=== PATIENT | male | born 1935 | race Caucasian/White ===

== ENCOUNTER 2017-04-03 20:30 | Inpatient (IN) | payer MEDICARE, OTHER ==
[~2017-04-03] VITALS: Ht 182.9 cm; Wt 64.6 kg
--- NOTE | 2017-04-03 20:40 | ERA ---
ER Documentation Chief Complaint Date/Time DATE: 04/03/17 TIME: 20:40 Chief Complaint Fever HPI The patient is a 81-year-old male, presenting to the ER because of fever, low O2 saturation, tachycardia from the [facility]. He is unable to provide any history, the history is obtained from talkback host and assisted facility record. Past medical history: GERD, tremor, chronic kidney disease, hypertension, diabetes mellitus, dementia, anxiety, insomnia ROS All systems reviewed and are negative except as per history of present illness. Allergies Allergies: Coded Allergies: atenolol (Verified Allergy, Unknown, 04/03/17) ciprofloxacin (Verified Allergy, Unknown, 04/03/17) morphine (Verified Allergy, Unknown, 04/03/17) oxazepam (Verified Allergy, Unknown, 04/03/17) valdecoxib (Verified Allergy, Unknown, 04/03/17) verapamil (Verified Allergy, Unknown, 04/03/17) Physical Exam Vitals Vital Signs Date Time Temp Pulse Resp B/P Pulse Ox O2 Delivery O2 Flow Rate FiO2 04/03/17 23:16 104 23 136/60 100 Nasal Cannula 3.0 04/03/17 22:12 90 25 163/120 98 Nasal Cannula 3.0 04/03/17 21:30 2.0 04/03/17 20:58 104.0 112 28 143/89 97 04/03/17 20:58 Nasal Cannula 3 Physical Exam Const: No acute distress. Head: Atraumatic. Eyes: Normal Conjunctiva. ENT: Normal External Ears, Nose and Mouth. Neck: Full range of motion. No meningismus. Resp: Clear to auscultation anteriorly and laterally, tachypnea Cardio: Regular but tachycardic Abd: Soft, non distended, normal bowel sounds, non tender. Skin: No petechiae or rashes. Back: No midline or flank tenderness. Ext: No cyanosis, or edema. Neur: Unable to perform due to his condition Psych: Unable to perform due to his condition Result Diagram: 04/03/17211404/03/172114 Results 24 hrs Laboratory Tests Test 04/03/17 20:43 04/03/17 21:05 04/03/17 21:15 04/03/17 22:27 Blood Gas Specimen Source Blood arterial Arterial Blood Date Drawn 04/03/2017 9:20:21 PM Arterial Blood pH (Temp corrected) 7.490 Arterial Blood pCO2 (Temp correct) 28.6mmhg Arterial Blood pO2 (Temp corrected) 88.3mmHG Arterial Blood HCO3 21.3mmol/L Arterial Blood Base Excess -0.7mmol/L Arterial Blood Oxygen Saturation 97.0mmHG Osvaldo Test ACCEPTAB Arterial Blood Gas Puncture Site Right Radial Arterial Blood Carboxyhemoglobin 0.8% Arterial Blood Methemoglobin 0.5% Blood Gas A-a O2 Differential 70.4mmHg Oxyhemoglobin Percent 95.7% Total Hemoglobin 14.9g/dl Blood Gas Temperature 37.0C Blood Gas Modality NASAL CANNULA FiO2 27.0% Blood Gas Notified Whom MG Blood Gas Notified Time 04/03/2017 9:25:44 PM Urine Color RED Urine Clarity OTHER Urine pH 6.0 Urine Specific [place] 1.020 Urine Ketones 15 Urine Nitrite NEGATIVE Urine Bilirubin NEGATIVE Urine Urobilinogen 1.0 E.U./dL Urine Leukocyte Esterase NEGATIVE Urine Microscopic RBC >200/HPF Urine Microscopic WBC 0-2/HPF Urine Squamous Epithelial Cells OCCASIONAL Urine Bacteria FEW Urine Hemoglobin 3+ Urine Glucose NEGATIVE% Urine Total Protein 2+ Lactic Acid Level 1.5mmol/L 1.1mmol/L White Blood Count 8.010^3/ul Red Blood Count 4.3310^6/ul Hemoglobin 14.5g/dl Hematocrit 43.4% Mean Corpuscular Volume 100.2fl Mean Corpuscular Hemoglobin 33.5pg Mean Corpuscular Hemoglobin Concent 33.4g/dl Red Cell Distribution Width 11.0% Platelet Count 44180^3/UL Mean Platelet Volume 11.0fl Neutrophils % 89.0% Lymphocytes % 8.0% Monocytes % 3.0% Neutrophils # 7.110^3/ul Lymphocytes # 0.610^3/ul Monocytes # 0.210^3/ul Large Platelets FEW Prothrombin Time 17.8Sec Prothrombin Time Ratio 1.4 INR International Normalized Ratio 1.46 Activated Partial Thromboplast Time 33.2Sec Sodium Level 137mmol/L Potassium Level 4.9mmol/L Chloride Level 102mmol/L Carbon Dioxide Level 28mmol/L Anion Gap 12 Blood Urea Nitrogen 31mg/dl Creatinine 1.37mg/dl Glucose Level 183mg/dl Calcium Level 9.1mg/dl Total Bilirubin 1.5mg/dl Direct Bilirubin 0.00mg/dl Indirect Bilirubin 1.5mg/dl Aspartate Amino Transf (AST/SGOT) 22IU/L Alanine Aminotransferase (ALT/SGPT) 30IU/L Alkaline Phosphatase 55IU/L Troponin I 0.236ng/ml Total Protein 7.9g/dl Albumin 4.3g/dl Globulin 3.60g/dl Albumin/Globulin Ratio 1.19 Valproic Acid (Depakene) Level 21ug/ml Current Medications Medications (Trade) Dose Ordered Sig/Jovany Route PRN Reason Start Time Stop Time Status Last Admin Dose Admin Acetaminophen 650 mg 650 mg ONCE STAT MS 04/03/17 20:43 04/03/17 20:46 DC 04/03/17 21:27 Sodium Chloride 1,000 ml @ 1,000 mls/hr Q1H ONCE IV 04/03/17 23:00 04/03/17 23:59 DC 04/03/17 22:45 Cefepime HCl 50 ml @ 100 mls/hr ONCE ONCE IVPB 04/03/17 23:30 04/03/17 23:59 DC 04/03/17 23:34 Vancomycin HCl (Vancocin) 250 ml @ 125 mls/hr ONCE IVPB 04/03/17 23:30 04/04/17 01:29 04/04/17 00:13 Aspirin (Aspirin) 300 mg ONCE ONCE MS 04/03/17 23:30 04/03/17 23:50 DC 04/03/17 23:57 Procedures/[place] [id number] Radiology Main Line: [phone] DIAGNOSTIC IMAGING REPORT Patient: OSKAR OCHOA : 1935 Age: 81 Sex: M MR #: [id number] DOS: 04/03/172042 Ordering MD: JASON MONTENEGRO MD Location: E/R Room/Bed: PROCEDURE: Portable chest x-ray. CLINICAL INDICATION: Sepsis. TECHNIQUE: Portable AP view of the chest. COMPARISON: None. FINDINGS: There are airspace opacities in the left lower lung. The cardiac silhouette is magnified. There are aortic calcifications. No pleural effusion is seen. There is no pneumothorax. IMPRESSION: 1. Airspace opacities in the left lower lung, consistent with pneumonia. 2. Aortic atherosclerosis. RPTAT: HTAR .Miguel A Nixon MD, MD Date Time Electronically viewed and signed by .Miguel A Nixon MD, MD on 04/03/2017 23:54 .R/ CC: JASON MONTENEGRO MD EKG: Read by emergency physician Rate/Rhythm: Normal Sinus Rhythm 96 beats/min QRS, ST, T-waves: No ST elevation, no T inversion, LAD, prolonged QT Impression: Abnormal EKG MEDICAL MAKING DECISION: The patient is a 81-year-old male, presenting with acute pneumonia, acute non-STEMI. He was treated with Tylenol suppository for fever, straight cath was down to obtain a urine specimen, cefepime IV, vancomycin IV for acute healthcare acquired pneumonia, aspirin 300 mg suppository for acute non-STEMI. The differential diagnoses for acute elevated troponin considered include but are not limited to acute coronary syndrome, acute myocardial infarction, pericarditis, pulmonary embolism, aortic dissection, pneumonia, pleural effusion , pneumothorax, GERD, chest wall pain. The differential diagnoses for acute pneumonia considered include but are not limited to asthma, COPD, pneumonia, pulmonary embolus, pleural effusion, congestive heart failure. Departure Diagnosis: Primary Impression: Acute non-ST segment elevation myocardial infarction (STEMI) following previous myocardial infarction Additional Impressions: Pneumonia Thrombocytopenia Condition: Stable Comments Critical Care: Time: 35 minutes excluding all billable procedures. Treatments/Evaluations: Close monitoring and treatment of unstable vital signs, cardiorespiratory, and neurologic status, while maintaining tight balance of fluid, respiratory, and cardiac interventions. I discussed the findings with the patient. I discussed the patient with the on- call hospitalist Dr. Sandoval at 11:35 PM who was made aware of the lab, the treatment, the patient condition. The patient is admitted to telemetry JASON MONTENEGRO MD April 03, 2017 20:40
[2017-04-03] MEDS ORDERED: ACETAMINOPHEN 650 MG SUPP PR STA (20:43)
[2017-04-03 21:25] LABS: AADO2 Arterial 70.4 mmHg (7.0-24.0); Allen Test ACCEPTAB; Arterial Base Excess -0.7 mmol/L (-3.0-3); Arterial COHb 0.8 % (0.0-3.0); Arterial Fraction of Oxyhgb 95.7 % (93.0-99.0); Arterial HCO3 21.3 mmol/L (22.0-26.0); Arterial MetHb 0.5 % (0.0-1.5); Arterial Total Hemglobin 14.9 g/dl (12.0-18.0); MODE NASAL CANNULA
[2017-04-03 21:27] LABS: ADD UMIC YES; URINE BILIRUBIN (Dip) NEGATIVE (NEGATIVE); URINE BLOOD (Dip) 3+ (NEGATIVE); URINE COLOR RED (YELLOW); URINE GLUCOSE (Dip) NEGATIVE (NEGATIVE); URINE KETONES (Dip) 15 (NEGATIVE); URINE LEUKOCYTE ESTERASE (Dip) NEGATIVE (NEGATIVE); URINE NITRITE (Dip) NEGATIVE (NEGATIVE); URINE TOTAL PROTEIN (Dip) 2+ (NEGATIVE); URINE UROBILINOGEN (Dip) 1.0 E.U./dL (0.1-1.0)
[2017-04-03 21:43] LABS: ADD SCAN DIFF NO
[2017-04-03 21:46] LABS: ABNORMAL IP MESSAGE 1; HEMATOCRIT 43.4 % (42.0-52.0); HEMOGLOBIN 14.5 g/dl (14.0-18.0); MEAN CORPUSCULAR HEMOGLOBIN 33.5 pg (29.0-33.0); MEAN CORPUSCULAR HGB CONC 33.4 g/dl (32.0-37.0); MEAN CORPUSCULAR VOLUME 100.2 fl (82.0-101.0); PLATELET COUNT 128 10^3/UL (140-415); RED BLOOD COUNT 4.33 10^6/ul (4.70-6.10)
[2017-04-03 22:01] LABS: INR 1.46; PROTIME 17.8 Sec (12.2-14.2); PT RATIO 1.4
[2017-04-03 22:02] LABS: PARTIAL THROMBOPLASTIN TIME 33.2 Sec (25.0-35.0)
[2017-04-03 22:04] LABS: ALBUMIN 4.3 g/dl (3.3-4.9); POTASSIUM 4.9 mmol/L (3.5-5.1)
[2017-04-03 22:04] LABS: URINE RBCS >200 /HPF (0)
[2017-04-03 22:05] LABS: BACTERIA,URINE FEW; SQUAMOUS EPITHELIAL CELL,UR OCCASIONAL
[2017-04-03 22:06] LABS: ALBUMIN/GLOBULIN RATIO 1.19; BILIRUBIN,INDIRECT 1.5 mg/dl (0-1.1); BILIRUBIN,TOTAL 1.5 mg/dl (0.2-1.3); CREATININE 1.37 mg/dl (0.61-1.24); TOTAL PROTEIN 7.9 g/dl (6.1-8.1)
[2017-04-03 22:07] LABS: CALCIUM 9.1 mg/dl (8.4-10.2)
[2017-04-03 22:32] LABS: TROPONIN-I 0.236 ng/ml (0.00-0.12)
[2017-04-03] MEDS ORDERED: SOD CHLORIDE 0.9% 1,000 ML IV ONE (23:00)
[2017-04-03 23:14] LABS: LYMPHOCYTES # 0.6 10^3/ul (0.8-2.9); MONOCYTE # 0.2 10^3/ul (0.3-0.9); NEUTROPHIL # 7.1 10^3/ul (1.6-7.5)
[2017-04-03] MEDS ORDERED: ASPIRIN 300 MG SUPP PR ONE (23:30)
[2017-04-03] MEDS ORDERED: VANCOMYCIN 1 GM (PMX) 250 ML IVPB SCH (23:30)
[2017-04-03] MEDS ORDERED: CEFEPIME 1GM/50 ML (PMX) 50 ML IVPB ONE (23:30)
--- NOTE | 2017-04-03 23:54 | RADRPT ---
PROCEDURE: Portable chest x-ray. CLINICAL INDICATION: Sepsis. TECHNIQUE: Portable AP view of the chest. COMPARISON: None. FINDINGS: There are airspace opacities in the left lower lung. The cardiac silhouette is magnified. There are aortic calcifications. No pleural effusion is seen. There is no pneumothorax. IMPRESSION: 1. Airspace opacities in the left lower lung, consistent with pneumonia. 2. Aortic atherosclerosis. RPTAT: HTAR .Miguel A Nixon MD, Date Time Electronically viewed and signed by .Miguel A Nixon MD, on 04/03/2017 23:54 .R/
[2017-04-04] VITALS (14 sets, daily range): BP systolic 129–151; BP diastolic 45–66; PULSE 40–96; RESP 16–20; TEMP 101.6; Ht 182.9 cm; Wt 64.6 kg
[2017-04-04] MEDS ORDERED: hydrALAzine 20 MG INJ IV PRN (01:30)
[2017-04-04] MEDS ORDERED: GLUCOSE GEL 15 GRAM TUBE PO PRN ×2 (02:00)
[2017-04-04] MEDS ORDERED: GLUCOSE GEL 15 GRAM TUBE BUCCAL PRN (02:00)
[2017-04-04] MEDS ORDERED: GLUCAGON 1 MG INJ IM PRN (02:00)
[2017-04-04] MEDS ORDERED: ACETAMINOPHEN 500 MG TAB PO PRN (02:00)
[2017-04-04] MEDS ORDERED: DEXTROSE 50% 50 ML SYRINGE IV PRN ×2 (02:00)
[2017-04-04] MEDS ORDERED: BISACODYL 10 MG SUPP PR PRN (02:00)
[2017-04-04] MEDS ORDERED: MAGNESIUM HYDROXIDE 30ML CUP PO PRN (02:00)
[2017-04-04] MEDS ORDERED: MAGN400O4 PO (02:17)
[2017-04-04] MEDS ORDERED: MULT-761 PO (02:17)
[2017-04-04] MEDS ORDERED: MEMA10TA16 PO (02:17)
[2017-04-04] MEDS ORDERED: CHOL100062 PO (02:17)
[2017-04-04] MEDS ORDERED: RISP0.5T3 PO (02:17)
[2017-04-04] MEDS ORDERED: LISI20TA11 PO (02:17)
[2017-04-04] MEDS ORDERED: BISA-57 PO (02:17)
[2017-04-04] MEDS ORDERED: ACET500C5 PO ×2 (02:17)
[2017-04-04] MEDS ORDERED: FAMO20TA18 PO (02:18)
[2017-04-04] MEDS ORDERED: AMLO5TAB4 PO (02:26)
[2017-04-04] MEDS ORDERED: DIVA250T60 PO (02:26)
[2017-04-04] MEDS: DEXTROSE 5%-0.45% NACL 1,000 ML IV SCH ×2 (02:27→17:04)
[2017-04-04 02:36] LABS: CK-MB 2.12 ng/ml (0.0-2.4); TROPONIN-I 0.521 ng/ml (0.00-0.12)
[2017-04-04] MEDS ORDERED: VANCOMYCIN IV PER PHARMACY XX SCH (04:30)
--- NOTE | 2017-04-04 05:07 | HP ---
DATE OF ADMISSION: 04/03/2017 CHIEF COMPLAINT: Fever, cough, and worsening mentation. HISTORY OF PRESENT ILLNESS: The patient is an 81-year-old male with a history of hypertension, diab etes, severe dementia, CKD, anxiety, depression, and psychosis who was sent from [facility] with the above stated chief complaint. The patient is currently nonverbal, and as such, inf ormation is gathered from chart review and from the ER physician. Per EMS notes, the patient is nor neo alert and oriented x1, but he became unresponsive about 30 minutes prior to their arrival. He was tachycardic, hypoxic, and had a temperature of 104. When the patient arrived to the ER, he was responsive only to painful stimuli, and he had rigid/spastic bilateral upper extremities. He was t achypneic and was frequently coughing up thick mucoid expectorate. His blood pressure was 143/89, h eart rate 112, respiratory rate 28, temperature 104, oxygen saturation 97% on 3 liters oxygen. Ches t x-ray shows airspace opacities in the left lower lung consistent with pneumonia. Laboratory value s show WBC of 8, hemoglobin 14.5, platelet count 128. Sodium 137, potassium 4.9, chloride 102, bica rbonate 28, BUN 31, creatinine 1.37, glucose 183. His initial lactic acid 1.5, second one 1.1, and third one was 1. His initial troponin was 0.236. The patient was started on cefepime and vancomycin and was given aspirin per rectum, 1 liter of norm al saline, and Tylenol. REVIEW OF SYSTEMS: Unable to assess because of the patient's condition. PAST MEDICAL HISTORY: As per HPI. PAST SURGICAL HISTORY: Unknown. SOCIAL HISTORY: Reportedly, the patient is a nonsmoker. Otherwise, social history is unknown excep t that he currently resides at a retirement. ALLERGIES: 1. ATENOLOL. 2. CIPROFLOXACIN. 3. MORPHINE. 4. OXAZEPAM. 5. VALDECOXIB. 6. VERAPAMIL. HOME MEDICATIONS: 1. Norvasc. 2. Lisinopril. 3. Tylenol. 4. Depakote. 5. Namenda. 6. Risperidone. 7. Dulcolax. 8. Famotidine. 9. Milk of magnesia. 10. Vitamin D3. 11. Multivitamin. PHYSICAL EXAMINATION: VITAL SIGNS: Blood pressure 136/60, heart rate 104, respiratory rate 23, temperature 101.6, oxygen saturation 100% on 3 liters. GENERAL: The patient lying in bed. He is nonverbal, unresponsive to verbal stimuli but responds to noxious stimuli. The upper extremities are somehow rigid. HEENT: No obvious head deformity. His pupils are reactive to light. No scleral icterus. CARDIOVASCULAR: Tachycardic with regular rhythm. LUNGS: Decreased breath sounds at the bases, more left than the right, and he has scattered crackle s. ABDOMEN: Soft, nondistended. Positive bowel sounds. EXTREMITIES: No edema. LABORATORY DATA: Pertinent positives as mentioned in HPI. IMAGING: Chest x-ray shows airspace opacity in the left lower lung consistent with pneumonia. The cardiac silhouette is magnified. No pleural effusion, and no pneumothorax. IMPRESSION: 1. Sepsis as evidenced by fever and tachycardia, secondary to pneumonia. 2. Healthcare-associated pneumonia. 3. Positive troponin. 4. Severe dementia. 5. History of psychosis/anxiety/depression 6. Chronic kidney disease. 7. History of diabetes. PLAN: Continue telemetry monitoring. He will be placed on broad spectrum antibiotic. We will foll ow up on culture results. We will attempt to send sputum for Gram stain and culture if possible. H is positive troponin is likely a result of demand ischemia from sepsis. We will trend his troponin. EKG without ST-T abnormalities. The patient will need a formal swallow evaluation, and as such, w e will place him on aspirin per rectum daily. The rest of his medication will be given if he passed swallow evaluation. Otherwise, will put in an NG tube and will give medication through that. We w ill check A1c, fasting lipids, and TSH in the morning. We will place a cardiology consult. We will also obtain a 2-D echo. We will also place an ID consult. Further workup and management will be per clinical course. Dictated By: GOSIA ELIZONDO/AROLDO Conf#: [id number] DID#: [id number]
[2017-04-04 06:47] LABS: ADD SCAN DIFF NO
[2017-04-04 06:53] LABS: ABNORMAL IP MESSAGE 1; BASOPHILS % 0.2 % (0.0-2.0); HEMATOCRIT 36.9 % (42.0-52.0); HEMOGLOBIN 12.1 g/dl (14.0-18.0); LYMPHOCYTES # 0.7 10^3/ul (0.8-2.9); LYMPHOCYTES % 11.5 % (15.0-51.0); MEAN CORPUSCULAR HEMOGLOBIN 33.1 pg (29.0-33.0); MEAN CORPUSCULAR HGB CONC 32.8 g/dl (32.0-37.0); MEAN CORPUSCULAR VOLUME 100.8 fl (82.0-101.0); MEAN PLATELET VOLUME 11.1 fl (7.4-10.4); MONOCYTE # 0.3 10^3/ul (0.3-0.9); MONOCYTES % 5.6 % (0.0-11.0); NEUTROPHILS % 82.2 % (39.0-77.0); PLATELET COUNT 99 10^3/UL (140-415); RED BLOOD COUNT 3.66 10^6/ul (4.70-6.10); RED CELL DISTRIBUTION WIDTH 11.4 % (11.5-14.5); WHITE BLOOD COUNT 6.1 10^3/ul (4.8-10.8)
[2017-04-04 07:26] LABS: ALBUMIN 3.4 g/dl (3.3-4.9); ALBUMIN/GLOBULIN RATIO 1.03; BILIRUBIN,INDIRECT 1.5 mg/dl (0-1.1); BILIRUBIN,TOTAL 1.5 mg/dl (0.2-1.3); CALCIUM 8.4 mg/dl (8.4-10.2); CHOL/HDL RATIO 3.2 RATIO; CREATININE 1.23 mg/dl (0.61-1.24); POTASSIUM 4.4 mmol/L (3.5-5.1); TOTAL PROTEIN 6.7 g/dl (6.1-8.1)
[2017-04-04 07:47] LABS: THYROID STIMULATING HORMONE 1.22 MIU/L (0.465-4.680)
[2017-04-04] MEDS: LISINOPRIL 20 MG TAB PO SCH (08:04)
[2017-04-04] MEDS: RISPERIDONE 0.25 MG TAB PO SCH (08:04)
[2017-04-04] MEDS: VALPROIC ACID 250 MG CAP PO SCH (08:04)
[2017-04-04] MEDS: ASPIRIN 300 MG SUPP PR SCH (08:05)
[2017-04-04] MEDS: INSULIN GLARGINE [LANtus] 3 ML PEN SC SCH (08:18)
[2017-04-04] MEDS: INSULIN ASPART [NOVOLOG] 3 ML PEN SC SCH ×4 (08:18→20:41)
[2017-04-04] MEDS: AMLODIPINE 5 MG TAB PO SCH (09:00)
[2017-04-04] MEDS ORDERED: ASPIRIN 300 MG SUPP PR SCH (09:00)
[2017-04-04] MEDS: CEFEPIME 1GM/50 ML (PMX) 50 ML IVPB SCH ×2 (09:00→20:44)
[2017-04-04] MEDS: LEVETIRACETAM 500 MG (PMX) 100 ML IVPB SCH ×2 (09:01→20:33)
[2017-04-04] MEDS: FAMOTIDINE 20 MG INJ IV SCH (09:01)
[2017-04-04 09:07] LABS: PLATELET ESTIMATE PLT APPEAR DECREASED
[2017-04-04] MEDS: HEPARIN 5,000 UNIT/0.5 ML VIAL SC SCH ×2 (09:29→20:48)
[2017-04-04 10:11] LABS: CK-MB 2.97 ng/ml (0.0-2.4)
[2017-04-04 10:13] LABS: TROPONIN-I 1.35 ng/ml (0.00-0.12)
--- NOTE | 2017-04-04 12:31 | RADRPT ---
Echocardiogram Report Patient Name: OSKAR OCHOA Gender: Male Date: 1935 Study Date: 04-Apr-2017 Boring Machine Set Up Operator: Rodolfo [facility] Location: 509 Ref. Physician: GOSIA ARMSTRONG Quality: Technically Difficult Study Procedures: Transthoracic echocardiogram with complete 2D, M-Mode, and doppler examination. Indications: NSTEMI. 2D/M Mode Doppler Measurement Value Normal Ranges Measurement Value Normal Ranges LVIDd 2D 4.5 3.5 - 5.6 cm INDU Vmax 0.4 cm2 LVIDs 2D 3.1 2.1 - 4.1 cm INDU VTI 0.4 cm2 LVPWd 2D 1.2 0.6 - 1.1 cm AV Mean Malik 3.3 m/sec IVSd 2D 1.2 0.6 - 1.1 cm AV Mean PG 51.2 mmHg AoR Diam 2D 2.7 2.0 - 3.7 cm AV Peak Malik 4.6 m/sec EDV 2D 92.3 cm3 AV Peak PG 84.5 mmHg ESV 2D 30.1 cm3 AV VTI 113.1 cm LA Dimen 2D 3.4 2.3 - 4.0 cm LVOT Mean Malik 0.5 m/sec LVOT Diam 1.8 cm LVOT Mean PG 1.2 mmHg LVOT Peak Malik 0.8 m/sec LVOT Peak PG 2.7 mmHg LVOT VTI 16.6 cm MV E Peak Malik 1.3 m/sec MV A Peak Malik 0.7 m/sec MV E/A 1.9 MV Decel Time 191 msec MV Decel Worth 7 MV E/A 1.9 TR Peak Malik 2.8 m/sec TR Peak PG 30.7 mmHg RVSP 39.0 mmHg Findings Left Ventricle: Normal left ventricular systolic function. Normal left ventricular cavity size. Mild concentric left ventricular hypertrophy. Ejection fraction is visually estimated at 50 %. Right Ventricle: Normal right ventricular size. Normal right ventricular systolic function. Left Atrium: The left atrium is normal in size. Right Atrium: The right atrium is normal in size. Mitral Valve: Mitral valve leaflets appear mildly thickened. Mild mitral annular calcification. Mild to moderate mitral valve regurgitation. Aortic Valve: Severe aortic stenosis. Aortic valve Max velocity 4.60 m/sec. Max PG 84.50 mmHg. Mean PG 51.20 mmHg. Aortic valve area 0.40 cm2. Aortic cusps appear severely calcified. Mild to moderate aortic valve regurgitation. Tricuspid Valve: Tricuspid valve not well visualized. Estimated peak PA systolic pressure 39 mmHg. There is mild tricuspid regurgitation. Pulmonic Valve: Pulmonic valve not well visualized. There is trace pulmonic regurgitation. Pericardium: Normal pericardium with no significant pericardial effusion. Aorta: Normal aortic root. IVC: Dilated IVC with respiratory collapse consistent with elevated right atrial pressure. Conclusions 1.Normal left ventricular systolic function. Normal left ventricular cavity size. Mild concentric left ventricular hypertrophy. Ejection fraction is visually estimated at 50 %. 2.Mitral valve leaflets appear mildly thickened. Mild mitral annular calcification. Mild to moderate mitral valve regurgitation. 3.Severe aortic stenosis. Aortic valve Max velocity 4.60 m/sec. Max PG 84.50 mmHg. Mean PG 51.20 mmHg. Aortic valve area 0.40 cm2. Aortic cusps appear severely calcified. Mild to moderate aortic valve regurgitation. 4.Tricuspid valve not well visualized. Estimated peak PA systolic pressure 39 mmHg. There is mild tricuspid regurgitation. 5.Dilated IVC with respiratory collapse consistent with elevated right atrial pressure. Electronically Signed By: Paresh Mary 04-Apr-2017 12:30:19 -0700 Patient Name: OSKAR OCHOA Study Date: 04-Apr-2017 [id number]
--- NOTE | 2017-04-04 13:59 | CONS ---
DATE OF ADMISSION: 04/03/2017 DATE OF CONSULTATION: 04/04/2017 TYPE OF CONSULTATION: Cardiology. REFERRING PHYSICIAN: Dr. Singh REASON FOR CONSULTATION: Abnormal troponin. CHIEF COMPLAINT: Altered level of consciousness, fever, cough. HISTORY OF PRESENT ILLNESS: Thank you for this referral. The patient is an extremely poor historian . The history obtained from discussion with the staff and physicians and review of the chart. This is an 81-year-old gentleman with history of diabetes, severe dementia, anxiety who was [facility] the [facility] because of complaints. The patient apparently has had fever, cough and has become more confused. He had a fever of 104. Troponin has been elevated for which I was kindly asked to review. It is very difficult to get any reliable history from the patient. There does not appear t o be any significant left-sided chest pain or pressure at this time. Does complain of leg pain when asked though. PAST MEDICAL HISTORY: The best I could obtain, history of dementia, hypertension, diabetes, depress ion, anxiety, chronic kidney disease. Per echo today also apparently has severe aortic stenosis as well. SOCIAL HISTORY: The patient is a nonsmoker. Lives in a [facility]dc. ALLERGIES: Reported to be: 1. ATENOLOL. 2. CIPRO. 3. MORPHINE. 4. CEFEPIME. 5. VERAPAMIL. Detail is unclear. MEDICATIONS: At home include: 1. Norvasc. 2. Lisinopril. 3. Depakote. 4. Namenda. 5. Risperdal. 6. Milk of magnesia. REVIEW OF SYSTEMS: Unable to obtain except for above-mentioned. FAMILY HISTORY: Unable to obtain. PHYSICAL EXAMINATION: VITAL SIGNS: Temperature 97.7, heart rate of 83, blood pressure 129/60, respiratory rate 18. HEENT: Normocephalic, atraumatic. No acute distress. Thin gentleman. Pupils are equal. CARDIOVASCULAR: Regular rate and rhythm, systolic ejection murmur radiating to carotids, grade III to IV/. PULMONARY: With no wheezes heard. GASTROINTESTINAL: Soft, nontender. EXTREMITIES: No significant lower extremity edema. NEUROLOGIC: Awake, alerted. Oriented to person only. PSYCHIATRIC: Appeared to be calm now. LABORATORY: Showed WBC of 6.1, hemoglobin 12.1, platelets of 99. Sodium 139, potassium 4.4, BUN of 30, creatinine 1.23, glucose of 160. Troponin of 0.5 and 1.3. Cholesterol 170, LDL 71, HDL 34. E KG with normal sinus rhythm. Nonspecific ST abnormalities. Echocardiogram was personally reviewed, showed preserved systolic function, overall ejection fraction estimated about 50%. There is a sonja rely calcified aortic valve with a mean gradient of 51. Peak gradient of 84 noted. Consistent with severe aortic stenosis. ASSESSMENT AND PLAN: 1. Qql-CI-ppceasdpn myocardial infarction. 2. Severe aortic stenosis. 3. Pneumonia. 4. Severe dementia. 5. Hypertension. 6. Chronic kidney disease. RECOMMENDATIONS: The patient has been appropriately placed on aspirin. We will continue with aspir in. Currently unable to take p.o. medication. ____ recommendations. We will continue conservative therapy given his severe dementia. Will continue to monitor along with you. Dictated By: ALVINA GARCIA MD AV/AROLDO Conf#: [id number] DID#: [id number] CC: BERENICE SINGH MD;*EndCC*
[2017-04-04] MEDS: VANCOMYCIN 1.25 GM in SOD CHLORIDE 0.9% 250 ML IVPB SCH (22:15)
[2017-04-05] VITALS (14 sets, daily range): BP systolic 114–131; BP diastolic 49–61; PULSE 61–150; RESP 16–20
[2017-04-05] MEDS ORDERED: VANCOMYCIN 750 MG in SOD CHLORIDE 0.9% 150 ML IVPB SCH (00:30)
[2017-04-05] MEDS: ACCU-CHEK XX SCH (01:50)
[2017-04-05] MEDS: DEXTROSE 5%-0.45% NACL 1,000 ML IV SCH ×2 (04:10→11:52)
[2017-04-05 06:51] LABS: ADD SCAN DIFF NO
[2017-04-05 06:58] LABS: BASOPHILS % 0.2 % (0.0-2.0); HEMATOCRIT 39.2 % (42.0-52.0); HEMOGLOBIN 12.9 g/dl (14.0-18.0); LYMPHOCYTES # 0.8 10^3/ul (0.8-2.9); MEAN CORPUSCULAR HEMOGLOBIN 33.6 pg (29.0-33.0); MEAN CORPUSCULAR HGB CONC 32.9 g/dl (32.0-37.0); MEAN CORPUSCULAR VOLUME 102.1 fl (82.0-101.0); MEAN PLATELET VOLUME 11.1 fl (7.4-10.4); MONOCYTE # 0.5 10^3/ul (0.3-0.9); MONOCYTES % 8.1 % (0.0-11.0); NEUTROPHIL # 4.7 10^3/ul (1.6-7.5); NEUTROPHILS % 78.5 % (39.0-77.0); PLATELET COUNT 114 10^3/UL (140-415); RED BLOOD COUNT 3.84 10^6/ul (4.70-6.10); RED CELL DISTRIBUTION WIDTH 11.1 % (11.5-14.5)
[2017-04-05 07:11] LABS: ALBUMIN 3.7 g/dl (3.3-4.9)
[2017-04-05 07:12] LABS: POTASSIUM 5.1 mmol/L (3.5-5.1)
[2017-04-05 07:13] LABS: PHOSPHORUS 2.9 mg/dl (2.5-4.9)
[2017-04-05 07:14] LABS: BILIRUBIN,INDIRECT 0.8 mg/dl (0-1.1); BILIRUBIN,TOTAL 0.8 mg/dl (0.2-1.3); CREATININE 1.28 mg/dl (0.61-1.24); TOTAL PROTEIN 7.4 g/dl (6.1-8.1)
[2017-04-05 07:15] LABS: CALCIUM 8.8 mg/dl (8.4-10.2)
--- NOTE | 2017-04-05 07:29 | PN ---
DATE: 04/04/2017 TIME OF EVALUATION: 1700. SUBJECTIVE DATA: The patient remains sinus bradycardic. Status post evaluation by Cardiology. OBJECTIVE DATA: VITAL SIGNS: Temperature 98.2, pulse is 79, respiratory rate 18, blood pressure 130/45, oxygen saturation 98% on room air. GENERAL: This is an elderly male patient lying in bed in no apparent distress. HEENT: Head normocephalic and atraumatic. Eyes: Anicteric sclerae. Conjunctivae clear. ENT: Nasal septum is midline. Oral mucosa is dry. NECK: Supple. No JVD noticed. RESPIRATORY: Bilaterally clear to auscultation. No adventitious breath sounds heard. No use of accessory muscles of respiration. CARDIAC: Regular rate and rhythm with a grade III/ systolic ejection murmur. ABDOMEN: Soft, nontender and nondistended. Bowel sounds positive in all 4 quadrants. GENITOURINARY: Deferred. EXTREMITIES: No cyanosis, no clubbing, no edema. Peripheral pulses are palpable. NEUROLOGIC: The patient is awake and alert. OrientedX1. LABORATORY AND DIAGNOSTIC DATA: WBC 6.1, hemoglobin 12.1, hematocrit 36.9, platelet count 99. Sodium 139, potassium 4.4, chloride 103, carbon dioxide 25, anion gap 15, BUN 30, creatinine 1.23, glucose 150, calcium 8.4. ASSESSMENT AND PLAN: 1. Usr-FU-qwvlskyds myocardial infarction. Status post evaluation by Cardiology. Continue the patient on aspirin. 2. Essential hypertension. Continue antihypertensives. 3. Healthcare-associated pneumonia. Continue antibiotics. No evidence of any septic shock. 4. Sepsis secondary to underlying pneumonia. No evidence of septic shock. Continue antibiotics. 5. Type 2 diabetes mellitus. Continue sliding scale insulin. Obtain a hemoglobin A1c. 6. Dementia. Continue frequent reorientation. Continue close monitoring. 7. Thrombocytopenia. Monitor platelet count closely. Monitor for bleeding. 8. Hematuria. Monitor. Most probably secondary to underlying trauma from Marsh catheter insertion. 9. Severe aortic stenosis. Will monitor. 10. Fluids, electrolytes and nutrition. Pureed diet. 11. Deep venous thrombosis prophylaxis. Subcutaneous heparin. 12. Gastrointestinal prophylaxis with histamine 2 receptor blockers. PLAN: 1. Continue telemetry monitoring. 2. Continue Cardiology recommendations. The case was discussed with Dr. Cabezas. WHITNEY CABEZAS MD, AM/AROLDO Conf#: [id number] DID#: [id number] MTDD
[2017-04-05] MEDS: INSULIN ASPART [NOVOLOG] 3 ML PEN SC SCH ×4 (07:55→21:48)
[2017-04-05] MEDS: INSULIN GLARGINE [LANtus] 3 ML PEN SC SCH (08:00)
[2017-04-05 08:35] LABS: CK-MB 2.65 ng/ml (0.0-2.4); TROPONIN-I 0.364 ng/ml (0.00-0.12)
[2017-04-05] MEDS: ASPIRIN 300 MG SUPP PR SCH ×2 (09:00→11:10)
[2017-04-05] MEDS: HEPARIN 5,000 UNIT/0.5 ML VIAL SC SCH ×2 (09:00→21:48)
[2017-04-05] MEDS: FAMOTIDINE 20 MG INJ IV SCH (09:06)
[2017-04-05] MEDS: VALPROIC ACID 250 MG CAP PO SCH (09:06)
[2017-04-05] MEDS: LEVETIRACETAM 500 MG (PMX) 100 ML IVPB SCH ×2 (09:06→21:36)
[2017-04-05] MEDS: RISPERIDONE 0.25 MG TAB PO SCH (09:07)
[2017-04-05] MEDS: AMLODIPINE 5 MG TAB PO SCH (09:18)
[2017-04-05] MEDS: LISINOPRIL 20 MG TAB PO SCH (09:18)
[2017-04-05] MEDS: CEFEPIME 1GM/50 ML (PMX) 50 ML IVPB SCH ×2 (09:20→21:43)
--- NOTE | 2017-04-05 14:31 | PN ---
Date/Time of Note Date/Time of Note DATE: 04/05/17 TIME: 14:22 Assessment/Plan VTE Prophylaxis VTE Prophylaxis Intervention: heparin Lines/Catheters IV [facility]ter Type (from [facility]): Peripheral IV Urinary Cath still in place: Yes Reason Cath still needed: urinary retention Assessment/Plan Chief Complaint/Hosp Course ASSESSMENT AND PLAN: 1. Hwm-TE-psyiouhtj myocardial infarction. Cardiology has been consulted. Continue the patient on aspirin. Continue medical management, no indication for left heart catheterization as per operations consultant 2. Essential hypertension. Continue antihypertensives. 3. Healthcare-associated pneumonia. Cefepime 4. Dementia. Continue frequent reorientation. Continue close monitoring. 5. Type 2 diabetes mellitus. Continue sliding scale insulin and Lantus 6. Hematuria. Monitor. Most probably secondary to underlying trauma from Marsh catheter insertion. Urology has been consulted 7. Thrombocytopenia. Monitor platelet count closely. Monitor for bleeding. 8. Severe aortic stenosis. Will monitor. Continue medical management 9. Altered mental status. Likely secondary to pneumonia and dementia Continue IV antibiotics, PT OT eval and treat Deep venous thrombosis prophylaxis. Subcutaneous heparin. Gastrointestinal prophylaxis with paolo. PLAN: 1. Continue telemetry monitoring. 2. Continue Cardiology recommendations. Problems: Subjective 24 Hr Interval Summary Free Text/Dictation Patient continues to be altered Not able to follow simple commands Denies of any discomfort Exam/Review of Systems Vital Signs Vitals Vital Signs Date Time Temp Pulse Resp B/P Pulse Ox O2 Delivery O2 Flow Rate FiO2 04/05/17 12:15 74 04/05/17 11:32 98.7 18 120/49 95 04/05/17 07:21 Nasal Cannula 1.0 Intake and Output 04/04/17 04/04/17 04/05/17 15:00 23:00 07:00 Intake Total 150 ml 470 ml 1100 ml Output Total 300 ml 250 ml Balance 150 ml 170 ml 850 ml Exam General: The patient is lying the bed comfortably, Not in acute distress. HEENT: Atraumatic, normocephalic. The pupils are equal and round . Neck: Supple Chest: Normal expansion of the thorax during inspiration Lungs: Clear to auscultation bilaterally Heart: Normal S1-S2, Regular rhythm and rate. Abdomen: Soft , nontender, nondistended , bowel sounds are present. Extremities: Multiple bruising bilateral upper and lower extremity, no edema no cyanosis Neurologic:, patient is awake, not oriented Results Result Diagram: 04/05/17 0620 04/05/17 0620 Results 24 hrs Laboratory Tests Test 04/04/17 17:09 04/04/17 20:40 04/05/17 06:20 04/05/17 11:55 Bedside Glucose 115 147 277 H White Blood Count 6.0 Red Blood Count 3.84 L Hemoglobin 12.9 L Hematocrit 39.2 L Mean Corpuscular Volume 102.1 H Mean Corpuscular Hemoglobin 33.6 H Mean Corpuscular Hemoglobin Concent 32.9 Red Cell Distribution Width 11.1 L Platelet Count 114 L Mean Platelet Volume 11.1 H Neutrophils % 78.5 H Lymphocytes % 13.0 L Monocytes % 8.1 Eosinophils % 0.0 Basophils % 0.2 Nucleated Red Blood Cells % 0.0 Neutrophils # 4.7 Lymphocytes # 0.8 Monocytes # 0.5 Eosinophils # 0.0 Basophils # 0.0 Nucleated Red Blood Cells # 0.0 Sodium Level 143 Potassium Level 5.1 Chloride Level 112 H Carbon Dioxide Level 26 Anion Gap 10 # Blood Urea Nitrogen 33 H Creatinine 1.28 H Glucose Level 190 Hemoglobin A1c 5.4 Calcium Level 8.8 Phosphorus Level 2.9 Magnesium Level 2.0 Total Bilirubin 0.8 Direct Bilirubin 0.00 Indirect Bilirubin 0.8 Aspartate Amino Transf (AST/SGOT) 26 Alanine Aminotransferase (ALT/SGPT) 28 Alkaline Phosphatase 49 Creatine Kinase 77 Creatine Kinase Index 3.4 Creatinine Kinase MB (Mass) 2.65 H Troponin I 0.364 *H Total Protein 7.4 Albumin 3.7 Globulin 3.70 H Albumin/Globulin Ratio 1.00 Medications Medications Current Medications Dextrose/Sodium Chloride 1,000 ml @ 75 mls/hr [id number] IV Last administered on 04/05/17 11:52; Admin Dose 75 MLS/HR; Start 04/04/17 at 01:30 Levetiracetam (Keppra 500 Mg/ 100ml (Pmx)) 100 ml @ 400 mls/hr Q12 IVPB Last administered on 04/05/17 09:06; Admin Dose 400 MLS/HR; Start 04/04/17 at 09:00 Diagnostic Test (Pha) (Accu-Chek) 1 ea 02 XX ; Start 04/05/17 at 02:00 Insulin Glargine (Lantus) 10 unit DAILY@08 SC Last administered on 04/04/17 08 :18; Admin Dose 10 UNIT; Start 04/04/17 at 08:00 Hydralazine HCl (Apresoline) 10 mg Q4H PRN IV ELEVATED BLOOD PRESSURE; Start at 01:30 Miscellaneous Information 1 ea NOTE XX ; Start 04/04/17 at 02:00 Glucose (Glutose) 15 gm Q15M PRN PO DECREASED GLUCOSE; Start 04/04/17 at 02:00 Glucose (Glutose) 22.5 gm Q15M PRN PO DECREASED GLUCOSE; Start 04/04/17 at 02: 00 Dextrose (D50w Syringe) 25 ml Q15M PRN IV DECREASED GLUCOSE; Start 04/04/17 at 02:00 Dextrose (D50w Syringe) 50 ml Q15M PRN IV DECREASED GLUCOSE; Start 04/04/17 at 02:00 Glucagon (Glucagen) 1 mg Q15M PRN IM DECREASED GLUCOSE; Start 04/04/17 at 02:00 Glucose (Glutose) 15 gm Q15M PRN BUCCAL DECREASED GLUCOSE; Start 04/04/17 at 02 :00 Aspirin (Aspirin) 300 mg DAILY PA Last administered on 04/05/17 11:10; Admin Dose 300 MG; Start 04/04/17 at 09:00 Risperidone (Risperdal) 0.5 mg DAILY PO Last administered on 04/05/17 09:07; Admin Dose 0.5 MG; Start 04/04/17 at 09:00 Acetaminophen (Tylenol Tab) 500 mg Q6H PRN PO PAIN AND OR ELEVATED TEMP; Start 04/04/17 at 02:00 Bisacodyl (Dulcolax Supp) 10 mg Q48H PRN PA CONSTIPATION; Start 04/04/17 at 02: 00 Magnesium Hydroxide (Milk Of Mag) 30 ml DAILY PRN PO CONSTIPATION; Start at 02:00 Lisinopril (Zestril) 20 mg DAILY PO Last administered on 04/05/17 09:18; Admin Dose 20 MG; Start 04/04/17 at 09:00 Memantine (Namenda) 10 mg DAILY PO ; Start 04/04/17 at 09:00; Status UNV Famotidine (Pepcid Iv) 20 mg DAILY IV Last administered on 04/05/17 09:06; Admin Dose 20 MG; Start 04/04/17 at 09:00 Amlodipine Besylate (Norvasc) 5 mg DAILY PO Last administered on 04/05/17 09: 18; Admin Dose 5 MG; Start 04/04/17 at 09:00 Valproic Acid (Depakene) 250 mg DAILY PO Last administered on 04/05/17 09:06; Admin Dose 250 MG; Start 04/04/17 at 09:00 Heparin Sodium (Porcine) 5000 unit 5,000 unit BID SC Last administered on 20:48; Admin Dose 5,000 UNIT; Start 04/04/17 at 09:00 Cefepime HCl 50 ml @ 100 mls/hr Q12 IVPB Last administered on 04/05/17 09:20 ; Admin Dose 100 MLS/HR; Start 04/04/17 at 09:00 Vancomycin HCl/ Sodium Chloride (Vancocin/NS) 250 ml @ 83.333 mls/ hr Q24H IVPB Last administered on 04/04/17 22:15; Admin Dose 83.333 MLS/HR; Start at 23:00 MÓNICA CONTRERAS MD April 05, 2017 14:31
[2017-04-05 16:38] LABS: ADD UMIC YES; URINE BLOOD (Dip) 3+ (NEGATIVE); URINE COLOR DK. RED (YELLOW); URINE KETONES (Dip) TRACE (NEGATIVE); URINE LEUKOCYTE ESTERASE (Dip) NEGATIVE (NEGATIVE); URINE NITRITE (Dip) POSITIVE (NEGATIVE); URINE TOTAL PROTEIN (Dip) 2+ (NEGATIVE); URINE UROBILINOGEN (Dip) 1.0 E.U./dL (0.1-1.0)
--- NOTE | 2017-04-05 17:26 | PN ---
DATE: 04/05/2017 CARDIOLOGY FOLLOWUP SUBJECTIVE: Discussed with the staff and with Dr. Contreras. The patient remains in sinus rhythm; however, multiple episodes of SVT and tachycardia. Apparently, there have been issues with the Fole y catheter, this has been removed. There also has been hematuria. No chest pain or pressure at thi s point. MEDICATIONS: Reviewed as per medication reconciliation, which was personally reviewed. PHYSICAL EXAMINATION: VITAL SIGNS: Temperature 97.8, heart rate of 86, blood pressure 114/58, respiratory rate of 18, sat urating 99%. HEENT: Normocephalic, atraumatic. Thin gentleman in no acute distress. Eyes: Pupils are equal. CARDIOVASCULAR: Regular rate and rhythm, systolic murmur. PULMONARY: With no wheezes or rhonchi. GASTROINTESTINAL: Soft, nontender. EXTREMITIES: No significant edema. NEUROLOGIC: Awake, alert and oriented to person only. PSYCHIATRIC: Appeared to be calm now. GENITOURINARY: Status post Marsh, with condom catheter in place now. LABORATORY DATA: WBC of 6.0, hemoglobin 12.9, platelets of 114. Sodium 143, potassium 5.1, BUN of 33, creatinine 1.28, glucose 190. Hemoglobin A1c of 5.4. CK is 77. Most recent troponin was 0 3. ASSESSMENT AND PLAN: 1. Abnormal troponin consistent with non-ST elevation myocardial infarction. 2. Aortic stenosis appears to be severe. 3. Pneumonia. 4. Severe dementia. 5. Hematuria, possibly trauma. 6. Hypertension. 7. Renal insufficiency, currently stable. RECOMMENDATIONS: The patient is currently chest pain free. Also has severe aortic stenosis. At th is point, given his severe dementia and absence of any cardiac symptoms, we will continue to monitor and treat him medically. Aspirin will be continued. I will replace his amlodipine with carvedilol as well. Dictated By: ALVINA GARCIA MD AV/NTS Conf#: [id number] DID#: [id number] CC: MÓNICA CONTRERAS MD;*EndCC*
[2017-04-05 17:28] LABS: URINE BILIRUBIN (Dip) NEGATIVE (NEGATIVE)
[2017-04-05 17:29] LABS: BACTERIA,URINE MODERATE; SQUAMOUS EPITHELIAL CELL,UR RARE; URINE RBCS >200 /HPF (0)
--- NOTE | 2017-04-05 21:07 | CONS ---
DATE OF ADMISSION: 04/03/2017 DATE OF CONSULTATION: 04/05/2017 REQUESTING PHYSICIAN: Dr. Sandoval Dear Dr. Sandoval: Thank you for asking me to see this patient in urological consultation. HISTORY OF PRESENT ILLNESS: This is an 81-year-old male who was admitted to the hospital because of fever, cough and worsening mentation, was found to have pneumonia in the left lower lung, and he ashton d a Marsh catheter, and the urine was noted to be bloody. Therefore, a urological consultation was requested. I came in and saw the patient around noontime, and apparently the catheter that he had d id not look that it is all the way inside the bladder. I tried to irrigate it, and the irrigation g oes in but it does not come out. Therefore I did remove it, and we put a condom catheter on him. I came back this evening and tried first to insert a 16-Swazi coude catheter, and that would not go in. I tried a 14-Swazi, same problem. Following that, I passed a spiral tip filiform all the way into the bladder and then dilated the urethra from #8-Swazi to #18-Swazi, then I inserted a 16-Angel nvh coude catheter without a problem. I irrigated it, and it does irrigate well. The urine was sti ll somehow blood tinged, but it looks like it's old blood. The patient himself is not capable of giving any history. I reviewed his medical record, and appare ntly he does also have a history of hypertension, diabetes and severe dementia. Also he does have c hronic kidney disease, anxiety, depression and psychosis. He usually lives in [facility]. REVIEW OF SYSTEMS: Unable to obtain except what is mentioned above. SOCIAL HISTORY: The patient presently does not smoke or drink. ALLERGIES: HE HAS MULTIPLE ALLERGIES THAT INCLUDE: 1. ATENOLOL. 2. CIPRO. 3. MORPHINE. 4. OXAZEPAM. 5. VALDECOXIB. 6. VERAPAMIL. HOME MEDICATIONS: Included: 1. Norvasc. 2. Lisinopril. 3. Tylenol. 4. Depakote. 5. Namenda. 6. Risperidone. 7. Dulcolax. 8. Famotidine. 9. Milk of magnesia. 10. Vitamin D3. 11. Multivitamin. I asked the patient whether he has any children, he said no, and whether he is , and he said no either. PHYSICAL EXAMINATION: GENERAL: An elderly male. He weighs 64.6 kg. He is 72 inches tall. VITAL SIGNS: His temperature is 97.8, respirations 18, the pulse is 86 and the blood pressure 114/5 8. ABDOMEN: Soft. There is no abdominal mass palpable. EXTERNAL GENITALIA: He does have hypospadias. The testes are normal. RECTAL: He would not allow me to do a rectal examination. EXTREMITIES: No edema. LABORATORY DATA: His CBC shows a white count of 6.0, hemoglobin 12.9, hematocrit 39.2. BUN is 33, creatinine 1.28, sodium 143, potassium 5.1, chloride 112, CO2 26. The PT 17.8, INR 1.46. The urina lysis on admission showed more than 200 RBCs, positive for nitrite, 3+ occult blood and moderate alia unt of bacteria. A urine culture that was done 2 days ago showed no growth after 48 hours. 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 RECOMMENDATION: At the present, I did go ahead and remove the old Marsh catheter that he had, and I did urethral dilatation with filiforms and followers up to #18-Swazi, then inserted a 16-Swazi co ude catheter and connected it to a drainage bag. I will order urine culture again, urine cytology a nd also will do a PSA just to make sure there is no problem with prostate cancer, and we shall order a renal ultrasound to make sure that there is no renal mass that may be having bleeding. Once he i s stable, one could always consider doing a CT scan if there is any concern about his bladder and pr ostate. Dictated By: JOHN BLAKE/AROLDO Conf#: [id number] DID#: [id number]
[2017-04-05] MEDS: MUPIROCIN 2% 22 GM OINT TOP SCH (21:33)
[2017-04-05] MEDS: VANCOMYCIN 1.25 GM in SOD CHLORIDE 0.9% 250 ML IVPB SCH (23:31)
[2017-04-05] MEDS: SOD CHLORIDE 0.9% 1,000 ML IV SCH (23:33)
[2017-04-06] VITALS (10 sets, daily range): BP systolic 101–114; BP diastolic 46–61; PULSE 65–82; RESP 15–19
[2017-04-06] MEDS: ACCU-CHEK XX SCH (01:24)
[2017-04-06 07:31] LABS: ADD SCAN DIFF NO
[2017-04-06 07:43] LABS: BASOPHILS % 0.2 % (0.0-2.0); HEMATOCRIT 32.8 % (42.0-52.0); HEMOGLOBIN 11.1 g/dl (14.0-18.0); LYMPHOCYTES # 1.2 10^3/ul (0.8-2.9); LYMPHOCYTES % 18.2 % (15.0-51.0); MEAN CORPUSCULAR HEMOGLOBIN 33.2 pg (29.0-33.0); MEAN CORPUSCULAR HGB CONC 33.8 g/dl (32.0-37.0); MEAN CORPUSCULAR VOLUME 98.2 fl (82.0-101.0); MEAN PLATELET VOLUME 11.4 fl (7.4-10.4); MONOCYTE # 0.6 10^3/ul (0.3-0.9); MONOCYTES % 9.9 % (0.0-11.0); NEUTROPHIL # 4.6 10^3/ul (1.6-7.5); NEUTROPHILS % 71.4 % (39.0-77.0); PLATELET COUNT 117 10^3/UL (140-415); RED BLOOD COUNT 3.34 10^6/ul (4.70-6.10); RED CELL DISTRIBUTION WIDTH 11.2 % (11.5-14.5); WHITE BLOOD COUNT 6.4 10^3/ul (4.8-10.8)
[2017-04-06 07:53] LABS: POTASSIUM 4.3 mmol/L (3.5-5.1)
[2017-04-06 07:56] LABS: CREATININE 0.99 mg/dl (0.61-1.24)
[2017-04-06 07:57] LABS: CALCIUM 8.2 mg/dl (8.4-10.2)
[2017-04-06] MEDS ORDERED: INSULIN GLARGINE [LANtus] 3 ML PEN SC SCH (08:00)
[2017-04-06] MEDS: VALPROIC ACID 250 MG CAP PO SCH (08:35)
[2017-04-06] MEDS: MEMANTINE 10 MG TAB PO SCH ×2 (08:35→09:09)
[2017-04-06] MEDS: RISPERIDONE 0.25 MG TAB PO SCH (08:36)
[2017-04-06] MEDS: AMLODIPINE 5 MG TAB PO SCH (08:37)
[2017-04-06] MEDS: LISINOPRIL 20 MG TAB PO SCH (08:38)
[2017-04-06] MEDS: LEVETIRACETAM 500 MG (PMX) 100 ML IVPB SCH (08:38)
[2017-04-06] MEDS: FAMOTIDINE 20 MG INJ IV SCH (08:38)
[2017-04-06] MEDS: CEFEPIME 1GM/50 ML (PMX) 50 ML IVPB SCH (08:38)
[2017-04-06] MEDS: MUPIROCIN 2% 22 GM OINT TOP SCH (08:57)
[2017-04-06] MEDS ORDERED: LISINOPRIL 5 MG TAB PO SCH (09:00)
[2017-04-06] MEDS: INSULIN ASPART [NOVOLOG] 3 ML PEN SC SCH ×2 (09:05→12:52)
[2017-04-06] MEDS: ASPIRIN 300 MG SUPP PR SCH (09:40)
[2017-04-06] MEDS: HEPARIN 5,000 UNIT/0.5 ML VIAL SC SCH (09:55)
--- NOTE | 2017-04-06 10:32 | PN ---
DATE: 04/06/2017 CARDIOLOGY FOLLOWUP SUBJECTIVE: Discussed with the staff. Rhythm strip was reviewed. The patient remains in sinus rhy thm. No reported chest pain or pressure, no palpitations. No more hematuria. MEDICATIONS: Reviewed. PHYSICAL EXAMINATION: VITAL SIGNS: Temperature 98.7, heart rate of 67, blood pressure 101/46, respiration rate of 18, sat urating 95%. HEENT: Normocephalic, atraumatic. No acute distress. Pupils are equal. CARDIOVASCULAR: Regular rate and rhythm. PULMONARY: With no wheezes anteriorly. GASTROINTESTINAL: Soft, nontender. EXTREMITIES: No edema. NEUROLOGIC: Awake, alert, oriented to person. PSYCHIATRIC: Appears to be calm. LABORATORY: Sodium 138, potassium 4.3, BUN of 27, creatinine 0.99, glucose 180, WBC of 6.4, hemoglo bin 11.1, platelets of 117. ASSESSMENT AND PLAN: 1. Ids-UI-zbwzsnwxi myocardial infarction. 2. Aortic stenosis, severe. 3. Pneumonia. 4. Dementia. 5. Status post hematuria, possibly trauma related, currently improved. 6. Hypertension. 7. Renal insufficiency appears to be stabilizing now. RECOMMENDATIONS: We will continue with conservative therapy. Antibiotic as per internal medicine. I will lower dose of LEN inhibitor to avoid hypotension, especially given her aortic stenosis. Con servative medical therapy will be continued given his severe dementia and lack of cardiac angina. Dictated By: ALVINA GARCIA MD AV/AROLDO Conf#: [id number] DID#: [id number] CC: MÓNICA CONTRERAS MD;*EndCC*
--- NOTE | 2017-04-06 11:20 | PN ---
DATE: 04/06/2017 SUBJECTIVE: Gross hematuria. The patient did have a Marsh catheter in his urethra yesterday and it did not appear to be in good position, so I had to remove it and insert a new one after doing a ure thral dilatation. The patient himself is confused and is not able to give any accurate symptoms and complaints. OBJECTIVE: VITAL SIGNS: Temperature today is 98.7, the blood pressure 101/46, pulse is 67, respiration 18. ABDOMEN: Soft. The Marsh catheter now is draining clear urine and the urine is clear in the tubing , but if one looks in the bag, it looks a little darker, but the main thing is the color of the urin e in the tubing itself. LABORATORY DATA: The CBC shows a white count of 6.4, hemoglobin 11.1, hematocrit 32.8. BUN is 27, creatinine 0.99, sodium 138, potassium 4.3, chloride 111, CO2 28. Urine cultures so far no growth i n 24 hours. IMPRESSION: Gross hematuria, most likely traumatic; however, one has to rule out other possibilitie s, such as bladder tumor. Therefore, I went ahead and I did order urine cytology for him x3. One w as supposed to be sent today, another one tomorrow, and another one the day after. I ordered a kamila l ultrasound and it appears that was canceled. The patient refused and was combative; therefore did not allow the oxygen therapy technician to do the ultrasound. IMPRESSION: Gross hematuria, most likely traumatic. The urine has since cleared and is not perfectl y yet, but it will clear as time goes by. PLAN: To continue present treatment. Dictated By: JOHN BLAKE/AROLDO Conf#: [id number] DID#: [id number]
[2017-04-06] MEDS: SOD CHLORIDE 0.9% 1,000 ML IV SCH (12:38)
--- NOTE | 2017-04-06 13:29 | PDOCDIS ---
Discharge Instructions CONDITION Patient Condition: Good HOME CARE INSTRUCTIONS: Special Diet: pureed ACTIVITY: Activity Restrictions: Special Program FOLLOW UP/APPOINTMENTS Appointments To be evaluated by the PCP at [facility] MÓNICA CONTRERAS MD April 06, 2017 13:29
[2017-04-06] MEDS ORDERED: LANT3I SC (13:33)
[2017-04-06] MEDS ORDERED: MUPI22OI2 TOP (13:33)
[2017-04-06] MEDS ORDERED: TYL500 PO (13:33)
[2017-04-06] MEDS ORDERED: VALP250C PO (13:33)
[2017-04-06] MEDS ORDERED: LISI-313 PO (13:33)
[2017-04-06] MEDS ORDERED: CEFT1PIG2 IVPB (13:33)
--- NOTE | 2017-04-06 14:55 | DS ---
DATE OF ADMISSION: 04/03/2017 DATE OF DISCHARGE: 04/06/2017 CONSULTANTS: 1. Dr. Paresh Mary 2. Dr. Zeke Rayo PROCEDURES: A 2-D echocardiogram on 04/04/2017 showed normal left ventricle systolic function, norm al left ventricle cavity size, mild concentric left ventricular hypertrophy, ejection fraction 50%. Mitral valve leaflet appeared mildly thickened, mild mitral annular calcification, severe aortic st enosis, mild to moderate aortic regurg, dilated IVC with respiratory collapse consistent with elevat ed right atrial pressure. DISCHARGE DIAGNOSES: 1. Non-ST elevation myocardial infarction. Cardiology has been consulted. The patient has been co ntinued on aspirin. Continue medical management. No indication for left heart catheterization as p er cardiology. 2. Severe aortic stenosis, stable. Continue aspirin. 3. Essential hypertension, well controlled on medical management. 4. Pneumonia, status post cefepime and vancomycin. The patient will be discharged on Rocephin. 5. Dementia. Continue Namenda. 6. Diabetes mellitus type 2. Continue Lantus insulin sliding scale. 7. Hematuria, likely secondary to underlying trauma from Marsh. Urology was consulted. No further procedure indicated. 8. Thrombocytopenia, stable. 9. Altered mental status, likely secondary to pneumonia, dementia, improving. LABORATORY DATA: Sodium 138, potassium 4.3, chloride 111, bicarbonate 28, BUN 27, creatinine 0.99, glucose 180, calcium 8.2. Triglyceride 48, total cholesterol 117, LDL 71, HDL 36. TSH 1.22. WBC 6 .4, hemoglobin 11.1, hematocrit 32.8, platelets 117. PHYSICAL EXAMINATION: VITAL SIGNS: Temperature 97.5, pulse 73, respiration rate 19, blood pressure 142/46, oxygen saturat ion 95% in room air. MEDICATIONS: 1. Tylenol. 2. Norvasc 5 mg. 3. Aspirin 162 mg. 4. Dulcolax suppository. 5. Lantus 14 units. 6. Lisinopril 5 mg. 7. Namenda 10 mg. 8. Bactroban nasal. 9. Risperdal 0.5 mg. 10. Normal saline 0.9%. 11. Valproic acid. 12. Keppra 500 mg 13. Rocephin 1 gram IV q. 24 hours x7 days. ALLERGIES: 1. OXAZEPAM. 2. MORPHINE. 3. ETHANOL. 4. CIPRO. 5. VERAPAMIL. 6. VALDECOXIB. HOSPITAL COURSE: This is an 81-year-old gentleman with past medical history of hypertension, diabet es mellitus, severe dementia, chronic kidney disease, anxiety, depression, psychosis, and aortic travis ve stenosis who was sent from [facility] secondary to having fever, cough, worsening mentation. The patient, upon arrival to the ER, was nonverbal. The patient was oriented x1 status post arriving to the emergency room after 30 minutes. He was found to be tachycardic and hypoxic w ith temperature of 104, blood pressure 143/89, heart rate 112, respirations 28, temperature 104. He was treated with cefepime and vancomycin. His chest x-ray showed opacity in the left lung consiste nt with pneumonia. His initial troponin was 0.236. Cardiology was consulted. After placement of F oley, he was found to have hematuria. Urology was consulted. After his evaluation, it was believed that the patient's hematuria is likely secondary to trauma from the Marsh. His hematuria resolved spontaneously without any irrigation. The patient's troponins continued to increase to 1.350 and th en decreased to 0.52. His lipid panel has been within normal limits. His blood glucose was found t o be elevated. He was placed insulin sliding scale with Lantus. He has been able to tolerate puree d diet without any difficulty. This morning, the patient is more awake and alert, able to follow si mple commands. At this time, the patient is medically stable to be discharged to [facility] with continuation of his medication. His LEN inhibitor has been decreased secondary to aorti c stenosis. Considering medical therapy, we will continue, given his dementia, like cardiac angina. CONDITION AT TIME OF DISCHARGE: Stable. Dictated By: MÓNICA MORILLO/AROLDO Conf#: [id number] DID#: [id number]
[2017-04-07] MEDS ORDERED: INSULIN GLARGINE [LANtus] 3 ML PEN SC SCH (08:00)
[2017-04-07] MEDS ORDERED: FAMOTIDINE 20 MG TAB PO SCH (09:00)
== END 2017-04-06 19:00 | DRG 871 ==
LOC: E/R 20:30 → TEL 23:35
PROVIDERS: ADMIT Internal Medicine; ATTEND Internal Medicine
PROC: 0T7D7ZZ Dilation of Urethra, Via Natural or Artificial Opening (ICD-10-PCS; principal; 2017-04-05)
DX: A41.9 Sepsis, unspecified organism (principal); J18.9 Pneumonia, unspecified organism; I21.4 Non-ST elevation (NSTEMI) myocardial infarction; E11.22 Type 2 diabetes mellitus with diabetic chronic kidney disease; D69.6 Thrombocytopenia, unspecified; F03.90 Unspecified dementia, unspecified severity, without behavioral disturbance, psychotic disturbance, mood disturbance, and anxiety; I35.0 Nonrheumatic aortic (valve) stenosis; R31.9 Hematuria, unspecified; R65.20 Severe sepsis without septic shock; N18.9 Chronic kidney disease, unspecified; N35.9 Urethral stricture, unspecified; N32.0 Bladder-neck obstruction
CPT/HCPCS: 36415; 36600; 71010; 80048; 80053; 80061; 80164; 81001; 82550; 82553; 82803; 82962; 83036; 83605; 83735; 84100; 84443; 84484; 85025; 85610; 85730; 87040; 87081; 87086; 88104; 92610; 93005; 93306; 96374; 96376; J0692; J1644; J1815; J1953; J3370; J7030; J7042; J7050

== ENCOUNTER 2018-05-11 19:35 | Inpatient (IN) | END 2018-05-17 14:12 | DRG 871 ==

== ENCOUNTER 2018-07-06 13:19 | Inpatient (IN) | END 2018-07-31 18:42 | DRG 4 ==

== ENCOUNTER 2018-09-22 15:30 | Inpatient (IN) | END 2018-09-26 20:13 | DRG 682 ==

== ENCOUNTER 2018-11-07 14:17 | Inpatient (IN) | payer MEDICARE, OTHER ==
[~2018-11-07] VITALS: Ht 175.3 cm; Wt 82.2 kg
[~2018-11-07 14:17] MED LIST: ACET-2047 PO; CARB1TAB2 GTB; DOXY100C GTB; ERGO2000 GTB; FAMO20TA18 GTB; FURO20TA3 GTB; HEPA100D39 SUBCUTANE; HYDR-3670 GTB; HYDR2TAB36 GTB; LANT3I SC; LEVE-5 GTB; LINA5TAB GTB; LORA0.5T GTB; MEMA10TA GTB; METO25TA4 PO; NITR0.4T32 SL; NOVO3I SC; VLP250480 GTB
--- NOTE | 2018-11-07 14:32 | ERD ---
ER Documentation Chief Complaint Chief Complaint HPI 83-year-old man brought in by EMS from half-way for increased BUN level, deh ydration, and kidney problems. Patient has had similar episodes in the past. He has had no fevers, no vomiting or diarrhea. Patient is nonverbal and I am able to provide his own HPI I supplemented the history by reviewing past medical records, half-way records, speaking to EMS, and nursing staff ROS All systems reviewed and are negative except as per history of present illness. Medications Home Meds Reported Medications Cranberry Extract (Cranberry) 425 Mg Capsule, 425 MG GTB DAILY, CAP 11/07/18 Zinc Sulfate* (Zinc Sulfate*) 220 Mg Cap, 220 MG GTB DAILY, CAP 11/07/18 Valproic Acid* (Valproic Acid* Liq) 250 Mg/5 Ml Syrup, 125 MG GTB QID, ML 11/07/18 Ascorbic Acid* (Vitamin C*) 500 Mg Capsule.sa, 500 MG GTB BID, CAP 11/07/18 Cran/Vitc/Mannose/Inulin/Brom (Uti-Stat Liquid) 3,875 Mg/30 Ml Liquid, 3875 MG GTB DAILY 11/07/18 Acetaminophen* (Acetaminophen*) 650 Mg Tablet, 650 MG GTB TRACH TUBE CHANGE PRN for PAIN AND OR ELEVATED TEMP, #30 TAB GIVE 30 MIN PRIOR 11/07/18 Acetaminophen* (Acetaminophen*) 650 Mg Tablet, 650 MG GTB Q4 PRN for MILD PAIN LEVEL 1-3, #30 TAB AND TEMP OVER 101F 11/07/18 Acetaminophen* (Acetaminophen*) 500 MG Extra Strength Tablet, 1000 MG GTB Q4 PRN for MODERATE PAIN LEVEL 4-6, TAB 11/07/18 Multivit &Minerals/Ferrous Fum (MULTIVITAMIN LIQUID) 9 Mg/15 Ml Liquid, 3 MG GTB DAILY 11/07/18 Magnesium Hydroxide* (Milk Of Magnesia*) 400 Mg/5 Ml Oral.susp, 30 ML GTB DAILY PRN for CONSTIPATION, ML 11/07/18 Memantine* (Namenda*) 10 Mg Tablet, 10 MG GTB DAILY, #30 TAB 11/07/18 Carbidopa/Levodopa (Sinemet 25-100 mg Tablet) 1 Each Tablet, 1 EACH GTB TID, TAB 11/07/18 Linagliptin (TRADJENTA) 5 Mg Tablet, 5 MG GTB DAILY, TAB 11/07/18 Metoprolol Tartrate* (Lopressor*) 25 Mg Tab, 25 MG GTB BID, #60 TAB HOLD FOR SBP BELOW 105 OR HR BELOW 60 11/07/18 Metolazone* (Metolazone*) 2.5 Mg Tablet, 2.5 MG GTB DAILY, TAB 11/07/18 Insulin Glargine* (Lantus*) 100 Unit/Ml Soln, 22 UNIT SC QHS, #1 VIAL 11/07/18 Levetiracetam* (Keppra* (Ped)) 100 Mg/Ml Liq, 500 MG GTB BID for 30 Days, BOTTLE 11/07/18 Hydralazine Hcl* (Hydralazine Hcl*) 10 Mg Tablet, 20 MG GTB Q6 PRN for ELEVATED BLOOD PRESSURE, #120 TAB SBP above 160 11/07/18 Heparin Sodium,Porcine/Pf (HEPARIN SOD 5,000 UNIT/ 0.5 ML) 5,000 Unit/0.5 Ml Vial, 5000 UNIT IJ BID, VIAL 11/07/18 Glucagon,Human Recombinant (Glucagon Emergency Kit) 1 Mg Kit, 1 MG IJ prn PRN for DECREASED GLUCOSE, KIT 11/07/18 Na Phos,M-B/Na Phos,Di-Ba (ENEMA [id number]) 133 Ml Enema, 133 ML RC prn PRN for CONSTIPATION, ENEMA 11/07/18 Famotidine* (Famotidine*) 20 Mg Tablet, 20 MG GTB DAILY, #30 TAB 11/07/18 Bisacodyl (Dulcolax) 10 Mg Supp.rect, 10 MG RC prn PRN for CONSTIPATION, SUPP.RECT 11/07/18 Docusate Sodium* (Colace*) 100 Mg Capsule, 100 MG GTB DAILY, #30 CAP 11/07/18 Chlorhexidine Gluconate (Peridex) 473 Ml Mouthwash, 15 ML MM Q12, BOTTLE 11/07/18 Lorazepam* (Lorazepam*) 0.5 Mg Tablet, 0.5 MG GTB Q6 PRN for ANXIETY, TAB 11/07/18 Albuterol Sulfate* (Albuterol Sulfate* Neb) 0.083%-3 Ml Neb, 2.5 MG NEB Q6 PRN for WHEEZING AND SOB, #30 VIAL 11/07/18 Albuterol Sulfate* (Albuterol Sulfate* Neb) 0.083%-3 Ml Neb, 2.5 MG NEB Q3H PRN for WHEEZING AND SOB, #30 VIAL 11/07/18 Discontinued Reported Medications Insulin Glargine* (Lantus*) 100 Unit/Ml Soln, 12 UNIT SC DAILY, #1 VIAL 09/22/18 Insulin Aspart* (Novolog Insulin Pen*) 100 Unit/Ml Soln, 0-12 SC .SLIDING SCALE AC, EA 09/22/18 Lorazepam* (Lorazepam*) 0.5 Mg Tablet, 0.5 MG GTB Q6 PRN for ANXIETY, TAB 09/22/18 Nitroglycerin* (Nitroglycerin* SL) 0.4 Mg Tab.subl, 0.4 MG SL Q5MIN PRN for TORI ST PAIN, BOTTLE 09/22/18 Metoprolol Tartrate* (Lopressor*) 25 Mg Tablet, 25 MG PO BID, #60 TAB 09/22/18 Memantine* (Namenda*) 10 Mg Tablet, 10 MG GTB DAILY, #30 TAB 09/22/18 Linagliptin (TRADJENTA) 5 Mg Tablet, 5 MG GTB DAILY, TAB 09/22/18 Hydromorphone Hcl* (Dilaudid*) 2 Mg Tablet, 0.5 MG GTB Q4 PRN for SEVERE PAIN LEVEL 7-10, TAB 09/22/18 Hydralazine Hcl* (Hydralazine Hcl*) 10 Mg Tablet, 20 MG GTB Q6 PRN for ELEVATED BLOOD PRESSURE, #90 TAB 09/22/18 Heparin Sodium,Porcine/Pf (Heparin 1,000 Unit/10 (100/ml)) 1,000 Unit/10 Ml Syringe, 5000 UNIT SUBCUTANE Q12 09/22/18 Furosemide* (Furosemide*) 20 Mg Tablet, 20 MG GTB DAILY, #60 TAB 09/22/18 Doxycycline* (Vibramycin*) 100 Mg Capsule, 100 MG GTB BID for 6 Days, EA 09/22/18 Carbidopa/Levodopa (Sinemet 25-100 mg Tablet) 1 Each Tablet, 1 EACH GTB TID, TAB 07/06/18 Acetaminophen* (Acetaminophen*) 650 Mg Tablet, 650 MG PO Q6H PRN for MILD PAIN LEVEL 1-3, #30 TAB AND FEVER OVER>100 DEGREES 05/11/18 Valproic Acid* (Valproic Acid* Liq) 250 Mg/5 Ml Syrup, 125 MG GTB QAM, ML 05/11/18 Ergocalciferol (Vitamin D2) (VITAMIN D2) 2,000 Unit Tablet, 2000 UNIT GTB DAILY, TAB 05/11/18 Levetiracetam* (Keppra*) 500 Mg Tablet, 500 MG GTB BID, TAB 05/11/18 Famotidine* (Famotidine*) 20 Mg Tablet, 20 MG GTB AC BREAKFAST, #30 TAB 05/11/18 Allergies Allergies: Coded Allergies: atenolol (Verified Allergy, Unknown, 11/07/18) ciprofloxacin (Verified Allergy, Unknown, 11/07/18) morphine (Verified Allergy, Unknown, 11/07/18) oxazepam (Verified Allergy, Unknown, 11/07/18) valdecoxib (Verified Allergy, Unknown, 11/07/18) verapamil (Verified Allergy, Unknown, 11/07/18) PMhx/Soc Ventilator dependent respiratory failure, history of dysphasia, chronic encephalopathy, Parkinson's dementia, diabetes mellitus, stage IV chronic kidney disease, aortic stenosis, depression, anemia, paroxysmal atrial fibrillation, seizure disorder, hypertension, systolic and diastolic heart failure Hx Respiratory Disorders: Yes Hx Cardiac Disorders: Yes Hx Psychiatric Problems: Yes Hx Miscellaneous Medical Probl: Yes (AORTIC STENOSIS) FmHx Family History: No diabetes Physical Exam Vitals Vital Signs Date Temp Pulse Resp B/P (MAP) Pulse Ox O2 O2 Flow FiO2 Time Delivery Rate 11/07/18 74 16 100 30 16:54 11/07/18 98.0 88 20 107/67 99 Mechanical 15:58 (80) Ventilator 11/07/18 87 16 100 30 14:35 11/07/18 97.9 88 14 110/58 100 14:34 (75) Physical Exam GENERAL: Well-developed, cachectic, chronically debilitated appearing man, afebrile, appears dehydrated HEENT: Dry mucous membranes, eyes closed, no cervical spine deformity, tracheostomy tube in place NEURO: Responsive to painful stimuli, eyes closed, pupils constricted and minimally reactive, nonverbal CARDIAC: Regular rate and rhythm, no murmurs rubs or gallops LUNGS: Clear bilaterally no wheezing crackles or stridor ABDOMEN: Soft nontender, no guarding, no rigidity, no rebound, no psoas sign no obturator sign. SKIN: Warm and dry to touch, superficial skin ecchymosis EXTREMITIES: No clubbing or cyanosis, 2+ pitting edema in the upper and lower extremities bilaterally, calves symmetrical PSYCH: Unable to assess Result Diagram: 11/07/18 1452 11/07/18 1452 Results 24 hrs Laboratory Tests Test 11/07/18 14:52 11/07/18 15:30 White Blood Count 7.4 10^3/ul Red Blood Count 3.11 10^6/ul Hemoglobin 9.5 g/dl Hematocrit 32.2 % Mean Corpuscular Volume 103.5 fl Mean Corpuscular Hemoglobin 30.5 pg Mean Corpuscular Hemoglobin Concent 29.5 g/dl Red Cell Distribution Width 18.4 % Platelet Count 145 10^3/UL Mean Platelet Volume 11.4 fl Immature Granulocytes % 0.500 % Neutrophils % 78.2 % Lymphocytes % 7.8 % Monocytes % 13.5 % Eosinophils % 0.0 % Basophils % 0.0 % Nucleated Red Blood Cells % 0.3 /100WBC Immature Granulocytes # 0.040 10^3/ul Neutrophils # 5.8 10^3/ul Lymphocytes # 0.6 10^3/ul Monocytes # 1.0 10^3/ul Eosinophils # 0.0 10^3/ul Basophils # 0.0 10^3/ul Nucleated Red Blood Cells # 0.0 10^3/ul Sodium Level 136 mmol/L Potassium Level 4.0 mmol/L Chloride Level 92 mmol/L Carbon Dioxide Level 32 mmol/L Anion Gap 12 Blood Urea Nitrogen 157 mg/dl Creatinine 1.49 mg/dl Est Glomerular Filtrat Rate mL/min mL/min Glucose Level 314 mg/dl Calcium Level 8.3 mg/dl Total Bilirubin 0.2 mg/dl Direct Bilirubin 0.00 mg/dl Indirect Bilirubin 0.2 mg/dl Aspartate Amino Transf (AST/SGOT) 75 IU/L Alanine Aminotransferase (ALT/SGPT) 104 IU/L Alkaline Phosphatase 197 IU/L Troponin I 0.089 ng/ml Total Protein 8.1 g/dl Albumin 2.9 g/dl Globulin 5.20 g/dl Albumin/Globulin Ratio 0.55 Lipase 284 U/L Urine Color SOFYA Urine Clarity TURBID Urine pH 9.0 Urine Specific [place] 1.016 Urine Ketones NEGATIVE mg/dL Urine Nitrite NEGATIVE mg/dL Urine Bilirubin NEGATIVE mg/dL Urine Urobilinogen 1+ mg/dL Urine Leukocyte Esterase 3+ Hermelindo/ul Urine Microscopic RBC 6 /HPF Urine Microscopic WBC 28 /HPF Urine Uric Acid Crystals MANY /HPF Urine Bacteria FEW /HPF Urine Mucus FEW /HPF Urine Hemoglobin NEGATIVE mg/dL Urine Glucose NEGATIVE mg/dL Urine Total Protein 2+ mg/dl Current Medications Medications Dose Sig/Jovany Start Time Status Last (Trade) Ordered Route PRN Stop Time Admin Dose Reason Admin Sodium 1,000 ml @ Q1H STAT 11/07/18 DC 11/07/18 Chloride 1,000 mls/hr IV 14:57 11/07/18 15:09 15:56 Lactated 1,000 ml @ Q1H STAT 11/07/18 DC 11/07/18 Ringer's 1,000 mls/hr IV 14:57 11/07/18 15:09 15:56 Cefepime HCl 50 ml @ ONCE ONCE 11/07/18 DC 11/07/18 100 mls/hr IVPB 16:30 11/07/18 16:33 16:59 1,000 mg Q4 PRN PO 11/07/18 UNV Acetaminophen MODERATE PAIN 16:30 (Tylenol LEVEL 4-6 Tab) 650 mg Q4 PRN 11/07/18 UNV Acetaminophen GTB MILD 16:30 (Tylenol PAIN LEVEL Tab) 1-3 Albuterol 2.5 mg Q6 PRN 11/07/18 UNV (Proventil NEB WHEEZING 16:30 0.083% (Neb)) AND SOB Ascorbic 500 mg BID GTB 11/07/18 UNV Acid 21:00 (Vitamin C) Bisacodyl 10 mg PRN PRN 11/07/18 UNV (Dulcolax FL 16:30 Supp) CONSTIPATION 1 tab TID GTB 11/07/18 UNV Carbidopa/Lev 21:00 odopa (Sinemet (25/ 100)) 15 ml Q12 MM 11/07/18 UNV Chlorhexidine 21:00 Gluconate (Peridex) Docusate 100 mg DAILY PO 11/08/18 UNV Sodium 09:00 (Colace) Famotidine 20 mg DAILY GTB 11/08/18 UNV (Pepcid) 09:00 Heparin 5,000 unit BID SC 11/07/18 UNV Sodium 21:00 (Porcine) (Heparin (5000 Units/0.5 ml)) Hydralazine 20 mg Q6 PRN 11/07/18 UNV HCl GTB ELEVATED 16:30 (Apresoline) BLOOD PRESSURE Insulin 22 units QHS SC 11/07/18 UNV Glargine 21:00 (Lantus) 500 mg BID GTB 11/07/18 UNV Levetiracetam 21:00 (Keppra Liq (Ped)) Linagliptin 5 mg DAILY GTB 11/08/18 UNV (Tradjenta) 09:00 Memantine 10 mg DAILY GTB 11/08/18 UNV (Namenda) 09:00 Metoprolol 25 mg BID GTB 11/07/18 UNV Tartrate 21:00 (Lopressor) Sodium 133 ml PRN PRN 11/07/18 Biphosphate/ FL 16:30 Sodium CONSTIPATION Phosphate (Fleet Enema) Valproate 125 mg QID GTB 11/07/18 UNV Sodium 17:00 (Depakene Liquid Cup) Zinc 220 mg DAILY GTB 11/08/18 Sulfate 09:00 (Zinc Sulfate) Diagnostic 1 ea AC MEALS AND 11/07/18 Test (Pha) BEDTIME XX 17:30 (Accu-Chek) Discontinue ONCE ONCE 11/07/18 DC Miscellaneous current oral XX 16:30 11/07/18 sulfonylur... 16:45 Information (* Miscellaneous Pharmacy Order) Diagnostic 1 ea 02 XX 11/08/18 Test (Pha) 02:00 (Accu-Chek) ONCE ONCE 11/07/18 DC Miscellaneous HYPOGLYCEMIA XX 16:30 11/07/18 PROTOCOL 16:45 Information w... (* Miscellaneous Pharmacy Order) Insulin NOVOLOG WITH MEALS 11/07/18 UNV Aspart *MILD* BEDTIME SC 18:00 (Novolog ALGORITHM Insulin Pen) Sodium 1,000 ml @ Q20H IV 11/07/18 DC Chloride 50 mls/hr 16:30 11/07/18 17:06 Cefepime HCl 50 ml @ DAILY ONCE 11/08/18 UNV 100 mls/hr IVPB 09:00 11/08/18 09:29 Furosemide 40 mg ONCE ONCE 11/07/18 (Lasix) IV 17:30 11/07/18 17:31 Metolazone 5 mg ONCE ONCE 11/07/18 UNV (Zaroxolyn) PO 17:30 11/07/18 17:31 3 mg DAILY GTB 11/08/18 UNV Miscellaneous 09:00 Information Procedures/MDM IV line was established patient was placed on acid crane operator rhythm strip revealed a sinus rhythm at about 80 bpm with upright P and T waves. Patient was afebrile EKG performed, read by me revealed a normal sinus rhythm at 88 bpm, normal axis, narrow QRS complex, no concerning ST elevations or depressions noted 1 view chest x-ray performed, read by me reveals cardiomegaly and bilateral pulmonary vascular congestion, no acute infiltrates, no pneumothorax. Patient has x-ray findings of decompensated heart failure with pulmonary edema although he also has dehydration and elevated BUN so I treated him here with 2 L of IV crystalloid solution. Urinalysis was positive for infection I treated him here with cefepime 1 g IV x1. CBC reveals mild anemia, electrolytes reveal uremia and kidney disease with a BUN/creatinine of 157/1.5, liver function tests reveal mild transaminitis, troponin is negative. Critical Care: Time: 41 minutes, this was time separate from other billable procedures. Treatments/Evaluations: Close monitoring and treatment of unstable vital signs, cardiorespiratory, and neurologic status, while maintaining tight balance of fluid, respiratory, and cardiac interventions. Patient will be admitted to telemetry setting for continued medical management, hydration, and cardiology and nephrology consultations Departure Diagnosis: Primary Impression: Uremia Additional Impressions: Dehydration Acute kidney injury Acute CHF Heart failure type: systolic Qualified Codes: I50.21 - Acute systolic (c ongestive) heart failure Acute UTI Condition: Serious DEQUAN CATALAN MD Nov 07, 2018 14:32
[2018-11-07 14:34] VITALS: Ht 175.3 cm; Wt 82.2 kg
[2018-11-07] MEDS ORDERED: ALBU2.5V3 NEB ×2 (14:54)
[2018-11-07] MEDS ORDERED: SOD CHLORIDE 0.9% 1,000 ML IV STA (14:57)
[2018-11-07] MEDS ORDERED: LACTATED RINGER'S 1,000 ML IV STA (14:57)
[2018-11-07] MEDS ORDERED: LORA0.5T GTB (14:57)
[2018-11-07] MEDS ORDERED: CHLO473M4 MM (14:58)
[2018-11-07] MEDS ORDERED: DOCU-144 GTB (14:59)
[2018-11-07] MEDS ORDERED: BISA10SU55 RC (15:02)
[2018-11-07] MEDS ORDERED: FAMO20TA18 GTB (15:03)
[2018-11-07] MEDS ORDERED: NA P133E10 RC (15:04)
[2018-11-07] MEDS ORDERED: GLUC1KIT IJ (15:05)
[2018-11-07] MEDS ORDERED: HEPA500021 IJ (15:06)
[2018-11-07] MEDS ORDERED: KEP100S GTB (15:09)
[2018-11-07] MEDS ORDERED: HYDR-3670 GTB (15:09)
[2018-11-07] MEDS ORDERED: LANT3I SC (15:09)
[2018-11-07] MEDS ORDERED: METO2.5T GTB (15:10)
[2018-11-07] MEDS ORDERED: METO-448 GTB (15:12)
[2018-11-07] MEDS ORDERED: LINA5TAB GTB (15:12)
[2018-11-07] MEDS ORDERED: CARB1TAB2 GTB (15:13)
[2018-11-07] MEDS ORDERED: MEMA10TA GTB (15:14)
[2018-11-07] MEDS ORDERED: MAGN400O19 GTB (15:18)
[2018-11-07] MEDS ORDERED: MULT9LIQ4 GTB (15:19)
[2018-11-07] MEDS ORDERED: ACET-141 GTB (15:22)
[2018-11-07] MEDS ORDERED: ACET-2047 GTB ×2 (15:22→15:50)
[2018-11-07] MEDS ORDERED: CRAN3875 GTB (15:50)
[2018-11-07] MEDS ORDERED: ASCO500C7 GTB (15:51)
[2018-11-07] MEDS ORDERED: ZINC220C5 GTB (15:52)
[2018-11-07] MEDS ORDERED: VLP250480 GTB (15:52)
[2018-11-07] MEDS ORDERED: CRAN425C6 GTB (15:55)
[2018-11-07] MEDS ORDERED: CEFEPIME 1GM/50 ML (PMX) 50 ML IVPB ONE (16:30)
[2018-11-07] MEDS ORDERED: ACETAMINOPHEN 325 MG TAB GTB PRN (16:30)
[2018-11-07] MEDS ORDERED: SOD CHLORIDE 0.9% 1,000 ML IV SCH (16:30)
[2018-11-07] MEDS ORDERED: NA PHOSPHATE/BIPHOS 133 ML ENEMA PR PRN (16:30)
[2018-11-07] MEDS ORDERED: ALBUTEROL 0.083% (NEB) 2.5 MG/3 ML AMP NEB PRN (16:30)
[2018-11-07] MEDS ORDERED: BISACODYL 10 MG SUPP PR PRN (16:30)
[2018-11-07] MEDS ORDERED: ACETAMINOPHEN 500 MG TAB PO PRN (16:30)
[2018-11-07] MEDS ORDERED: FUROSEMIDE 40 MG INJ IV ONE (17:30)
[2018-11-07] MEDS: ACCU-CHEK XX SCH ×2 (17:30→23:20)
[2018-11-07 18:44] VITALS: PULSE 85
[2018-11-07] MEDS ORDERED: GLUCAGON 1 MG INJ IM PRN (19:00)
[2018-11-07] MEDS ORDERED: DEXTROSE 50% 50 ML SYRINGE IV PRN (19:00)
[2018-11-07] MEDS ORDERED: METOLAZONE 5 MG TAB PO ONE (19:00)
[2018-11-07] MEDS ORDERED: GLUCOSE GEL 15 GRAM TUBE BUCCAL PRN (19:00)
[2018-11-07] MEDS ORDERED: GLUCOSE GEL 15 GRAM TUBE PO PRN ×2 (19:00)
[2018-11-07 19:05] VITALS: BP 115/59; PULSE 80; RESP 16
[2018-11-07 19:20] VITALS: RESP 16
[2018-11-07 20:00] VITALS: BP 106/56; PULSE 76; PULSE 77; RESP 17
[2018-11-07] MEDS ORDERED: HEPARIN 5,000 UNIT/0.5 ML VIAL SC SCH (21:00)
[2018-11-07] MEDS ORDERED: INSULIN GLARGINE [LANTus] (100 UNITS/ML) SYG SC SCH (21:00)
[2018-11-07 21:32] VITALS: RESP 16
[2018-11-07] MEDS: CHLORHEXIDINE GLUCONATE 15 ML UD CUP MM SCH (22:15)
[2018-11-07] MEDS: LEVETIRACETAM (100 MG/ML PO SYG) GTB SCH (22:16)
[2018-11-07] MEDS: VALPROIC ACID LIQUID CUP 250 MG/5 ML CUP GTB SCH ×2 (22:16→22:25)
[2018-11-07] MEDS: METOPROLOL 25 MG TAB GTB SCH (22:17)
[2018-11-07] MEDS: ASCORBIC ACID 500 MG TAB GTB SCH (22:17)
[2018-11-07] MEDS: CARBIDOPA/LEVODOPA (25/100) TAB GTB SCH (22:17)
[2018-11-07] MEDS ORDERED: HEPARIN 5,000 UNIT/1 ML VIAL ONE (22:26)
--- NOTE | 2018-11-07 22:36 | HP ---
DATE OF ADMISSION: 11/07/2018 CHIEF COMPLAINT: Acute heart failure and acute kidney injury. HISTORY OF PRESENT ILLNESS: This is an 83-year-old male with a past medical history of ventilator de pendent respiratory failure, history of chronic encephalopathy, history of Parkinson's dementia, hist ory of diabetes, history of CKD stage IV, history of aortic stenosis, history of depression, and marie nary artery disease who was recently admitted to [facility] in September. The patie nt during that hospital course was in acute kidney injury. The patient was stabilized and eventually transferred to [place] where he stayed for approximately 1 month before being discharged back to a [place] [facility]. While at the [facility], the patient was noted to have acute k idney injury with a BUN of greater than 140. The patient failed his fluid challenge and was admitted to [facility]. Upon arrival to the emergency room, the patient had a chest x-ray which showed evidence of pulmonary edema and pleural effusion. The patient also had urinalysis which showed positive nitrites and was started on antibiotics in the emergency room. Upon my evaluation of the patient at this time, the patient is nonverbal. He is stable on full venti latory support. There have been no reports of any hemoptysis, hematemesis, or hematochezia. PAST MEDICAL HISTORY: As stated above, history of chronic kidney disease stage IV, history of CHF, h istory of aortic stenosis, history of ventilator dependent respiratory failure, history of dysphagia, history of chronic encephalopathy, history of depression, and coronary artery disease. PAST SURGICAL HISTORY: Status post trach, status post PEG. ALLERGIES: MULTIPLE, PLEASE SEE LIST. FAMILY HISTORY: No family history of kidney disease. SOCIAL HISTORY: Lives at [facility]. MEDICATIONS: The patient's medications have been reviewed and reconciled. REVIEW OF SYSTEMS: Unable to do adequate review of systems as the patient is obtunded. Pertinent po sitives stated in HPI, otherwise negative. PHYSICAL EXAMINATION: VITAL SIGNS: Blood pressure 127/55, respiration 18, pulse 72, temperature 98.1. GENERAL: The patient is frail, weak, cachectic. HEENT: Head is normocephalic. NECK: Shows a trach. HEART: Regular rate. LUNGS: Show diminished breath sounds at the base. Positive rhonchi. ABDOMEN: Soft. Positive PEG. EXTREMITIES: Negative for clubbing or cyanosis. Positive edema. DERMATOLOGIC: No rashes. MUSCULOSKELETAL: No joint effusions. The patient has noted wounds on the lower extremity. NEUROLOGIC: Limited exam, the patient is obtunded. LABORATORY DATA: Shows white count of 7.4, hemoglobin 9.5, hematocrit 32.2, platelet count is 125. Sodium 136, potassium 4.0, chloride 92, bicarbonate 32, BUN 157, creatinine 1.49, glucose 314, calciu m 8.3. The patient's urinalysis shows pyuria, hematuria, and positive proteinuria. AST and ALT 75 a nd 104. Alkaline phosphatase 197. Chest x-ray shows cardiomegaly, diffuse pulmonary edema, bilatera l pleural effusions, and positive atelectasis. ASSESSMENT AND PLAN: This is an 83-year-old male who presents with: 1. Acute on chronic heart failure, systolic, diastolic. The patient is volume overloaded. Chest x- ray shows evidence of pulmonary edema. Clinically, the patient is edematous. Plan at this point is to start the patient on diuretic therapy. We will give Lasix 40 mg IV x1 and metolazone 5 mg. We tracy l monitor I's and O's closely. Cardiology will be placed with Dr. Freeman. If the patient is unable to respond to an aggressive diuretic challenge, he may require renal replacement therapy. 2. Acute kidney injury on top of chronic kidney disease stage IV with previous baseline creatinine o f 0.8 mg/dL. Etiology of acute kidney injury is concerning for possible cardiorenal syndrome, tubula r injury. Other possibilities such as acute glomerulonephritis or vasculitis is less likely given th e patient's clinical presentation. Plan at this point is stool for evaluation and we will check UA w ith microanalysis and check urine electrolytes. We will check a renal ultrasound to rule out there i s no evidence of obstruction. We will continue diuretic challenge and monitor renal function closely . If the patient does not respond to diuretic challenge and if renal function does not improve, we w ill consider starting the patient on renal replacement therapy. 3. . The patient has a noted urinalysis with positive pyuria. We will continue antibiotic the rapy. We will place ID consult for evaluation. 4. Ventilator-dependent respiratory failure. The patient's vent settings have been reviewed. We wi ll place a pulmonary consult for vent management and consider checking an ABG. 5. Anemia. We will monitor hemoglobin and hematocrit levels. 6. Mineral bone disorder. We will monitor calcium and phosphorus levels. 7. Dysphagia status post PEG. We will resume tube feeding on Nepro. 8. Hypertension. Blood pressure is controlled. We will continue to monitor. We will continue bloo d pressure regimen. 9. Diabetes. We will continue Lantus insulin sliding scale. 10. Parkinson's disease. We will continue Sinemet. 11. Acute on chronic encephalopathy. Etiology is multifactorial, toxic metabolic, possible uremia. We will continue to monitor mental status closely. 12. Seizure disorder. We will continue Keppra and Depakote. 13. History of dementia. We will continue Namenda. 14. History of aortic stenosis. We will monitor closely. Follow up with cardiology. 15. History of arrhythmia, atrial fibrillation, currently in sinus rhythm. We will continue medical management. 16. GI and DVT prophylaxis. We will continue H2 paolo and heparin. Dictated By: ROB LEMUS DO NR/NTS Conf#: [id number] DID#: [id number] CC: ROB LEMUS DO;*EndCC*
[2018-11-07 23:08] VITALS: RESP 16
[2018-11-07] MEDS: HEPARIN 5,000 UNIT/1 ML VIAL SC SCH (23:13)
[2018-11-07] MEDS: INSULIN ASPART [NOVOLOG] 3 ML PEN SC SCH ×2 (23:19→23:20)
[2018-11-08] VITALS (22 sets, daily range): BP systolic 90–121; BP diastolic 55–70; PULSE 73–114; RESP 16–20
--- NOTE | 2018-11-08 00:23 | CONS ---
DATE OF ADMISSION: 11/07/2018 DATE OF CONSULTATION: 11/07/2018 TYPE OF CONSULTATION: Infectious Disease. REASON FOR CONSULTATION: Antibiotic management. HISTORY OF PRESENT ILLNESS: Maximino Shipley is an 83-year-old unfortunate male brought in from detention for increased BUN and creatinine, and dehydration. He has had similar episodes in the past. H e has no fever or chills. No nausea or vomiting or diarrhea. He is nonverbal. His problems include : 1. Ventilator-dependent respiratory failure. 2. Status post tracheostomy. 3. History of dysphagia. 4. Chronic encephalopathy. 5. Parkinson's dementia. 6. Diabetes mellitus. 7. Stage IV chronic renal disease. 8. Aortic stenosis. 9. Depression. 10. Anemia. 11. Paroxysmal atrial fibrillation. 12. Seizure disorder. 13. Hypertension. 14. Systolic and diastolic heart failure. PAST MEDICAL HISTORY: As outlined. FAMILY HISTORY: Noncontributory. SOCIAL HISTORY: He does not smoke, drink or abuse drugs. ALLERGIES: NONE TO PENICILLIN, BUT HE IS ALLERGIC TO: 1. ATENOLOL. 2. CIPROFLOXACIN. 3. MORPHINE. 4. OXAZEPAM. 5. VALDECOXIB. 6. VERAPAMIL. MEDICATIONS: Per chart. REVIEW OF SYSTEMS: Noncontributory. PHYSICAL EXAMINATION: GENERAL: He is a well-developed, but cachectic, chronically debilitated, male who appears dehydrated . He is in no acute distress. VITAL SIGNS: Stable. He is afebrile. SKIN: Warm and dry, without icterus, but he has some superficial skin ecchymoses. HEENT: Within normal limits. NECK: Tracheostomy in place without exudate. CHEST: Decreased breath sounds at the bases. HEART: Without murmur or gallop. ABDOMEN: Soft and nontender, without organosplenomegaly or masses. EXTREMITIES: Without cyanosis or clubbing. He has 2+ pitting edema in the upper and lower extremiti es. RECTAL AND GENITAL: Deferred. NEUROLOGIC: Nonverbal. No focal neurological abnormalities. He responds to painful stimuli. Pupil s are constricted, but minimally reactive. ANCILLARY LABORATORY DATA: White count is 7.4, H and H of 9.5 and 32.2, platelet count 145. BUN and creatinine were 57/1.49. Random glucose is 314. His is a chest x-ray shows cardiomegaly, diffuse p ulmonary edema, bilateral small pleural effusions with atelectasis. Tracheostomy is in place. He ashton s diffuse interstitial and airspace opacification bilaterally. IMPRESSION AND PLAN: Maximino Shipley is an 83-year-old male who comes in with dehydration and possible aspiration pneumonitis. He was started on cefepime and I would concur with this treatment. He has a urine culture at this point and he is afebrile. His white count is 7.4. I would consider getting 2 sets of blood cultures. His AST is elevated at 75, ALT 104, alkaline phosphatase 197. We will con tinue him on current therapy. Dictated By: MARIUSZ LOPEZ MD, JD/AROLDO Conf#: [id number] DID#: [id number] CC: ROB LEMUS DO;*End*
--- NOTE | 2018-11-08 00:38 | CONS ---
DATE OF ADMISSION: 11/07/2018 DATE OF CONSULTATION: 11/07/2018 ADDENDUM In reviewing his records, the patient has a urine which is turbid, 3+ leukocytosis, 28 white cells pe r high-power field, and a few bacteria, many uric acid crystals. I believe that the patient has a ur inary tract infection as well as aspiration pneumonia. He is being cared for by Dr. Galvin in terms of his general health and his renal pathology. I will dictate my findings to Dr. Galvin. Dictated By: MARIUSZ LOPEZ MD, JD/NTS Conf#: [id number] DID#: [id number] CC: ROB GALVIN DO;*EndCC*
[2018-11-08] MEDS ORDERED: ACCU-CHEK XX SCH (02:00)
[2018-11-08] MEDS: ACCU-CHEK XX SCH ×4 (06:39→20:59)
[2018-11-08] MEDS ORDERED: POTASSIUM CHLORIDE (SR) 20 MEQ TAB PO STA (06:47)
[2018-11-08] MEDS ORDERED: POTASSIUM CHLORIDE 20 MEQ POWDER FOR ORAL SOLN GTB ONE (07:00)
[2018-11-08] MEDS: INSULIN ASPART [NOVOLOG] 3 ML PEN SC SCH ×4 (07:46→20:58)
[2018-11-08] MEDS: VALPROIC ACID LIQUID CUP 250 MG/5 ML CUP GTB SCH ×4 (08:24→20:45)
[2018-11-08] MEDS: MEMANTINE 10 MG TAB GTB SCH (08:25)
[2018-11-08] MEDS: DOCUSATE SODIUM 100 MG CAP PO SCH (08:25)
[2018-11-08] MEDS: MULTIVITAMINS/MINERALS TAB GTB SCH (08:25)
[2018-11-08] MEDS: ZINC SULFATE 220 MG CAP GTB SCH (08:25)
[2018-11-08] MEDS: CARBIDOPA/LEVODOPA (25/100) TAB GTB SCH ×3 (08:26→20:45)
[2018-11-08] MEDS: CHLORHEXIDINE GLUCONATE 15 ML UD CUP MM SCH ×2 (08:26→20:46)
[2018-11-08] MEDS: LINAGLIPTIN 5 MG TABLET GTB SCH (08:26)
[2018-11-08] MEDS: ASCORBIC ACID 500 MG TAB GTB SCH ×2 (08:26→20:45)
[2018-11-08] MEDS: FAMOTIDINE 20 MG TAB GTB SCH (08:26)
[2018-11-08] MEDS: METOPROLOL 25 MG TAB GTB SCH ×3 (08:27→20:45)
[2018-11-08] MEDS: METOLAZONE 5 MG TAB PO SCH (08:31)
[2018-11-08] MEDS: LEVETIRACETAM (100 MG/ML PO SYG) GTB SCH ×2 (08:33→20:59)
[2018-11-08] MEDS ORDERED: FERROUS FUM GTB SCH (09:00)
[2018-11-08] MEDS ORDERED: MULTIVIT GTB SCH (09:00)
[2018-11-08] MEDS ORDERED: MINERALS GTB SCH (09:00)
[2018-11-08] MEDS ORDERED: [UNRECOGNIZED DRUG - OTHER] GTB SCH (09:00)
--- NOTE | 2018-11-08 09:03 | PN ---
DATE: 11/08/2018 SUBJECTIVE: Overnight, the patient noted to have episodes of arrhythmia including second degree AV b lock. Urinary output has been adequate with approximately 800 mL. No other acute events noted. No hemoptysis, hematemesis, or hematochezia. OBJECTIVE: VITAL SIGNS: Blood pressure is 113/58, respirations 17, pulse 87, temperature 98.9. HEENT: Head is normocephalic. NECK: Supple. HEART: Regular rate. LUNGS: Show diminished breath sounds at the base. ABDOMEN: Soft, nontender to palpation without rebound or guarding. EXTREMITIES: Negative for clubbing, cyanosis, positive edema. DERMATOLOGIC: No rashes. MUSCULOSKELETAL: No joint effusion. NEUROLOGIC: No change in exam. MEDICATIONS: Reviewed. LABORATORY DATA: Shows sodium 140, potassium 3.1, chloride 94, bicarbonate 35, BUN 50, creatinine 1. 45. White count 6.8, hemoglobin 9.2, platelet count 158. Urinalysis was reviewed. Cultures are pen ding. ASSESSMENT AND PLAN: 1. 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 The patient is currently decompens ated. Continue medical management. Continue Lasix 40 mg IV b.i.d. We will continue metolazone. We will consider adding Diamox if needed. Monitor I's and O's closely. We will follow up with cardioarturo polk for further recommendations and management. We would rule out precipitating causes of heart fail ure including acute coronary syndrome by checking serial troponins. The patient does have a history of aortic stenosis. It could be progression of underlying disease of another precipitating factor. We will continue to monitor. 2. Acute kidney injury on top of chronic kidney disease stage IV with previous baseline creatinine o f 0.8 mg/dL. Etiology of acute kidney injury is likely secondary to cardiorenal syndrome, possible t ubular injury. The patient's renal function has remained stable for the last 24 hours. Plan is to c ontinue diuretic therapy. If renal function does not improve despite diuresis, the patient may requi re renal replacement therapy. 3. Hypokalemia. Etiology is likely secondary to diuretics. Continue to monitor and replete. 4. Alkalosis. Etiology is possibly metabolic secondary to diuretic therapy, hypokalemia. Other pos sibilities include compensatory. We will check an ABG and monitor. If the patient does have evidenc e of alkalemia we will consider starting Diamox. 5. Systemic inflammatory response syndrome. The patient remains on antibiotic therapy. We will con tinue. Follow up cultures. Follow up with infectious disease. 6. Ventilator dependent respiratory failure. Vent settings have been reviewed. We will check an AB G, follow with pulmonary. 7. Anemia. Monitor hemoglobin and hematocrit levels. 8. Mineral bone disorder, monitor calcium and phosphorus levels. 9. Dysphagia, status post percutaneous endoscopic gastrostomy, resume tube feedings. 10. Transaminitis. Etiology is unclear, possibly due to hepatic congestion from heart failure. We will follow LFTs, check abdominal ultrasound. 11. Arrhythmia with noted history of atrial fibrillation. The patient currently appears to be secon shani AV block. Continue to monitor. Follow up with Cardiology. 12. Diabetes. The patient's glucose levels remain elevated. We will adjust Lantus and insulin slid ing scale. 13. Parkinson's disease. Continue Sinemet. 14. Acute on chronic encephalopathy. Etiology is multifactorial, toxic metabolic, possibly uremic t o monitor. 15. Seizure disorder. Continue Keppra and Depakote. 16. History of dementia. Continue Namenda. 17. Aortic stenosis. Continue to monitor. May consider repeat 2D echo, follow up with Cardiology. 18. Gastrointestinal and deep vein thrombosis prophylaxis. Dictated By: ROB LEMUS DO NR/NTS Conf#: [id number] DID#: [id number] CC: JASON GORDON DO; ROB LEMUS DO;*EndCC*
[2018-11-08] MEDS: FUROSEMIDE 40 MG INJ IV SCH ×2 (09:41→17:38)
--- NOTE | 2018-11-08 13:09 | CONS ---
Date/Time of Note Date/Time of Note DATE: 11/08/18 TIME: 13:01 Assessment/Plan Assessment/Plan Assessment/Plan Acute decompensated systolic and diastolic congestive heart failure Acute kidney injury Chronic respiratory failure, vent dependent Aortic stenosis Cardiomyopathy History of chronic kidney disease Encephalopathy Paroxysmal atrial fibrillation/flutter -Diuretics have been adjusted by our nephrology colleague. We will continue beta-blockers heart rate and blood pressure permits. Troponins minimally elevated, likely secondary to congestive heart failure as well as acute kidney injury. Patient with history of worsening anemia with anticoagulation, would start low-dose aspirin and follow hemoglobin levels. We will start statin therapy if no contraindication. Result Diagram: 11/08/18 0449 11/08/18448 Results 24hrs Laboratory Tests Test 11/07/18 14:52 11/07/18 15:30 11/07/18 19:01 11/07/18 22:59 White Blood Count 7.4 Red Blood Count 3.11 L Hemoglobin 9.5 L Hematocrit 32.2 L Mean Corpuscular Volume 103.5 H Mean Corpuscular 30.5 Hemoglobin Mean Corpuscular 29.5 L Hemoglobin Concent Red Cell Distribution 18.4 H Width Platelet Count 145 # Mean Platelet Volume 11.4 H Immature Granulocytes % 0.500 H Neutrophils % 78.2 H Lymphocytes % 7.8 L Monocytes % 13.5 H Eosinophils % 0.0 Basophils % 0.0 Nucleated Red Blood 0.3 H Cells % Immature Granulocytes # 0.040 H Neutrophils # 5.8 Lymphocytes # 0.6 L Monocytes # 1.0 H Eosinophils # 0.0 Basophils # 0.0 Nucleated Red Blood 0.0 Cells # Sodium Level 136 Potassium Level 4.0 Chloride Level 92 L Carbon Dioxide Level 32 H Anion Gap 12 Blood Urea Nitrogen 157 H Creatinine 1.49 H Est Glomerular Filtrat Rate mL/min Glucose Level 314 H Calcium Level 8.3 L Total Bilirubin 0.2 Direct Bilirubin 0.00 Indirect Bilirubin 0.2 Aspartate Amino 75 H Transf (AST/SGOT) Alanine 104 H Aminotransferase (ALT/SG PT) Alkaline Phosphatase 197 H Troponin I 0.089 Total Protein 8.1 Albumin 2.9 L Globulin 5.20 H Albumin/Globulin Ratio 0.55 Lipase 284 Urine Color SOFYA Urine Clarity TURBID A Urine pH 9.0 Urine Specific [place] 1.016 Urine Ketones NEGATIVE Urine Nitrite NEGATIVE Urine Bilirubin NEGATIVE Urine Urobilinogen 1+ H Urine Leukocyte Esterase 3+ H Urine Microscopic RBC 6 H Urine Microscopic WBC 28 H Urine Uric Acid Crystals MANY A Urine Bacteria FEW A Urine Mucus FEW A Urine Hemoglobin NEGATIVE Urine Glucose NEGATIVE Urine Total Protein 2+ H Lactic Acid Level 2.1 *H Bedside Glucose 282 H Test 11/08/18 02:05 11/08/18 04:49 11/08/18 07:32 11/08/18 07:45 Bedside Glucose 301 H 112 White Blood Count 6.5 Red Blood Count 2.97 L Hemoglobin 9.2 L Hematocrit 29.6 L Mean Corpuscular Volume 99.7 Mean Corpuscular 31.0 Hemoglobin Mean Corpuscular 31.1 L Hemoglobin Concent Red Cell Distribution 18.3 H Width Platelet Count 151 Mean Platelet Volume 11.2 H Immature Granulocytes % 0.500 H Neutrophils % 81.4 H Lymphocytes % 8.2 L Monocytes % 9.7 Eosinophils % 0.2 Basophils % 0.0 Nucleated Red Blood 0.0 Cells % Immature Granulocytes # 0.030 Neutrophils # 5.3 Lymphocytes # 0.5 L Monocytes # 0.6 Eosinophils # 0.0 Basophils # 0.0 Nucleated Red Blood 0.0 Cells # Sodium Level 140 Potassium Level 3.1 L Chloride Level 94 L Carbon Dioxide Level 35 H Anion Gap 11 Blood Urea Nitrogen 150 H Creatinine 1.45 H Est Glomerular Filtrat Rate mL/min Glucose Level 165 # Calcium Level 8.1 L Phosphorus Level 3.7 Magnesium Level 2.9 H Total Bilirubin 0.4 Direct Bilirubin 0.00 Indirect Bilirubin 0.4 Aspartate Amino 49 H Transf (AST/SGOT) Alanine 62 Aminotransferase (ALT/SG PT) Alkaline Phosphatase 149 H Total Protein 6.8 # Albumin 2.5 L Lactic Acid Level 1.7 Troponin I 0.131 *H Test 11/08/18 12:04 Bedside Glucose 108 Consultation Date/Type/Reason Admit Date/Time Nov 07, 2018 at 16:07 Type of Consult cv Reason for Consultation Congestive heart failure Hx of Present Illness This is an 83-year-old male known to me from previous admissions with history of chronic respiratory failure on ventilator, aortic stenosis, cardiomyopathy who was transferred to our facility from a nursing facility secondary to worsening renal function as well as evidence of decompensated congestive heart failure. Patient was admitted for further evaluation and care. Patient is being taken care of by primary nephrology and diuretics have been adjusted. Patient unable to give history and information obtained from medical chart Unable to be performed at the current time given patient's mental status Past Medical History Paroxysmal atrial flutter/fibrillation Aortic stenosis Chronic respiratory failure Congestive heart failure Chronic kidney disease Medications Current Medications Acetaminophen (Tylenol Tab) 1,000 mg Q4H PRN PO MODERATE PAIN LEVEL 4-6; Start 11/07/18 at 16:30 Acetaminophen (Tylenol Tab) 650 mg Q4H PRN GTB MILD PAIN LEVEL 1-3; Start 11/07/18 at 16:30 Albuterol (Proventil 0.083% (Neb)) 2.5 mg Q6H RESP THERAPY PRN NEB WHEEZING AND SOB; Start 11/07/18 at 16:30 Ascorbic Acid (Vitamin C) 500 mg BID GTB Last administered on 11/08/18 08:26; Admin Dose 500 MG; Start 11/07/18 at 21:00 Bisacodyl (Dulcolax Supp) 10 mg PRN PRN ID CONSTIPATION; Start 11/07/18 at 16:30 Carbidopa/Levodopa (Sinemet (25/ 100)) 1 tab TID GTB Last administered on 11/08/18at 12:18; Admin Dose 1 TAB; Start 11/07/18 at 21:00 Chlorhexidine Gluconate (Peridex) 15 ml Q12 MM Last administered on 11/08/18 08:26; Admin Dose 15 ML; Start 11/07/18 at 21:00 Docusate Sodium (Colace) 100 mg DAILY PO Last administered on 11/08/18 08:25; Admin Dose 100 MG; Start 11/08/18 at 09:00 Famotidine (Pepcid) 20 mg DAILY GTB Last administered on 11/08/18 08:26; Admin Dose 20 MG; Start 11/08/18 at 09:00 Hydralazine HCl (Apresoline) 20 mg Q6 PRN GTB ELEVATED BLOOD PRESSURE; Start 11/07/18 at 16:30 Levetiracetam (Keppra Liq (Ped)) 500 mg BID GTB Last administered on 11/08/18 08:33; Admin Dose 500 MG; Start 11/07/18 at 21:00 Linagliptin (Tradjenta) 5 mg DAILY GTB Last administered on 11/08/18 08:26; Admin Dose 5 MG; Start 11/08/18 at 09:00 Memantine (Namenda) 10 mg DAILY GTB Last administered on 11/08/18at 08:25; Admin Dose 10 MG; Start 11/08/18 at 09:00 Metoprolol Tartrate (Lopressor) 25 mg BID GTB Last administered on 11/08/18at 09:41; Admin Dose 25 MG; Start 11/07/18 at 21:00 Sodium Biphosphate/ Sodium Phosphate (Fleet Enema) 133 ml PRN PRN ID CO NSTIPATION; Start 11/07/18 at 16:30 Valproate Sodium (Depakene Liquid Cup) 125 mg QID GTB Last administered on 11/08/18at 12:18; Admin Dose 125 MG; Start 11/07/18 at 17:00 Zinc Sulfate (Zinc Sulfate) 220 mg DAILY GTB Last administered on 11/08/18at 08:25; Admin Dose 220 MG; Start 11/08/18 at 09:00 Diagnostic Test (Pha) (Accu-Chek) 1 ea AC MEALS AND BEDTIME XX Last administered on 11/08/18at 12:05; Admin Dose 1 EA; Start 11/07/18 at 17:30 Cefepime HCl 50 ml @ 100 mls/hr Q24H IVPB ; Start 11/08/18 at 16:00 Miscellaneous Information 1 ea NOTE XX ; Start 11/07/18 at 19:00 Glucose (Glutose) 15 gm Q15M PRN PO DECREASED GLUCOSE; Start 11/07/18 at 19:00 Glucose (Glutose) 22.5 gm Q15M PRN PO DECREASED GLUCOSE; Start 11/07/18 at 19:00 Dextrose (D50w Syringe) 25 ml Q15M PRN IV DECREASED GLUCOSE; Start 11/07/18 at 19:00 Dextrose (D50w Syringe) 50 ml Q15M PRN IV DECREASED GLUCOSE; Start 11/07/18 at 19:00 Glucagon (Glucagen) 1 mg Q15M PRN IM DECREASED GLUCOSE; Start 11/07/18 at 19:00 Glucose (Glutose) 15 gm Q15M PRN BUCCAL DECREASED GLUCOSE; Start 11/07/18 at 19:00 Multivitamins/ Minerals (Theragran-M) 1 tab DAILY GTB Last administered on 11/08/18at 08:25; Admin Dose 1 TAB; Start 11/08/18 at 09:00 Heparin Sodium (Porcine) (Heparin (5000 Units/1ml)) 5,000 unit Q12 SC Last administered on 11/07/18at 23:13; Admin Dose 5,000 UNIT; Start 11/08/18 at 09:00 Diagnostic Test (Pha) (Accu-Chek) 1 ea 02 XX ; Start 11/09/18 at 02:00 Insulin Aspart (Novolog Insulin Pen) NOVOLOG *MODERATE* ALGORITHM WITH MEALS BEDTIME SC ; Start 11/08/18 at 08:00 Furosemide (Lasix) 40 mg BID DIURETICS IV Last administered on 11/08/18at 09:41; Admin Dose 40 MG; Start 11/08/18 at 08:30 Metolazone (Zaroxolyn) 5 mg DAILY@0600 PO Last administered on 11/08/18at 08:31; Admin Dose 5 MG; Start 11/08/18 at 08:30 Insulin Glargine (Lantus) 26 units QHS SC ; Start 11/08/18 at 21:00 Allergies: Coded Allergies: atenolol (Verified Allergy, Unknown, 11/07/18) ciprofloxacin (Verified Allergy, Unknown, 11/07/18) morphine (Verified Allergy, Unknown, 11/07/18) oxazepam (Verified Allergy, Unknown, 11/07/18) valdecoxib (Verified Allergy, Unknown, 11/07/18) verapamil (Verified Allergy, Unknown, 11/07/18) Past Surgical History Including but not limited to tracheostomy and PEG placement Past Surgical Hx: other Family History Significant Family History: no pertinent family hx Social History Alcohol Use: none Smoking Status: Former smoker Other Social History From correction facility Exam/Review of Systems Vital Signs Vitals Vital Signs Date Temp Pulse Resp B/P (MAP) Pulse Ox O2 O2 Flow FiO2 Time Delivery Rate 11/08/18 98.8 106 18 121/67 99 Mechanical 11:36 (85) Ventilator 11/08/18 30 10:49 Intake and Output 11/07/18 11/07/18 11/08/18 1414:59 22:59 06:59 IntakeIntake Total 1550 ml 300 ml OutputOutput Total 1500 ml BalanceBalance 1550 ml -1200 ml Exam No apparent distress, tracheostomy to ventilator, no response to verbal stimuli Constitutional: non-verbal Head: normocephalic Neck: other (Tracheostomy) Respiratory: other (Coarse breath sounds bilaterally, decreased at the bases) Cardiovascular: irregular rhythm, systolic murmur Gastrointestinal: soft, non-tender, bowel sounds Extremities: edema Medications Medications Current Medications Acetaminophen (Tylenol Tab) 1,000 mg Q4H PRN PO MODERATE PAIN LEVEL 4-6; Start 11/07/18 at 16:30 Acetaminophen (Tylenol Tab) 650 mg Q4H PRN GTB MILD PAIN LEVEL 1-3; Start 11/07/18 at 16:30 Albuterol (Proventil 0.083% (Neb)) 2.5 mg Q6H RESP THERAPY PRN NEB WHEEZING AND SOB; Start 11/07/18 at 16:30 Ascorbic Acid (Vitamin C) 500 mg BID GTB Last administered on 11/08/18at 08:26; Admin Dose 500 MG; Start 11/07/18 at 21:00 Bisacodyl (Dulcolax Supp) 10 mg PRN PRN ID CONSTIPATION; Start 11/07/18 at 16:30 Carbidopa/Levodopa (Sinemet (25/ 100)) 1 tab TID GTB Last administered on 11/08/18at 12:18; Admin Dose 1 TAB; Start 11/07/18 at 21:00 Chlorhexidine Gluconate (Peridex) 15 ml Q12 MM Last administered on 11/08/18at 08:26; Admin Dose 15 ML; Start 11/07/18 at 21:00 Docusate Sodium (Colace) 100 mg DAILY PO Last administered on 11/08/18at 08:25; Admin Dose 100 MG; Start 11/08/18 at 09:00 Famotidine (Pepcid) 20 mg DAILY GTB Last administered on 11/08/18 08:26; Admin Dose 20 MG; Start 11/08/18 at 09:00 Hydralazine HCl (Apresoline) 20 mg Q6 PRN GTB ELEVATED BLOOD PRESSURE; Start 11/07/18 at 16:30 Levetiracetam (Keppra Liq (Ped)) 500 mg BID GTB Last administered on 11/08/18at 08:33; Admin Dose 500 MG; Start 11/07/18 at 21:00 Linagliptin (Tradjenta) 5 mg DAILY GTB Last administered on 11/08/18at 08:26; Admin Dose 5 MG; Start 11/08/18 at 09:00 Memantine (Namenda) 10 mg DAILY GTB Last administered on 11/08/18at 08:25; Admin Dose 10 MG; Start 11/08/18 at 09:00 Metoprolol Tartrate (Lopressor) 25 mg BID GTB Last administered on 11/08/18at 09:41; Admin Dose 25 MG; Start 11/07/18 at 21:00 Sodium Biphosphate/ Sodium Phosphate (Fleet Enema) 133 ml PRN PRN ID CONSTIPATION; Start 11/07/18 at 16:30 Valproate Sodium (Depakene Liquid Cup) 125 mg QID GTB Last administered on 11/08/18at 12:18; Admin Dose 125 MG; Start 11/07/18 at 17:00 Zinc Sulfate (Zinc Sulfate) 220 mg DAILY GTB Last administered on 11/08/18at 08:25; Admin Dose 220 MG; Start 11/08/18 at 09:00 Diagnostic Test (Pha) (Accu-Chek) 1 ea AC MEALS AND BEDTIME XX Last administered on 11/08/18at 12:05; Admin Dose 1 EA; Start 11/07/18 at 17:30 Cefepime HCl 50 ml @ 100 mls/hr Q24H IVPB ; Start 11/08/18 at 16:00 Miscellaneous Information 1 ea NOTE XX ; Start 11/07/18 at 19:00 Glucose (Glutose) 15 gm Q15M PRN PO DECREASED GLUCOSE; Start 11/07/18 at 19:00 Glucose (Glutose) 22.5 gm Q15M PRN PO DECREASED GLUCOSE; Start 11/07/18 at 19:00 Dextrose (D50w Syringe) 25 ml Q15M PRN IV DECREASED GLUCOSE; Start 11/07/18 at 19:00 Dextrose (D50w Syringe) 50 ml Q15M PRN IV DECREASED GLUCOSE; Start 11/07/18 at 19:00 Glucagon (Glucagen) 1 mg Q15M PRN IM DECREASED GLUCOSE; Start 11/07/18 at 19:00 Glucose (Glutose) 15 gm Q15M PRN BUCCAL DECREASED GLUCOSE; Start 11/07/18 at 19:00 Multivitamins/ Minerals (Theragran-M) 1 tab DAILY GTB Last administered on 11/08/18at 08:25; Admin Dose 1 TAB; Start 11/08/18 at 09:00 Heparin Sodium (Porcine) (Heparin (5000 Units/1ml)) 5,000 unit Q12 SC Last administered on 11/07/18at 23:13; Admin Dose 5,000 UNIT; Start 11/08/18 at 09:00 Diagnostic Test (Pha) (Accu-Chek) 1 ea 02 XX ; Start 11/09/18 at 02:00 Insulin Aspart (Novolog Insulin Pen) NOVOLOG *MODERATE* ALGORITHM WITH MEALS B EDTIME SC ; Start 11/08/18 at 08:00 Furosemide (Lasix) 40 mg BID DIURETICS IV Last administered on 11/08/18at 09:41; Admin Dose 40 MG; Start 11/08/18 at 08:30 Metolazone (Zaroxolyn) 5 mg DAILY@0600 PO Last administered on 11/08/18at 08:31; Admin Dose 5 MG; Start 11/08/18 at 08:30 Insulin Glargine (Lantus) 26 units QHS SC ; Start 11/08/18 at 21:00 Imaging Imaging ECG with atrial fibrillation at 113 bpm, QRS 84 ms, nonspecific ST abnormalities Rudi Freeman DO Nov 08, 2018 13:09
[2018-11-08] MEDS: ASPIRIN 81 MG TAB NGT SCH (13:22)
--- NOTE | 2018-11-08 14:01 | RADRPT ---
Echocardiogram Report Patient Name: OSKAR OCHOA Gender: Male Date: 1935 Study Date: 08-Nov-2018 Accounts Payable Manager: Rodolfo [facility] Location: 628-A Ref. Physician: ROB LEMUS Quality: Adequate Procedures: Transthoracic echocardiogram with complete 2D, M-Mode, and doppler examination. Indications: Congestive Heart Failure. 2D/M Mode Doppler Measurement Value Normal Ranges Measurement Value Normal Ranges LVIDd 2D 4.4 3.5 - 5.6 cm INDU VTI 0.6 cm2 LVIDs 2D 3.6 2.1 - 4.1 cm AV Mean Malik 2.8 m/sec LVPWd 2D 1.1 0.6 - 1.1 cm AV Mean PG 37.0 mmHg IVSd 2D 1.1 0.6 - 1.1 cm AV VTI 79.4 cm AoR Diam 2D 2.5 2.0 - 3.7 cm LVOT Mean Malik 0.4 m/sec LA/Ao 2D 2 0 - 1 LVOT Mean PG 1.0 mmHg LA Dimen 2D 4.0 2.3 - 4.0 cm LVOT Peak Malik 0.6 m/sec LVOT Diam 2.0 cm LVOT Peak PG 2.0 mmHg MV E Peak Malik 1.4 m/sec MV A Peak Malik 0.6 m/sec MV E/A 2.1 MV Decel Time 137 msec Lat E` Malik 0.1 m/sec Lateral E/E` 25.5 Med E` Malik 0.0 m/sec MV E/A 2.1 TAPSE 1.5 cm TR Peak Malik 3.9 m/sec TR Peak PG 60.0 mmHg RVSP 68.0 mmHg Findings Left Ventricle: Normal left ventricular cavity size. Left ventricular wall thickness upper limits of normal. Mild left ventricular systolic dysfunction. Ejection fraction is visually estimated at 45 %. Abnormal Diastolic Function. Right Ventricle: Mild right ventricular systolic dysfunction. Mild enlargement of right ventricle. Left Atrium: There is mild enlargement of left atrium. Right Atrium: There is mild enlargement of right atrium. Mitral Valve: Mild mitral leaflet calcification. Mild mitral annular calcification. Moderate mitral valve regurgitation. Aortic Valve: Moderate to severe aortic stenosis. Mean PG 37.00 mmHg. Aortic cusps appear moderately calcified. Mild aortic valve regurgitation. Tricuspid Valve: Normal appearance of the tricuspid valve. Estimated peak PA systolic pressure 68 mmHg. There is moderate tricuspid regurgitation. Pulmonic Valve: Pulmonic valve not well visualized. There is trace pulmonic regurgitation. Pericardium: Normal pericardium with no significant pericardial effusion. Pleural effusion seen. Aorta: Normal aortic root. IVC: Inferior vena cava without respiratory collapse, however, patient on ventilator. Conclusions Normal left ventricular cavity size. Left ventricular wall thickness upper limits of normal. Mild left ventricular systolic dysfunction. Ejection fraction is visually estimated at 45 %. Abnormal Diastolic Function. Mild right ventricular systolic dysfunction.. Mild enlargement of right ventricle. There is mild enlargement of left atrium. There is mild enlargement of right atrium. Moderate mitral valve regurgitation. Moderate to severe aortic stenosis. Mean PG 37.00 mmHg. Mild aortic valve regurgitation. Estimated peak PA systolic pressure 68 mmHg. There is moderate tricuspid regurgitation. Normal pericardium with no significant pericardial effusion. Pleural effusion seen. Electronically Signed By: Rudi Freeman 08-Nov-2018 14:00:47 -0800 Patient Name: OSKAR OCHOA Study Date: 08-Nov-2018 [id number]
--- NOTE | 2018-11-08 14:41 | CONS ---
Date/Time of Note Date/Time of Note DATE: 11/08/18 TIME: 14:40 Assessment/Plan Assessment/Plan Hospital Course Patient is noncommunicative lying comfortably in bed afebrile WBC 6.5 H&H 9.2 and 29.6 platelets 151 neutrophils 81.4 BUN 150 creatinine 1.45 troponin 0 0.131 Urinalysis positive for leukocyte Estrace WBCs and few bacteria Microbiology: Urine culture growing gram-negative rods Chest x-ray on admission revealed cardiomegaly with diffuse pulmonary edema and bilateral small pleural effusions. Chest ultrasound revealed large bilateral pleural effusions. Abdominal ultrasound revealed cholelithiasis without evidence for cholecystitis Allergy: Ciprofloxacin Antimicrobials: Cefepime Physical examination: Chronically ill-appearing elderly man who is noncommunicative in no distress. Head atraumatic normocephalic sclera nonicteric. Vehicle mucosa dry. Neck is supple chest rise symmetrical breath sounds diminished bases. Heart: S1-S2. Abdomen soft bowel sounds present extremities with bilateral edema. Skin: Patient has multiple pressure sores Assessment: 1. Sepsis secondary to UTI 2. Gram-negative [place] UTI 3. Acute on chronic kidney disease 4. Acute on chronic respiratory failure 5. Bilateral pleural effusions 6. ?Non-ST elevation [place] 7. Diabetes type 2 8. Parkinson's dementia 9. Aortic stenosis Plan: Patient is hemodynamically stable we will continue him on current antibiotics, await for final cultures, follow cardiology recommendations Result Diagram: 11/08/18 0449 11/08/18 0449 Results 24hrs Laboratory Tests Test 11/07/18 14:52 11/07/18 15:30 11/07/18 19:01 11/07/18 22:59 White Blood Count 7.4 Red Blood Count 3.11 L Hemoglobin 9.5 L Hematocrit 32.2 L Mean Corpuscular Volume 103.5 H Mean Corpuscular 30.5 Hemoglobin Mean Corpuscular 29.5 L Hemoglobin Concent Red Cell Distribution 18.4 H Width Platelet Count 145 # Mean Platelet Volume 11.4 H Immature Granulocytes % 0.500 H Neutrophils % 78.2 H Lymphocytes % 7.8 L Monocytes % 13.5 H Eosinophils % 0.0 Basophils % 0.0 Nucleated Red Blood 0.3 H Cells % Immature Granulocytes # 0.040 H Neutrophils # 5.8 Lymphocytes # 0.6 L Monocytes # 1.0 H Eosinophils # 0.0 Basophils # 0.0 Nucleated Red Blood 0.0 Cells # Sodium Level 136 Potassium Level 4.0 Chloride Level 92 L Carbon Dioxide Level 32 H Anion Gap 12 Blood Urea Nitrogen 157 H Creatinine 1.49 H Est Glomerular Filtrat Rate mL/min Glucose Level 314 H Calcium Level 8.3 L Total Bilirubin 0.2 Direct Bilirubin 0.00 Indirect Bilirubin 0.2 Aspartate Amino 75 H Transf (AST/SGOT) Alanine 104 H Aminotransferase (ALT/SG PT) Alkaline Phosphatase 197 H Troponin I 0.089 Total Protein 8.1 Albumin 2.9 L Globulin 5.20 H Albumin/Globulin Ratio 0.55 Lipase 284 Urine Color SOFYA Urine Clarity TURBID A Urine pH 9.0 Urine Specific Hope 1.016 Urine Ketones NEGATIVE Urine Nitrite NEGATIVE Urine Bilirubin NEGATIVE Urine Urobilinogen 1+ H Urine Leukocyte Esterase 3+ H Urine Microscopic RBC 6 H Urine Microscopic WBC 28 H Urine Uric Acid Crystals MANY A Urine Bacteria FEW A Urine Mucus FEW A Urine Hemoglobin NEGATIVE Urine Glucose NEGATIVE Urine Total Protein 2+ H Lactic Acid Level 2.1 *H Bedside Glucose 282 H Test 11/08/18 02:05 11/08/18 04:49 11/08/18 07:32 11/08/18 07:45 Bedside Glucose 301 H 112 White Blood Count 6.5 Red Blood Count 2.97 L Hemoglobin 9.2 L Hematocrit 29.6 L Mean Corpuscular Volume 99.7 Mean Corpuscular 31.0 Hemoglobin Mean Corpuscular 31.1 L Hemoglobin Concent Red Cell Distribution 18.3 H Width Platelet Count 151 Mean Platelet Volume 11.2 H Immature Granulocytes % 0.500 H Neutrophils % 81.4 H Lymphocytes % 8.2 L Monocytes % 9.7 Eosinophils % 0.2 Basophils % 0.0 Nucleated Red Blood 0.0 Cells % Immature Granulocytes # 0.030 Neutrophils # 5.3 Lymphocytes # 0.5 L Monocytes # 0.6 Eosinophils # 0.0 Basophils # 0.0 Nucleated Red Blood 0.0 Cells # Sodium Level 140 Potassium Level 3.1 L Chloride Level 94 L Carbon Dioxide Level 35 H Anion Gap 11 Blood Urea Nitrogen 150 H Creatinine 1.45 H Est Glomerular Filtrat Rate mL/min Glucose Level 165 # Calcium Level 8.1 L Phosphorus Level 3.7 Magnesium Level 2.9 H Total Bilirubin 0.4 Direct Bilirubin 0.00 Indirect Bilirubin 0.4 Aspartate Amino 49 H Transf (AST/SGOT) Alanine 62 Aminotransferase (ALT/SG PT) Alkaline Phosphatase 149 H Total Protein 6.8 # Albumin 2.5 L Lactic Acid Level 1.7 Troponin I 0.131 *H Test 11/08/18 12:04 Bedside Glucose 108 Consultation Date/Type/Reason Admit Date/Time Nov 07, 2018 at 16:07 Initial Consult Date Type of Consult ID Exam/Review of Systems Vital Signs Vitals Vital Signs Date Temp Pulse Resp B/P (MAP) Pulse Ox O2 O2 Flow FiO2 Time Delivery Rate 11/08/18 93 16 100 30 13:17 11/08/18 98.8 121/67 Mechanical 11:36 (85) Ventilator Intake and Output 11/07/18 11/07/18 11/08/18 1414:59 22:59 06:59 IntakeIntake Total 1550 ml 300 ml OutputOutput Total 1500 ml BalanceBalance 1550 ml -1200 ml Medications Medications Current Medications Acetaminophen (Tylenol Tab) 1,000 mg Q4H PRN PO MODERATE PAIN LEVEL 4-6; Start 11/07/18 at 16:30 Acetaminophen (Tylenol Tab) 650 mg Q4H PRN GTB MILD PAIN LEVEL 1-3; Start 11/07/18 at 16:30 Albuterol (Proventil 0.083% (Neb)) 2.5 mg Q6H RESP THERAPY PRN NEB WHEEZING AND SOB; Start 11/07/18 at 16:30 Ascorbic Acid (Vitamin C) 500 mg BID GTB Last administered on 11/08/18at 08:26; Admin Dose 500 MG; Start 11/07/18 at 21:00 Bisacodyl (Dulcolax Supp) 10 mg PRN PRN [place] CONSTIPATION; Start 11/07/18 at 16:30 Carbidopa/Levodopa (Sinemet (25/ 100)) 1 tab TID GTB Last administered on 11/08/18at 12:18; Admin Dose 1 TAB; Start 11/07/18 at 21:00 Chlorhexidine Gluconate (Peridex) 15 ml Q12 MM Last administered on 11/08/18at 08:26; Admin Dose 15 ML; Start 11/07/18 at 21:00 Docusate Sodium (Colace) 100 mg DAILY PO Last administered on 11/08/18at 08:25; Admin Dose 100 MG; Start 11/08/18 at 09:00 Famotidine (Pepcid) 20 mg DAILY GTB Last administered on 11/08/18at 08:26; Admin Dose 20 MG; Start 11/08/18 at 09:00 Hydralazine HCl (Apresoline) 20 mg Q6 PRN GTB ELEVATED BLOOD PRESSURE; Start 11/07/18 at 16:30 Levetiracetam (Keppra Liq (Ped)) 500 mg BID GTB Last administered on 11/08/18at 08:33; Admin Dose 500 MG; Start 11/07/18 at 21:00 Linagliptin (Tradjenta) 5 mg DAILY GTB Last administered on 11/08/18at 08:26; Ad min Dose 5 MG; Start 11/08/18 at 09:00 Memantine (Namenda) 10 mg DAILY GTB Last administered on 11/08/18at 08:25; Admin Dose 10 MG; Start 11/08/18 at 09:00 Metoprolol Tartrate (Lopressor) 25 mg BID GTB Last administered on 11/08/18at 09:41; Admin Dose 25 MG; Start 11/07/18 at 21:00 Sodium Biphosphate/ Sodium Phosphate (Fleet Enema) 133 ml PRN PRN [place] CONSTIPATION; Start 11/07/18 at 16:30 Valproate Sodium (Depakene Liquid Cup) 125 mg QID GTB Last administered on 11/08/18at 12:18; Admin Dose 125 MG; Start 11/07/18 at 17:00 Zinc Sulfate (Zinc Sulfate) 220 mg DAILY GTB Last administered on 11/08/18at 08:25; Admin Dose 220 MG; Start 11/08/18 at 09:00 Diagnostic Test (Pha) (Accu-Chek) 1 ea AC MEALS AND BEDTIME XX Last administered on 11/08/18at 12:05; Admin Dose 1 EA; Start 11/07/18 at 17:30 Cefepime HCl 50 ml @ 100 mls/hr Q24H IVPB ; Start 11/08/18 at 16:00 Miscellaneous Information 1 ea NOTE XX ; Start 11/07/18 at 19:00 Glucose (Glutose) 15 gm Q15M PRN PO DECREASED GLUCOSE; Start 11/07/18 at 19:00 Glucose (Glutose) 22.5 gm Q15M PRN PO DECREASED GLUCOSE; Start 11/07/18 at 19:00 Dextrose (D50w Syringe) 25 ml Q15M PRN IV DECREASED GLUCOSE; Start 11/07/18 at 19:00 Dextrose (D50w Syringe) 50 ml Q15M PRN IV DECREASED GLUCOSE; Start 11/07/18 at 19:00 Glucagon (Glucagen) 1 mg Q15M PRN IM DECREASED GLUCOSE; Start 11/07/18 at 19:00 Glucose (Glutose) 15 gm Q15M PRN BUCCAL DECREASED GLUCOSE; Start 11/07/18 at 19:00 Multivitamins/ Minerals (Theragran-M) 1 tab DAILY GTB Last administered on 11/08/18at 08:25; Admin Dose 1 TAB; Start 11/08/18 at 09:00 Heparin Sodium (Porcine) (Heparin (5000 Units/1ml)) 5,000 unit Q12 SC Last administered on 11/07/18at 23:13; Admin Dose 5,000 UNIT; Start 11/08/18 at 09:00 Diagnostic Test (Pha) (Accu-Chek) 1 ea 02 XX ; Start 11/09/18 at 02:00 Insulin Aspart (Novolog Insulin Pen) NOVOLOG *MODERATE* ALGORITHM WITH MEALS BEDTIME SC ; Start 11/08/18 at 08:00 Furosemide (Lasix) 40 mg BID DIURETICS IV Last administered on 11/08/18at 09:41; Admin Dose 40 MG; Start 11/08/18 at 08:30 Metolazone (Zaroxolyn) 5 mg DAILY@0600 PO Last administered on 11/08/18at 08:31; Admin Dose 5 MG; Start 11/08/18 at 08:30 Insulin Glargine (Lantus) 26 units QHS SC ; Start 11/08/18 at 21:00 Aspirin (Aspirin) 81 mg DAILY NGT Last administered on 11/08/18at 13:22; Admin Dose 81 MG; Start 11/08/18 at 13:30 Atorvastatin Calcium (Lipitor) 20 mg HS PO ; Start 11/08/18 at 21:00 RAMSEY VERDE NP Nov 08, 2018 14:40
--- NOTE | 2018-11-08 15:27 | CONS ---
DATE OF ADMISSION: 11/07/2018 DATE OF CONSULTATION: 11/08/2018 TYPE OF CONSULTATION: Pulmonary. REASON FOR CONSULTATION: Shortness of breath. Thank you, Dr. Galvin, for this consultation. HISTORY OF PRESENT ILLNESS: This is an 83-year-old gentleman with multiple medical problems includin g vent-dependent respiratory failure, chronic encephalopathy, history of Parkinson's dementia, chroni c kidney disease, aortic stenosis, [facility] increasing shortness of breath, orthopnea, PND, found to have worsening pulmonary edema radiographically and transient desatu ration. The patient continues on full mechanical ventilation. Otherwise, is hemodynamically stable, was admitted to telemetry floor. PAST MEDICAL HISTORY: As above. MEDICATIONS: Per chart. ALLERGIES: 1. ATENOLOL. 2. CIPROFLOXACIN. 3. MORPHINE. 4. OXAZEPAM. 5. VERAPAMIL. SOCIAL HISTORY: She is a nonsmoker, no alcohol, no history of drug use. FAMILY HISTORY: Noncontributory. SYSTEMS REVIEW: A 12-point review of systems currently unable to perform. PHYSICAL EXAMINATION: GENERAL: Chronically ill appearing gentleman, appears comfortable at rest, no acute distress. VITAL SIGNS: Currently afebrile, pulse is 100, blood pressure 121/67, O2 saturation 96%, FIO2 of 30% . NECK: Supple. No JVD or lymphadenopathy. : Intact. CARDIAC: S1, S2, no added sounds or murmurs. CHEST: Diminished air entry bilaterally. ABDOMEN: Soft, nontender. No guarding or rebound. EXTREMITIES: No cyanosis, clubbing, edema. NEUROLOGIC: Generalized weakness. DIAGNOSTIC DATA: Chest x-ray shows ongoing pulmonary edema. LABORATORY DATA: White count 6.5, hemoglobin 9.2, platelets of 151. BUN 150, creatinine 1.45. Trop onin 0.131. IMPRESSION AND PLAN: 1. Acute hypoxemic respiratory failure, likely secondary to progressive congestive cardiac failure. 2. History of vent-dependent respiratory failure. 3. Possible type 2 non-ST elevation myocardial infarction. 4. Moderate pulmonary hypertension. 5. Moderate to severe aortic stenosis. RECOMMENDATIONS: 1. Continue mechanical ventilation. 2. Gentle diuresis if tolerated. 3. Correction of elevated BUN with free water. 4. Deep venous thrombosis and gastrointestinal prophylaxis. 5. Continue tube feeding as tolerated. Dictated By: ZARIA JONES MD SV/AROLDO Conf#: [id number] DID#: [id number] CC: ROB GALVIN DO;*EndCC*
[2018-11-08] MEDS: CEFEPIME 1GM/50 ML (PMX) 50 ML IVPB SCH (17:29)
[2018-11-08] MEDS: ATORVASTATIN 20 MG TAB PO SCH (20:45)
[2018-11-08] MEDS: HEPARIN 5,000 UNIT/1 ML VIAL SC SCH (20:58)
[2018-11-08] MEDS ORDERED: INSULIN GLARGINE [LANTus] (100 UNITS/ML) SYG SC SCH (21:00)
[2018-11-09] VITALS (22 sets, daily range): BP systolic 90–104; BP diastolic 51–65; PULSE 71–100; RESP 16–46
[2018-11-09] MEDS: ACCU-CHEK XX SCH ×5 (01:22→21:27)
[2018-11-09] MEDS: METOLAZONE 5 MG TAB PO SCH (05:14)
[2018-11-09] MEDS: FUROSEMIDE 40 MG INJ IV SCH ×2 (06:06→17:23)
[2018-11-09] MEDS ORDERED: POTASSIUM CHLORIDE 20 MEQ POWDER FOR ORAL SOLN GTB ONE ×2 (06:30→10:30)
[2018-11-09] MEDS: INSULIN ASPART [NOVOLOG] 3 ML PEN SC SCH ×4 (07:30→21:21)
--- NOTE | 2018-11-09 09:07 | PN ---
DATE: 11/09/2018 SUBJECTIVE: The patient remains in serious condition. Urinary output has been adequate. Please not e I attempted to contact the patient's conservator to discuss the possibility of initiating hemodialy sis. Have been unable to reach the conservator. Will continue to try. Overnight, no other events n oted. OBJECTIVE: VITAL SIGNS: Blood pressure is 104/65, respiration 18, pulse 100, temperature 99.5. HEENT: Head is normocephalic. NECK: Supple. HEART: Regular rate. LUNGS: Show diminished breath sounds at the base. ABDOMEN: Soft, nontender to palpation without rebound or guarding. EXTREMITIES: Negative for clubbing, cyanosis. Positive edema. DERMATOLOGIC: No rashes. MUSCULOSKELETAL: No joint effusion. NEUROLOGIC: No change in exam. MEDICATIONS: Reviewed. LABORATORY DATA: Shows sodium 142, potassium 2.8, chloride 96, BUN 146, potassium 1.51. White count 6.5, hemoglobin 9.1, platelet count is 144. Patient's urine cultures are positive. Blood cultures have been negative. Abdominal ultrasound was reviewed and shows cholelithiasis without evidence of g allbladder wall thickening to suggest cholecystitis and hepatic cysts, minimal ascites. The patient' s chest ultrasound shows large bilateral pleural effusion. The patient's 2D echo was reviewed. ASSESSMENT AND PLAN: 1. Acute on chronic heart failure, diastolic. The patient is currently decompensated. The patient is on diuretic therapy with adequate urinary output. Plan is to continue diuretic therapy if hemodyn amically stable. Follow up with cardiology for recommendations. A 2D echo was reviewed. Will emily nue to monitor closely. 2. Nonoliguric acute kidney injury on top of chronic kidney disease, stage IV, with previous baselin e creatinine of 0.8 mg/dL. Please note that patient's creatinine is greatly over estimating the ancelmo ent's EGFR as the patient has significant muscular atrophy. The patient has been on diuretics. Prieto sara, there is no significant improvement in the patient's azotemia and acute kidney injury which agai n is likely due to cardiorenal pathophysiology. The patient's 2D echo shows significant pulmonary hy pertension and moderate tricuspid regurgitation. Findings consistent with cardiorenal syndrome. Ple ase note I have attempted to contact the patient's conservator about initiating hemodialysis. We tracy l continue to try again. Otherwise, continue diuretic regimen. We will adjust diuretics as needed. 3. Alkalosis. Etiology may be secondary to hyperkalemia, acute kidney injury, diuretic therapy. We will check an ABG. If the patient has significant alkalemia, we will start the patient on Diamox on ce electrolytes are corrected. 4. Hypokalemia secondary to diuretic therapy. We will continue potassium repletion. Will adjust di uretics and consider holding until electrolytes normalized. Monitor closely. 5. Sepsis secondary to urinary tract infection. Continue current antibiotic regimen. 6. Ventilator dependent respiratory failure. Vent settings have been reviewed. Follow up with ABG. 7. Bilateral pleural effusions secondary decompensated heart failure. Continue to monitor. We will follow up with pulmonary. Consider thoracentesis. 8. Anemia. Monitor hemoglobin and hematocrit levels. 9. Mineral bone disorder, monitor calcium and phosphorus levels. 10. Dysphagia, status post PEG tube feedings. 11. Transaminitis, likely due to hepatic congestion. LFTs have been improving. Continue to monitor . 12. Arrhythmia. Continue to monitor. Follow up with cardiology. 13. Diabetes. Continue current diuretic regimen, adjust as needed. 14. Parkinson's disease. Continue Sinemet. 15. Acute on chromic encephalopathy, etiology toxic metabolic, uremic. Continue to monitor. 16. Seizure disorder. Continue Keppra and Depakote. 17. Aortic stenosis, severe. Continue to monitor. Follow up with Cardiology. 18. Gastrointestinal and deep vein thrombosis prophylaxis. Dictated By: ROB LEMUS DO NR/NTS Conf#: [id number] DID#: [id number] CC: JASON GORDNO DO;*End*
[2018-11-09] MEDS: MULTIVITAMINS/MINERALS TAB GTB SCH (09:17)
[2018-11-09] MEDS: VALPROIC ACID LIQUID CUP 250 MG/5 ML CUP GTB SCH ×4 (09:17→20:35)
[2018-11-09] MEDS: CHLORHEXIDINE GLUCONATE 15 ML UD CUP MM SCH ×2 (09:17→20:28)
[2018-11-09] MEDS: ASCORBIC ACID 500 MG TAB GTB SCH ×2 (09:18→20:28)
[2018-11-09] MEDS: ZINC SULFATE 220 MG CAP GTB SCH (09:18)
[2018-11-09] MEDS: MEMANTINE 10 MG TAB GTB SCH (09:18)
[2018-11-09] MEDS: METOPROLOL 25 MG TAB GTB SCH ×2 (09:18→20:35)
[2018-11-09] MEDS: LINAGLIPTIN 5 MG TABLET GTB SCH (09:18)
[2018-11-09] MEDS: ASPIRIN 81 MG TAB NGT SCH (09:18)
[2018-11-09] MEDS: DOCUSATE SODIUM 100 MG CAP PO SCH (09:18)
[2018-11-09] MEDS: CARBIDOPA/LEVODOPA (25/100) TAB GTB SCH ×3 (09:18→20:28)
[2018-11-09] MEDS: LEVETIRACETAM (100 MG/ML PO SYG) GTB SCH ×2 (09:19→20:35)
[2018-11-09] MEDS: FAMOTIDINE 20 MG TAB GTB SCH (09:19)
[2018-11-09] MEDS: HEPARIN 5,000 UNIT/1 ML VIAL SC SCH ×2 (09:20→21:26)
[2018-11-09] MEDS: SPIRONOLACTONE 25 MG TAB NGT SCH (10:28)
--- NOTE | 2018-11-09 10:31 | CONS ---
Date/Time of Note Date/Time of Note DATE: 11/09/18 TIME: 10:28 Assessment/Plan Assessment/Plan Assessment/Plan Ventilator setting; AC of 16, tidal volume 550, PEEP of 5, 30% FiO2. Assessment recommendations; 1. Patient with history of chronic encephalopathy and VDR F admitted for pneumonia and sepsis. Currently on appropriate antimicrobial regimen. 2. Anemia and thrombocytopenia. 3. UTI. 4. History of stable seizure disorder. 5. History of hypertension. 6. Aortic stenosis. 7. Cardiomyopathy with CHF. Continue current supportive care. Obtain follow-up chest x-ray in 48 hours. Overall prognosis is poor. Result Diagram: 11/09/18 0507 11/09/18 0507 Results 24hrs Laboratory Tests Test 11/08/18 12:04 11/08/18 15:58 11/08/18 17:29 11/08/18 20:25 Bedside Glucose 108 177 225 H Sodium Level 138 Potassium Level 3.3 L Chloride Level 97 Carbon Dioxide 33 H Level Anion Gap 8 Blood Urea 145 H Nitrogen Creatinine 1.36 H Est Glomerular Filtrat Rate mL/min Glucose Level 155 Calcium Level 8.1 L Troponin I 0.144 *H Test 11/09/18 01:18 11/09/18 05:07 11/09/18 07:27 11/09/18 08:34 Bedside Glucose 241 H 195 White Blood Count 6.5 Red Blood Count 2.98 L Hemoglobin 9.1 L Hematocrit 30.6 L Mean Corpuscular 102.7 H Volume Mean Corpuscular 30.5 Hemoglobin Mean Corpuscular 29.7 L Hemoglobin Concent Red Cell 18.7 H Distribution Width Platelet Count 144 Mean Platelet 11.3 H Volume Immature 0.600 H Granulocytes % Neutrophils % 78.3 H Lymphocytes % 10.4 L Monocytes % 10.1 Eosinophils % 0.6 Basophils % 0.0 Nucleated Red 0.0 Blood Cells % Immature 0.040 H Granulocytes # Neutrophils # 5.1 Lymphocytes # 0.7 L Monocytes # 0.7 Eosinophils # 0.0 Basophils # 0.0 Nucleated Red 0.0 Blood Cells # Sodium Level 142 Potassium Level 2.8 *L Chloride Level 96 L Carbon Dioxide 37 H Level Anion Gap 9 Blood Urea 146 H Nitrogen Creatinine 1.51 H Est Glomerular Filtrat Rate mL/min Glucose Level 200 Calcium Level 8.0 L Phosphorus Level 3.3 Magnesium Level 2.9 H Blood Gas Specimen Blood arterial Source Arterial Blood 11/09/2018 9:19:32 Date Drawn AM Arterial Blood pH 7.546 H (Temp corrected) Arterial Blood 39.4 pCO2 (Temp correct) Arterial Blood pO2 105.0 H (Temp corrected) Arterial Blood 33.4 H HCO3 Arterial Blood 10.2 H Base Excess Arterial Blood 98.1 Oxygen Saturation Osvaldo Test ACCEPTAB Arterial Blood Gas Right Radial Puncture Site Arterial 1.2 Blood Carboxyhemog lobin Arterial Blood 0.3 Methemoglobin Blood Gas A-a O2 62.6 H Differential Oxyhemoglobin 96.6 Percent Blood Gas 37.0 Temperature Blood Gas 16.0 Respiration Rate Blood Gas Actual 16 Respiration Rate Blood Gas Modality VENT - AC FiO2 30.0 Blood Gas Tidal 550.0 Volume Blood Gas Low PEEP 5.0 Setting Blood Gas Notified TM Whom Blood Gas Notified 11/09/2018 9:30:16 Time AM Consultation Date/Type/Reason Admit Date/Time Nov 07, 2018 at 16:07 Initial Consult Date Type of Consult Pulmonary Reason for Consultation Patient's condition has remained stable. Has remained hemodynamically stable. No untoward events reported. General exam; elderly male, on ventilator via tracheostomy, noncommunicative. Currently in no distress. HEENT exam; supple neck, positive JVD. No neck masses. Tracheostomy in place. Insertion site is clean. Patient has fair dentition. Chest exam; diminished breath sounds bilaterally. S1-S2 audible, no murmurs. Regular rhythm. Abdomen exam; soft, no organomegaly. G-tube in place. Bowel sounds audible. Extremity exam; no peripheral edema or clubbing. GENERAL PRACTITIONER exam; patient remains noncommunicative. Exam/Review of Systems Vital Signs Vitals Vital Signs Date Temp Pulse Resp B/P (MAP) Pulse Ox O2 O2 Flow FiO2 Time Delivery Rate 11/09/18 92 46 100 30 09:15 11/09/18 99.5 104/65 07:07 (78) 11/08/18 Mechanical 11:36 Ventilator Intake and Output 11/08/18 11/08/18 11/09/18 1515:00 23:00 07:00 IntakeIntake Total 700 ml 800 ml OutputOutput Total 1300 ml 1200 ml BalanceBalance -600 ml -400 ml Medications Medications Current Medications Acetaminophen (Tylenol Tab) 1,000 mg Q4H PRN PO MODERATE PAIN LEVEL 4-6; Start 11/07/18 at 16:30 Acetaminophen (Tylenol Tab) 650 mg Q4H PRN GTB MILD PAIN LEVEL 1-3; Start 11/07/18 at 16:30 Albuterol (Proventil 0.083% (Neb)) 2.5 mg Q6H RESP THERAPY PRN NEB WHEEZING AND SOB; Start 11/07/18 at 16:30 Ascorbic Acid (Vitamin C) 500 mg BID GTB Last administered on 11/09/18 09:18; A dmin Dose 500 MG; Start 11/07/18 at 21:00 Bisacodyl (Dulcolax Supp) 10 mg PRN PRN [place] CONSTIPATION; Start 11/07/18 at 16:30 Carbidopa/Levodopa (Sinemet (25/ 100)) 1 tab TID GTB Last administered on 11/09 09:18; Admin Dose 1 TAB; Start 11/07/18 at 21:00 Chlorhexidine Gluconate (Peridex) 15 ml Q12 MM Last administered on 11/09/18 09:17; Admin Dose 15 ML; Start 11/07/18 at 21:00 Docusate Sodium (Colace) 100 mg DAILY PO Last administered on 11/09/18 09:18; Admin Dose 100 MG; Start 11/08/18 at 09:00 Famotidine (Pepcid) 20 mg DAILY GTB Last administered on 11/09/18 09:19; Admin Dose 20 MG; Start 11/08/18 at 09:00 Hydralazine HCl (Apresoline) 20 mg Q6 PRN GTB ELEVATED BLOOD PRESSURE; Start 11/07/18 at 16:30 Levetiracetam (Keppra Liq (Ped)) 500 mg BID GTB Last administered on 11/09/18 09:19; Admin Dose 500 MG; Start 11/07/18 at 21:00 Linagliptin (Tradjenta) 5 mg DAILY GTB Last administered on 11/09/18 09:18; Admin Dose 5 MG; Start 11/08/18 at 09:00 Memantine (Namenda) 10 mg DAILY GTB Last administered on 11/09/18 09:18; Admin Dose 10 MG; Start 11/08/18 at 09:00 Metoprolol Tartrate (Lopressor) 25 mg BID GTB Last administered on 11/09/18 09:18; Admin Dose 25 MG; Start 11/07/18 at 21:00 Sodium Biphosphate/ Sodium Phosphate (Fleet Enema) 133 ml PRN PRN [place] CONSTIPATION; Start 11/07/18 at 16:30 Valproate Sodium (Depakene Liquid Cup) 125 mg QID GTB Last administered on 11/09/18 09:17; Admin Dose 125 MG; Start 11/07/18 at 17:00 Zinc Sulfate (Zinc Sulfate) 220 mg DAILY GTB Last administered on 11/09/18 09:18; Admin Dose 220 MG; Start 11/08/18 at 09:00 Diagnostic Test (Pha) (Accu-Chek) 1 ea AC MEALS AND BEDTIME XX Last administered on 11/08/18 20:59; Admin Dose 1 EA; Start 11/07/18 at 17:30 Cefepime HCl 50 ml @ 100 mls/hr Q24H IVPB Last administered on 11/08/18 17:29; Admin Dose 100 MLS/HR; Start 11/08/18 at 16:00 Miscellaneous Information 1 ea NOTE XX ; Start 11/07/18 at 19:00 Glucose (Glutose) 15 gm Q15M PRN PO DECREASED GLUCOSE; Start 11/07/18 at 19:00 Glucose (Glutose) 22.5 gm Q15M PRN PO DECREASED GLUCOSE; Start 11/07/18 at 19:00 Dextrose (D50w Syringe) 25 ml Q15M PRN IV DECREASED GLUCOSE; Start 11/07/18 at 19:00 Dextrose (D50w Syringe) 50 ml Q15M PRN IV DECREASED GLUCOSE; Start 11/07/18 at 19:00 Glucagon (Glucagen) 1 mg Q15M PRN IM DECREASED GLUCOSE; Start 11/07/18 at 19:00 Glucose (Glutose) 15 gm Q15M PRN BUCCAL DECREASED GLUCOSE; Start 11/07/18 at 19:00 Multivitamins/ Minerals (Theragran-M) 1 tab DAILY GTB Last administered on 11/09/18 09:17; Admin Dose 1 TAB; Start 11/08/18 at 09:00 Heparin Sodium (Porcine) (Heparin (5000 Units/1ml)) 5,000 unit Q12 SC Last ad ministered on 11/09/18 09:20; Admin Dose 5,000 UNIT; Start 11/08/18 at 09:00 Diagnostic Test (Pha) (Accu-Chek) 1 ea 02 XX Last administered on 11/09/18at 01:22; Admin Dose 1 EA; Start 11/09/18 at 02:00 Insulin Aspart (Novolog Insulin Pen) NOVOLOG *MODERATE* ALGORITHM WITH MEALS BEDTIME SC Last administered on 11/09/18 07:30; Admin Dose 4 UNIT; Start 11/08/18 at 08:00 Furosemide (Lasix) 40 mg BID DIURETICS IV Last administered on 11/09/18 06:06; Admin Dose 40 MG; Start 11/08/18 at 08:30 Metolazone (Zaroxolyn) 5 mg DAILY@0600 PO Last administered on 11/09/18 05:14; Admin Dose 5 MG; Start 11/08/18 at 08:30; Status Hold Aspirin (Aspirin) 81 mg DAILY NGT Last administered on 11/09/18 09:18; Admin Dose 81 MG; Start 11/08/18 at 13:30 Atorvastatin Calcium (Lipitor) 20 mg HS PO Last administered on 11/08/18at 20:45; Admin Dose 20 MG; Start 11/08/18 at 21:00 Potassium Chloride (Potassium Chloride Pwd/Soln) 40 meq ONCE ONCE GTB ; Start 11/09/18 at 10:30; Stop 11/09/18 at 10:31 Spironolactone (Aldactone) 25 mg DAILY NGT ; Start 11/09/18 at 09:00 Insulin Glargine (Lantus) 30 units QHS SC ; Start 11/09/18 at 21:00 VAMSI LITTLEJOHN Nov 09, 2018 10:31
--- NOTE | 2018-11-09 16:30 | CONS ---
Date/Time of Note Date/Time of Note DATE: 11/09/18 TIME: 16:29 Assessment/Plan Assessment/Plan Hospital Course No acute events overnight per report patient looks comfortable, no fevers Microbiology: urine culture growing Proteus mirabilis Chest x-ray on admission revealed cardiomegaly with diffuse pulmonary edema and bilateral small pleural effusions. Chest ultrasound revealed large bilateral pleural effusions. Abdominal ultrasound revealed cholelithiasis without evidence for cholecystitis Allergy: Ciprofloxacin Antimicrobials: Cefepime Physical examination: Chronically ill-appearing elderly man who is no ncommunicative in no distress. Head atraumatic normocephalic sclera nonicteric. Vehicle mucosa dry. Neck is supple chest rise symmetrical breath sounds diminished bases. Heart: S1-S2. Abdomen soft bowel sounds present extremities with bilateral edema. Skin: Patient has multiple pressure sores Assessment: 1. Sepsis secondary to UTI 2. Gram-negative [place] UTI 3. Acute on chronic kidney disease 4. Acute on chronic respiratory failure 5. Bilateral pleural effusions 6. ?Non-ST elevation AR 7. Diabetes type 2 8. Parkinson's dementia 9. Aortic stenosis Plan: Remains stable, on appropriate antibiotics Result Diagram: 11/09/18 0507 11/09/18 1207 Results 24hrs Laboratory Tests Test 11/08/18 17:29 11/08/18 20:25 11/09/18 01:18 11/09/18 05:07 Bedside Glucose 177 225 H 241 H White Blood Count 6.5 Red Blood Count 2.98 L Hemoglobin 9.1 L Hematocrit 30.6 L Mean Corpuscular 102.7 H Volume Mean Corpuscular 30.5 Hemoglobin Mean Corpuscular 29.7 L Hemoglobin Concent Red Cell 18.7 H Distribution Width Platelet Count 144 Mean Platelet 11.3 H Volume Immature 0.600 H Granulocytes % Neutrophils % 78.3 H Lymphocytes % 10.4 L Monocytes % 10.1 Eosinophils % 0.6 Basophils % 0.0 Nucleated Red 0.0 Blood Cells % Immature 0.040 H Granulocytes # Neutrophils # 5.1 Lymphocytes # 0.7 L Monocytes # 0.7 Eosinophils # 0.0 Basophils # 0.0 Nucleated Red 0.0 Blood Cells # Sodium Level 142 Potassium Level 2.8 *L Chloride Level 96 L Carbon Dioxide 37 H Level Anion Gap 9 Blood Urea 146 H Nitrogen Creatinine 1.51 H Est Glomerular Filtrat Rate mL/min Glucose Level 200 Calcium Level 8.0 L Phosphorus Level 3.3 Magnesium Level 2.9 H Test 11/09/18 07:27 11/09/18 08:34 11/09/18 11:48 11/09/18 12:07 Bedside Glucose 195 191 Blood Gas Specimen Blood arterial Source Arterial Blood 11/09/2018 9:19:32 Date Drawn AM Arterial Blood pH 7.546 H (Temp corrected) Arterial Blood 39.4 pCO2 (Temp correct) Arterial Blood pO2 105.0 H (Temp corrected) Arterial Blood 33.4 H HCO3 Arterial Blood 10.2 H Base Excess Arterial Blood 98.1 Oxygen Saturation Osvaldo Test ACCEPTAB Arterial Blood Gas Right Radial Puncture Site Arterial 1.2 Blood Carboxyhemog lobin Arterial Blood 0.3 Methemoglobin Blood Gas A-a O2 62.6 H Differential Oxyhemoglobin 96.6 Percent Blood Gas 37.0 Temperature Blood Gas 16.0 Respiration Rate Blood Gas Actual 16 Respiration Rate Blood Gas Modality VENT - AC FiO2 30.0 Blood Gas Tidal 550.0 Volume Blood Gas Low PEEP 5.0 Setting Blood Gas Notified TM Whom Blood Gas Notified 11/09/2018 9:30:16 Time AM Potassium Level 3.5 Consultation Date/Type/Reason Admit Date/Time Nov 07, 2018 at 16:07 Initial Consult Date Type of Consult ID Exam/Review of Systems Vital Signs Vitals Vital Signs Date Temp Pulse Resp B/P (MAP) Pulse Ox O2 O2 Flow FiO2 Time Delivery Rate 11/09/18 97.9 78 18 100/55 97 15:29 (70) 11/09/18 30 15:10 11/08/18 Mechanical 11:36 Ventilator Intake and Output 11/08/18 11/08/18 11/09/18 1515:00 23:00 07:00 IntakeIntake Total 700 ml 800 ml OutputOutput Total 1300 ml 1200 ml BalanceBalance -600 ml -400 ml Medications Medications Current Medications Acetaminophen (Tylenol Tab) 1,000 mg Q4H PRN PO MODERATE PAIN LEVEL 4-6; Start 11/07/18 at 16:30 Acetaminophen (Tylenol Tab) 650 mg Q4H PRN GTB MILD PAIN LEVEL 1-3; Start 11/07/18 at 16:30 Albuterol (Proventil 0.083% (Neb)) 2.5 mg Q6H RESP THERAPY PRN NEB WHEEZING AND SOB; Start 11/07/18 at 16:30 Ascorbic Acid (Vitamin C) 500 mg BID GTB Last administered on 11/09/18 09:18; Admin Dose 500 MG; Start 11/07/18 at 21:00 Bisacodyl (Dulcolax Supp) 10 mg PRN PRN [place] CONSTIPATION; Start 11/07/18 at 16:30 Carbidopa/Levodopa (Sinemet (25/ 100)) 1 tab TID GTB Last administered on 11/09/18at 14:26; Admin Dose 1 TAB; Start 11/07/18 at 21:00 Chlorhexidine Gluconate (Peridex) 15 ml Q12 MM Last administered on 11/09/18 09:17; Admin Dose 15 ML; Start 11/07/18 at 21:00 Docusate Sodium (Colace) 100 mg DAILY PO Last administered on 11/09/18 09:18; Admin Dose 100 MG; Start 11/08/18 at 09:00 Famotidine (Pepcid) 20 mg DAILY GTB Last administered on 11/09/18 09:19; Admin Dose 20 MG; Start 11/08/18 at 09:00 Hydralazine HCl (Apresoline) 20 mg Q6 PRN GTB ELEVATED BLOOD PRESSURE; Start 11/07/18 at 16:30 Levetiracetam (Keppra Liq (Ped)) 500 mg BID GTB Last administered on 11/09/18 09:19; Admin Dose 500 MG; Start 11/07/18 at 21:00 Linagliptin (Tradjenta) 5 mg DAILY GTB Last administered on 11/09/18 09:18; Admin Dose 5 MG; Start 11/08/18 at 09:00 Memantine (Namenda) 10 mg DAILY GTB Last administered on 11/09/18 09:18; Admin Dose 10 MG; Start 11/08/18 at 09:00 Metoprolol Tartrate (Lopressor) 25 mg BID GTB Last administered on 11/09/18 09:18; Admin Dose 25 MG; Start 11/07/18 at 21:00 Sodium Biphosphate/ Sodium Phosphate (Fleet Enema) 133 ml PRN PRN [place] CONSTIPATION; Start 11/07/18 at 16:30 Valproate Sodium (Depakene Liquid Cup) 125 mg QID GTB Last administered on 11/09/18 14:26; Admin Dose 125 MG; Start 11/07/18 at 17:00 Zinc Sulfate (Zinc Sulfate) 220 mg DAILY GTB Last administered on 11/09/18at 09:18; Admin Dose 220 MG; Start 11/08/18 at 09:00 Diagnostic Test (Pha) (Accu-Chek) 1 ea AC MEALS AND BEDTIME XX Last adm inistered on 11/09/18at 12:16; Admin Dose 1 EA; Start 11/07/18 at 17:30 Cefepime HCl 50 ml @ 100 mls/hr Q24H IVPB Last administered on 11/08/18at 17:29; Admin Dose 100 MLS/HR; Start 11/08/18 at 16:00 Miscellaneous Information 1 ea NOTE XX ; Start 11/07/18 at 19:00 Glucose (Glutose) 15 gm Q15M PRN PO DECREASED GLUCOSE; Start 11/07/18 at 19:00 Glucose (Glutose) 22.5 gm Q15M PRN PO DECREASED GLUCOSE; Start 11/07/18 at 19:00 Dextrose (D50w Syringe) 25 ml Q15M PRN IV DECREASED GLUCOSE; Start 11/07/18 at 1 9:00 Dextrose (D50w Syringe) 50 ml Q15M PRN IV DECREASED GLUCOSE; Start 11/07/18 at 19:00 Glucagon (Glucagen) 1 mg Q15M PRN IM DECREASED GLUCOSE; Start 11/07/18 at 19:00 Glucose (Glutose) 15 gm Q15M PRN BUCCAL DECREASED GLUCOSE; Start 11/07/18 at 19:00 Multivitamins/ Minerals (Theragran-M) 1 tab DAILY GTB Last administered on 11/09/18at 09:17; Admin Dose 1 TAB; Start 11/08/18 at 09:00 Heparin Sodium (Porcine) (Heparin (5000 Units/1ml)) 5,000 unit Q12 SC Last administered on 11/09/18 09:20; Admin Dose 5,000 UNIT; Start 11/08/18 at 09:00 Diagnostic Test (Pha) (Accu-Chek) 1 ea 02 XX Last administered on 11/09/18at 01:22; Admin Dose 1 EA; Start 11/09/18 at 02:00 Insulin Aspart (Novolog Insulin Pen) NOVOLOG *MODERATE* ALGORITHM WITH MEALS BEDTIME SC Last administered on 11/09/18 12:18; Admin Dose 4 UNIT; Start 11/08/18 at 08:00 Furosemide (Lasix) 40 mg BID DIURETICS IV Last administered on 11/09/18at 06:06; Admin Dose 40 MG; Start 11/08/18 at 08:30 Metolazone (Zaroxolyn) 5 mg DAILY@0600 PO Last administered on 11/09/18at 05:14; Admin Dose 5 MG; Start 11/08/18 at 08:30; Status Hold Aspirin (Aspirin) 81 mg DAILY NGT Last administered on 11/09/18 09:18; Admin Dose 81 MG; Start 11/08/18 at 13:30 Atorvastatin Calcium (Lipitor) 20 mg HS PO Last administered on 11/08/18at 20:45; Admin Dose 20 MG; Start 11/08/18 at 21:00 Spironolactone (Aldactone) 25 mg DAILY NGT Last administered on 11/09/18at 10:28; Admin Dose 25 MG; Start 11/09/18 at 09:00 Insulin Glargine (Lantus) 30 units QHS SC ; Start 11/09/18 at 21:00 RAMSEY VERDE NP Nov 09, 2018 16:30
[2018-11-09] MEDS: CEFEPIME 1GM/50 ML (PMX) 50 ML IVPB SCH (16:33)
--- NOTE | 2018-11-09 18:44 | CONS ---
Date/Time of Note Date/Time of Note DATE: 11/09/18 TIME: 18:42 Assessment/Plan Assessment/Plan Assessment/Plan Acute decompensated systolic and diastolic congestive heart failure Acute kidney injury Chronic respiratory failure, vent dependent Aortic stenosis Cardiomyopathy History of chronic kidney disease Encephalopathy Paroxysmal atrial fibrillation/flutter -Diuretics have been adjusted by our nephrology colleague. We will continue beta-blockers heart rate and blood pressure permits. Chest ultrasound with large bilateral pleural effusions, with order thoracentesis. Result Diagram: 11/09/18 0507 11/09/18 1207 Results 24hrs Laboratory Tests Test 11/08/18 20:25 11/09/18 01:18 11/09/18 05:07 11/09/18 07:27 Bedside Glucose 225 H 241 H 195 White Blood Count 6.5 Red Blood Count 2.98 L Hemoglobin 9.1 L Hematocrit 30.6 L Mean Corpuscular 102.7 H Volume Mean Corpuscular 30.5 Hemoglobin Mean Corpuscular 29.7 L Hemoglobin Concent Red Cell 18.7 H Distribution Width Platelet Count 144 Mean Platelet 11.3 H Volume Immature 0.600 H Granulocytes % Neutrophils % 78.3 H Lymphocytes % 10.4 L Monocytes % 10.1 Eosinophils % 0.6 Basophils % 0.0 Nucleated Red 0.0 Blood Cells % Immature 0.040 H Granulocytes # Neutrophils # 5.1 Lymphocytes # 0.7 L Monocytes # 0.7 Eosinophils # 0.0 Basophils # 0.0 Nucleated Red 0.0 Blood Cells # Sodium Level 142 Potassium Level 2.8 *L Chloride Level 96 L Carbon Dioxide 37 H Level Anion Gap 9 Blood Urea 146 H Nitrogen Creatinine 1.51 H Est Glomerular Filtrat Rate mL/min Glucose Level 200 Calcium Level 8.0 L Phosphorus Level 3.3 Magnesium Level 2.9 H Test 11/09/18 08:34 11/09/18 11:48 11/09/18 12:07 11/09/18 17:25 Blood Gas Specimen Blood arterial Source Arterial Blood 11/09/2018 9:19:32 Date Drawn AM Arterial Blood pH 7.546 H (Temp corrected) Arterial Blood 39.4 pCO2 (Temp correct) Arterial Blood pO2 105.0 H (Temp corrected) Arterial Blood 33.4 H HCO3 Arterial Blood 10.2 H Base Excess Arterial Blood 98.1 Oxygen Saturation Osvaldo Test ACCEPTAB Arterial Blood Gas Right Radial Puncture Site Arterial 1.2 Blood Carboxyhemog lobin Arterial Blood 0.3 Methemoglobin Blood Gas A-a O2 62.6 H Differential Oxyhemoglobin 96.6 Percent Blood Gas 37.0 Temperature Blood Gas 16.0 Respiration Rate Blood Gas Actual 16 Respiration Rate Blood Gas Modality VENT - AC FiO2 30.0 Blood Gas Tidal 550.0 Volume Blood Gas Low PEEP 5.0 Setting Blood Gas Notified TM Whom Blood Gas Notified 11/09/2018 9:30:16 Time AM Bedside Glucose 191 207 Potassium Level 3.5 Consultation Date/Type/Reason Admit Date/Time Nov 07, 2018 at 16:07 Initial Consult Date Type of Consult cv 24 HR Interval Summary Free Text/Dictation Patient seen and examined, nonverbal Exam/Review of Systems Vital Signs Vitals Vital Signs Date Temp Pulse Resp B/P (MAP) Pulse Ox O2 O2 Flow FiO2 Time Delivery Rate 11/09/18 79 16 99 30 17:07 11/09/18 97.9 100/55 15:29 (70) 11/08/18 Mechanical 11:36 Ventilator Intake and Output 11/08/18 11/08/18 11/09/18 1515:00 23:00 07:00 IntakeIntake Total 700 ml 800 ml OutputOutput Total 1300 ml 1200 ml BalanceBalance -600 ml -400 ml Exam No apparent distress Constitutional: non-verbal Head: normocephalic Neck: other (Tracheostomy) Respiratory: other (Coarse breath sounds bilaterally, no wheezing, decreased breath sounds at the bases) Cardiovascular: irregular rhythm, systolic murmur Gastrointestinal: soft, non-tender, bowel sounds Extremities: edema Medications Medications Current Medications Acetaminophen (Tylenol Tab) 1,000 mg Q4H PRN PO MODERATE PAIN LEVEL 4-6; Start 11/07/18 at 16:30 Acetaminophen (Tylenol Tab) 650 mg Q4H PRN GTB MILD PAIN LEVEL 1-3; Start 11/07/18 at 16:30 Albuterol (Proventil 0.083% (Neb)) 2.5 mg Q6H RESP THERAPY PRN NEB WHEEZING AND SOB; Start 11/07/18 at 16:30 Ascorbic Acid (Vitamin C) 500 mg BID GTB Last administered on 11/09/18at 09:18; Admin Dose 500 MG; Start 11/07/18 at 21:00 Bisacodyl (Dulcolax Supp) 10 mg PRN PRN [place] CONSTIPATION; Start 11/07/18 at 16:30 Carbidopa/Levodopa (Sinemet (25/ 100)) 1 tab TID GTB Last administered on 11/09/18at 14:26; Admin Dose 1 TAB; Start 11/07/18 at 21:00 Chlorhexidine Gluconate (Peridex) 15 ml Q12 MM Last administered on 11/09/18 09:17; Admin Dose 15 ML; Start 11/07/18 at 21:00 Docusate Sodium (Colace) 100 mg DAILY PO Last administered on 11/09/18 09:18; Admin Dose 100 MG; Start 11/08/18 at 09:00 Famotidine (Pepcid) 20 mg DAILY GTB Last administered on 11/09/18 09:19; Admin Dose 20 MG; Start 11/08/18 at 09:00 Hydralazine HCl (Apresoline) 20 mg Q6 PRN GTB ELEVATED BLOOD PRESSURE; Start 11/07/18 at 16:30 Levetiracetam (Keppra Liq (Ped)) 500 mg BID GTB Last administered on 11/09/18 09:19; Admin Dose 500 MG; Start 11/07/18 at 21:00 Linagliptin (Tradjenta) 5 mg DAILY GTB Last administered on 11/09/18 09:18; Admin Dose 5 MG; Start 11/08/18 at 09:00 Memantine (Namenda) 10 mg DAILY GTB Last administered on 11/09/18 09:18; Admin Dose 10 MG; Start 11/08/18 at 09:00 Metoprolol Tartrate (Lopressor) 25 mg BID GTB Last administered on 11/09/18 09:18; Admin Dose 25 MG; Start 11/07/18 at 21:00 Sodium Biphosphate/ Sodium Phosphate (Fleet Enema) 133 ml PRN PRN [place] CONSTIPATION; Start 11/07/18 at 16:30 Valproate Sodium (Depakene Liquid Cup) 125 mg QID GTB Last administered on at 17:22; Admin Dose 125 MG; Start 11/07/18 at 17:00 Zinc Sulfate (Zinc Sulfate) 220 mg DAILY GTB Last administered on 11/09/18 09:18; Admin Dose 220 MG; Start 11/08/18 at 09:00 Diagnostic Test (Pha) (Accu-Chek) 1 ea AC MEALS AND BEDTIME XX Last administered on 11/09/18 17:31; Admin Dose 1 EA; Start 11/07/18 at 17:30 Cefepime HCl 50 ml @ 100 mls/hr Q24H IVPB Last administered on 11/09/18 16:33; Admin Dose 100 MLS/HR; Start 11/08/18 at 16:00 Miscellaneous Information 1 ea NOTE XX ; Start 11/07/18 at 19:00 Glucose (Glutose) 15 gm Q15M PRN PO DECREASED GLUCOSE; Start 11/07/18 at 19:00 Glucose (Glutose) 22.5 gm Q15M PRN PO DECREASED GLUCOSE; Start 11/07/18 at 19:00 Dextrose (D50w Syringe) 25 ml Q15M PRN IV DECREASED GLUCOSE; Start 11/07/18 at 19:00 Dextrose (D50w Syringe) 50 ml Q15M PRN IV DECREASED GLUCOSE; Start 11/07/18 at 19:00 Glucagon (Glucagen) 1 mg Q15M PRN IM DECREASED GLUCOSE; Start 11/07/18 at 19:00 Glucose (Glutose) 15 gm Q15M PRN BUCCAL DECREASED GLUCOSE; Start 11/07/18 at 1 9:00 Multivitamins/ Minerals (Theragran-M) 1 tab DAILY GTB Last administered on 11/09/18 09:17; Admin Dose 1 TAB; Start 11/08/18 at 09:00 Heparin Sodium (Porcine) (Heparin (5000 Units/1ml)) 5,000 unit Q12 SC Last administered on 11/09/18 09:20; Admin Dose 5,000 UNIT; Start 11/08/18 at 09:00 Diagnostic Test (Pha) (Accu-Chek) 1 ea 02 XX Last administered on 11/09/18 01:22; Admin Dose 1 EA; Start 11/09/18 at 02:00 Insulin Aspart (Novolog Insulin Pen) NOVOLOG *MODERATE* ALGORITHM WITH MEALS BEDTIME SC Last administered on 11/09/18 17:31; Admin Dose 4 UNIT; Start 11/08/18 at 08:00 Furosemide (Lasix) 40 mg BID DIURETICS IV Last administered on 11/09/18 17:23; Admin Dose 40 MG; Start 11/08/18 at 08:30 Metolazone (Zaroxolyn) 5 mg DAILY@0600 PO Last administered on 11/09/18at 05:14; Admin Dose 5 MG; Start 11/08/18 at 08:30; Status Hold Aspirin (Aspirin) 81 mg DAILY NGT Last administered on 11/09/18at 09:18; Admin Dose 81 MG; Start 11/08/18 at 13:30 Atorvastatin Calcium (Lipitor) 20 mg HS PO Last administered on 11/08/18at 20:45; Admin Dose 20 MG; Start 11/08/18 at 21:00 Spironolactone (Aldactone) 25 mg DAILY NGT Last administered on 11/09/18at 10:28; Admin Dose 25 MG; Start 11/09/18 at 09:00 Insulin Glargine (Lantus) 30 units QHS SC ; Start 11/09/18 at 21:00 Rudi Freeman DO Nov 09, 2018 18:44
--- NOTE | 2018-11-09 19:38 | RADRPT ---
Vent Rate: 113 bpm RR Interval: 0 msec MT Interval: 0 msec QRS Duration: 84 msec QT Interval: 328 msec QTC Interval: 449 msec P-R-T Rew: 0 - -8 - [address] amp; T wave abnormality, consider inferolateral ischemia Abnormal ECG Electronically Signed By: Jabier Bliss [id number]
[2018-11-09] MEDS: ATORVASTATIN 20 MG TAB PO SCH (20:28)
[2018-11-09] MEDS: INSULIN GLARGINE [LANTus] (100 UNITS/ML) SYG SC SCH (21:21)
[2018-11-10] VITALS (25 sets, daily range): BP systolic 90–117; BP diastolic 53–65; PULSE 69–133; RESP 16–75
[2018-11-10] MEDS: ACCU-CHEK XX SCH ×5 (02:14→21:28)
[2018-11-10] MEDS: FUROSEMIDE 40 MG INJ IV SCH ×2 (05:40→17:33)
[2018-11-10] MEDS: CARBIDOPA/LEVODOPA (25/100) TAB GTB SCH ×3 (08:38→20:29)
[2018-11-10] MEDS: VALPROIC ACID LIQUID CUP 250 MG/5 ML CUP GTB SCH ×4 (08:38→20:30)
[2018-11-10] MEDS: CHLORHEXIDINE GLUCONATE 15 ML UD CUP MM SCH ×2 (08:38→20:30)
[2018-11-10] MEDS: ASCORBIC ACID 500 MG TAB GTB SCH ×2 (08:39→20:29)
[2018-11-10] MEDS: MULTIVITAMINS/MINERALS TAB GTB SCH (08:39)
[2018-11-10] MEDS: LINAGLIPTIN 5 MG TABLET GTB SCH (08:39)
[2018-11-10] MEDS: MEMANTINE 10 MG TAB GTB SCH (08:39)
[2018-11-10] MEDS: ASPIRIN 81 MG TAB NGT SCH (08:39)
[2018-11-10] MEDS: FAMOTIDINE 20 MG TAB GTB SCH (08:39)
[2018-11-10] MEDS: DOCUSATE SODIUM 100 MG CAP PO SCH (08:40)
[2018-11-10] MEDS: METOPROLOL 25 MG TAB GTB SCH ×2 (08:40→20:31)
[2018-11-10] MEDS: ZINC SULFATE 220 MG CAP GTB SCH (08:40)
[2018-11-10] MEDS: SPIRONOLACTONE 25 MG TAB NGT SCH (08:40)
[2018-11-10] MEDS: LEVETIRACETAM (100 MG/ML PO SYG) GTB SCH ×2 (08:52→20:30)
[2018-11-10] MEDS: HEPARIN 5,000 UNIT/1 ML VIAL SC SCH ×2 (09:14→21:26)
[2018-11-10] MEDS: INSULIN ASPART [NOVOLOG] 3 ML PEN SC SCH ×4 (09:14→20:31)
--- NOTE | 2018-11-10 09:44 | CONS ---
Date/Time of Note Date/Time of Note DATE: 11/10/18 TIME: 09:41 Assessment/Plan Assessment/Plan Assessment/Plan Ventilator setting; AC of 16, tidal volume 550, PEEP of 5, 30% FiO2. Assessment recommendations; 1. Patient with history of chronic respiratory failure ventilator dependent and advanced encephalopathy admitted for sepsis from UTI. Currently on appropriate antimicrobial regimen. 2. History of Parkinson's disease. 3. CHF. 4. Aortic stenosis. 5. Stable seizure disorder. 6. Anemia and thrombocytopenia. Continue current supportive care. Consider transfer to rehab center. Prognosis is poor. Result Diagram: 11/10/18 0549 11/10/18 0549 Results 24hrs Laboratory Tests Test 11/09/18 11:48 11/09/18 12:07 11/09/18 17:25 11/09/18 20:37 Bedside Glucose 191 207 218 Potassium Level 3.5 Test 11/10/18 02:12 11/10/18 05:49 11/10/18 06:25 11/10/18 08:37 Bedside Glucose 200 154 White Blood Count 6.1 Red Blood Count 3.04 L Hemoglobin 9.3 L Hematocrit 31.2 L Mean Corpuscular 102.6 H Volume Mean Corpuscular 30.6 Hemoglobin Mean Corpuscular 29.8 L Hemoglobin Concent Red Cell Distribution 18.6 H Width Platelet Count 139 L Mean Platelet Volume 11.8 H Immature Granulocytes 0.500 H % Neutrophils % 78.4 H Lymphocytes % 11.0 L Monocytes % 9.1 Eosinophils % 1.0 Basophils % 0.0 Nucleated Red Blood 0.0 Cells % Immature Granulocytes 0.030 # Neutrophils # 4.8 Lymphocytes # 0.7 L Monocytes # 0.6 Eosinophils # 0.1 Basophils # 0.0 Nucleated Red Blood 0.0 Cells # Prothrombin Time 18.6 H Prothrombin Time 1.5 Ratio INR International 1.54 Normalized Ratio Sodium Level 144 Potassium Level 3.0 L Chloride Level 96 L Carbon Dioxide Level 36 H Anion Gap 12 Blood Urea Nitrogen 144 H Creatinine 1.42 H Est Glomerular Filtrat Rate mL/min Glucose Level 161 Calcium Level 8.1 L Phosphorus Level 3.1 Magnesium Level 2.8 H Lab Scanned Report REFERENCE LAB Consultation Date/Type/Reason Admit Date/Time Nov 07, 2018 at 16:07 Initial Consult Date Type of Consult Pulmonary 24 HR Interval Summary Free Text/Dictation Patient's overall condition is stable. Has remained hemodynamically stable. General exam; elderly male, on ventilator via tracheostomy, noncommunicative. Currently in no distress. Exam/Review of Systems Vital Signs Vitals Vital Signs Date Temp Pulse Resp B/P (MAP) Pulse Ox O2 O2 Flow FiO2 Time Delivery Rate 11/10/18 76 09:23 11/10/18 98.9 16 117/56 98 Room Air 08:05 (76) 11/10/18 30 05:58 Intake and Output 11/09/18 11/09/18 11/10/18 1515:00 23:00 07:00 IntakeIntake Total 900 ml 800 ml OutputOutput Total 1250 ml 900 ml BalanceBalance -350 ml -100 ml Exam HEENT exam; supple neck, no JVD. No lymphadenopathy. Midline trachea. No t hyromegaly. Patient has fair dentition. Tracheostomy in place. Insertion site is clean. Chest exam; diminished but clear breath sounds. S1-S2 audible, no murmurs. Regular rhythm. Abdomen exam; soft, no organomegaly. G-tube in place. Bowel sounds audible. Extremity exam; no peripheral edema. [employer] exam; patient remains noncommunicative. Medications Medications Current Medications Acetaminophen (Tylenol Tab) 1,000 mg Q4H PRN PO MODERATE PAIN LEVEL 4-6; Start 11/07/18 at 16:30 Acetaminophen (Tylenol Tab) 650 mg Q4H PRN GTB MILD PAIN LEVEL 1-3; Start 11/07/18 at 16:30 Albuterol (Proventil 0.083% (Neb)) 2.5 mg Q6H RESP THERAPY PRN NEB WHEEZING AND SOB; Start 11/07/18 at 16:30 Ascorbic Acid (Vitamin C) 500 mg BID GTB Last administered on 11/10/18at 08:39; Admin Dose 500 MG; Start 11/07/18 at 21:00 Bisacodyl (Dulcolax Supp) 10 mg PRN PRN [place] CONSTIPATION; Start 11/07/18 at 16:30 Carbidopa/Levodopa (Sinemet (25/ 100)) 1 tab TID GTB Last administered on 11/10/18at 08:38; Admin Dose 1 TAB; Start 11/07/18 at 21:00 Chlorhexidine Gluconate (Peridex) 15 ml Q12 MM Last administered on 11/10/18 08:38; Admin Dose 15 ML; Start 11/07/18 at 21:00 Docusate Sodium (Colace) 100 mg DAILY PO Last administered on 11/10/18 08:40; Admin Dose 100 MG; Start 11/08/18 at 09:00 Famotidine (Pepcid) 20 mg DAILY GTB Last administered on 11/10/18 08:39; Admin Dose 20 MG; Start 11/08/18 at 09:00 Hydralazine HCl (Apresoline) 20 mg Q6 PRN GTB ELEVATED BLOOD PRESSURE; Start 11/07/18 at 16:30 Levetiracetam (Keppra Liq (Ped)) 500 mg BID GTB Last administered on 11/10/18 08:52; Admin Dose 500 MG; Start 11/07/18 at 21:00 Linagliptin (Tradjenta) 5 mg DAILY GTB Last administered on 11/10/18 08:39; Admin Dose 5 MG; Start 11/08/18 at 09:00 Memantine (Namenda) 10 mg DAILY GTB Last administered on 11/10/18 08:39; Admin Dose 10 MG; Start 11/08/18 at 09:00 Metoprolol Tartrate (Lopressor) 25 mg BID GTB Last administered on 11/10/18 08:40; Admin Dose 25 MG; Start 11/07/18 at 21:00 Sodium Biphosphate/ Sodium Phosphate (Fleet Enema) 133 ml PRN PRN [place] CONSTIPATION; Start 11/07/18 at 16:30 Valproate Sodium (Depakene Liquid Cup) 125 mg QID GTB Last administered on 08:38; Admin Dose 125 MG; Start 11/07/18 at 17:00 Zinc Sulfate (Zinc Sulfate) 220 mg DAILY GTB Last administered on 11/10/18 08:40; Admin Dose 220 MG; Start 11/08/18 at 09:00 Diagnostic Test (Pha) (Accu-Chek) 1 ea AC MEALS AND BEDTIME XX Last administered on 11/10/18 07:31; Admin Dose 1 EA; Start 11/07/18 at 17:30 Cefepime HCl 50 ml @ 100 mls/hr Q24H IVPB Last administered on 11/09/18 16:33; Admin Dose 100 MLS/HR; Start 11/08/18 at 16:00 Miscellaneous Information 1 ea NOTE XX ; Start 11/07/18 at 19:00 Glucose (Glutose) 15 gm Q15M PRN PO DECREASED GLUCOSE; Start 11/07/18 at 19:00 Glucose (Glutose) 22.5 gm Q15M PRN PO DECREASED GLUCOSE; Start 11/07/18 at 19:00 Dextrose (D50w Syringe) 25 ml Q15M PRN IV DECREASED GLUCOSE; Start 11/07/18 at 19:00 Dextrose (D50w Syringe) 50 ml Q15M PRN IV DECREASED GLUCOSE; Start 11/07/18 at 19:00 Glucagon (Glucagen) 1 mg Q15M PRN IM DECREASED GLUCOSE; Start 11/07/18 at 19:00 Glucose (Glutose) 15 gm Q15M PRN BUCCAL DECREASED GLUCOSE; Start 11/07/18 at 19:00 Multivitamins/ Minerals (Theragran-M) 1 tab DAILY GTB Last administered on 11/10/18 08:39; Admin Dose 1 TAB; Start 11/08/18 at 09:00 Heparin Sodium (Porcine) (Heparin (5000 Units/1ml)) 5,000 unit Q12 SC Last administered on 11/10/18 09:14; Admin Dose 5,000 UNIT; Start 11/08/18 at 09:00 Diagnostic Test (Pha) (Accu-Chek) 1 ea 02 XX Last administered on 11/10/18 02:14; Admin Dose 1 EA; Start 11/09/18 at 02:00 Insulin Aspart (Novolog Insulin Pen) NOVOLOG *MODERATE* ALGORITHM WITH MEALS BEDTIME SC Last administered on 11/10/18 09:14; Admin Dose 2 UNIT; Start 11/08/18 at 08:00 Furosemide (Lasix) 40 mg BID DIURETICS IV Last administered on 11/10/18 05:40; Admin Dose 40 MG; Start 11/08/18 at 08:30 Metolazone (Zaroxolyn) 5 mg DAILY@0600 PO Last administered on 11/09/18 05:14; Admin Dose 5 MG; Start 11/08/18 at 08:30; Status Hold Aspirin (Aspirin) 81 mg DAILY NGT Last administered on 11/10/18 08:39; Admin Dose 81 MG; Start 11/08/18 at 13:30 Atorvastatin Calcium (Lipitor) 20 mg HS PO Last administered on 11/09/18at 20:28; Admin Dose 20 MG; Start 11/08/18 at 21:00 Spironolactone (Aldactone) 25 mg DAILY NGT Last administered on 11/10/18at 08:40; Admin Dose 25 MG; Start 11/09/18 at 09:00 Insulin Glargine (Lantus) 30 units QHS SC Last administered on 11/09/18at 21:21; Admin Dose 30 UNITS; Start 11/09/18 at 21:00 VAMSI LITTLEJOHN Nov 10, 2018 09:44
--- NOTE | 2018-11-10 09:57 | PN ---
Date/Time of Note Date/Time of Note DATE: 11/10/18 TIME: 09:54 Assessment/Plan VTE Prophylaxis Risk score (from Ns)>0 risk: 8 SCD applied (from [facility] [place]): No SCD contraindicated: other Pharmacological prophylaxis: other Lines/Catheters IV Catheter Type (from [facility]): Saline Lock Urinary Cath still in place: Yes Reason Cath still needed: urinary retention Assessment/Plan Hospital Course SUBJECTIVE: events overnight were reviewed. Urinary output has been adequate. has good uop with diuresis cxr reviewed has bilateral effusion (? thoracentesis) pulm is following the patient vent settings were reviewed d/w Dr Galvin no vomiting, new rash, tachypnea, melena, hematuria, diaphoresis meds were reviewed OBJECTIVE: HEENT: Head is normocephalic. NECK: Supple. HEART: Regular rate. LUNGS: Show diminished breath sounds at the base. ABDOMEN: Soft, nontender to palpation without rebound or guarding. EXTREMITIES: Negative for clubbing, cyanosis. Positive edema. DERMATOLOGIC: No rashes. MUSCULOSKELETAL: No joint effusion. NEUROLOGIC: No change in exam. ASSESSMENT AND PLAN: 1. Acute on chronic heart failure, diastolic. The patient is currently decompensated. The patient is on diuretic therapy with adequate urinary output. Plan is to continue diuretic therapy if hemodynamically stable. Follow up with cardiology for recommendations. A 2D echo was reviewed. Will continue to monitor closely. 2. Nonoliguric acute kidney injury on top of chronic kidney disease, stage IV, with previous baseline creatinine of 0.8 mg/dL. Please note that patient's creatinine is greatly over estimating the patient's EGFR as the patient has significant muscular atrophy. The patient has been on diuretics. However, there is no significant improvement in the patient's azotemia and acute kidney injury which again is likely due to cardiorenal pathophysiology. The patient's 2D echo shows significant pulmonary hypertension and moderate tricuspid regurgitation. Findings consistent with cardiorenal syndrome. Please note I have attempted to contact the patient's conservator about initiating hemodialysis. We will continue to try again. Otherwise, continue diuretic regimen. We will adjust diuretics as needed. 3. Alkalosis. Etiology may be secondary to hyperkalemia, acute kidney injury, diuretic therapy. We will check an ABG. If the patient has significant alkalemia, we will start the patient on Diamox once electrolytes are corrected. 4. Hypokalemia secondary to diuretic therapy. We will continue potassium repletion. Will adjust diuretics and consider holding until electrolytes normalized. Monitor closely. 5. Sepsis secondary to urinary tract infection. Continue current antibiotic regimen. 6. Ventilator dependent respiratory failure. Vent settings have been reviewed. Follow up with ABG. 7. Bilateral pleural effusions secondary decompensated heart failure. Continue to monitor. We will follow up with pulmonary. Consider thoracentesis. 8. Anemia. Monitor hemoglobin and hematocrit levels. 9. Mineral bone disorder, monitor calcium and phosphorus levels. 10. Dysphagia, status post PEG tube feedings. 11. Transaminitis, likely due to hepatic congestion. LFTs have been improving. Continue to monitor. 12. Arrhythmia. Continue to monitor. Follow up with cardiology. 13. Diabetes. Continue current diuretic regimen, adjust as needed. 14. Parkinson's disease. Continue Sinemet. 15. Acute on chromic encephalopathy, etiology toxic metabolic, uremic. Continue to monitor. 16. Seizure disorder. Continue Keppra and Depakote. 17. Aortic stenosis, severe. Continue to monitor. Follow up with Cardiology. 18. Gastrointestinal and deep vein thrombosis prophylaxis. Result Diagram: 11/10/18 0549 11/10/18 0549 Results 24hrs Laboratory Tests Test 11/09/18 11:48 11/09/18 12:07 11/09/18 17:25 11/09/18 20:37 Bedside Glucose 191 207 218 Potassium Level 3.5 Test 11/10/18 02:12 11/10/18 05:49 11/10/18 06:25 11/10/18 08:37 Bedside Glucose 200 154 White Blood Count 6.1 Red Blood Count 3.04 L Hemoglobin 9.3 L Hematocrit 31.2 L Mean Corpuscular 102.6 H Volume Mean Corpuscular 30.6 Hemoglobin Mean Corpuscular 29.8 L Hemoglobin Concent Red Cell Distribution 18.6 H Width Platelet Count 139 L Mean Platelet Volume 11.8 H Immature Granulocytes 0.500 H % Neutrophils % 78.4 H Lymphocytes % 11.0 L Monocytes % 9.1 Eosinophils % 1.0 Basophils % 0.0 Nucleated Red Blood 0.0 Cells % Immature Granulocytes 0.030 # Neutrophils # 4.8 Lymphocytes # 0.7 L Monocytes # 0.6 Eosinophils # 0.1 Basophils # 0.0 Nucleated Red Blood 0.0 Cells # Prothrombin Time 18.6 H Prothrombin Time 1.5 Ratio INR International 1.54 Normalized Ratio Sodium Level 144 Potassium Level 3.0 L Chloride Level 96 L Carbon Dioxide Level 36 H Anion Gap 12 Blood Urea Nitrogen 144 H Creatinine 1.42 H Est Glomerular Filtrat Rate mL/min Glucose Level 161 Calcium Level 8.1 L Phosphorus Level 3.1 Magnesium Level 2.8 H Lab Scanned Report REFERENCE LAB Exam/Review of Systems Vital Signs Vitals Vital Signs Date Temp Pulse Resp B/P (MAP) Pulse Ox O2 O2 Flow FiO2 Time Delivery Rate 11/10/18 76 09:23 11/10/18 98.9 16 117/56 98 Room Air 08:05 (76) 11/10/18 30 05:58 Intake and Output 11/09/18 11/09/18 11/10/18 1515:00 23:00 07:00 IntakeIntake Total 900 ml 800 ml OutputOutput Total 1250 ml 900 ml BalanceBalance -350 ml -100 ml Medications Medications Current Medications Acetaminophen (Tylenol Tab) 1,000 mg Q4H PRN PO MODERATE PAIN LEVEL 4-6; Start 11/07/18 at 16:30 Acetaminophen (Tylenol Tab) 650 mg Q4H PRN GTB MILD PAIN LEVEL 1-3; Start 11/07/18 at 16:30 Albuterol (Proventil 0.083% (Neb)) 2.5 mg Q6H RESP THERAPY PRN NEB WHEEZING AND SOB; Start 11/07/18 at 16:30 Ascorbic Acid (Vitamin C) 500 mg BID GTB Last administered on 11/10/18at 08:39; Admin Dose 500 MG; Start 11/07/18 at 21:00 Bisacodyl (Dulcolax Supp) 10 mg PRN PRN [place] CONSTIPATION; Start 11/07/18 at 16:30 Carbidopa/Levodopa (Sinemet (25/ 100)) 1 tab TID GTB Last administered on 11/10/18at 08:38; Admin Dose 1 TAB; Start 11/07/18 at 21:00 Chlorhexidine Gluconate (Peridex) 15 ml Q12 MM Last administered on 11/10/18at 08:38; Admin Dose 15 ML; Start 11/07/18 at 21:00 Docusate Sodium (Colace) 100 mg DAILY PO Last administered on 11/10/18at 08:40; Admin Dose 100 MG; Start 11/08/18 at 09:00 Famotidine (Pepcid) 20 mg DAILY GTB Last administered on 11/10/18 08:39; Admin Dose 20 MG; Start 11/08/18 at 09:00 Hydralazine HCl (Apresoline) 20 mg Q6 PRN GTB ELEVATED BLOOD PRESSURE; Start 11/07/18 at 16:30 Levetiracetam (Keppra Liq (Ped)) 500 mg BID GTB Last administered on 11/10/18 08:52; Admin Dose 500 MG; Start 11/07/18 at 21:00 Linagliptin (Tradjenta) 5 mg DAILY GTB Last administered on 11/10/18 08:39; Admin Dose 5 MG; Start 11/08/18 at 09:00 Memantine (Namenda) 10 mg DAILY GTB Last administered on 11/10/18 08:39; Admin Dose 10 MG; Start 11/08/18 at 09:00 Metoprolol Tartrate (Lopressor) 25 mg BID GTB Last administered on 11/10/18 08:40; Admin Dose 25 MG; Start 11/07/18 at 21:00 Sodium Biphosphate/ Sodium Phosphate (Fleet Enema) 133 ml PRN PRN [place] CONSTIPATION; Start 11/07/18 at 16:30 Valproate Sodium (Depakene Liquid Cup) 125 mg QID GTB Last administered on 11/10/18 08:38; Admin Dose 125 MG; Start 11/07/18 at 17:00 Zinc Sulfate (Zinc Sulfate) 220 mg DAILY GTB Last administered on 11/10/18 08:40; Admin Dose 220 MG; Start 11/08/18 at 09:00 Diagnostic Test (Pha) (Accu-Chek) 1 ea AC MEALS AND BEDTIME XX Last administered on 11/10/18 07:31; Admin Dose 1 EA; Start 11/07/18 at 17:30 Cefepime HCl 50 ml @ 100 mls/hr Q24H IVPB Last administered on 11/09/18 16:33; Admin Dose 100 MLS/HR; Start 11/08/18 at 16:00 Miscellaneous Information 1 ea NOTE XX ; Start 11/07/18 at 19:00 Glucose (Glutose) 15 gm Q15M PRN PO DECREASED GLUCOSE; Start 11/07/18 at 19:00 Glucose (Glutose) 22.5 gm Q15M PRN PO DECREASED GLUCOSE; Start 11/07/18 at 19:00 Dextrose (D50w Syringe) 25 ml Q15M PRN IV DECREASED GLUCOSE; Start 11/07/18 at 19:00 Dextrose (D50w Syringe) 50 ml Q15M PRN IV DECREASED GLUCOSE; Start 11/07/18 at 19:00 Glucagon (Glucagen) 1 mg Q15M PRN IM DECREASED GLUCOSE; Start 11/07/18 at 19:00 Glucose (Glutose) 15 gm Q15M PRN BUCCAL DECREASED GLUCOSE; Start 11/07/18 at 19:00 Multivitamins/ Minerals (Theragran-M) 1 tab DAILY GTB Last administered on 11/10/18 08:39; Admin Dose 1 TAB; Start 11/08/18 at 09:00 Heparin Sodium (Porcine) (Heparin (5000 Units/1ml)) 5,000 unit Q12 SC Last administered on 11/10/18 09:14; Admin Dose 5,000 UNIT; Start 11/08/18 at 09:00 Diagnostic Test (Pha) (Accu-Chek) 1 ea 02 XX Last administered on 11/10/18 02:14; Admin Dose 1 EA; Start 11/09/18 at 02:00 Insulin Aspart (Novolog Insulin Pen) NOVOLOG *MODERATE* ALGORITHM WITH MEALS BEDTIME SC Last administered on 11/10/18 09:14; Admin Dose 2 UNIT; Start 11/08/18 at 08:00 Furosemide (Lasix) 40 mg BID DIURETICS IV Last administered on 11/10/18 05:40; Admin Dose 40 MG; Start 11/08/18 at 08:30 Metolazone (Zaroxolyn) 5 mg DAILY@0600 PO Last administered on 11/09/18 05:14; Admin Dose 5 MG; Start 11/08/18 at 08:30; Status Hold Aspirin (Aspirin) 81 mg DAILY NGT Last administered on 11/10/18 08:39; Admin Dose 81 MG; Start 11/08/18 at 13:30 Atorvastatin Calcium (Lipitor) 20 mg HS PO Last administered on 11/09/18at 20:28; Admin Dose 20 MG; Start 11/08/18 at 21:00 Spironolactone (Aldactone) 25 mg DAILY NGT Last administered on 11/10/18at 08:40; Admin Dose 25 MG; Start 11/09/18 at 09:00 Insulin Glargine (Lantus) 30 units QHS SC Last administered on 11/09/18at 21:21; Admin Dose 30 UNITS; Start 11/09/18 at 21:00 KAI SCHMIDT DO Nov 10, 2018 09:57
[2018-11-10] MEDS ORDERED: POTASSIUM CHLORIDE 100 ML IVPB ONE (11:00)
--- NOTE | 2018-11-10 12:22 | CONS ---
Date/Time of Note Date/Time of Note DATE: 11/10/18 TIME: 12:21 Assessment/Plan Assessment/Plan Assessment/Plan Acute decompensated systolic and diastolic congestive heart failure Acute kidney injury Chronic respiratory failure, vent dependent Aortic stenosis Cardiomyopathy History of chronic kidney disease Encephalopathy Paroxysmal atrial fibrillation/flutter -Diuretics have been adjusted by our nephrology colleague. We will continue beta-paolo as heart rate and blood pressure permits. Chest ultrasound with large bilateral pleural effusions, thoracentesis has been ordered. Result Diagram: 11/10/18 0549 11/10/18 0549 Results 24hrs Laboratory Tests Test 11/09/18 17:25 11/09/18 20:37 11/10/18 02:12 11/10/18 05:49 Bedside Glucose 207 218 200 White Blood Count 6.1 Red Blood Count 3.04 L Hemoglobin 9.3 L Hematocrit 31.2 L Mean Corpuscular 102.6 H Volume Mean Corpuscular 30.6 Hemoglobin Mean Corpuscular 29.8 L Hemoglobin Concent Red Cell Distribution 18.6 H Width Platelet Count 139 L Mean Platelet Volume 11.8 H Immature Granulocytes 0.500 H % Neutrophils % 78.4 H Lymphocytes % 11.0 L Monocytes % 9.1 Eosinophils % 1.0 Basophils % 0.0 Nucleated Red Blood 0.0 Cells % Immature Granulocytes 0.030 # Neutrophils # 4.8 Lymphocytes # 0.7 L Monocytes # 0.6 Eosinophils # 0.1 Basophils # 0.0 Nucleated Red Blood 0.0 Cells # Prothrombin Time 18.6 H Prothrombin Time 1.5 Ratio INR International 1.54 Normalized Ratio Sodium Level 144 Potassium Level 3.0 L Chloride Level 96 L Carbon Dioxide Level 36 H Anion Gap 12 Blood Urea Nitrogen 144 H Creatinine 1.42 H Est Glomerular Filtrat Rate mL/min Glucose Level 161 Calcium Level 8.1 L Phosphorus Level 3.1 Magnesium Level 2.8 H Test 11/10/18 06:25 11/10/18 08:37 Lab Scanned Report REFERENCE LAB Bedside Glucose 154 Consultation Date/Type/Reason Admit Date/Time Nov 07, 2018 at 16:07 Initial Consult Date Type of Consult cv 24 HR Interval Summary Free Text/Dictation Patient seen and examined Exam/Review of Systems Vital Signs Vitals Vital Signs Date Temp Pulse Resp B/P (MAP) Pulse Ox O2 O2 Flow FiO2 Time Delivery Rate 11/10/18 98.8 69 16 97/54 (68) 97 11:42 11/10/18 30 09:20 11/10/18 Room Air 08:05 Intake and Output 11/09/18 11/09/18 11/10/18 1515:00 23:00 07:00 IntakeIntake Total 900 ml 800 ml OutputOutput Total 1250 ml 900 ml BalanceBalance -350 ml -100 ml Exam Nonverbal, no apparent distress Head: normocephalic Neck: other (Tracheostomy) Respiratory: other (Decreased breath sounds at the bilateral bases) Cardiovascular: irregular rhythm, systolic murmur Gastrointestinal: soft, non-tender, bowel sounds Extremities: edema, other Medications Medications Current Medications Acetaminophen (Tylenol Tab) 1,000 mg Q4H PRN PO MODERATE PAIN LEVEL 4-6; Start 11/07/18 at 16:30 Acetaminophen (Tylenol Tab) 650 mg Q4H PRN GTB MILD PAIN LEVEL 1-3; Start 11/07/18 at 16:30 Albuterol (Proventil 0.083% (Neb)) 2.5 mg Q6H RESP THERAPY PRN NEB WHEEZING AND SOB; Start 11/07/18 at 16:30 Ascorbic Acid (Vitamin C) 500 mg BID GTB Last administered on 11/10/18at 08:39; Admin Dose 500 MG; Start 11/07/18 at 21:00 Bisacodyl (Dulcolax Supp) 10 mg PRN PRN [place] CONSTIPATION; Start 11/07/18 at 16:30 Carbidopa/Levodopa (Sinemet (25/ 100)) 1 tab TID GTB Last administered on 11/10/18at 08:38; Admin Dose 1 TAB; Start 11/07/18 at 21:00 Chlorhexidine Gluconate (Peridex) 15 ml Q12 MM Last administered on 11/10/18 08:38; Admin Dose 15 ML; Start 11/07/18 at 21:00 Docusate Sodium (Colace) 100 mg DAILY PO Last administered on 11/10/18at 08:40; Admin Dose 100 MG; Start 11/08/18 at 09:00 Famotidine (Pepcid) 20 mg DAILY GTB Last administered on 11/10/18at 08:39; Admin Dose 20 MG; Start 11/08/18 at 09:00 Hydralazine HCl (Apresoline) 20 mg Q6 PRN GTB ELEVATED BLOOD PRESSURE; Start 11/07/18 at 16:30 Levetiracetam (Keppra Liq (Ped)) 500 mg BID GTB Last administered on 11/10/18 08:52; Admin Dose 500 MG; Start 11/07/18 at 21:00 Linagliptin (Tradjenta) 5 mg DAILY GTB Last administered on 11/10/18 08:39; Admin Dose 5 MG; Start 11/08/18 at 09:00 Memantine (Namenda) 10 mg DAILY GTB Last administered on 11/10/18 08:39; Admin Dose 10 MG; Start 11/08/18 at 09:00 Metoprolol Tartrate (Lopressor) 25 mg BID GTB Last administered on 11/10/18 08:40; Admin Dose 25 MG; Start 11/07/18 at 21:00 Sodium Biphosphate/ Sodium Phosphate (Fleet Enema) 133 ml PRN PRN [place] CONSTIPATION; Start 11/07/18 at 16:30 Valproate Sodium (Depakene Liquid Cup) 125 mg QID GTB Last administered on 11/10/18 08:38; Admin Dose 125 MG; Start 11/07/18 at 17:00 Zinc Sulfate (Zinc Sulfate) 220 mg DAILY GTB Last administered on 11/10/18 08:40; Admin Dose 220 MG; Start 11/08/18 at 09:00 Diagnostic Test (Pha) (Accu-Chek) 1 ea AC MEALS AND BEDTIME XX Last administe red on 11/10/18at 11:55; Admin Dose 1 EA; Start 11/07/18 at 17:30 Cefepime HCl 50 ml @ 100 mls/hr Q24H IVPB Last administered on 11/09/18 16:33; Admin Dose 100 MLS/HR; Start 11/08/18 at 16:00 Miscellaneous Information 1 ea NOTE XX ; Start 11/07/18 at 19:00 Glucose (Glutose) 15 gm Q15M PRN PO DECREASED GLUCOSE; Start 11/07/18 at 19:00 Glucose (Glutose) 22.5 gm Q15M PRN PO DECREASED GLUCOSE; Start 11/07/18 at 19:00 Dextrose (D50w Syringe) 25 ml Q15M PRN IV DECREASED GLUCOSE; Start 11/07/18 at 19:00 Dextrose (D50w Syringe) 50 ml Q15M PRN IV DECREASED GLUCOSE; Start 11/07/18 at 19:00 Glucagon (Glucagen) 1 mg Q15M PRN IM DECREASED GLUCOSE; Start 11/07/18 at 19:00 Glucose (Glutose) 15 gm Q15M PRN BUCCAL DECREASED GLUCOSE; Start 11/07/18 at 19:00 Multivitamins/ Minerals (Theragran-M) 1 tab DAILY GTB Last administered on 11/10/18 08:39; Admin Dose 1 TAB; Start 11/08/18 at 09:00 Heparin Sodium (Porcine) (Heparin (5000 Units/1ml)) 5,000 unit Q12 SC Last administered on 11/10/18 09:14; Admin Dose 5,000 UNIT; Start 11/08/18 at 09:00 Diagnostic Test (Pha) (Accu-Chek) 1 ea 02 XX Last administered on 11/10/18 02:14; Admin Dose 1 EA; Start 11/09/18 at 02:00 Insulin Aspart (Novolog Insulin Pen) NOVOLOG *MODERATE* ALGORITHM WITH MEALS BEDTIME SC Last administered on 11/10/18 09:14; Admin Dose 2 UNIT; Start 11/08/18 at 08:00 Furosemide (Lasix) 40 mg BID DIURETICS IV Last administered on 11/10/18 05:40; Admin Dose 40 MG; Start 11/08/18 at 08:30 Metolazone (Zaroxolyn) 5 mg DAILY@0600 PO Last administered on 11/09/18 05:14; Admin Dose 5 MG; Start 11/08/18 at 08:30; Status Hold Aspirin (Aspirin) 81 mg DAILY NGT Last administered on 11/10/18 08:39; Admin Dose 81 MG; Start 11/08/18 at 13:30 Atorvastatin Calcium (Lipitor) 20 mg HS PO Last administered on 11/09/18 20:28; Admin Dose 20 MG; Start 11/08/18 at 21:00 Insulin Glargine (Lantus) 30 units QHS SC Last administered on 11/09/18 21:21; Admin Dose 30 UNITS; Start 11/09/18 at 21:00 Spironolactone (Aldactone) 50 mg DAILY NGT ; Start 11/11/18 at 09:00 Potassium Chloride 100 ml @ 50 mls/hr ONCE ONCE IVPB Last administered on 11/10/18at 11:49; Admin Dose 50 MLS/HR; Start 11/10/18 at 11:00; Stop 11/10/18 at 12:59 Rudi Freeman DO Nov 10, 2018 12:22
[2018-11-10] MEDS ORDERED: LIDOCAINE 1% (MPF) 5 ML VIAL ONE (14:40)
[2018-11-10] MEDS: CEFEPIME 1GM/50 ML (PMX) 50 ML IVPB SCH (15:26)
--- NOTE | 2018-11-10 15:31 | CONS ---
Date/Time of Note Date/Time of Note DATE: 11/10/18 TIME: 15:29 Assessment/Plan Assessment/Plan Hospital Course No acute changes overnight patient is noncommunicative in no distress no fevers BUN 144 creatinine 1.42 WBC 6.1 neutrophils 78.4 Microbiology: urine culture growing Proteus mirabilis Chest x-ray on admission revealed cardiomegaly with diffuse pulmonary edema and bilateral small pleural effusions. Chest ultrasound revealed large bilateral pleural effusions. Abdominal ultrasound revealed cholelithiasis without evidence for cholecystitis Allergy: Ciprofloxacin Antimicrobials: Cefepime Physical examination: Chronically ill-appearing elderly man who is noncommunicative in no distress. Head atraumatic normocephalic sclera nonicteric. Vehicle mucosa dry. Neck is supple chest rise symmetrical breath sounds diminished bases. Heart: S1-S2. Abdomen soft bowel sounds present extremities with bilateral edema. Skin: Patient has multiple pressure sores Assessment: 1. Sepsis secondary to UTI 2. Proteus mirabilis UTI 3. Acute on chronic kidney disease 4. Acute on chronic respiratory failure 5. Bilateral pleural effusions 6. ?Non-ST elevation IN 7. Diabetes type 2 8. Parkinson's dementia 9. Aortic stenosis Plan: Stable, status post thoracentesis with 2 L being removed, continue antibi otics, follow pulmonary, cardiology recommendations Result Diagram: 11/10/18 0549 11/10/18 0549 Results 24hrs Laboratory Tests Test 11/09/18 17:25 11/09/18 20:37 11/10/18 02:12 11/10/18 05:49 Bedside Glucose 207 218 200 White Blood Count 6.1 Red Blood Count 3.04 L Hemoglobin 9.3 L Hematocrit 31.2 L Mean Corpuscular 102.6 H Volume Mean Corpuscular 30.6 Hemoglobin Mean Corpuscular 29.8 L Hemoglobin Concent Red Cell Distribution 18.6 H Width Platelet Count 139 L Mean Platelet Volume 11.8 H Immature Granulocytes 0.500 H % Neutrophils % 78.4 H Lymphocytes % 11.0 L Monocytes % 9.1 Eosinophils % 1.0 Basophils % 0.0 Nucleated Red Blood 0.0 Cells % Immature Granulocytes 0.030 # Neutrophils # 4.8 Lymphocytes # 0.7 L Monocytes # 0.6 Eosinophils # 0.1 Basophils # 0.0 Nucleated Red Blood 0.0 Cells # Prothrombin Time 18.6 H Prothrombin Time 1.5 Ratio INR International 1.54 Normalized Ratio Sodium Level 144 Potassium Level 3.0 L Chloride Level 96 L Carbon Dioxide Level 36 H Anion Gap 12 Blood Urea Nitrogen 144 H Creatinine 1.42 H Est Glomerular Filtrat Rate mL/min Glucose Level 161 Calcium Level 8.1 L Phosphorus Level 3.1 Magnesium Level 2.8 H Test 11/10/18 06:25 11/10/18 08:37 11/10/18 12:46 Lab Scanned Report REFERENCE LAB Bedside Glucose 154 144 Consultation Date/Type/Reason Admit Date/Time Nov 07, 2018 at 16:07 Initial Consult Date Type of Consult ID Exam/Review of Systems Vital Signs Vitals Vital Signs Date Temp Pulse Resp B/P (MAP) Pulse Ox O2 O2 Flow FiO2 Time Delivery Rate 11/10/18 78 16 100 30 13:10 11/10/18 98.8 97/54 (68) 11:42 11/10/18 Room Air 08:05 Intake and Output 11/09/18 11/09/18 11/10/18 1414:59 22:59 06:59 IntakeIntake Total 900 ml 800 ml OutputOutput Total 1250 ml 900 ml BalanceBalance -350 ml -100 ml Medications Medications Current Medications Acetaminophen (Tylenol Tab) 1,000 mg Q4H PRN PO MODERATE PAIN LEVEL 4-6; Start 11/07/18 at 16:30 Acetaminophen (Tylenol Tab) 650 mg Q4H PRN GTB MILD PAIN LEVEL 1-3; Start 11/07/18 at 16:30 Albuterol (Proventil 0.083% (Neb)) 2.5 mg Q6H RESP THERAPY PRN NEB WHEEZING AND SOB; Start 11/07/18 at 16:30 Ascorbic Acid (Vitamin C) 500 mg BID GTB Last administered on 11/10/18at 08:39; Admin Dose 500 MG; Start 11/07/18 at 21:00 Bisacodyl (Dulcolax Supp) 10 mg PRN PRN [place] CONSTIPATION; Start 11/07/18 at 16:30 Carbidopa/Levodopa (Sinemet (25/ 100)) 1 tab TID GTB Last administered on 11/10/18at 12:51; Admin Dose 1 TAB; Start 11/07/18 at 21:00 Chlorhexidine Gluconate (Peridex) 15 ml Q12 MM Last administered on 11/10/18 08:38; Admin Dose 15 ML; Start 11/07/18 at 21:00 Docusate Sodium (Colace) 100 mg DAILY PO Last administered on 11/10/18 08:40; Admin Dose 100 MG; Start 11/08/18 at 09:00 Famotidine (Pepcid) 20 mg DAILY GTB Last administered on 11/10/18 08:39; Admin Dose 20 MG; Start 11/08/18 at 09:00 Hydralazine HCl (Apresoline) 20 mg Q6 PRN GTB ELEVATED BLOOD PRESSURE; Start 11/07/18 at 16:30 Levetiracetam (Keppra Liq (Ped)) 500 mg BID GTB Last administered on 11/10/18 08:52; Admin Dose 500 MG; Start 11/07/18 at 21:00 Linagliptin (Tradjenta) 5 mg DAILY GTB Last administered on 11/10/18 08:39; Admin Dose 5 MG; Start 11/08/18 at 09:00 Memantine (Namenda) 10 mg DAILY GTB Last administered on 11/10/18 08:39; Admin Dose 10 MG; Start 11/08/18 at 09:00 Metoprolol Tartrate (Lopressor) 25 mg BID GTB Last administered on 11/10/18 08:40; Admin Dose 25 MG; Start 11/07/18 at 21:00 Sodium Biphosphate/ Sodium Phosphate (Fleet Enema) 133 ml PRN PRN [place] CON STIPATION; Start 11/07/18 at 16:30 Valproate Sodium (Depakene Liquid Cup) 125 mg QID GTB Last administered on 11/10/18 12:51; Admin Dose 125 MG; Start 11/07/18 at 17:00 Zinc Sulfate (Zinc Sulfate) 220 mg DAILY GTB Last administered on 11/10/18 08:40; Admin Dose 220 MG; Start 11/08/18 at 09:00 Diagnostic Test (Pha) (Accu-Chek) 1 ea AC MEALS AND BEDTIME XX Last administered on 11/10/18 11:55; Admin Dose 1 EA; Start 11/07/18 at 17:30 Cefepime HCl 50 ml @ 100 mls/hr Q24H IVPB Last administered on 1/3/19at 16:33; Admin Dose 100 MLS/HR; Start 11/08/18 at 16:00 Miscellaneous Information 1 ea NOTE XX ; Start 11/07/18 at 19:00 Glucose (Glutose) 15 gm Q15M PRN PO DECREASED GLUCOSE; Start 11/07/18 at 19:00 Glucose (Glutose) 22.5 gm Q15M PRN PO DECREASED GLUCOSE; Start 11/07/18 at 19:00 Dextrose (D50w Syringe) 25 ml Q15M PRN IV DECREASED GLUCOSE; Start 11/07/18 at 19:00 Dextrose (D50w Syringe) 50 ml Q15M PRN IV DECREASED GLUCOSE; Start 11/07/18 at 19:00 Glucagon (Glucagen) 1 mg Q15M PRN IM DECREASED GLUCOSE; Start 11/07/18 at 19:00 Glucose (Glutose) 15 gm Q15M PRN BUCCAL DECREASED GLUCOSE; Start 11/07/18 at 19:00 Multivitamins/ Minerals (Theragran-M) 1 tab DAILY GTB Last administered on 11/10/18at 08:39; Admin Dose 1 TAB; Start 11/08/18 at 09:00 Heparin Sodium (Porcine) (Heparin (5000 Units/1ml)) 5,000 unit Q12 SC Last administered on 11/10/18 09:14; Admin Dose 5,000 UNIT; Start 11/08/18 at 09:00 Diagnostic Test (Pha) (Accu-Chek) 1 ea 02 XX Last administered on 11/10/18at 02:14; Admin Dose 1 EA; Start 11/09/18 at 02:00 Insulin Aspart (Novolog Insulin Pen) NOVOLOG *MODERATE* ALGORITHM WITH MEALS BEDTIME SC Last administered on 11/10/18at 12:55; Admin Dose 2 UNIT; Start 11/08/18 at 08:00 Furosemide (Lasix) 40 mg BID DIURETICS IV Last administered on 11/10/18 05:40; Admin Dose 40 MG; Start 11/08/18 at 08:30 Metolazone (Zaroxolyn) 5 mg DAILY@0600 PO Last administered on 11/09/18 05:14; Admin Dose 5 MG; Start 11/08/18 at 08:30; Status Hold Aspirin (Aspirin) 81 mg DAILY NGT Last administered on 11/10/18at 08:39; Admin Dose 81 MG; Start 11/08/18 at 13:30 Atorvastatin Calcium (Lipitor) 20 mg HS PO Last administered on 11/09/18at 20:28; Admin Dose 20 MG; Start 11/08/18 at 21:00 Insulin Glargine (Lantus) 30 units QHS SC Last administered on 11/09/18at 21:21; Admin Dose 30 UNITS; Start 11/09/18 at 21:00 Spironolactone (Aldactone) 50 mg DAILY NGT ; Start 11/11/18 at 09:00 RAMSEY VERDE NP Nov 10, 2018 15:31
[2018-11-10] MEDS: COLLAGENASE 5 GM (UD JAR) TOP SCH ×2 (18:16→20:29)
[2018-11-10] MEDS: ATORVASTATIN 20 MG TAB PO SCH (20:30)
[2018-11-10] MEDS: INSULIN GLARGINE [LANTus] (100 UNITS/ML) SYG SC SCH (21:26)
[2018-11-11] VITALS (24 sets, daily range): BP systolic 93–122; BP diastolic 51–77; PULSE 60–168; RESP 16–20
[2018-11-11] MEDS: ACCU-CHEK XX SCH ×5 (02:00→21:00)
[2018-11-11] MEDS: FUROSEMIDE 40 MG INJ IV SCH ×2 (05:37→17:08)
[2018-11-11] MEDS: INSULIN ASPART [NOVOLOG] 3 ML PEN SC SCH ×4 (08:00→20:10)
[2018-11-11] MEDS: DEXTROSE 50% 50 ML SYRINGE IV PRN (08:34)
[2018-11-11] MEDS: VALPROIC ACID LIQUID CUP 250 MG/5 ML CUP GTB SCH ×4 (08:38→20:10)
[2018-11-11] MEDS: CHLORHEXIDINE GLUCONATE 15 ML UD CUP MM SCH ×2 (08:38→20:09)
[2018-11-11] MEDS: HEPARIN 5,000 UNIT/1 ML VIAL SC SCH ×2 (08:38→20:42)
[2018-11-11] MEDS: LINAGLIPTIN 5 MG TABLET GTB SCH (08:39)
[2018-11-11] MEDS: ZINC SULFATE 220 MG CAP GTB SCH (08:39)
[2018-11-11] MEDS: FAMOTIDINE 20 MG TAB GTB SCH (08:39)
[2018-11-11] MEDS: ASCORBIC ACID 500 MG TAB GTB SCH ×2 (08:39→20:10)
[2018-11-11] MEDS: CARBIDOPA/LEVODOPA (25/100) TAB GTB SCH ×3 (08:39→20:10)
[2018-11-11] MEDS: MEMANTINE 10 MG TAB GTB SCH (08:39)
[2018-11-11] MEDS: DOCUSATE SODIUM 100 MG CAP PO SCH (08:39)
[2018-11-11] MEDS: SPIRONOLACTONE 50 MG TAB NGT SCH (08:39)
[2018-11-11] MEDS: MULTIVITAMINS/MINERALS TAB GTB SCH (08:39)
[2018-11-11] MEDS: ASPIRIN 81 MG TAB NGT SCH (08:39)
[2018-11-11] MEDS: METOPROLOL 25 MG TAB GTB SCH ×2 (08:39→20:10)
[2018-11-11] MEDS: COLLAGENASE 5 GM (UD JAR) TOP SCH ×2 (08:40→20:09)
[2018-11-11] MEDS: LEVETIRACETAM (100 MG/ML) 5ML CUP GTB SCH ×2 (09:17→20:09)
--- NOTE | 2018-11-11 10:20 | CONS ---
Date/Time of Note Date/Time of Note DATE: 11/11/18 TIME: 10:20 Consult Date/Type/Reason Admit Date/Time Nov 07, 2018 at 16:07 Initial Consult Date Objective Vital Signs Date Temp Pulse Resp B/P (MAP) Pulse Ox O2 O2 Flow FiO2 Time Delivery Rate 11/11/18 77 08:00 11/11/18 98.6 20 122/77 99 07:38 (92) 11/11/18 30 05:55 11/11/18 Room Air 03:54 Intake and Output 11/10/18 11/10/18 11/11/18 1414:59 22:59 06:59 IntakeIntake Total 950 ml 780 ml OutputOutput Total 1450 ml 1200 ml BalanceBalance -500 ml -420 ml Results/Medications Result Diagram: 11/11/18 0444 11/11/18 0444 Results 24 hrs Laboratory Tests Test 11/10/18 12:46 11/10/18 17:48 11/10/18 20:26 11/11/18 04:44 Bedside Glucose 144 94 137 White Blood Count 6.0 Red Blood Count 2.98 L Hemoglobin 9.0 L Hematocrit 31.2 L Mean Corpuscular Volume 104.7 H Mean Corpuscular 30.2 Hemoglobin Mean Corpuscular 28.8 L Hemoglobin Concent Red Cell Distribution 18.4 H Width Platelet Count 129 L Mean Platelet Volume 11.9 H Immature Granulocytes % 0.700 H Neutrophils % 77.8 H Lymphocytes % 11.1 L Monocytes % 9.6 Eosinophils % 0.8 Basophils % 0.0 Nucleated Red Blood 0.0 Cells % Immature Granulocytes # 0.040 H Neutrophils # 4.6 Lymphocytes # 0.7 L Monocytes # 0.6 Eosinophils # 0.1 Basophils # 0.0 Nucleated Red Blood 0.0 Cells # Sodium Level 145 H Potassium Level 3.0 L Chloride Level 94 L Carbon Dioxide Level 41 *H Anion Gap 10 Blood Urea Nitrogen 143 H Creatinine 1.47 H Est Glomerular Filtrat Rate mL/min Glucose Level 67 #L Calcium Level 8.0 L Phosphorus Level 2.9 Magnesium Level 2.7 H Test 11/11/18 08:30 11/11/18 08:46 11/11/18 09:11 11/11/18 10:17 Bedside Glucose 68 L 142 118 125 Medications Current Medications Acetaminophen (Tylenol Tab) 1,000 mg Q4H PRN PO MODERATE PAIN LEVEL 4-6; Start 11/07/18 at 16:30 Acetaminophen (Tylenol Tab) 650 mg Q4H PRN GTB MILD PAIN LEVEL 1-3; Start 11/07/18 at 16:30 Albuterol (Proventil 0.083% (Neb)) 2.5 mg Q6H RESP THERAPY PRN NEB WHEEZING AND SOB; Start 11/07/18 at 16:30 Ascorbic Acid (Vitamin C) 500 mg BID GTB Last administered on 11/11/18 08:39; Admin Dose 500 MG; Start 11/07/18 at 21:00 Bisacodyl (Dulcolax Supp) 10 mg PRN PRN [place] CONSTIPATION; Start 11/07/18 at 16:30 Carbidopa/Levodopa (Sinemet (25/ 100)) 1 tab TID GTB Last administered on 11/11/18 08:39; Admin Dose 1 TAB; Start 11/07/18 at 21:00 Chlorhexidine Gluconate (Peridex) 15 ml Q12 MM Last administered on 11/11/18 08:38; Admin Dose 15 ML; Start 11/07/18 at 21:00 Docusate Sodium (Colace) 100 mg DAILY PO Last administered on 11/11/18 08:39; Admin Dose 100 MG; Start 11/08/18 at 09:00 Famotidine (Pepcid) 20 mg DAILY GTB Last administered on 11/11/18 08:39; Admin Dose 20 MG; Start 11/08/18 at 09:00 Hydralazine HCl (Apresoline) 20 mg Q6 PRN GTB ELEVATED BLOOD PRESSURE; Start 11/07/18 at 16:30 Linagliptin (Tradjenta) 5 mg DAILY GTB Last administered on 11/11/18 08:39; Admin Dose 5 MG; Start 11/08/18 at 09:00 Memantine (Namenda) 10 mg DAILY GTB Last administered on 11/11/18 08:39; Admin Dose 10 MG; Start 11/08/18 at 09:00 Metoprolol Tartrate (Lopressor) 25 mg BID GTB Last administered on 11/11/18 08 :39; Admin Dose 25 MG; Start 11/07/18 at 21:00 Sodium Biphosphate/ Sodium Phosphate (Fleet Enema) 133 ml PRN PRN [place] CONSTIPATION; Start 11/07/18 at 16:30 Valproate Sodium (Depakene Liquid Cup) 125 mg QID GTB Last administered on 11/11/18 08:38; Admin Dose 125 MG; Start 11/07/18 at 17:00 Zinc Sulfate (Zinc Sulfate) 220 mg DAILY GTB Last administered on 11/11/18 08:39; Admin Dose 220 MG; Start 11/08/18 at 09:00 Diagnostic Test (Pha) (Accu-Chek) 1 ea AC MEALS AND BEDTIME XX Last administered on 11/11/18 08:41; Admin Dose 1 EA; Start 11/07/18 at 17:30 Cefepime HCl 50 ml @ 100 mls/hr Q24H IVPB Last administered on 11/10/18 15:26; Admin Dose 100 MLS/HR; Start 11/08/18 at 16:00 Miscellaneous Information 1 ea NOTE XX ; Start 11/07/18 at 19:00 Glucose (Glutose) 15 gm Q15M PRN PO DECREASED GLUCOSE; Start 11/07/18 at 19:00 Glucose (Glutose) 22.5 gm Q15M PRN PO DECREASED GLUCOSE; Start 11/07/18 at 19:00 Dextrose (D50w Syringe) 25 ml Q15M PRN IV DECREASED GLUCOSE Last administered on 11/11/18 08:34; Admin Dose 25 ML; Start 11/07/18 at 19:00 Dextrose (D50w Syringe) 50 ml Q15M PRN IV DECREASED GLUCOSE; Start 11/07/18 at 19:00 Glucagon (Glucagen) 1 mg Q15M PRN IM DECREASED GLUCOSE; Start 11/07/18 at 19:00 Glucose (Glutose) 15 gm Q15M PRN BUCCAL DECREASED GLUCOSE; Start 11/07/18 at 19:00 Multivitamins/ Minerals (Theragran-M) 1 tab DAILY GTB Last administered on 11/11/18 08:39; Admin Dose 1 TAB; Start 11/08/18 at 09:00 Heparin Sodium (Porcine) (Heparin (5000 Units/1ml)) 5,000 unit Q12 SC Last administered on 11/11/18 08:38; Admin Dose 5,000 UNIT; Start 11/08/18 at 09:00 Diagnostic Test (Pha) (Accu-Chek) 1 ea 02 XX Last administered on 11/10/18 02:14; Admin Dose 1 EA; Start 11/09/18 at 02:00 Insulin Aspart (Novolog Insulin Pen) NOVOLOG *MODERATE* ALGORITHM WITH MEALS BEDTIME SC Last administered on 11/10/18 12:55; Admin Dose 2 UNIT; Start 11/08/18 at 08:00 Furosemide (Lasix) 40 mg BID DIURETICS IV Last administered on 11/11/18 05:37; Admin Dose 40 MG; Start 11/08/18 at 08:30 Metolazone (Zaroxolyn) 5 mg DAILY@0600 PO Last administered on 11/09/18 05:14; Admin Dose 5 MG; Start 11/08/18 at 08:30; Status Hold Aspirin (Aspirin) 81 mg DAILY NGT Last administered on 11/11/18 08:39; Admin Dose 81 MG; Start 11/08/18 at 13:30 Atorvastatin Calcium (Lipitor) 20 mg HS PO Last administered on 11/10/18 20:30; Admin Dose 20 MG; Start 11/08/18 at 21:00 Insulin Glargine (Lantus) 30 units QHS SC Last administered on 11/10/18 21:26; Admin Dose 30 UNITS; Start 11/09/18 at 21:00 Spironolactone (Aldactone) 50 mg DAILY NGT Last administered on 11/11/18 08:39; Admin Dose 50 MG; Start 11/11/18 at 09:00 Collagenase (Santyl) 1 applic BID TOP Last administered on 11/11/18 08:40; Admin Dose 1 APPLIC; Start 11/10/18 at 17:30 Levetiracetam (Keppra Liquid) 500 mg BID GTB Last administered on 11/11/18 09:17; Admin Dose 500 MG; Start 11/11/18 at 09:00 Assessment/Plan Chief Complaint/Hosp Course has good uop with diuresis cxr reviewed has bilateral effusion (? thoracentesis) pulm is following the patient vent settings were reviewed d/w Dr Galvin no vomiting, new rash, tachypnea, melena, hematuria, diaphoresis meds were reviewed OBJECTIVE: HEENT: Head is normocephalic. NECK: Supple. HEART: Regular rate. LUNGS: Show diminished breath sounds at the base. ABDOMEN: Soft, nontender to palpation without rebound or guarding. EXTREMITIES: Negative for clubbing, cyanosis. Positive edema. DERMATOLOGIC: No rashes. MUSCULOSKELETAL: No joint effusion. NEUROLOGIC: No change in exam. ASSESSMENT AND PLAN: 1. Acute on chronic heart failure, diastolic. The patient is currently decompensated. The patient is on diuretic therapy with adequate urinary output. Plan is to continue diuretic therapy if hemodynamically stable. Follow up with cardiology for recommendations. A 2D echo was reviewed. Will continue to monitor closely. 2. Nonoliguric acute kidney injury on top of chronic kidney disease, stage IV, with previous baseline creatinine of 0.8 mg/dL. Please note that patient's creatinine is greatly over estimating the patient's EGFR as the patient has significant muscular atrophy. The patient has been on diuretics. However, there is no significant improvement in the patient's azotemia and acute kidney injury which again is likely due to cardiorenal pathophysiology. The patient's 2D echo shows significant pulmonary hypertension and moderate tricuspid regurgitation. Findings consistent with cardiorenal syndrome. Please note I ashton ve attempted to contact the patient's conservator about initiating hemodialysis. We will continue to try again. Otherwise, continue diuretic regimen. We will adjust diuretics as needed. 3. Alkalosis. Etiology may be secondary to hyperkalemia, acute kidney injury, diuretic therapy. We will check an ABG. If the patient has significant alkalemia, we will start the patient on Diamox once electrolytes are corrected. 4. Hypokalemia secondary to diuretic therapy. We will continue potassium rep letion. Will adjust diuretics and consider holding until electrolytes normalized. Monitor closely. 5. Sepsis secondary to urinary tract infection. Continue current antibiotic regimen. 6. Ventilator dependent respiratory failure. Vent settings have been reviewed. Follow up with ABG. 7. Bilateral pleural effusions secondary decompensated heart failure. Continue to monitor. We will follow up with pulmonary. Consider thoracentesis. 8. Anemia. Monitor hemoglobin and hematocrit levels. 9. Mineral bone disorder, monitor calcium and phosphorus levels. 10. Dysphagia, status post PEG tube feedings. 11. Transaminitis, likely due to hepatic congestion. LFTs have been improving. Continue to monitor. 12. Arrhythmia. Continue to monitor. Follow up with cardiology. 13. Diabetes. Continue current diuretic regimen, adjust as needed. 14. Parkinson's disease. Continue Sinemet. 15. Acute on chromic encephalopathy, etiology toxic metabolic, uremic. Continue to monitor. 16. Seizure disorder. Continue Keppra and Depakote. 17. Aortic stenosis, severe. Continue to monitor. Follow up with Cardiology. 18. Gastrointestinal and deep vein thrombosis prophylaxis. KATYA JOHNSTON MD Nov 11, 2018 10:20
[2018-11-11] MEDS: POTASSIUM CHLORIDE 100 ML IVPB SCH ×2 (12:37→15:02)
--- NOTE | 2018-11-11 16:28 | CONS ---
Date/Time of Note Date/Time of Note DATE: 11/11/18 TIME: 16:23 Consult Date/Type/Reason Admit Date/Time Nov 07, 2018 at 16:07 Initial Consult Date Subjective Cardiology follow-up progress note Subjective: Discussed with the staff and telemetry was reviewed. Patient is in proximal atrial fibrillation. Attempted in sinus with very frequent PAC Patient nonverbal status with tracheostomy on the vent Thoracentesis done on November 10, 2018 Objective: General: Thin gentleman status post tracheostomy on the vent HEENT: NC/AT. pupils are equal. round. Temporal wasting is noted NECK: Status post tracheostomy. no stridor. CV: RRR. systolic ejection murmur; no gallop or rubs. PULM: no wheezing + rhonchi. GI: SOFT, NT, ND, no rebound or guarding status post PEG placement Extremity: trace B/L LE edema. no clubbing. neuro: Nonverbal does not answer my question Psych: calm rectal: deferred Chest x-ray 11/10/2018 shows: 1. Questionable small right apical pneumothorax status post right thoracentesis. Film was obtained in a semiupright position, limiting evaluation. Consider repeat upright view or short interval follow-up. 2. Findings suggestive of pulmonary vascular congestion with small bilateral pleural effusions, significant improved when compared to the prior examination. 3. Mild cardiomegaly and aortic atherosclerosis. 4. Tubes and lines, as described above. Objective Vital Signs Date Temp Pulse Resp B/P (MAP) Pulse Ox O2 O2 Flow FiO2 Time Delivery Rate 11/11/18 98.9 65 16 103/57 99 15:21 (72) 11/11/18 30 11:40 11/11/18 Room Air 03:54 Intake and Output 11/10/18 11/10/18 11/11/18 1414:59 22:59 06:59 IntakeIntake Total 950 ml 780 ml OutputOutput Total 1450 ml 1200 ml BalanceBalance -500 ml -420 ml Results/Medications Result Diagram: 11/11/18 0444 11/11/18 0444 Results 24 hrs Laboratory Tests Test 11/10/18 17:48 11/10/18 20:26 11/11/18 04:44 11/11/18 08:30 Bedside Glucose 94 137 68 L White Blood Count 6.0 Red Blood Count 2.98 L Hemoglobin 9.0 L Hematocrit 31.2 L Mean Corpuscular Volume 104.7 H Mean Corpuscular 30.2 Hemoglobin Mean Corpuscular 28.8 L Hemoglobin Concent Red Cell Distribution 18.4 H Width Platelet Count 129 L Mean Platelet Volume 11.9 H Immature Granulocytes % 0.700 H Neutrophils % 77.8 H Lymphocytes % 11.1 L Monocytes % 9.6 Eosinophils % 0.8 Basophils % 0.0 Nucleated Red Blood 0.0 Cells % Immature Granulocytes # 0.040 H Neutrophils # 4.6 Lymphocytes # 0.7 L Monocytes # 0.6 Eosinophils # 0.1 Basophils # 0.0 Nucleated Red Blood 0.0 Cells # Sodium Level 145 H Potassium Level 3.0 L Chloride Level 94 L Carbon Dioxide Level 41 *H Anion Gap 10 Blood Urea Nitrogen 143 H Creatinine 1.47 H Est Glomerular Filtrat Rate mL/min Glucose Level 67 #L Calcium Level 8.0 L Phosphorus Level 2.9 Magnesium Level 2.7 H Test 11/11/18 08:46 11/11/18 09:11 11/11/18 10:17 11/11/18 11:59 Bedside Glucose 142 118 125 108 Medications Current Medications Acetaminophen (Tylenol Tab) 1,000 mg Q4H PRN PO MODERATE PAIN LEVEL 4-6; Start 11/07/18 at 16:30 Acetaminophen (Tylenol Tab) 650 mg Q4H PRN GTB MILD PAIN LEVEL 1-3; Start 11/07/18 at 16:30 Albuterol (Proventil 0.083% (Neb)) 2.5 mg Q6H RESP THERAPY PRN NEB WHEEZING AND SOB; Start 11/07/18 at 16:30 Ascorbic Acid (Vitamin C) 500 mg BID GTB Last administered on 11/11/18at 08:39; Admin Dose 500 MG; Start 11/07/18 at 21:00 Bisacodyl (Dulcolax Supp) 10 mg PRN PRN [place] CONSTIPATION; Start 11/07/18 at 16:30 Carbidopa/Levodopa (Sinemet (25/ 100)) 1 tab TID GTB Last administered on 11/11/18at 12:43; Admin Dose 1 TAB; Start 11/07/18 at 21:00 Chlorhexidine Gluconate (Peridex) 15 ml Q12 MM Last administered on 11/11/18at 08:38; Admin Dose 15 ML; Start 11/07/18 at 21:00 Docusate Sodium (Colace) 100 mg DAILY PO Last administered on 11/11/18 08:39; Admin Dose 100 MG; Start 11/08/18 at 09:00 Famotidine (Pepcid) 20 mg DAILY GTB Last administered on 11/11/18 08:39; Admin Dose 20 MG; Start 11/08/18 at 09:00 Hydralazine HCl (Apresoline) 20 mg Q6 PRN GTB ELEVATED BLOOD PRESSURE; Start 11/07/18 at 16:30 Linagliptin (Tradjenta) 5 mg DAILY GTB Last administered on 11/11/18 08:39; Admin Dose 5 MG; Start 11/08/18 at 09:00 Memantine (Namenda) 10 mg DAILY GTB Last administered on 11/11/18 08:39; Admin Dose 10 MG; Start 11/08/18 at 09:00 Metoprolol Tartrate (Lopressor) 25 mg BID GTB Last administered on 11/11/18 08:39; Admin Dose 25 MG; Start 11/07/18 at 21:00 Sodium Biphosphate/ Sodium Phosphate (Fleet Enema) 133 ml PRN PRN [place] CONSTIPATION; Start 11/07/18 at 16:30 Valproate Sodium (Depakene Liquid Cup) 125 mg QID GTB Last administered on 11/11/18 12:43; Admin Dose 125 MG; Start 11/07/18 at 17:00 Zinc Sulfate (Zinc Sulfate) 220 mg DAILY GTB Last administered on 11/11/18 08:39; Admin Dose 220 MG; Start 11/08/18 at 09:00 Diagnostic Test (Pha) (Accu-Chek) 1 ea AC MEALS AND BEDTIME XX Last administered on 11/11/18 12:00; Admin Dose 1 EA; Start 11/07/18 at 17:30 Cefepime HCl 50 ml @ 100 mls/hr Q24H IVPB Last administered on 11/10/18 15:26; Admin Dose 100 MLS/HR; Start 11/08/18 at 16:00 Miscellaneous Information 1 ea NOTE XX ; Start 11/07/18 at 19:00 Glucose (Glutose) 15 gm Q15M PRN PO DECREASED GLUCOSE; Start 11/07/18 at 19:00 Glucose (Glutose) 22.5 gm Q15M PRN PO DECREASED GLUCOSE; Start 11/07/18 at 19:00 Dextrose (D50w Syringe) 25 ml Q15M PRN IV DECREASED GLUCOSE Last administered on 11/11/18 08:34; Admin Dose 25 ML; Start 11/07/18 at 19:00 Dextrose (D50w Syringe) 50 ml Q15M PRN IV DECREASED GLUCOSE; Start 11/07/18 at 19:00 Glucagon (Glucagen) 1 mg Q15M PRN IM DECREASED GLUCOSE; Start 11/07/18 at 19:00 Glucose (Glutose) 15 gm Q15M PRN BUCCAL DECREASED GLUCOSE; Start 11/07/18 at 19:00 Multivitamins/ Minerals (Theragran-M) 1 tab DAILY GTB Last administered on 11/11/18 08:39; Admin Dose 1 TAB; Start 11/08/18 at 09:00 Heparin Sodium (Porcine) (Heparin (5000 Units/1ml)) 5,000 unit Q12 SC Last administered on 11/11/18 08:38; Admin Dose 5,000 UNIT; Start 11/08/18 at 09:00 Diagnostic Test (Pha) (Accu-Chek) 1 ea 02 XX Last administered on 11/10/18 02: 14; Admin Dose 1 EA; Start 11/09/18 at 02:00 Insulin Aspart (Novolog Insulin Pen) NOVOLOG *MODERATE* ALGORITHM WITH MEALS BEDTIME SC Last administered on 11/10/18 12:55; Admin Dose 2 UNIT; Start 11/08 at 08:00 Furosemide (Lasix) 40 mg BID DIURETICS IV Last administered on 11/11/18 05:37; Admin Dose 40 MG; Start 11/08/18 at 08:30 Metolazone (Zaroxolyn) 5 mg DAILY@0600 PO Last administered on 11/09/18 05:14; Admin Dose 5 MG; Start 11/08/18 at 08:30; Status Hold Aspirin (Aspirin) 81 mg DAILY NGT Last administered on 11/11/18 08:39; Admin Dose 81 MG; Start 11/08/18 at 13:30 Atorvastatin Calcium (Lipitor) 20 mg HS PO Last administered on 11/10/18 20:30; Admin Dose 20 MG; Start 11/08/18 at 21:00 Insulin Glargine (Lantus) 30 units QHS SC Last administered on 11/10/18 21:26; Admin Dose 30 UNITS; Start 11/09/18 at 21:00 Spironolactone (Aldactone) 50 mg DAILY NGT Last administered on 11/11/18 08:39; Admin Dose 50 MG; Start 11/11/18 at 09:00 Collagenase (Santyl) 1 applic BID TOP Last administered on 11/11/18 08:40; Admin Dose 1 APPLIC; Start 11/10/18 at 17:30 Levetiracetam (Keppra Liquid) 500 mg BID GTB Last administered on 11/11/18 09:17; Admin Dose 500 MG; Start 11/11/18 at 09:00 Assessment/Plan Chief Complaint/Hosp Course Acute decompensated systolic and diastolic congestive heart failure Acute kidney injury Chronic respiratory failure, vent dependent Aortic stenosis Cardiomyopathy History of chronic kidney disease Encephalopathy Paroxysmal atrial fibrillation/flutter Possible small pneumothorax Anemia Recommendations: Continue with ventilator care and respiratory care as per pulmonary. We will: Treatment of pneumothorax as per pulmonary We will replace electrolytes: Potassium Diuresis will be deferred to the renal team Continue with the beta-paolo Monitor on telemetry Thank you for this referral. We will continue to follow along with you until Dr. León returns on Tuesday ALVINA GARCIA MD [facility] ALVINA GARCIA MD Nov 11, 2018 16:28
--- NOTE | 2018-11-11 16:50 | CONS ---
Date/Time of Note Date/Time of Note DATE: 11/11/18 TIME: 16:47 Consult Date/Type/Reason Admit Date/Time Nov 07, 2018 at 16:07 Initial Consult Date Type of Consultation: Pulm Subjective No events. s/p right thoracentesis. Stable on MV. Objective Vital Signs Date Temp Pulse Resp B/P (MAP) Pulse Ox O2 O2 Flow FiO2 Time Delivery Rate 11/11/18 98.9 65 16 103/57 99 15:21 (72) 11/11/18 30 11:40 11/11/18 Room Air 03:54 Intake and Output 11/10/18 11/10/18 11/11/18 1414:59 22:59 06:59 IntakeIntake Total 950 ml 780 ml OutputOutput Total 1450 ml 1200 ml BalanceBalance -500 ml -420 ml Exam HEENT: Neck supple; no JVD; no LAD; + trach CVS: Irreg, S1 and S2, 2/6 CORTES CHEST: Decreased BS B/L ABD: Soft, NT, + BS EXT: No c/c: + edema Results/Medications Result Diagram: 11/11/184 11/11/184 Results 24 hrs Laboratory Tests Test 11/10/18 17:48 11/10/18 20:26 11/11/18 04:44 11/11/18 08:30 Bedside Glucose 94 137 68 L White Blood Count 6.0 Red Blood Count 2.98 L Hemoglobin 9.0 L Hematocrit 31.2 L Mean Corpuscular Volume 104.7 H Mean Corpuscular 30.2 Hemoglobin Mean Corpuscular 28.8 L Hemoglobin Concent Red Cell Distribution 18.4 H Width Platelet Count 129 L Mean Platelet Volume 11.9 H Immature Granulocytes % 0.700 H Neutrophils % 77.8 H Lymphocytes % 11.1 L Monocytes % 9.6 Eosinophils % 0.8 Basophils % 0.0 Nucleated Red Blood 0.0 Cells % Immature Granulocytes # 0.040 H Neutrophils # 4.6 Lymphocytes # 0.7 L Monocytes # 0.6 Eosinophils # 0.1 Basophils # 0.0 Nucleated Red Blood 0.0 Cells # Sodium Level 145 H Potassium Level 3.0 L Chloride Level 94 L Carbon Dioxide Level 41 *H Anion Gap 10 Blood Urea Nitrogen 143 H Creatinine 1.47 H Est Glomerular Filtrat Rate mL/min Glucose Level 67 #L Calcium Level 8.0 L Phosphorus Level 2.9 Magnesium Level 2.7 H Test 11/11/18 08:46 11/11/18 09:11 11/11/18 10:17 11/11/18 11:59 Bedside Glucose 142 118 125 108 Medications Current Medications Acetaminophen (Tylenol Tab) 1,000 mg Q4H PRN PO MODERATE PAIN LEVEL 4-6; Start 11/07/18 at 16:30 Acetaminophen (Tylenol Tab) 650 mg Q4H PRN GTB MILD PAIN LEVEL 1-3; Start 11/07/18 at 16:30 Albuterol (Proventil 0.083% (Neb)) 2.5 mg Q6H RESP THERAPY PRN NEB WHEEZING AND SOB; Start 11/07/18 at 16:30 Ascorbic Acid (Vitamin C) 500 mg BID GTB Last administered on 11/11/18at 08:39; Admin Dose 500 MG; Start 11/07/18 at 21:00 Bisacodyl (Dulcolax Supp) 10 mg PRN PRN [place] CONSTIPATION; Start 11/07/18 at 16:30 Carbidopa/Levodopa (Sinemet (25/ 100)) 1 tab TID GTB Last administered on 11/11/18at 12:43; Admin Dose 1 TAB; Start 11/07/18 at 21:00 Chlorhexidine Gluconate (Peridex) 15 ml Q12 MM Last administered on 11/11/18at 08:38; Admin Dose 15 ML; Start 11/07/18 at 21:00 Docusate Sodium (Colace) 100 mg DAILY PO Last administered on 11/11/18at 08:39; Admin Dose 100 MG; Start 11/08/18 at 09:00 Famotidine (Pepcid) 20 mg DAILY GTB Last administered on 11/11/18 08:39; Admin Dose 20 MG; Start 11/08/18 at 09:00 Hydralazine HCl (Apresoline) 20 mg Q6 PRN GTB ELEVATED BLOOD PRESSURE; Start 11/07/18 at 16:30 Linagliptin (Tradjenta) 5 mg DAILY GTB Last administered on 11/11/18at 08:39; Admin Dose 5 MG; Start 11/08/18 at 09:00 Memantine (Namenda) 10 mg DAILY GTB Last administered on 11/11/18at 08:39; Admin Dose 10 MG; Start 11/08/18 at 09:00 Metoprolol Tartrate (Lopressor) 25 mg BID GTB Last administered on 11/11/18 08:39; Admin Dose 25 MG; Start 11/07/18 at 21:00 Sodium Biphosphate/ Sodium Phosphate (Fleet Enema) 133 ml PRN PRN [place] CONSTI PATION; Start 11/07/18 at 16:30 Valproate Sodium (Depakene Liquid Cup) 125 mg QID GTB Last administered on 11/11/18 12:43; Admin Dose 125 MG; Start 11/07/18 at 17:00 Zinc Sulfate (Zinc Sulfate) 220 mg DAILY GTB Last administered on 11/11/18 08:39; Admin Dose 220 MG; Start 11/08/18 at 09:00 Diagnostic Test (Pha) (Accu-Chek) 1 ea AC MEALS AND BEDTIME XX Last administered on 11/11/18 12:00; Admin Dose 1 EA; Start 11/07/18 at 17:30 Cefepime HCl 50 ml @ 100 mls/hr Q24H IVPB Last administered on 11/10/18 15:26; Admin Dose 100 MLS/HR; Start 11/08/18 at 16:00 Miscellaneous Information 1 ea NOTE XX ; Start 11/07/18 at 19:00 Glucose (Glutose) 15 gm Q15M PRN PO DECREASED GLUCOSE; Start 11/07/18 at 19:00 Glucose (Glutose) 22.5 gm Q15M PRN PO DECREASED GLUCOSE; Start 11/07/18 at 19:00 Dextrose (D50w Syringe) 25 ml Q15M PRN IV DECREASED GLUCOSE Last administered on 11/11/18 08:34; Admin Dose 25 ML; Start 11/07/18 at 19:00 Dextrose (D50w Syringe) 50 ml Q15M PRN IV DECREASED GLUCOSE; Start 11/07/18 at 19:00 Glucagon (Glucagen) 1 mg Q15M PRN IM DECREASED GLUCOSE; Start 11/07/18 at 19:00 Glucose (Glutose) 15 gm Q15M PRN BUCCAL DECREASED GLUCOSE; Start 11/07/18 at 19:00 Multivitamins/ Minerals (Theragran-M) 1 tab DAILY GTB Last administered on 11/11/18 08:39; Admin Dose 1 TAB; Start 11/08/18 at 09:00 Heparin Sodium (Porcine) (Heparin (5000 Units/1ml)) 5,000 unit Q12 SC Last administered on 11/11/18 08:38; Admin Dose 5,000 UNIT; Start 11/08/18 at 09:00 Diagnostic Test (Pha) (Accu-Chek) 1 ea 02 XX Last administered on 11/10/18 02:14; Admin Dose 1 EA; Start 11/09/18 at 02:00 Insulin Aspart (Novolog Insulin Pen) NOVOLOG *MODERATE* ALGORITHM WITH MEALS BEDTIME SC Last administered on 11/10/18 12:55; Admin Dose 2 UNIT; Start 11/08/18 at 08:00 Furosemide (Lasix) 40 mg BID DIURETICS IV Last administered on 11/11/18 05:37; Admin Dose 40 MG; Start 11/08/18 at 08:30 Metolazone (Zaroxolyn) 5 mg DAILY@0600 PO Last administered on 11/09/18 05:14; Admin Dose 5 MG; Start 11/08/18 at 08:30; Status Hold Aspirin (Aspirin) 81 mg DAILY NGT Last administered on 11/11/18 08:39; Admin Dose 81 MG; Start 11/08/18 at 13:30 Atorvastatin Calcium (Lipitor) 20 mg HS PO Last administered on 11/10/18 20:30; Admin Dose 20 MG; Start 11/08/18 at 21:00 Insulin Glargine (Lantus) 30 units QHS SC Last administered on 11/10/18 21:26; Admin Dose 30 UNITS; Start 11/09/18 at 21:00 Spironolactone (Aldactone) 50 mg DAILY NGT Last administered on 11/11/18 08:39; Admin Dose 50 MG; Start 11/11/18 at 09:00 Collagenase (Santyl) 1 applic BID TOP Last administered on 11/11/18 08:40; Admin Dose 1 APPLIC; Start 11/10/18 at 17:30 Levetiracetam (Keppra Liquid) 500 mg BID GTB Last administered on 11/11/18 09:17; Admin Dose 500 MG; Start 11/11/18 at 09:00 Assessment/Plan Additional Assessment/Plan IMP: 1. Acute on chronic hypoxemic/hypercapnic respiratory failure, likely secondary to progressive congestive cardiac failure. 2. Vent-dependent respiratory failure. 3. Non-ST elevation myocardial infarction. 4. Moderate pulmonary hypertension 5. Moderate to severe aortic stenosis 6. Renal Insufficiency 7. B/L effusions RECS: 1. Continue mechanical ventilation. 2. F/U pleural fluid studies 3. I do not see obvious right apical PTX though will repeat CXR HALIE LOPEZ MD Nov 11, 2018 16:50
[2018-11-11] MEDS: CEFEPIME 1GM/50 ML (PMX) 50 ML IVPB SCH (17:07)
--- NOTE | 2018-11-11 19:32 | CONS ---
Date/Time of Note Date/Time of Note DATE: 11/11/18 TIME: 19:31 Assessment/Plan Assessment/Plan Hospital Course No acute changes overnight Microbiology: urine culture growing Proteus mirabilis Chest x-ray on admission revealed cardiomegaly with diffuse pulmonary edema and bilateral small pleural effusions. Chest ultrasound revealed large bilateral pleural effusions. Abdominal ultrasound revealed cholelithiasis without evidence for cholecystitis Allergy: Ciprofloxacin Antimicrobials: Cefepime Physical examination: Chronically ill-appearing elderly man who is noncommunicative in no distress. Head atraumatic normocephalic sclera nonicteric. Vehicle mucosa dry. Neck is supple chest rise symmetrical breath s ounds diminished bases. Heart: S1-S2. Abdomen soft bowel sounds present extremities with bilateral edema. Skin: Patient has multiple pressure sores Assessment: 1. S/p sepsis secondary to UTI 2. Proteus mirabilis UTI 3. Acute on chronic kidney disease 4. Acute on chronic respiratory failure 5. Bilateral pleural effusions 6. ?Non-ST elevation ND 7. Diabetes type 2 8. Parkinson's dementia 9. Aortic stenosis Plan: Remains stable, continue antibiotics, follow pulmonary/cardiology recomm endations Result Diagram: 11/11/18 0444 11/11/18 0444 Results 24hrs Laboratory Tests Test 11/10/18 20:26 11/11/18 04:44 11/11/18 08:30 11/11/18 08:46 Bedside Glucose 137 68 L 142 White Blood Count 6.0 Red Blood Count 2.98 L Hemoglobin 9.0 L Hematocrit 31.2 L Mean Corpuscular Volume 104.7 H Mean Corpuscular 30.2 Hemoglobin Mean Corpuscular 28.8 L Hemoglobin Concent Red Cell Distribution 18.4 H Width Platelet Count 129 L Mean Platelet Volume 11.9 H Immature Granulocytes % 0.700 H Neutrophils % 77.8 H Lymphocytes % 11.1 L Monocytes % 9.6 Eosinophils % 0.8 Basophils % 0.0 Nucleated Red Blood 0.0 Cells % Immature Granulocytes # 0.040 H Neutrophils # 4.6 Lymphocytes # 0.7 L Monocytes # 0.6 Eosinophils # 0.1 Basophils # 0.0 Nucleated Red Blood 0.0 Cells # Sodium Level 145 H Potassium Level 3.0 L Chloride Level 94 L Carbon Dioxide Level 41 *H Anion Gap 10 Blood Urea Nitrogen 143 H Creatinine 1.47 H Est Glomerular Filtrat Rate mL/min Glucose Level 67 #L Calcium Level 8.0 L Phosphorus Level 2.9 Magnesium Level 2.7 H Test 11/11/18 09:11 11/11/18 10:17 11/11/18 11:59 11/11/18 17:21 Bedside Glucose 118 125 108 109 Consultation Date/Type/Reason Admit Date/Time Nov 07, 2018 at 16:07 Initial Consult Date Type of Consult ID Exam/Review of Systems Vital Signs Vitals Vital Signs Date Temp Pulse Resp B/P (MAP) Pulse Ox O2 O2 Flow FiO2 Time Delivery Rate 11/11/18 88 16 99 30 17:41 11/11/18 98.9 103/57 15:21 (72) 11/11/18 Room Air 03:54 Intake and Output 11/10/18 11/10/18 11/11/18 1515:00 23:00 07:00 IntakeIntake Total 950 ml 780 ml OutputOutput Total 1450 ml 1200 ml BalanceBalance -500 ml -420 ml Medications Medications Current Medications Acetaminophen (Tylenol Tab) 1,000 mg Q4H PRN PO MODERATE PAIN LEVEL 4-6; Start 11/07/18 at 16:30 Acetaminophen (Tylenol Tab) 650 mg Q4H PRN GTB MILD PAIN LEVEL 1-3; Start 11/07/18 at 16:30 Albuterol (Proventil 0.083% (Neb)) 2.5 mg Q6H RESP THERAPY PRN NEB WHEEZING AND SOB; Start 11/07/18 at 16:30 Ascorbic Acid (Vitamin C) 500 mg BID GTB Last administered on 11/11/18at 08:39; Admin Dose 500 MG; Start 11/07/18 at 21:00 Bisacodyl (Dulcolax Supp) 10 mg PRN PRN [place] CONSTIPATION; Start 11/07/18 at 16:30 Carbidopa/Levodopa (Sinemet (25/ 100)) 1 tab TID GTB Last administered on 11/11/18at 12:43; Admin Dose 1 TAB; Start 11/07/18 at 21:00 Chlorhexidine Gluconate (Peridex) 15 ml Q12 MM Last administered on 11/11/18at 08:38; Admin Dose 15 ML; Start 11/07/18 at 21:00 Docusate Sodium (Colace) 100 mg DAILY PO Last administered on 11/11/18 08:39; Admin Dose 100 MG; Start 11/08/18 at 09:00 Famotidine (Pepcid) 20 mg DAILY GTB Last administered on 11/11/18 08:39; Admin Dose 20 MG; Start 11/08/18 at 09:00 Hydralazine HCl (Apresoline) 20 mg Q6 PRN GTB ELEVATED BLOOD PRESSURE; Start 11/07/18 at 16:30 Linagliptin (Tradjenta) 5 mg DAILY GTB Last administered on 11/11/18 08:39; Admin Dose 5 MG; Start 11/08/18 at 09:00 Memantine (Namenda) 10 mg DAILY GTB Last administered on 11/11/18 08:39; Admin Dose 10 MG; Start 11/08/18 at 09:00 Metoprolol Tartrate (Lopressor) 25 mg BID GTB Last administered on 11/11/18 08:39; Admin Dose 25 MG; Start 11/07/18 at 21:00 Sodium Biphosphate/ Sodium Phosphate (Fleet Enema) 133 ml PRN PRN [place] NSTIPATION; Start 11/07/18 at 16:30 Valproate Sodium (Depakene Liquid Cup) 125 mg QID GTB Last administered on 11/11/18 17:19; Admin Dose 125 MG; Start 11/07/18 at 17:00 Zinc Sulfate (Zinc Sulfate) 220 mg DAILY GTB Last administered on 11/11/18 08:39; Admin Dose 220 MG; Start 11/08/18 at 09:00 Diagnostic Test (Pha) (Accu-Chek) 1 ea AC MEALS AND BEDTIME XX Last administered on 11/11/18 17:19; Admin Dose 1 EA; Start 11/07/18 at 17:30 Cefepime HCl 50 ml @ 100 mls/hr Q24H IVPB Last administered on 11/11/18 17:07; Admin Dose 100 MLS/HR; Start 11/08/18 at 16:00 Miscellaneous Information 1 ea NOTE XX ; Start 11/07/18 at 19:00 Glucose (Glutose) 15 gm Q15M PRN PO DECREASED GLUCOSE; Start 11/07/18 at 19:00 Glucose (Glutose) 22.5 gm Q15M PRN PO DECREASED GLUCOSE; Start 11/07/18 at 19:00 Dextrose (D50w Syringe) 25 ml Q15M PRN IV DECREASED GLUCOSE Last administered on 11/11/18 08:34; Admin Dose 25 ML; Start 11/07/18 at 19:00 Dextrose (D50w Syringe) 50 ml Q15M PRN IV DECREASED GLUCOSE; Start 11/07/18 at 19:00 Glucagon (Glucagen) 1 mg Q15M PRN IM DECREASED GLUCOSE; Start 11/07/18 at 19:00 Glucose (Glutose) 15 gm Q15M PRN BUCCAL DECREASED GLUCOSE; Start 11/07/18 at 19:00 Multivitamins/ Minerals (Theragran-M) 1 tab DAILY GTB Last administered on 11/11/18 08:39; Admin Dose 1 TAB; Start 11/08/18 at 09:00 Heparin Sodium (Porcine) (Heparin (5000 Units/1ml)) 5,000 unit Q12 SC Last administered on 11/11/18 08:38; Admin Dose 5,000 UNIT; Start 11/08/18 at 09:00 Diagnostic Test (Pha) (Accu-Chek) 1 ea 02 XX Last administered on 11/10/18 02:14; Admin Dose 1 EA; Start 11/09/18 at 02:00 Insulin Aspart (Novolog Insulin Pen) NOVOLOG *MODERATE* ALGORITHM WITH MEALS BEDTIME SC Last administered on 11/10/18 12:55; Admin Dose 2 UNIT; Start 11/08/18 at 08:00 Furosemide (Lasix) 40 mg BID DIURETICS IV Last administered on 11/11/18 17:08; Admin Dose 40 MG; Start 11/08/18 at 08:30 Metolazone (Zaroxolyn) 5 mg DAILY@0600 PO Last administered on 11/09/18 05:14; Admin Dose 5 MG; Start 11/08/18 at 08:30; Status Hold Aspirin (Aspirin) 81 mg DAILY NGT Last administered on 11/11/18 08:39; Admin Dose 81 MG; Start 11/08/18 at 13:30 Atorvastatin Calcium (Lipitor) 20 mg HS PO Last administered on 11/10/18 20:30; Admin Dose 20 MG; Start 11/08/18 at 21:00 Insulin Glargine (Lantus) 30 units QHS SC Last administered on 1/4/19at 21:26; Admin Dose 30 UNITS; Start 11/09/18 at 21:00 Spironolactone (Aldactone) 50 mg DAILY NGT Last administered on 11/11/18 08:39; Admin Dose 50 MG; Start 11/11/18 at 09:00 Collagenase (Santyl) 1 applic BID TOP Last administered on 11/11/18 08:40; Admin Dose 1 APPLIC; Start 11/10/18 at 17:30 Levetiracetam (Keppra Liquid) 500 mg BID GTB Last administered on 11/11/18 09:17; Admin Dose 500 MG; Start 11/11/18 at 09:00 RAMSEY VERDE NP Nov 11, 2018 19:32
[2018-11-11] MEDS: ATORVASTATIN 20 MG TAB PO SCH (20:10)
[2018-11-11] MEDS: INSULIN GLARGINE [LANTus] (100 UNITS/ML) SYG SC SCH (20:41)
[2018-11-12] VITALS (24 sets, daily range): BP systolic 91–113; BP diastolic 52–63; PULSE 59–96; RESP 13–17
[2018-11-12] MEDS: ACCU-CHEK XX SCH ×5 (02:00→20:21)
[2018-11-12] MEDS: FUROSEMIDE 40 MG INJ IV SCH (05:36)
[2018-11-12] MEDS: INSULIN ASPART [NOVOLOG] 3 ML PEN SC SCH ×5 (07:39→20:57)
[2018-11-12] MEDS: FAMOTIDINE 20 MG TAB GTB SCH (08:33)
[2018-11-12] MEDS: LEVETIRACETAM (100 MG/ML) 5ML CUP GTB SCH ×2 (08:33→20:06)
[2018-11-12] MEDS: ASCORBIC ACID 500 MG TAB GTB SCH ×2 (08:33→20:13)
[2018-11-12] MEDS: LINAGLIPTIN 5 MG TABLET GTB SCH (08:33)
[2018-11-12] MEDS: ZINC SULFATE 220 MG CAP GTB SCH (08:33)
[2018-11-12] MEDS: MEMANTINE 10 MG TAB GTB SCH (08:33)
[2018-11-12] MEDS: VALPROIC ACID LIQUID CUP 250 MG/5 ML CUP GTB SCH ×4 (08:33→20:05)
[2018-11-12] MEDS: CARBIDOPA/LEVODOPA (25/100) TAB GTB SCH ×3 (08:33→20:06)
[2018-11-12] MEDS: COLLAGENASE 5 GM (UD JAR) TOP SCH ×2 (08:33→20:07)
[2018-11-12] MEDS: SPIRONOLACTONE 50 MG TAB NGT SCH (08:33)
[2018-11-12] MEDS: CHLORHEXIDINE GLUCONATE 15 ML UD CUP MM SCH ×2 (08:33→20:07)
[2018-11-12] MEDS: ASPIRIN 81 MG TAB NGT SCH (08:33)
[2018-11-12] MEDS: MULTIVITAMINS/MINERALS TAB GTB SCH (08:33)
[2018-11-12] MEDS: METOPROLOL 25 MG TAB GTB SCH ×2 (08:34→20:08)
[2018-11-12] MEDS: DOCUSATE SODIUM 100 MG CAP PO SCH (08:34)
[2018-11-12] MEDS: HEPARIN 5,000 UNIT/1 ML VIAL SC SCH ×2 (08:34→20:16)
--- NOTE | 2018-11-12 10:50 | CONS ---
Date/Time of Note Date/Time of Note DATE: 11/12/18 TIME: 10:46 Consult Date/Type/Reason Admit Date/Time Nov 07, 2018 at 16:07 Initial Consult Date Type of Consultation: im Objective Vital Signs Date Temp Pulse Resp B/P (MAP) Pulse Ox O2 O2 Flow FiO2 Time Delivery Rate 11/12/18 73 08:00 11/12/18 98.1 16 107/52 100 07:53 (70) 11/12/18 30 05:05 11/11/18 Room Air 03:54 Intake and Output 11/11/18 11/11/18 11/12/18 1515:00 23:00 07:00 IntakeIntake Total 250 ml 780 ml OutputOutput Total 900 ml 1250 ml BalanceBalance -650 ml -470 ml Results/Medications Result Diagram: 11/12/18 0500 11/12/18 0500 Results 24 hrs Laboratory Tests Test 11/11/18 11:59 11/11/18 17:21 11/11/18 20:09 11/11/18 23:21 Bedside Glucose 108 109 148 Urine Random < 12.40 L Creatinine Urine Random 99 H Sodium Urine Total 23.0 H Protein Test 11/12/18 05:00 11/12/18 07:38 White Blood Count 5.9 Red Blood Count 3.07 L Hemoglobin 9.3 L Hematocrit 32.1 L Mean Corpuscular 104.6 H Volume Mean Corpuscular 30.3 Hemoglobin Mean Corpuscular 29.0 L Hemoglobin Concent Red Cell 18.1 H Distribution Width Platelet Count 121 L Mean Platelet 12.2 H Volume Immature 0.500 H Granulocytes % Neutrophils % 78.3 H Lymphocytes % 10.6 L Monocytes % 10.1 Eosinophils % 0.5 Basophils % 0.0 Nucleated Red 0.0 Blood Cells % Immature 0.030 Granulocytes # Neutrophils # 4.6 Lymphocytes # 0.6 L Monocytes # 0.6 Eosinophils # 0.0 Basophils # 0.0 Nucleated Red 0.0 Blood Cells # Blood Gas Specimen Blood arterial Source Arterial Blood 11/12/2018 4:52:29 Date Drawn AM Arterial Blood pH 7.597 *H (Temp corrected) Arterial Blood 39.3 pCO2 (Temp correct) Arterial Blood pO2 106.7 H (Temp corrected) Arterial Blood 37.5 H HCO3 Arterial Blood 14.6 H Base Excess Arterial Blood 98.3 Oxygen Saturation Osvaldo Test ACCEPTAB Arterial Blood Gas Right Radial Puncture Site Arterial 1.2 Blood Carboxyhemog lobin Arterial Blood 0.2 Methemoglobin Blood Gas A-a O2 61.0 H Differential Oxyhemoglobin 96.9 Percent Blood Gas 37.0 Temperature Blood Gas 16.0 Respiration Rate Blood Gas Actual 16 Respiration Rate Blood Gas Modality VENT - AC FiO2 30.0 Blood Gas Tidal 550.0 Volume Blood Gas Low PEEP 5.0 Setting Blood Gas 32.0 Inspiratory Pressure Blood Gas Critical D, LY RN Value Read Back Blood Gas Notified KM Whom Blood Gas Notified 11/12/2018 5:10:31 Time AM Sodium Level 145 H Potassium Level 2.9 *L Chloride Level 93 L Carbon Dioxide 41 *H Level Anion Gap 11 Blood Urea 141 H Nitrogen Creatinine 1.36 H Est Glomerular Filtrat Rate mL/min Glucose Level 68 L Calcium Level 7.9 L Phosphorus Level 2.8 Magnesium Level 2.6 H Bedside Glucose 85 Medications Current Medications Acetaminophen (Tylenol Tab) 1,000 mg Q4H PRN PO MODERATE PAIN LEVEL 4-6; Start 11/07/18 at 16:30 Acetaminophen (Tylenol Tab) 650 mg Q4H PRN GTB MILD PAIN LEVEL 1-3; Start 11/07/18 at 16:30 Albuterol (Proventil 0.083% (Neb)) 2.5 mg Q6H RESP THERAPY PRN NEB WHEEZING AND SOB; Start 11/07/18 at 16:30 Ascorbic Acid (Vitamin C) 500 mg BID GTB Last administered on 11/12/18at 08:33; Admin Dose 500 MG; Start 11/07/18 at 21:00 Bisacodyl (Dulcolax Supp) 10 mg PRN PRN [place] CONSTIPATION; Start 11/07/18 at 16:30 Carbidopa/Levodopa (Sinemet (25/ 100)) 1 tab TID GTB Last administered on 11/12/18at 08:33; Admin Dose 1 TAB; Start 11/07/18 at 21:00 Chlorhexidine Gluconate (Peridex) 15 ml Q12 MM Last administered on 11/12/18at 08:33; Admin Dose 15 ML; Start 11/07/18 at 21:00 Docusate Sodium (Colace) 100 mg DAILY PO Last administered on 11/12/18at 08:34; Admin Dose 100 MG; Start 11/08/18 at 09:00 Famotidine (Pepcid) 20 mg DAILY GTB Last administered on 11/12/18 08:33; Admin Dose 20 MG; Start 11/08/18 at 09:00 Hydralazine HCl (Apresoline) 20 mg Q6 PRN GTB ELEVATED BLOOD PRESSURE; Start 11/07/18 at 16:30 Linagliptin (Tradjenta) 5 mg DAILY GTB Last administered on 11/12/18at 08:33; Admin Dose 5 MG; Start 11/08/18 at 09:00 Memantine (Namenda) 10 mg DAILY GTB Last administered on 11/12/18 08:33; Admin Dose 10 MG; Start 11/08/18 at 09:00 Metoprolol Tartrate (Lopressor) 25 mg BID GTB Last administered on 11/12/18at 08:34; Admin Dose 25 MG; Start 11/07/18 at 21:00 Sodium Biphosphate/ Sodium Phosphate (Fleet Enema) 133 ml PRN PRN [place] C ONSTIPATION; Start 11/07/18 at 16:30 Valproate Sodium (Depakene Liquid Cup) 125 mg QID GTB Last administered on 11/12/18 08:33; Admin Dose 125 MG; Start 11/07/18 at 17:00 Zinc Sulfate (Zinc Sulfate) 220 mg DAILY GTB Last administered on 11/12/18 08:33; Admin Dose 220 MG; Start 11/08/18 at 09:00 Diagnostic Test (Pha) (Accu-Chek) 1 ea AC MEALS AND BEDTIME XX Last administered on 11/12/18at 07:39; Admin Dose 1 EA; Start 11/07/18 at 17:30 Cefepime HCl 50 ml @ 100 mls/hr Q24H IVPB Last administered on 11/11/18at 17:07; Admin Dose 100 MLS/HR; Start 11/08/18 at 16:00 Miscellaneous Information 1 ea NOTE XX ; Start 11/07/18 at 19:00 Glucose (Glutose) 15 gm Q15M PRN PO DECREASED GLUCOSE; Start 11/07/18 at 19:00 Glucose (Glutose) 22.5 gm Q15M PRN PO DECREASED GLUCOSE; Start 11/07/18 at 19:00 Dextrose (D50w Syringe) 25 ml Q15M PRN IV DECREASED GLUCOSE Last administered on 11/11/18 08:34; Admin Dose 25 ML; Start 11/07/18 at 19:00 Dextrose (D50w Syringe) 50 ml Q15M PRN IV DECREASED GLUCOSE; Start 11/07/18 at 19:00 Glucagon (Glucagen) 1 mg Q15M PRN IM DECREASED GLUCOSE; Start 11/07/18 at 19:00 Glucose (Glutose) 15 gm Q15M PRN BUCCAL DECREASED GLUCOSE; Start 11/07/18 at 19:00 Multivitamins/ Minerals (Theragran-M) 1 tab DAILY GTB Last administered on 11/12/18 08:33; Admin Dose 1 TAB; Start 11/08/18 at 09:00 Heparin Sodium (Porcine) (Heparin (5000 Units/1ml)) 5,000 unit Q12 SC Last administered on 11/12/18 08:34; Admin Dose 5,000 UNIT; Start 11/08/18 at 09:00 Diagnostic Test (Pha) (Accu-Chek) 1 ea 02 XX Last administered on 11/10/18 02:14; Admin Dose 1 EA; Start 11/09/18 at 02:00 Insulin Aspart (Novolog Insulin Pen) NOVOLOG *MODERATE* ALGORITHM WITH MEALS BEDTIME SC Last administered on 11/10/18 12:55; Admin Dose 2 UNIT; Start 11/08/18 at 08:00 Furosemide (Lasix) 40 mg BID DIURETICS IV Last administered on 11/12/18 05:36; Admin Dose 40 MG; Start 11/08/18 at 08:30 Metolazone (Zaroxolyn) 5 mg DAILY@0600 PO Last administered on 11/09/18 05:14; Admin Dose 5 MG; Start 11/08/18 at 08:30; Status Hold Aspirin (Aspirin) 81 mg DAILY NGT Last administered on 11/12/18 08:33; Admin Dose 81 MG; Start 11/08/18 at 13:30 Atorvastatin Calcium (Lipitor) 20 mg HS PO Last administered on 11/11/18 20:10; Admin Dose 20 MG; Start 11/08/18 at 21:00 Insulin Glargine (Lantus) 30 units QHS SC Last administered on 11/11/18 20:41; Admin Dose 30 UNITS; Start 11/09/18 at 21:00 Spironolactone (Aldactone) 50 mg DAILY NGT Last administered on 11/12/18at 08:33; Admin Dose 50 MG; Start 11/11/18 at 09:00 Collagenase (Santyl) 1 applic BID TOP Last administered on 11/12/18at 08:33; Admin Dose 1 APPLIC; Start 11/10/18 at 17:30 Levetiracetam (Keppra Liquid) 500 mg BID GTB Last administered on 11/12/18 08:33; Admin Dose 500 MG; Start 11/11/18 at 09:00 Assessment/Plan Chief Complaint/Hosp Course on iv lasix with good uop cxr reviewed s/p thoracentesis..? pneumo, seen by pulmonary low k noted vent settings were reviewed no vomiting, new rash, tachypnea, melena, hematuria, diaphoresis meds were reviewed PE: HEENT: Head is normocephalic. NECK: Supple. HEART: Regular rate. LUNGS: Show diminished breath sounds at the base. ABDOMEN: Soft, nontender to palpation without rebound or guarding. EXTREMITIES: Negative for clubbing, cyanosis. Positive edema. DERMATOLOGIC: No rashes. MUSCULOSKELETAL: No joint effusion. NEUROLOGIC: No change in exam. ASSESSMENT AND PLAN: 1. Acute on chronic heart failure, diastolic. -f/u cxr, cont diuresis, ? reduce dose. -appreciate pulmonary f/u. 2. Nonoliguric acute kidney injury on top of chronic kidney disease, stage IV, -stable, watch volume status. 3. Alkalosis-consider diamox. 4. Hypokalemia secondary to diuretic therapy. - replete k 5. Sepsis secondary to urinary tract infection. Continue current antibiotic r egimen. 6. Ventilator dependent respiratory failure. cont vent, setting reviewed. 7. Bilateral pleural effusions secondary decompensated heart failure. Continue to monitor. We will follow up with pulmonary. Consider thoracentesis. 8. Anemia. Monitor hemoglobin and hematocrit levels. 9. Mineral bone disorder, monitor calcium and phosphorus levels. 10. Dysphagia, status post PEG tube feedings. 11. Transaminitis, likely due to hepatic congestion. LFTs have been improving. Continue to monitor. 12. Arrhythmia. Continue to monitor. Follow up with cardiology. 13. Diabetes. Continue current diuretic regimen, adjust as needed. 14. Parkinson's disease. Continue Sinemet. 15. Acute on chromic encephalopathy, etiology toxic metabolic, uremic. Continue to monitor. 16. Seizure disorder. Continue Keppra and Depakote. 17. Aortic stenosis, severe. Continue to monitor. Follow up with Cardiology. 18. Gastrointestinal and deep vein thrombosis prophylaxis. KATYA JOHNSTON MD Nov 12, 2018 10:50
[2018-11-12] MEDS: POTASSIUM CHLORIDE 100 ML IVPB SCH ×3 (11:34→16:09)
[2018-11-12] MEDS: ACETAZOLAMIDE 500 MG INJ IV SCH (12:58)
--- NOTE | 2018-11-12 13:32 | CONS ---
Date/Time of Note Date/Time of Note DATE: 11/12/18 TIME: 13:29 Assessment/Plan Assessment/Plan Result Diagram: 11/12/18 0500 11/12/18 0500 Results 24hrs Laboratory Tests Test 11/11/18 17:21 11/11/18 20:09 11/11/18 23:21 11/12/18 05:00 Bedside Glucose 109 148 Urine Random < 12.40 L Creatinine Urine Random 99 H Sodium Urine Total 23.0 H Protein White Blood Count 5.9 Red Blood Count 3.07 L Hemoglobin 9.3 L Hematocrit 32.1 L Mean Corpuscular 104.6 H Volume Mean Corpuscular 30.3 Hemoglobin Mean Corpuscular 29.0 L Hemoglobin Concent Red Cell 18.1 H Distribution Width Platelet Count 121 L Mean Platelet 12.2 H Volume Immature 0.500 H Granulocytes % Neutrophils % 78.3 H Lymphocytes % 10.6 L Monocytes % 10.1 Eosinophils % 0.5 Basophils % 0.0 Nucleated Red 0.0 Blood Cells % Immature 0.030 Granulocytes # Neutrophils # 4.6 Lymphocytes # 0.6 L Monocytes # 0.6 Eosinophils # 0.0 Basophils # 0.0 Nucleated Red 0.0 Blood Cells # Blood Gas Specimen Blood arterial Source Arterial Blood 11/12/2018 4:52:29 Date Drawn AM Arterial Blood pH 7.597 *H (Temp corrected) Arterial Blood 39.3 pCO2 (Temp correct) Arterial Blood pO2 106.7 H (Temp corrected) Arterial Blood 37.5 H HCO3 Arterial Blood 14.6 H Base Excess Arterial Blood 98.3 Oxygen Saturation Osvaldo Test ACCEPTAB Arterial Blood Gas Right Radial Puncture Site Arterial 1.2 Blood Carboxyhemog lobin Arterial Blood 0.2 Methemoglobin Blood Gas A-a O2 61.0 H Differential Oxyhemoglobin 96.9 Percent Blood Gas 37.0 Temperature Blood Gas 16.0 Respiration Rate Blood Gas Actual 16 Respiration Rate Blood Gas Modality VENT - AC FiO2 30.0 Blood Gas Tidal 550.0 Volume Blood Gas Low PEEP 5.0 Setting Blood Gas 32.0 Inspiratory Pressure Blood Gas Critical D, LY RN Value Read Back Blood Gas Notified KM Whom Blood Gas Notified 11/12/2018 5:10:31 Time AM Sodium Level 145 H Potassium Level 2.9 *L Chloride Level 93 L Carbon Dioxide 41 *H Level Anion Gap 11 Blood Urea 141 H Nitrogen Creatinine 1.36 H Est Glomerular Filtrat Rate mL/min Glucose Level 68 L Calcium Level 7.9 L Phosphorus Level 2.8 Magnesium Level 2.6 H Test 11/12/18 07:38 11/12/18 11:36 Bedside Glucose 85 76 Consultation Date/Type/Reason Admit Date/Time Nov 07, 2018 at 16:07 Initial Consult Date SUBJECTIVE: Pt is sleepy, afebrile, looks comfortable. NO acute events over night. VS: stable T: 97.8 LABS: reviewed. WBC- 5.9 Microbiology: urine culture growing Proteus mirabilis Chest x-ray on admission revealed cardiomegaly with diffuse pulmonary edema and bilateral small pleural effusions. Chest ultrasound revealed large bilateral pleural effusions. Abdominal ultrasound revealed cholelithiasis without evidence for cholecystitis Allergy: Ciprofloxacin Antimicrobials: Cefepime Physical examination: GEN: Chronically ill-appearing elderly man who is noncommunicative in no distress. HENT: Head atraumatic normocephalic sclera nonicteric. Vehicle mucosa dry. Neck is supple Pulm: chest rise symmetrical breath sounds diminished bases. Heart: S1-S2. ABDOMENT: soft bowel sounds present EXTREM: with bilateral edema. Skin: Patient has multiple pressure sores Assessment: 1. S/p sepsis secondary to UTI 2. Proteus mirabilis UTI 3. Acute on chronic kidney disease 4. Acute on chronic respiratory failure 5. Bilateral pleural effusions 6. ?Non-ST elevation [place] 7. Diabetes type 2 8. Parkinson's dementia 9. Aortic stenosis Plan: Pt remains stable. Continue current antibiotics. follow pulmonary/cardiology recommendations Exam/Review of Systems Vital Signs Vitals Vital Signs Date Temp Pulse Resp B/P (MAP) Pulse Ox O2 O2 Flow FiO2 Time Delivery Rate 11/12/18 71 16 99 30 11:50 11/12/18 97.8 106/58 11:41 (74) 11/11/18 Room Air 03:54 Intake and Output 11/11/18 11/11/18 11/12/18 1515:00 23:00 07:00 IntakeIntake Total 250 ml 780 ml OutputOutput Total 900 ml 1250 ml BalanceBalance -650 ml -470 ml Medications Medications Current Medications Acetaminophen (Tylenol Tab) 1,000 mg Q4H PRN PO MODERATE PAIN LEVEL 4-6; Start 11/07/18 at 16:30 Acetaminophen (Tylenol Tab) 650 mg Q4H PRN GTB MILD PAIN LEVEL 1-3; Start 11/07/18 at 16:30 Albuterol (Proventil 0.083% (Neb)) 2.5 mg Q6H RESP THERAPY PRN NEB WHEEZING AND SOB; Start 11/07/18 at 16:30 Ascorbic Acid (Vitamin C) 500 mg BID GTB Last administered on 11/12/18 08:33; Admin Dose 500 MG; Start 11/07/18 at 21:00 Bisacodyl (Dulcolax Supp) 10 mg PRN PRN [place] CONSTIPATION; Start 11/07/18 at 16:30 Carbidopa/Levodopa (Sinemet (25/ 100)) 1 tab TID GTB Last administered on 11/12/18 12:29; Admin Dose 1 TAB; Start 11/07/18 at 21:00 Chlorhexidine Gluconate (Peridex) 15 ml Q12 MM Last administered on 11/12/18 08:33; Admin Dose 15 ML; Start 11/07/18 at 21:00 Docusate Sodium (Colace) 100 mg DAILY PO Last administered on 11/12/18 08:34; Admin Dose 100 MG; Start 11/08/18 at 09:00 Famotidine (Pepcid) 20 mg DAILY GTB Last administered on 11/12/18 08:33; Admin Dose 20 MG; Start 11/08/18 at 09:00 Hydralazine HCl (Apresoline) 20 mg Q6 PRN GTB ELEVATED BLOOD PRESSURE; Start 11/07/18 at 16:30 Linagliptin (Tradjenta) 5 mg DAILY GTB Last administered on 11/12/18 08:33; Admin Dose 5 MG; Start 11/08/18 at 09:00 Memantine (Namenda) 10 mg DAILY GTB Last administered on 11/12/18 08:33; Admin Dose 10 MG; Start 11/08/18 at 09:00 Metoprolol Tartrate (Lopressor) 25 mg BID GTB Last administered on 11/12/18 08:34; Admin Dose 25 MG; Start 11/07/18 at 21:00 Sodium Biphosphate/ Sodium Phosphate (Fleet Enema) 133 ml PRN PRN [place] CONSTIPATION; Start 11/07/18 at 16:30 Valproate Sodium (Depakene Liquid Cup) 125 mg QID GTB Last administered on 11/12/18 12:29; Admin Dose 125 MG; Start 11/07/18 at 17:00 Zinc Sulfate (Zinc Sulfate) 220 mg DAILY GTB Last administered on 11/12/18 08:33; Admin Dose 220 MG; Start 11/08/18 at 09:00 Diagnostic Test (Pha) (Accu-Chek) 1 ea AC MEALS AND BEDTIME XX Last administered on 11/12/18 11:35; Admin Dose 1 EA; Start 11/07/18 at 17:30 Cefepime HCl 50 ml @ 100 mls/hr Q24H IVPB Last administered on 11/11/18 17:07; Admin Dose 100 MLS/HR; Start 11/08/18 at 16:00 Miscellaneous Information 1 ea NOTE XX ; Start 11/07/18 at 19:00 Glucose (Glutose) 15 gm Q15M PRN PO DECREASED GLUCOSE; Start 11/07/18 at 19:00 Glucose (Glutose) 22.5 gm Q15M PRN PO DECREASED GLUCOSE; Start 11/07/18 at 19:00 Dextrose (D50w Syringe) 25 ml Q15M PRN IV DECREASED GLUCOSE Last administered on 11/11/18 08:34; Admin Dose 25 ML; Start 11/07/18 at 19:00 Dextrose (D50w Syringe) 50 ml Q15M PRN IV DECREASED GLUCOSE; Start 11/07/18 at 19:00 Glucagon (Glucagen) 1 mg Q15M PRN IM DECREASED GLUCOSE; Start 11/07/18 at 19:00 Glucose (Glutose) 15 gm Q15M PRN BUCCAL DECREASED GLUCOSE; Start 11/07/18 at 19:00 Multivitamins/ Minerals (Theragran-M) 1 tab DAILY GTB Last administered on 11/12/18 08:33; Admin Dose 1 TAB; Start 11/08/18 at 09:00 Heparin Sodium (Porcine) (Heparin (5000 Units/1ml)) 5,000 unit Q12 SC Last a dministered on 11/12/18 08:34; Admin Dose 5,000 UNIT; Start 11/08/18 at 09:00 Diagnostic Test (Pha) (Accu-Chek) 1 ea 02 XX Last administered on 1/4/19at 02:14; Admin Dose 1 EA; Start 11/09/18 at 02:00 Insulin Aspart (Novolog Insulin Pen) NOVOLOG *MODERATE* ALGORITHM WITH MEALS BEDTIME SC Last administered on 11/10/18 12:55; Admin Dose 2 UNIT; Start 11/08/18 at 08:00 Metolazone (Zaroxolyn) 5 mg DAILY@0600 PO Last administered on 11/09/18 05:14; Admin Dose 5 MG; Start 11/08/18 at 08:30; Status Hold Aspirin (Aspirin) 81 mg DAILY NGT Last administered on 11/12/18 08:33; Admin Dose 81 MG; Start 11/08/18 at 13:30 Atorvastatin Calcium (Lipitor) 20 mg HS PO Last administered on 11/11/18 20:10; Admin Dose 20 MG; Start 11/08/18 at 21:00 Insulin Glargine (Lantus) 30 units QHS SC Last administered on 11/11/18 20:41; Admin Dose 30 UNITS; Start 11/09/18 at 21:00 Spironolactone (Aldactone) 50 mg DAILY NGT Last administered on 11/12/18 08:33; Admin Dose 50 MG; Start 11/11/18 at 09:00 Collagenase (Santyl) 1 applic BID TOP Last administered on 11/12/18 08:33; Admin Dose 1 APPLIC; Start 11/10/18 at 17:30 Levetiracetam (Keppra Liquid) 500 mg BID GTB Last administered on 11/12/18 08:33; Admin Dose 500 MG; Start 11/11/18 at 09:00 Potassium Chloride 100 ml @ 50 mls/hr Q2H IVPB Last administered on 11/12/18 11:34; Admin Dose 50 MLS/HR; Start 11/12/18 at 11:00; Stop 11/12/18 at 16:59 Acetazolamide (Diamox) 500 mg DAILY IV Last administered on 11/12/18 12:58; Admin Dose 500 MG; Start 11/12/18 at 11:30 ROSA AMES Nov 12, 2018 13:32
--- NOTE | 2018-11-12 13:42 | CONS ---
Date/Time of Note Date/Time of Note DATE: 11/12/18 TIME: 13:40 Consult Date/Type/Reason Admit Date/Time Nov 07, 2018 at 16:07 Initial Consult Date Type of Consultation: Pulm Subjective No events. Appears comfortable on the vent. Objective Vital Signs Date Temp Pulse Resp B/P (MAP) Pulse Ox O2 O2 Flow FiO2 Time Delivery Rate 11/12/18 71 16 99 30 11:50 11/12/18 97.8 106/58 11:41 (74) 11/11/18 Room Air 03:54 Intake and Output 11/11/18 11/11/18 11/12/18 1515:00 23:00 07:00 IntakeIntake Total 250 ml 780 ml OutputOutput Total 900 ml 1250 ml BalanceBalance -650 ml -470 ml Exam HEENT: Neck supple; no JVD; no LAD; + trach CVS: Irreg, S1 and S2, 2/6 CORTES CHEST: Decreased BS B/L ABD: Soft, NT, + BS EXT: No c/c: + edema Results/Medications Result Diagram: 11/12/18 0500 11/12/18 0500 Results 24 hrs Laboratory Tests Test 11/11/18 17:21 11/11/18 20:09 11/11/18 23:21 11/12/18 05:00 Bedside Glucose 109 148 Urine Random < 12.40 L Creatinine Urine Random 99 H Sodium Urine Total 23.0 H Protein White Blood Count 5.9 Red Blood Count 3.07 L Hemoglobin 9.3 L Hematocrit 32.1 L Mean Corpuscular 104.6 H Volume Mean Corpuscular 30.3 Hemoglobin Mean Corpuscular 29.0 L Hemoglobin Concent Red Cell 18.1 H Distribution Width Platelet Count 121 L Mean Platelet 12.2 H Volume Immature 0.500 H Granulocytes % Neutrophils % 78.3 H Lymphocytes % 10.6 L Monocytes % 10.1 Eosinophils % 0.5 Basophils % 0.0 Nucleated Red 0.0 Blood Cells % Immature 0.030 Granulocytes # Neutrophils # 4.6 Lymphocytes # 0.6 L Monocytes # 0.6 Eosinophils # 0.0 Basophils # 0.0 Nucleated Red 0.0 Blood Cells # Blood Gas Specimen Blood arterial Source Arterial Blood 11/12/2018 4:52:29 Date Drawn AM Arterial Blood pH 7.597 *H (Temp corrected) Arterial Blood 39.3 pCO2 (Temp correct) Arterial Blood pO2 106.7 H (Temp corrected) Arterial Blood 37.5 H HCO3 Arterial Blood 14.6 H Base Excess Arterial Blood 98.3 Oxygen Saturation Osvaldo Test ACCEPTAB Arterial Blood Gas Right Radial Puncture Site Arterial 1.2 Blood Carboxyhemog lobin Arterial Blood 0.2 Methemoglobin Blood Gas A-a O2 61.0 H Differential Oxyhemoglobin 96.9 Percent Blood Gas 37.0 Temperature Blood Gas 16.0 Respiration Rate Blood Gas Actual 16 Respiration Rate Blood Gas Modality VENT - AC FiO2 30.0 Blood Gas Tidal 550.0 Volume Blood Gas Low PEEP 5.0 Setting Blood Gas 32.0 Inspiratory Pressure Blood Gas Critical D, LY RN Value Read Back Blood Gas Notified KM Whom Blood Gas Notified 11/12/2018 5:10:31 Time AM Sodium Level 145 H Potassium Level 2.9 *L Chloride Level 93 L Carbon Dioxide 41 *H Level Anion Gap 11 Blood Urea 141 H Nitrogen Creatinine 1.36 H Est Glomerular Filtrat Rate mL/min Glucose Level 68 L Calcium Level 7.9 L Phosphorus Level 2.8 Magnesium Level 2.6 H Test 11/12/18 07:38 11/12/18 11:36 Bedside Glucose 85 76 Medications Current Medications Acetaminophen (Tylenol Tab) 1,000 mg Q4H PRN PO MODERATE PAIN LEVEL 4-6; Start 11/07/18 at 16:30 Acetaminophen (Tylenol Tab) 650 mg Q4H PRN GTB MILD PAIN LEVEL 1-3; Start 11/07/18 at 16:30 Albuterol (Proventil 0.083% (Neb)) 2.5 mg Q6H RESP THERAPY PRN NEB WHEEZING AND SOB; Start 11/07/18 at 16:30 Ascorbic Acid (Vitamin C) 500 mg BID GTB Last administered on 11/12/18at 08:33; Admin Dose 500 MG; Start 11/07/18 at 21:00 Bisacodyl (Dulcolax Supp) 10 mg PRN PRN [place] CONSTIPATION; Start 11/07/18 at 16:30 Carbidopa/Levodopa (Sinemet (25/ 100)) 1 tab TID GTB Last administered on 11/12/18at 12:29; Admin Dose 1 TAB; Start 11/07/18 at 21:00 Chlorhexidine Gluconate (Peridex) 15 ml Q12 MM Last administered on 11/12/18 08:33; Admin Dose 15 ML; Start 11/07/18 at 21:00 Docusate Sodium (Colace) 100 mg DAILY PO Last administered on 11/12/18 08:34; Admin Dose 100 MG; Start 11/08/18 at 09:00 Famotidine (Pepcid) 20 mg DAILY GTB Last administered on 11/12/18 08:33; Admin Dose 20 MG; Start 11/08/18 at 09:00 Hydralazine HCl (Apresoline) 20 mg Q6 PRN GTB ELEVATED BLOOD PRESSURE; Start 11/07/18 at 16:30 Linagliptin (Tradjenta) 5 mg DAILY GTB Last administered on 11/12/18 08:33; Admin Dose 5 MG; Start 11/08/18 at 09:00 Memantine (Namenda) 10 mg DAILY GTB Last administered on 11/12/18 08:33; Admin Dose 10 MG; Start 11/08/18 at 09:00 Metoprolol Tartrate (Lopressor) 25 mg BID GTB Last administered on 11/12/18 08:34; Admin Dose 25 MG; Start 11/07/18 at 21:00 Sodium Biphosphate/ Sodium Phosphate (Fleet Enema) 133 ml PRN PRN [place] CONSTIPATION; Start 11/07/18 at 16:30 Valproate Sodium (Depakene Liquid Cup) 125 mg QID GTB Last administered on 11/12/18 12:29; Admin Dose 125 MG; Start 11/07/18 at 17:00 Zinc Sulfate (Zinc Sulfate) 220 mg DAILY GTB Last administered on 11/12/18 08:33; Admin Dose 220 MG; Start 11/08/18 at 09:00 Diagnostic Test (Pha) (Accu-Chek) 1 ea AC MEALS AND BEDTIME XX Last administered on 11/12/18 11:35; Admin Dose 1 EA; Start 11/07/18 at 17:30 Cefepime HCl 50 ml @ 100 mls/hr Q24H IVPB Last administered on 11/11/18 17:07; Admin Dose 100 MLS/HR; Start 11/08/18 at 16:00 Miscellaneous Information 1 ea NOTE XX ; Start 11/07/18 at 19:00 Glucose (Glutose) 15 gm Q15M PRN PO DECREASED GLUCOSE; Start 11/07/18 at 19:00 Glucose (Glutose) 22.5 gm Q15M PRN PO DECREASED GLUCOSE; Start 11/07/18 at 19:00 Dextrose (D50w Syringe) 25 ml Q15M PRN IV DECREASED GLUCOSE Last administered on 11/11/18 08:34; Admin Dose 25 ML; Start 11/07/18 at 19:00 Dextrose (D50w Syringe) 50 ml Q15M PRN IV DECREASED GLUCOSE; Start 11/07/18 at 19:00 Glucagon (Glucagen) 1 mg Q15M PRN IM DECREASED GLUCOSE; Start 11/07/18 at 19:00 Glucose (Glutose) 15 gm Q15M PRN BUCCAL DECREASED GLUCOSE; Start 11/07/18 at 19:00 Multivitamins/ Minerals (Theragran-M) 1 tab DAILY GTB Last administered on 11/12/18 08:33; Admin Dose 1 TAB; Start 11/08/18 at 09:00 Heparin Sodium (Porcine) (Heparin (5000 Units/1ml)) 5,000 unit Q12 SC Last administered on 11/12/18 08:34; Admin Dose 5,000 UNIT; Start 11/08/18 at 09:00 Diagnostic Test (Pha) (Accu-Chek) 1 ea 02 XX Last administered on 11/10/18 02:14; Admin Dose 1 EA; Start 11/09/18 at 02:00 Insulin Aspart (Novolog Insulin Pen) NOVOLOG *MODERATE* ALGORITHM WITH MEALS BEDTIME SC Last administered on 11/10/18 12:55; Admin Dose 2 UNIT; Start 11/08/18 at 08:00 Metolazone (Zaroxolyn) 5 mg DAILY@0600 PO Last administered on 11/09/18 05:14; Admin Dose 5 MG; Start 11/08/18 at 08:30; Status Hold Aspirin (Aspirin) 81 mg DAILY NGT Last administered on 11/12/18 08:33; Admin Dose 81 MG; Start 11/08/18 at 13:30 Atorvastatin Calcium (Lipitor) 20 mg HS PO Last administered on 11/11/18 20:10; Admin Dose 20 MG; Start 11/08/18 at 21:00 Insulin Glargine (Lantus) 30 units QHS SC Last administered on 11/11/18 20:41; Admin Dose 30 UNITS; Start 11/09/18 at 21:00 Spironolactone (Aldactone) 50 mg DAILY NGT Last administered on 11/12/18 08:33; Admin Dose 50 MG; Start 11/11/18 at 09:00 Collagenase (Santyl) 1 applic BID TOP Last administered on 11/12/18 08:33; Admin Dose 1 APPLIC; Start 11/10/18 at 17:30 Levetiracetam (Keppra Liquid) 500 mg BID GTB Last administered on 11/12/18 08:33; Admin Dose 500 MG; Start 11/11/18 at 09:00 Potassium Chloride 100 ml @ 50 mls/hr Q2H IVPB Last administered on 11/12/18 11:34; Admin Dose 50 MLS/HR; Start 11/12/18 at 11:00; Stop 11/12/18 at 16:59 Acetazolamide (Diamox) 500 mg DAILY IV Last administered on 11/12/18at 12:58; Admin Dose 500 MG; Start 11/12/18 at 11:30 Assessment/Plan Additional Assessment/Plan IMP: 1. Acute on chronic hypoxemic/hypercapnic respiratory failure, likely secondary to progressive congestive cardiac failure. 2. Vent-dependent respiratory failure. 3. Non-ST elevation myocardial infarction. 4. Moderate pulmonary hypertension 5. Moderate to severe aortic stenosis 6. Renal Insufficiency 7. B/L effusions 8. Metabolic Alkalosis RECS: 1. Continue mechanical ventilation--> reduce RR 12; VT 500 2. F/U pleural fluid studies 3. Am ABG and CXR HALIE LOPEZ MD Nov 12, 2018 13:42
--- NOTE | 2018-11-12 16:26 | CONS ---
Date/Time of Note Date/Time of Note DATE: 11/12/18 TIME: 16:23 Consult Date/Type/Reason Admit Date/Time Nov 07, 2018 at 16:07 Initial Consult Date Type of Consultation: Pulm Subjective Cardiology follow-up progress note Subjective: Discussed with the staff and telemetry was reviewed. Patient remains in proximal atrial fibrillation and intermittently in sinus with very frequent PAC Patient nonverbal status with tracheostomy on the vent Thoracentesis done on November 10, 2018 Objective: General: Thin gentleman status post tracheostomy on the vent HEENT: NC/AT. pupils are equal. round. Temporal wasting is noted NECK: Status post tracheostomy. no stridor. CV: RRR. systolic ejection murmur; no gallop or rubs. PULM: no wheezing + rhonchi. GI: SOFT, NT, ND, no rebound or guarding status post PEG placement Extremity: trace B/L LE edema. no clubbing. neuro: Nonverbal does not answer my question but opens his eyes Psych: calm rectal: deferred Chest x-ray 11/10/2018 shows: 1. Questionable small right apical pneumothorax status post right thoracentesis . Film was obtained in a semiupright position, limiting evaluation. Consider repeat upright view or short interval follow-up. 2. Findings suggestive of pulmonary vascular congestion with small bilateral pleural effusions, significant improved when compared to the prior examination. 3. Mild cardiomegaly and aortic atherosclerosis. 4. Tubes and lines, as described above. Objective Vital Signs Date Temp Pulse Resp B/P (MAP) Pulse Ox O2 O2 Flow FiO2 Time Delivery Rate 11/12/18 98.3 96 16 108/61 100 15:49 (77) 11/12/18 30 15:25 11/11/18 Room Air 03:54 Intake and Output 11/11/18 11/11/18 11/12/18 1414:59 22:59 06:59 IntakeIntake Total 250 ml 780 ml OutputOutput Total 900 ml 1250 ml BalanceBalance -650 ml -470 ml Results/Medications Result Diagram: 11/12/18 0500 11/12/18 0500 Results 24 hrs Laboratory Tests Test 11/11/18 17:21 11/11/18 20:09 11/11/18 23:21 11/12/18 05:00 Bedside Glucose 109 148 Urine Random < 12.40 L Creatinine Urine Random 99 H Sodium Urine Total 23.0 H Protein White Blood Count 5.9 Red Blood Count 3.07 L Hemoglobin 9.3 L Hematocrit 32.1 L Mean Corpuscular 104.6 H Volume Mean Corpuscular 30.3 Hemoglobin Mean Corpuscular 29.0 L Hemoglobin Concent Red Cell 18.1 H Distribution Width Platelet Count 121 L Mean Platelet 12.2 H Volume Immature 0.500 H Granulocytes % Neutrophils % 78.3 H Lymphocytes % 10.6 L Monocytes % 10.1 Eosinophils % 0.5 Basophils % 0.0 Nucleated Red 0.0 Blood Cells % Immature 0.030 Granulocytes # Neutrophils # 4.6 Lymphocytes # 0.6 L Monocytes # 0.6 Eosinophils # 0.0 Basophils # 0.0 Nucleated Red 0.0 Blood Cells # Blood Gas Specimen Blood arterial Source Arterial Blood 11/12/2018 4:52:29 Date Drawn AM Arterial Blood pH 7.597 *H (Temp corrected) Arterial Blood 39.3 pCO2 (Temp correct) Arterial Blood pO2 106.7 H (Temp corrected) Arterial Blood 37.5 H HCO3 Arterial Blood 14.6 H Base Excess Arterial Blood 98.3 Oxygen Saturation Osvaldo Test ACCEPTAB Arterial Blood Gas Right Radial Puncture Site Arterial 1.2 Blood Carboxyhemog lobin Arterial Blood 0.2 Methemoglobin Blood Gas A-a O2 61.0 H Differential Oxyhemoglobin 96.9 Percent Blood Gas 37.0 Temperature Blood Gas 16.0 Respiration Rate Blood Gas Actual 16 Respiration Rate Blood Gas Modality VENT - AC FiO2 30.0 Blood Gas Tidal 550.0 Volume Blood Gas Low PEEP 5.0 Setting Blood Gas 32.0 Inspiratory Pressure Blood Gas Critical D, LY RN Value Read Back Blood Gas Notified Whom Blood Gas Notified 11/12/2018 5:10:31 Time AM Sodium Level 145 H Potassium Level 2.9 *L Chloride Level 93 L Carbon Dioxide 41 *H Level Anion Gap 11 Blood Urea 141 H Nitrogen Creatinine 1.36 H Est Glomerular Filtrat Rate mL/min Glucose Level 68 L Calcium Level 7.9 L Phosphorus Level 2.8 Magnesium Level 2.6 H Test 11/12/18 07:38 11/12/18 11:36 Bedside Glucose 85 76 Medications Current Medications Acetaminophen (Tylenol Tab) 1,000 mg Q4H PRN PO MODERATE PAIN LEVEL 4-6; Start 11/07/18 at 16:30 Acetaminophen (Tylenol Tab) 650 mg Q4H PRN GTB MILD PAIN LEVEL 1-3; Start 11/07/18 at 16:30 Albuterol (Proventil 0.083% (Neb)) 2.5 mg Q6H RESP THERAPY PRN NEB WHEEZING AND SOB; Start 11/07/18 at 16:30 Ascorbic Acid (Vitamin C) 500 mg BID GTB Last administered on 11/12/18 08:33; Admin Dose 500 MG; Start 11/07/18 at 21:00 Bisacodyl (Dulcolax Supp) 10 mg PRN PRN [place] CONSTIPATION; Start 11/07/18 at 16:30 Carbidopa/Levodopa (Sinemet (25/ 100)) 1 tab TID GTB Last administered on 11/12/18 12:29; Admin Dose 1 TAB; Start 11/07/18 at 21:00 Chlorhexidine Gluconate (Peridex) 15 ml Q12 MM Last administered on 11/12/18 08:33; Admin Dose 15 ML; Start 11/07/18 at 21:00 Docusate Sodium (Colace) 100 mg DAILY PO Last administered on 11/12/18 08:34; Admin Dose 100 MG; Start 11/08/18 at 09:00 Famotidine (Pepcid) 20 mg DAILY GTB Last administered on 11/12/18 08:33; Admin Dose 20 MG; Start 11/08/18 at 09:00 Hydralazine HCl (Apresoline) 20 mg Q6 PRN GTB ELEVATED BLOOD PRESSURE; Start 11/07/18 at 16:30 Linagliptin (Tradjenta) 5 mg DAILY GTB Last administered on 11/12/18 08:33; Admin Dose 5 MG; Start 11/08/18 at 09:00 Memantine (Namenda) 10 mg DAILY GTB Last administered on 11/12/18 08:33; Admin Dose 10 MG; Start 11/08/18 at 09:00 Metoprolol Tartrate (Lopressor) 25 mg BID GTB Last administered on 11/12/18 08:34; Admin Dose 25 MG; Start 11/07/18 at 21:00 Sodium Biphosphate/ Sodium Phosphate (Fleet Enema) 133 ml PRN PRN [place] CONSTIPATION; Start 11/07/18 at 16:30 Valproate Sodium (Depakene Liquid Cup) 125 mg QID GTB Last administered on 11/12/18 12:29; Admin Dose 125 MG; Start 11/07/18 at 17:00 Zinc Sulfate (Zinc Sulfate) 220 mg DAILY GTB Last administered on 11/12/18 08:33; Admin Dose 220 MG; Start 11/08/18 at 09:00 Diagnostic Test (Pha) (Accu-Chek) 1 ea AC MEALS AND BEDTIME XX Last administered on 11/12/18 11:35; Admin Dose 1 EA; Start 11/07/18 at 17:30 Cefepime HCl 50 ml @ 100 mls/hr Q24H IVPB Last administered on 11/11/18 17:07; Admin Dose 100 MLS/HR; Start 11/08/18 at 16:00 Miscellaneous Information 1 ea NOTE XX ; Start 11/07/18 at 19:00 Glucose (Glutose) 15 gm Q15M PRN PO DECREASED GLUCOSE; Start 11/07/18 at 19:00 Glucose (Glutose) 22.5 gm Q15M PRN PO DECREASED GLUCOSE; Start 11/07/18 at 19:00 Dextrose (D50w Syringe) 25 ml Q15M PRN IV DECREASED GLUCOSE Last administered on 11/11/18 08:34; Admin Dose 25 ML; Start 11/07/18 at 19:00 Dextrose (D50w Syringe) 50 ml Q15M PRN IV DECREASED GLUCOSE; Start 11/07/18 at 19:00 Glucagon (Glucagen) 1 mg Q15M PRN IM DECREASED GLUCOSE; Start 11/07/18 at 19:00 Glucose (Glutose) 15 gm Q15M PRN BUCCAL DECREASED GLUCOSE; Start 11/07/18 at 19:00 Multivitamins/ Minerals (Theragran-M) 1 tab DAILY GTB Last administered on 11/12/18 08:33; Admin Dose 1 TAB; Start 11/08/18 at 09:00 Heparin Sodium (Porcine) (Heparin (5000 Units/1ml)) 5,000 unit Q12 SC Last administered on 11/12/18 08:34; Admin Dose 5,000 UNIT; Start 11/08/18 at 09:00 Diagnostic Test (Pha) (Accu-Chek) 1 ea 02 XX Last administered on 1/4/19at 02:14; Admin Dose 1 EA; Start 11/09/18 at 02:00 Insulin Aspart (Novolog Insulin Pen) NOVOLOG *MODERATE* ALGORITHM WITH MEALS BEDTIME SC Last administered on 11/10/18 12:55; Admin Dose 2 UNIT; Start 11/08/18 at 08:00 Metolazone (Zaroxolyn) 5 mg DAILY@0600 PO Last administered on 11/09/18 05:14; Admin Dose 5 MG; Start 11/08/18 at 08:30; Status Hold Aspirin (Aspirin) 81 mg DAILY NGT Last administered on 11/12/18 08:33; Admin Dose 81 MG; Start 11/08/18 at 13:30 Atorvastatin Calcium (Lipitor) 20 mg HS PO Last administered on 11/11/18 20:10; Admin Dose 20 MG; Start 11/08/18 at 21:00 Insulin Glargine (Lantus) 30 units QHS SC Last administered on 11/11/18 20:41; Admin Dose 30 UNITS; Start 11/09/18 at 21:00 Spironolactone (Aldactone) 50 mg DAILY NGT Last administered on 11/12/18 08:33; Admin Dose 50 MG; Start 11/11/18 at 09:00 Collagenase (Santyl) 1 applic BID TOP Last administered on 11/12/18 08:33; Admin Dose 1 APPLIC; Start 11/10/18 at 17:30 Levetiracetam (Keppra Liquid) 500 mg BID GTB Last administered on 11/12/18 08:33; Admin Dose 500 MG; Start 11/11/18 at 09:00 Potassium Chloride 100 ml @ 50 mls/hr Q2H IVPB Last administered on 11/12/18 16:09; Admin Dose 50 MLS/HR; Start 11/12/18 at 11:00; Stop 11/12/18 at 16:59 Acetazolamide (Diamox) 500 mg DAILY IV Last administered on 11/12/18 12:58; Admin Dose 500 MG; Start 11/12/18 at 11:30 Assessment/Plan Chief Complaint/Hosp Course Acute decompensated systolic and diastolic congestive heart failure Acute kidney injury Chronic respiratory failure, vent dependent Aortic stenosis Cardiomyopathy History of chronic kidney disease Encephalopathy Paroxysmal atrial fibrillation/flutter Possible small pneumothorax Anemia Recommendations: Continue with ventilator care and respiratory care as per pulmonary. We will: Treatment of pneumothorax as per pulmonary We will replace electrolytes: Potassium Mg prn Diuresis will be deferred to the renal team Continue with the beta-paolo Monitor on telemetry Thank you for this referral. We will continue to follow along with you until Dr. León returns on Tuesday ALVINA GARCIA MD [facility] ALVINA GARCIA MD Nov 12, 2018 16:26
[2018-11-12] MEDS: CEFEPIME 1GM/50 ML (PMX) 50 ML IVPB SCH (18:04)
[2018-11-12] MEDS: ATORVASTATIN 20 MG TAB PO SCH (20:06)
[2018-11-12] MEDS: INSULIN GLARGINE [LANTus] (100 UNITS/ML) SYG SC SCH (20:10)
[2018-11-13] VITALS (26 sets, daily range): BP systolic 91–108; BP diastolic 51–68; PULSE 83–104; RESP 13–22
[2018-11-13] MEDS: INSULIN ASPART [NOVOLOG] 3 ML PEN SC SCH ×6 (01:26→21:38)
[2018-11-13] MEDS: ACCU-CHEK XX SCH ×5 (01:27→21:38)
[2018-11-13] MEDS: CHLORHEXIDINE GLUCONATE 15 ML UD CUP MM SCH ×2 (07:56→21:07)
[2018-11-13] MEDS: METOPROLOL 25 MG TAB GTB SCH ×2 (07:56→21:35)
[2018-11-13] MEDS: COLLAGENASE 5 GM (UD JAR) TOP SCH ×2 (07:56→21:17)
[2018-11-13] MEDS: VALPROIC ACID LIQUID CUP 250 MG/5 ML CUP GTB SCH ×4 (07:56→21:07)
[2018-11-13] MEDS: LEVETIRACETAM (100 MG/ML) 5ML CUP GTB SCH ×2 (07:56→21:07)
[2018-11-13] MEDS: FAMOTIDINE 20 MG TAB GTB SCH (07:57)
[2018-11-13] MEDS: DOCUSATE SODIUM 100 MG CAP PO SCH (07:57)
[2018-11-13] MEDS: CARBIDOPA/LEVODOPA (25/100) TAB GTB SCH ×3 (07:57→21:08)
[2018-11-13] MEDS: ASCORBIC ACID 500 MG TAB GTB SCH ×2 (07:57→21:07)
[2018-11-13] MEDS: MEMANTINE 10 MG TAB GTB SCH (07:57)
[2018-11-13] MEDS: SPIRONOLACTONE 50 MG TAB NGT SCH (07:57)
[2018-11-13] MEDS: LINAGLIPTIN 5 MG TABLET GTB SCH (07:57)
[2018-11-13] MEDS: ASPIRIN 81 MG TAB NGT SCH (07:57)
[2018-11-13] MEDS: MULTIVITAMINS/MINERALS TAB GTB SCH (07:57)
[2018-11-13] MEDS: ZINC SULFATE 220 MG CAP GTB SCH (07:58)
[2018-11-13] MEDS: ACETAZOLAMIDE 500 MG INJ IV SCH (07:58)
[2018-11-13] MEDS ORDERED: POTASSIUM CHLORIDE 20 MEQ POWDER FOR ORAL SOLN PO SCH (08:00)
[2018-11-13] MEDS: HEPARIN 5,000 UNIT/1 ML VIAL SC SCH ×2 (08:11→21:22)
--- NOTE | 2018-11-13 08:46 | PN ---
DATE: 11/13/2018 SUBJECTIVE: The patient is stable, no events overnight. No fevers, chills, nausea, vomiting. OBJECTIVE: VITAL SIGNS: Blood pressure is 96/51, respirations 16, pulse 96, temperature 98.4. HEENT: Head is normocephalic. NECK: Supple. HEART: Regular rate. LUNGS: Show diminished breath sounds at base. ABDOMEN: Soft, nontender to palpation without rebound or guarding. EXTREMITIES: Negative for clubbing, cyanosis, no edema. DERMATOLOGIC: No rashes. MUSCULOSKELETAL: No joint effusions. NEUROLOGIC: No change in exam. MEDICATIONS: The patient's medications have been reviewed. LABORATORY DATA: Shows sodium of 147, potassium 3.1, chloride 96, bicarbonate 31, BUN 135, creatinin e 1.34, calcium 7.8, magnesium 2.7. The patient's ABG showed pH 7.4, pCO2 of 53. ASSESSMENT AND PLAN: 1. Acute on chronic heart failure, diastolic. The patient is currently decompensated, but clinicall y improving. Continue diuretic therapy. Follow up with cardiology. 2. Nonoliguric acute kidney injury on top of chronic kidney disease, stage IV, with previous baselin e creatinine 0.8 mg/dL. Please note, the patient's creatinine is greatly overestimated the patient's EGFR as the patient has significant muscular atrophy. The patient has been on diuretics; however, n o significant improvement as the patient's azotemia has continued to worsen. Please note I have att empted to contact the patient's conservator discussing the possibility of hemodialysis. Will otherwi se continue current medical management. Continue diuretic regimen, adjust as needed. Monitor closel y. 3. Metabolic alkalemia secondary to diuretics, hypochloremia, continue Diamox. Continue to replete potassium chloride and will monitor closely. 4. Hyperkalemia secondary to diuretic therapy. Continue potassium supplementation. Continue Aldact one. Monitor closely. 5. Sepsis secondary to urinary tract infection. Continue antibiotic regimen. 6. Ventilator-dependent respiratory failure. Vent settings and ABG was reviewed. Continue to monit or. 7. Bilateral pleural effusion, status post thoracentesis. 8. Anemia. Monitor hemoglobin and hematocrit levels. 9. Mineral bone disorder. Monitor calcium and phosphatase levels. 10. Dysphagia. Continue tube feeding. 11. Arrhythmia. Continue current treatment plan. 12. Diabetes. Continue current insulin regimen. 13. History of chronic encephalopathy, etiology toxic metabolic. 14. Seizure disorder. Continue Keppra. 15. Aortic stenosis. Continue medical management. 16. Gastrointestinal and deep venous thrombosis prophylaxis. Dictated By: ROB LEMUS DO NR/NTS Conf#: [id number] DID#: [id number] CC: ROB LEMUS DO;*EndCC*
--- NOTE | 2018-11-13 10:35 | CONS ---
Date/Time of Note Date/Time of Note DATE: 11/13/18 TIME: 10:33 Assessment/Plan Assessment/Plan Assessment/Plan Ventilator setting; AC of 12, tidal volume 500, PEEP of 5, 30% FiO2. Assessment and recommendations; 1. Patient admitted with sepsis due to UTI currently on appropriate antimicrobial regimen. 2. CHF with bilateral pleural effusions, status post right thoracentesis. 2 L of fluid was drained. 3. Chronic severe encephalopathy. 4. History of Parkinson's disease. 5. Diabetes. 6. Stable seizure disorder. 7. Severe aortic stenosis. 8. Systemic hypertension. 9. Chronic renal insufficiency. 10. Chronic type II respiratory failure. 11. Anemia and thrombocytopenia. Continue current supportive care. Consider transfer to rehab center. Prognosis is poor. Result Diagram: 11/13/18 0526 11/13/18 0526 Results 24hrs Laboratory Tests Test 11/12/18 11:36 11/12/18 17:11 11/12/18 20:03 11/13/18 01:19 Bedside Glucose 76 164 211 188 Test 11/13/18 05:00 11/13/18 05:03 11/13/18 05:26 11/13/18 07:52 Blood Gas Specimen Blood arterial Source Arterial Blood 11/13/2018 5:10:49 Date Drawn AM Arterial Blood pH 7.494 H (Temp corrected) Arterial Blood 53.2 H pCO2 (Temp correct) Arterial Blood pO2 94.8 H (Temp corrected) Arterial Blood 40.0 H HCO3 Arterial Blood 14.7 H Base Excess Arterial Blood 97.1 Oxygen Saturation Osvaldo Test N/A Arterial Blood Gas Left Radial Puncture Site Arterial 1.1 Blood Carboxyhemog lobin Arterial Blood 0.2 Methemoglobin Blood Gas A-a O2 56.6 H Differential Oxyhemoglobin 95.8 Percent Blood Gas 37.0 Temperature Blood Gas 12.0 Respiration Rate Blood Gas Actual 16 Respiration Rate Blood Gas Modality VENT - AC FiO2 30.0 Blood Gas Tidal 500.0 Volume Blood Gas Low PEEP 5.0 Setting Blood Gas 31.0 Inspiratory Pressure Blood Gas Notified S.H. Whom Blood Gas Notified 11/13/2018 5:30:59 Time AM Bedside Glucose 139 138 White Blood Count 6.8 Red Blood Count 3.04 L Hemoglobin 9.1 L Hematocrit 31.8 L Mean Corpuscular 104.6 H Volume Mean Corpuscular 29.9 Hemoglobin Mean Corpuscular 28.6 L Hemoglobin Concent Red Cell 18.2 H Distribution Width Platelet Count 122 L Mean Platelet 12.8 H Volume Immature 0.400 Granulocytes % Neutrophils % 80.7 H Lymphocytes % 9.3 L Monocytes % 9.1 Eosinophils % 0.4 Basophils % 0.1 Nucleated Red 0.0 Blood Cells % Immature 0.030 Granulocytes # Neutrophils # 5.5 Lymphocytes # 0.6 L Monocytes # 0.6 Eosinophils # 0.0 Basophils # 0.0 Nucleated Red 0.0 Blood Cells # Sodium Level 147 H Potassium Level 3.1 L Chloride Level 96 L Carbon Dioxide 38 H Level Anion Gap 13 Blood Urea 135 H Nitrogen Creatinine 1.34 H Est Glomerular Filtrat Rate mL/min Glucose Level 136 # Calcium Level 7.8 L Phosphorus Level 3.4 Magnesium Level 2.7 H Consultation Date/Type/Reason Admit Date/Time Nov 07, 2018 at 16:07 Initial Consult Date Type of Consult Pulmonary 24 HR Interval Summary Free Text/Dictation Patient's condition remains stable. Remains unresponsive due to chronic encepha lopathy. Has remained hemodynamically stable. General exam; elderly male, on ventilator via tracheostomy, unresponsive, currently in no distress. Exam/Review of Systems Vital Signs Vitals Vital Signs Date Temp Pulse Resp B/P (MAP) Pulse Ox O2 O2 Flow FiO2 Time Delivery Rate 11/13/18 30 09:37 11/13/18 91 09:18 11/13/18 14 99 09:08 11/13/18 98.1 105/57 Mechanical 07:56 (73) Ventilator Intake and Output 11/12/18 11/12/18 11/13/18 1515:00 23:00 07:00 IntakeIntake Total 1100 ml 790 ml OutputOutput Total 900 ml 700 ml BalanceBalance 200 ml 90 ml Exam HEENT exam; supple neck, positive JVD. No lymphadenopathy. Midline trachea. No thyromegaly. Tracheostomy in place. Insertion site is clean. Patient has fair dentition. Chest exam; diminished but clear breath sounds. S1-S2 audible, no murmurs. Regular rhythm. Abdomen exam; soft, G-tube in place. No organomegaly. Bowel sounds audible. Extremity exam; no peripheral edema. MANAGER PRICING exam; patient remains noncommunicative. Medications Medications Current Medications Acetaminophen (Tylenol Tab) 1,000 mg Q4H PRN PO MODERATE PAIN LEVEL 4-6; Start 11/07/18 at 16:30 Acetaminophen (Tylenol Tab) 650 mg Q4H PRN GTB MILD PAIN LEVEL 1-3; Start 11/07/18 at 16:30 Albuterol (Proventil 0.083% (Neb)) 2.5 mg Q6H RESP THERAPY PRN NEB WHEEZING AND SOB; Start 11/07/18 at 16:30 Ascorbic Acid (Vitamin C) 500 mg BID GTB Last administered on 11/13/18 07:57; Admin Dose 500 MG; Start 11/07/18 at 21:00 Bisacodyl (Dulcolax Supp) 10 mg PRN PRN [place] CONSTIPATION; Start 11/07/18 at 16:30 Carbidopa/Levodopa (Sinemet (25/ 100)) 1 tab TID GTB Last administered on 07:57; Admin Dose 1 TAB; Start 11/07/18 at 21:00 Chlorhexidine Gluconate (Peridex) 15 ml Q12 MM Last administered on 11/13/18 07:56; Admin Dose 15 ML; Start 11/07/18 at 21:00 Docusate Sodium (Colace) 100 mg DAILY PO Last administered on 11/13/18 07:57; Admin Dose 100 MG; Start 11/08/18 at 09:00 Famotidine (Pepcid) 20 mg DAILY GTB Last administered on 11/13/18 07:57; Admin Dose 20 MG; Start 11/08/18 at 09:00 Hydralazine HCl (Apresoline) 20 mg Q6 PRN GTB ELEVATED BLOOD PRESSURE; Start 11/07/18 at 16:30 Linagliptin (Tradjenta) 5 mg DAILY GTB Last administered on 11/13/18 07:57; Admin Dose 5 MG; Start 11/08/18 at 09:00 Memantine (Namenda) 10 mg DAILY GTB Last administered on 11/13/18 07:57; Admin Dose 10 MG; Start 11/08/18 at 09:00 Metoprolol Tartrate (Lopressor) 25 mg BID GTB Last administered on 11/13/18 07:56; Admin Dose 25 MG; Start 11/07/18 at 21:00 Sodium Biphosphate/ Sodium Phosphate (Fleet Enema) 133 ml PRN PRN [place] CONSTIPATION; Start 11/07/18 at 16:30 Valproate Sodium (Depakene Liquid Cup) 125 mg QID GTB Last administered on 11/13/18at 07:56; Admin Dose 125 MG; Start 11/07/18 at 17:00 Zinc Sulfate (Zinc Sulfate) 220 mg DAILY GTB Last administered on 11/13/18 07:58; Admin Dose 220 MG; Start 11/08/18 at 09:00 Diagnostic Test (Pha) (Accu-Chek) 1 ea AC MEALS AND BEDTIME XX Last administered on 11/12/18at 20:21; Admin Dose 1 EA; Start 11/07/18 at 17:30 Cefepime HCl 50 ml @ 100 mls/hr Q24H IVPB Last administered on 11/12/18at 18:04; Admin Dose 100 MLS/HR; Start 11/08/18 at 16:00 Miscellaneous Information 1 ea NOTE XX ; Start 11/07/18 at 19:00 Glucose (Glutose) 15 gm Q15M PRN PO DECREASED GLUCOSE; Start 11/07/18 at 19:00 Glucose (Glutose) 22.5 gm Q15M PRN PO DECREASED GLUCOSE; Start 11/07/18 at 19:00 Dextrose (D50w Syringe) 25 ml Q15M PRN IV DECREASED GLUCOSE Last administered on 11/11/18at 08:34; Admin Dose 25 ML; Start 11/07/18 at 19:00 Dextrose (D50w Syringe) 50 ml Q15M PRN IV DECREASED GLUCOSE; Start 11/07/18 at 19:00 Glucagon (Glucagen) 1 mg Q15M PRN IM DECREASED GLUCOSE; Start 11/07/18 at 19:00 Glucose (Glutose) 15 gm Q15M PRN BUCCAL DECREASED GLUCOSE; Start 11/07/18 at 19:00 Multivitamins/ Minerals (Theragran-M) 1 tab DAILY GTB Last administered on 11/13/18at 07:57; Admin Dose 1 TAB; Start 11/08/18 at 09:00 Heparin Sodium (Porcine) (Heparin (5000 Units/1ml)) 5,000 unit Q12 SC Last administered on 11/13/18 08:11; Admin Dose 5,000 UNIT; Start 11/08/18 at 09:00 Diagnostic Test (Pha) (Accu-Chek) 1 ea 02 XX Last administered on 11/10/18 02:14; Admin Dose 1 EA; Start 11/09/18 at 02:00 Metolazone (Zaroxolyn) 5 mg DAILY@0600 PO Last administered on 11/09/18 05:14; Admin Dose 5 MG; Start 11/08/18 at 08:30; Status Hold Aspirin (Aspirin) 81 mg DAILY NGT Last administered on 11/13/18 07:57; Admin Dose 81 MG; Start 11/08/18 at 13:30 Atorvastatin Calcium (Lipitor) 20 mg HS PO Last administered on 11/12/18 20:06; Admin Dose 20 MG; Start 11/08/18 at 21:00 Insulin Glargine (Lantus) 30 units QHS SC Last administered on 11/12/18 20:10; Admin Dose 30 UNITS; Start 11/09/18 at 21:00 Spironolactone (Aldactone) 50 mg DAILY NGT Last administered on 11/13/18 07:57; Admin Dose 50 MG; Start 11/11/18 at 09:00 Collagenase (Santyl) 1 applic BID TOP Last administered on 11/13/18 07:56; Admin Dose 1 APPLIC; Start 11/10/18 at 17:30 Levetiracetam (Keppra Liquid) 500 mg BID GTB Last administered on 11/13/18 07:56; Admin Dose 500 MG; Start 11/11/18 at 09:00 Acetazolamide (Diamox) 500 mg DAILY IV Last administered on 11/13/18 07:58; Admin Dose 500 MG; Start 11/12/18 at 11:30 Insulin Aspart (Novolog Insulin Pen) NOVOLOG *MILD* ALGORI... Q4 SC Last administered on 11/13/18 01:26; Admin Dose 2 UNIT; Start 11/12/18 at 21:00 VAMSI LITTLEJOHN Nov 13, 2018 10:35
--- NOTE | 2018-11-13 14:39 | CONS ---
Date/Time of Note Date/Time of Note DATE: 11/13/18 TIME: 14:38 Assessment/Plan Assessment/Plan Hospital Course No acute changes overnight Microbiology: urine culture growing Proteus mirabilis Chest x-ray on admission revealed cardiomegaly with diffuse pulmonary edema and bilateral small pleural effusions. Chest ultrasound revealed large bilateral pleural effusions. Abdominal ultrasound revealed cholelithiasis without evidence for cholecystitis Allergy: Ciprofloxacin Antimicrobials: Cefepime Physical examination: Chronically ill-appearing elderly man who is noncommunicative in no distress. Head atraumatic normocephalic sclera nonicteric. Vehicle mucosa dry. Neck is supple chest rise symmetrical breath s ounds diminished bases. Heart: S1-S2. Abdomen soft bowel sounds present extremities with bilateral edema. Skin: Patient has multiple pressure sores Assessment: 1. S/p sepsis secondary to UTI 2. Proteus mirabilis UTI 3. Acute on chronic kidney disease 4. Acute on chronic respiratory failure 5. Bilateral pleural effusions 6. ?Non-ST elevation OR 7. Diabetes type 2 8. Parkinson's dementia 9. Aortic stenosis Plan: Remains stable, completing antibiotics, follow pulmonary/cardiology geraldo mmendations Result Diagram: 11/13/18 0526 11/13/18 0526 Results 24hrs Laboratory Tests Test 11/12/18 17:11 11/12/18 20:03 11/13/18 01:19 11/13/18 05:00 Bedside Glucose 164 211 188 Blood Gas Specimen Blood arterial Source Arterial Blood 11/13/2018 5:10:49 Date Drawn AM Arterial Blood pH 7.494 H (Temp corrected) Arterial Blood 53.2 H pCO2 (Temp correct) Arterial Blood pO2 94.8 H (Temp corrected) Arterial Blood 40.0 H HCO3 Arterial Blood 14.7 H Base Excess Arterial Blood 97.1 Oxygen Saturation Osvaldo Test N/A Arterial Blood Gas Left Radial Puncture Site Arterial 1.1 Blood Carboxyhemog lobin Arterial Blood 0.2 Methemoglobin Blood Gas A-a O2 56.6 H Differential Oxyhemoglobin 95.8 Percent Blood Gas 37.0 Temperature Blood Gas 12.0 Respiration Rate Blood Gas Actual 16 Respiration Rate Blood Gas Modality VENT - AC FiO2 30.0 Blood Gas Tidal 500.0 Volume Blood Gas Low PEEP 5.0 Setting Blood Gas 31.0 Inspiratory Pressure Blood Gas Notified [facility] Blood Gas Notified 11/13/2018 5:30:59 Time AM Test 11/13/18 05:03 11/13/18 05:26 11/13/18 07:52 11/13/18 11:53 Bedside Glucose 139 138 151 White Blood Count 6.8 Red Blood Count 3.04 L Hemoglobin 9.1 L Hematocrit 31.8 L Mean Corpuscular 104.6 H Volume Mean Corpuscular 29.9 Hemoglobin Mean Corpuscular 28.6 L Hemoglobin Concent Red Cell 18.2 H Distribution Width Platelet Count 122 L Mean Platelet 12.8 H Volume Immature 0.400 Granulocytes % Neutrophils % 80.7 H Lymphocytes % 9.3 L Monocytes % 9.1 Eosinophils % 0.4 Basophils % 0.1 Nucleated Red 0.0 Blood Cells % Immature 0.030 Granulocytes # Neutrophils # 5.5 Lymphocytes # 0.6 L Monocytes # 0.6 Eosinophils # 0.0 Basophils # 0.0 Nucleated Red 0.0 Blood Cells # Sodium Level 147 H Potassium Level 3.1 L Chloride Level 96 L Carbon Dioxide 38 H Level Anion Gap 13 Blood Urea 135 H Nitrogen Creatinine 1.34 H Est Glomerular Filtrat Rate mL/min Glucose Level 136 # Calcium Level 7.8 L Phosphorus Level 3.4 Magnesium Level 2.7 H Consultation Date/Type/Reason Admit Date/Time Nov 07, 2018 at 16:07 Initial Consult Date Type of Consult ID Exam/Review of Systems Vital Signs Vitals Vital Signs Date Temp Pulse Resp B/P (MAP) Pulse Ox O2 O2 Flow FiO2 Time Delivery Rate 11/13/18 98 16 100 30 13:15 11/13/18 96.5 96/56 (69) Mechanical 11:48 Ventilator Intake and Output 11/12/18 11/12/18 11/13/18 1515:00 23:00 07:00 IntakeIntake Total 1100 ml 790 ml OutputOutput Total 900 ml 700 ml BalanceBalance 200 ml 90 ml Medications Medications Current Medications Acetaminophen (Tylenol Tab) 1,000 mg Q4H PRN PO MODERATE PAIN LEVEL 4-6; Start 11/07/18 at 16:30 Acetaminophen (Tylenol Tab) 650 mg Q4H PRN GTB MILD PAIN LEVEL 1-3; Start 11/07/18 at 16:30 Albuterol (Proventil 0.083% (Neb)) 2.5 mg Q6H RESP THERAPY PRN NEB WHEEZING AND SOB; Start 11/07/18 at 16:30 Ascorbic Acid (Vitamin C) 500 mg BID GTB Last administered on 11/13/18 07:57; Admin Dose 500 MG; Start 11/07/18 at 21:00 Bisacodyl (Dulcolax Supp) 10 mg PRN PRN [place] CONSTIPATION; Start 11/07/18 at 16:30 Carbidopa/Levodopa (Sinemet (25/ 100)) 1 tab TID GTB Last administered on 11/13/18 11:49; Admin Dose 1 TAB; Start 11/07/18 at 21:00 Chlorhexidine Gluconate (Peridex) 15 ml Q12 MM Last administered on 11/13/18 07:56; Admin Dose 15 ML; Start 11/07/18 at 21:00 Docusate Sodium (Colace) 100 mg DAILY PO Last administered on 11/13/18 07:57; Admin Dose 100 MG; Start 11/08/18 at 09:00 Famotidine (Pepcid) 20 mg DAILY GTB Last administered on 11/13/18 07:57; Admin Dose 20 MG; Start 11/08/18 at 09:00 Hydralazine HCl (Apresoline) 20 mg Q6 PRN GTB ELEVATED BLOOD PRESSURE; Start 11/07/18 at 16:30 Linagliptin (Tradjenta) 5 mg DAILY GTB Last administered on 11/13/18 07:57; Admin Dose 5 MG; Start 11/08/18 at 09:00 Memantine (Namenda) 10 mg DAILY GTB Last administered on 11/13/18 07:57; Admin Dose 10 MG; Start 11/08/18 at 09:00 Metoprolol Tartrate (Lopressor) 25 mg BID GTB Last administered on 11/13/18 07:56; Admin Dose 25 MG; Start 11/07/18 at 21:00 Sodium Biphosphate/ Sodium Phosphate (Fleet Enema) 133 ml PRN PRN [place] CONSTIPATION; Start 11/07/18 at 16:30 Valproate Sodium (Depakene Liquid Cup) 125 mg QID GTB Last administered on 11:49; Admin Dose 125 MG; Start 11/07/18 at 17:00 Zinc Sulfate (Zinc Sulfate) 220 mg DAILY GTB Last administered on 1/7/19at 07:58; Admin Dose 220 MG; Start 11/08/18 at 09:00 Diagnostic Test (Pha) (Accu-Chek) 1 ea AC MEALS AND BEDTIME XX Last administered on 11/12/18at 20:21; Admin Dose 1 EA; Start 11/07/18 at 17:30 Cefepime HCl 50 ml @ 100 mls/hr Q24H IVPB Last administered on 11/12/18 18:04; Admin Dose 100 MLS/HR; Start 11/08/18 at 16:00 Miscellaneous Information 1 ea NOTE XX ; Start 11/07/18 at 19:00 Glucose (Glutose) 15 gm Q15M PRN PO DECREASED GLUCOSE; Start 11/07/18 at 19:00 Glucose (Glutose) 22.5 gm Q15M PRN PO DECREASED GLUCOSE; Start 11/07/18 at 19:00 Dextrose (D50w Syringe) 25 ml Q15M PRN IV DECREASED GLUCOSE Last administered on 11/11/18 08:34; Admin Dose 25 ML; Start 11/07/18 at 19:00 Dextrose (D50w Syringe) 50 ml Q15M PRN IV DECREASED GLUCOSE; Start 11/07/18 at 19:00 Glucagon (Glucagen) 1 mg Q15M PRN IM DECREASED GLUCOSE; Start 11/07/18 at 19:00 Glucose (Glutose) 15 gm Q15M PRN BUCCAL DECREASED GLUCOSE; Start 11/07/18 at 19:00 Multivitamins/ Minerals (Theragran-M) 1 tab DAILY GTB Last administered on 11/13/18at 07:57; Admin Dose 1 TAB; Start 11/08/18 at 09:00 Heparin Sodium (Porcine) (Heparin (5000 Units/1ml)) 5,000 unit Q12 SC Last administered on 11/13/18 08:11; Admin Dose 5,000 UNIT; Start 11/08/18 at 09:00 Diagnostic Test (Pha) (Accu-Chek) 1 ea 02 XX Last administered on 11/10/18at 02:14; Admin Dose 1 EA; Start 11/09/18 at 02:00 Metolazone (Zaroxolyn) 5 mg DAILY@0600 PO Last administered on 11/09/18at 05:14; Admin Dose 5 MG; Start 11/08/18 at 08:30; Status Hold Aspirin (Aspirin) 81 mg DAILY NGT Last administered on 11/13/18 07:57; Admin Dose 81 MG; Start 11/08/18 at 13:30 Atorvastatin Calcium (Lipitor) 20 mg HS PO Last administered on 11/12/18 20:06; Admin Dose 20 MG; Start 11/08/18 at 21:00 Insulin Glargine (Lantus) 30 units QHS SC Last administered on 11/12/18 20:10; Admin Dose 30 UNITS; Start 11/09/18 at 21:00 Spironolactone (Aldactone) 50 mg DAILY NGT Last administered on 11/13/18 07:57; Admin Dose 50 MG; Start 11/11/18 at 09:00 Collagenase (Santyl) 1 applic BID TOP Last administered on 11/13/18 07:56; Admin Dose 1 APPLIC; Start 11/10/18 at 17:30 Levetiracetam (Keppra Liquid) 500 mg BID GTB Last administered on 11/13/18 07:56; Admin Dose 500 MG; Start 11/11/18 at 09:00 Acetazolamide (Diamox) 500 mg DAILY IV Last administered on 11/13/18 07:58; Admin Dose 500 MG; Start 11/12/18 at 11:30 Insulin Aspart (Novolog Insulin Pen) NOVOLOG *MILD* ALGORI... Q4 SC Last administered on 11/13/18 11:56; Admin Dose 1 UNIT; Start 11/12/18 at 21:00 RAMSEY VERDE NP Nov 13, 2018 14:39
[2018-11-13] MEDS: CEFEPIME 1GM/50 ML (PMX) 50 ML IVPB SCH (15:05)
--- NOTE | 2018-11-13 15:43 | CONS ---
Date/Time of Note Date/Time of Note DATE: 11/13/18 TIME: 15:41 Assessment/Plan Assessment/Plan Assessment/Plan Acute decompensated systolic and diastolic congestive heart failure Acute kidney injury Chronic respiratory failure, vent dependent Aortic stenosis Cardiomyopathy History of chronic kidney disease Encephalopathy Paroxysmal atrial fibrillation/flutter Pleural effusion status post thoracentesis -Heart rate trend remains stable, diuretics as per nephrology. Result Diagram: 11/13/18 0526 11/13/18 0526 Results 24hrs Laboratory Tests Test 11/12/18 17:11 11/12/18 20:03 11/13/18 01:19 11/13/18 05:00 Bedside Glucose 164 211 188 Blood Gas Specimen Blood arterial Source Arterial Blood 11/13/2018 5:10:49 Date Drawn AM Arterial Blood pH 7.494 H (Temp corrected) Arterial Blood 53.2 H pCO2 (Temp correct) Arterial Blood pO2 94.8 H (Temp corrected) Arterial Blood 40.0 H HCO3 Arterial Blood 14.7 H Base Excess Arterial Blood 97.1 Oxygen Saturation [place]svlado Test N/A Arterial Blood Gas Left Radial Puncture Site Arterial 1.1 Blood Carboxyhemog lobin Arterial Blood 0.2 Methemoglobin Blood Gas A-a O2 56.6 H Differential Oxyhemoglobin 95.8 Percent Blood Gas 37.0 Temperature Blood Gas 12.0 Respiration Rate Blood Gas Actual 16 Respiration Rate Blood Gas Modality VENT - AC FiO2 30.0 Blood Gas Tidal 500.0 Volume Blood Gas Low PEEP 5.0 Setting Blood Gas 31.0 Inspiratory Pressure Blood Gas Notified [facility] Blood Gas Notified 11/13/2018 5:30:59 Time AM Test 11/13/18 05:03 11/13/18 05:26 11/13/18 07:52 11/13/18 11:53 Bedside Glucose 139 138 151 White Blood Count 6.8 Red Blood Count 3.04 L Hemoglobin 9.1 L Hematocrit 31.8 L Mean Corpuscular 104.6 H Volume Mean Corpuscular 29.9 Hemoglobin Mean Corpuscular 28.6 L Hemoglobin Concent Red Cell 18.2 H Distribution Width Platelet Count 122 L Mean Platelet 12.8 H Volume Immature 0.400 Granulocytes % Neutrophils % 80.7 H Lymphocytes % 9.3 L Monocytes % 9.1 Eosinophils % 0.4 Basophils % 0.1 Nucleated Red 0.0 Blood Cells % Immature 0.030 Granulocytes # Neutrophils # 5.5 Lymphocytes # 0.6 L Monocytes # 0.6 Eosinophils # 0.0 Basophils # 0.0 Nucleated Red 0.0 Blood Cells # Sodium Level 147 H Potassium Level 3.1 L Chloride Level 96 L Carbon Dioxide 38 H Level Anion Gap 13 Blood Urea 135 H Nitrogen Creatinine 1.34 H Est Glomerular Filtrat Rate mL/min Glucose Level 136 # Calcium Level 7.8 L Phosphorus Level 3.4 Magnesium Level 2.7 H Consultation Date/Type/Reason Admit Date/Time Nov 07, 2018 at 16:07 Initial Consult Date Type of Consult cv 24 HR Interval Summary Free Text/Dictation Patient seen and examined Subjective hx not possible: pt non-verbal Exam/Review of Systems Vital Signs Vitals Vital Signs Date Temp Pulse Resp B/P (MAP) Pulse Ox O2 O2 Flow FiO2 Time Delivery Rate 11/13/18 98 16 100 30 13:15 11/13/18 96.5 96/56 (69) Mechanical 11:48 Ventilator Intake and Output 11/12/18 11/12/18 11/13/18 1515:00 23:00 07:00 IntakeIntake Total 1100 ml 790 ml OutputOutput Total 900 ml 700 ml BalanceBalance 200 ml 90 ml Exam No apparent distress, nurse at bedside Constitutional: non-verbal Head: normocephalic Respiratory: other (Coarse breath sounds bilaterally, no wheezing) Cardiovascular: regular rate and rhythm (With occasional irregularities), systolic murmur Gastrointestinal: soft, non-tender, bowel sounds Extremities: edema (Trace) Medications Medications Current Medications Acetaminophen (Tylenol Tab) 1,000 mg Q4H PRN PO MODERATE PAIN LEVEL 4-6; Start 11/07/18 at 16:30 Acetaminophen (Tylenol Tab) 650 mg Q4H PRN GTB MILD PAIN LEVEL 1-3; Start 11/07/18 at 16:30 Albuterol (Proventil 0.083% (Neb)) 2.5 mg Q6H RESP THERAPY PRN NEB WHEEZING AND SOB; Start 11/07/18 at 16:30 Ascorbic Acid (Vitamin C) 500 mg BID GTB Last administered on 11/13/18at 07:57; Admin Dose 500 MG; Start 11/07/18 at 21:00 Bisacodyl (Dulcolax Supp) 10 mg PRN PRN [place] CONSTIPATION; Start 11/07/18 at 16:30 Carbidopa/Levodopa (Sinemet (25/ 100)) 1 tab TID GTB Last administered on 11/13/18 11:49; Admin Dose 1 TAB; Start 11/07/18 at 21:00 Chlorhexidine Gluconate (Peridex) 15 ml Q12 MM Last administered on 11/13/18 07:56; Admin Dose 15 ML; Start 11/07/18 at 21:00 Docusate Sodium (Colace) 100 mg DAILY PO Last administered on 11/13/18 07:57; Admin Dose 100 MG; Start 11/08/18 at 09:00 Famotidine (Pepcid) 20 mg DAILY GTB Last administered on 11/13/18 07:57; Admin Dose 20 MG; Start 11/08/18 at 09:00 Hydralazine HCl (Apresoline) 20 mg Q6 PRN GTB ELEVATED BLOOD PRESSURE; Start 11/07/18 at 16:30 Linagliptin (Tradjenta) 5 mg DAILY GTB Last administered on 11/13/18 07:57; Admin Dose 5 MG; Start 11/08/18 at 09:00 Memantine (Namenda) 10 mg DAILY GTB Last administered on 11/13/18 07:57; Admin Dose 10 MG; Start 11/08/18 at 09:00 Metoprolol Tartrate (Lopressor) 25 mg BID GTB Last administered on 11/13/18 07:56; Admin Dose 25 MG; Start 11/07/18 at 21:00 Sodium Biphosphate/ Sodium Phosphate (Fleet Enema) 133 ml PRN PRN [place] CONSTIPATION; Start 11/07/18 at 16:30 Valproate Sodium (Depakene Liquid Cup) 125 mg QID GTB Last administered on 11/13/18 11:49; Admin Dose 125 MG; Start 11/07/18 at 17:00 Zinc Sulfate (Zinc Sulfate) 220 mg DAILY GTB Last administered on 11/13/18 07:58; Admin Dose 220 MG; Start 11/08/18 at 09:00 Diagnostic Test (Pha) (Accu-Chek) 1 ea AC MEALS AND BEDTIME XX Last administered on 11/12/18 20:21; Admin Dose 1 EA; Start 11/07/18 at 17:30 Cefepime HCl 50 ml @ 100 mls/hr Q24H IVPB Last administered on 11/13/18at 15:05; Admin Dose 100 MLS/HR; Start 11/08/18 at 16:00 Miscellaneous Information 1 ea NOTE XX ; Start 11/07/18 at 19:00 Glucose (Glutose) 15 gm Q15M PRN PO DECREASED GLUCOSE; Start 11/07/18 at 19:00 Glucose (Glutose) 22.5 gm Q15M PRN PO DECREASED GLUCOSE; Start 11/07/18 at 19:00 Dextrose (D50w Syringe) 25 ml Q15M PRN IV DECREASED GLUCOSE Last administered on 11/11/18at 08:34; Admin Dose 25 ML; Start 11/07/18 at 19:00 Dextrose (D50w Syringe) 50 ml Q15M PRN IV DECREASED GLUCOSE; Start 11/07/18 at 19:00 Glucagon (Glucagen) 1 mg Q15M PRN IM DECREASED GLUCOSE; Start 11/07/18 at 19:00 Glucose (Glutose) 15 gm Q15M PRN BUCCAL DECREASED GLUCOSE; Start 11/07/18 at 19:00 Multivitamins/ Minerals (Theragran-M) 1 tab DAILY GTB Last administered on 11/13/18 07:57; Admin Dose 1 TAB; Start 11/08/18 at 09:00 Heparin Sodium (Porcine) (Heparin (5000 Units/1ml)) 5,000 unit Q12 SC Last administered on 11/13/18 08:11; Admin Dose 5,000 UNIT; Start 11/08/18 at 09:00 Diagnostic Test (Pha) (Accu-Chek) 1 ea 02 XX Last administered on 11/10/18at 02:14; Admin Dose 1 EA; Start 11/09/18 at 02:00 Metolazone (Zaroxolyn) 5 mg DAILY@0600 PO Last administered on 11/09/18 05:14; Admin Dose 5 MG; Start 11/08/18 at 08:30; Status Hold Aspirin (Aspirin) 81 mg DAILY NGT Last administered on 11/13/18 07:57; Admin Dose 81 MG; Start 11/08/18 at 13:30 Atorvastatin Calcium (Lipitor) 20 mg HS PO Last administered on 11/12/18at 20:06; Admin Dose 20 MG; Start 11/08/18 at 21:00 Insulin Glargine (Lantus) 30 units QHS SC Last administered on 11/12/18 20:10; Admin Dose 30 UNITS; Start 11/09/18 at 21:00 Spironolactone (Aldactone) 50 mg DAILY NGT Last administered on 11/13/18 07:57; Admin Dose 50 MG; Start 11/11/18 at 09:00 Collagenase (Santyl) 1 applic BID TOP Last administered on 11/13/18 07:56; Admin Dose 1 APPLIC; Start 11/10/18 at 17:30 Levetiracetam (Keppra Liquid) 500 mg BID GTB Last administered on 11/13/18 07:56; Admin Dose 500 MG; Start 11/11/18 at 09:00 Acetazolamide (Diamox) 500 mg DAILY IV Last administered on 11/13/18 07:58; Admin Dose 500 MG; Start 11/12/18 at 11:30 Insulin Aspart (Novolog Insulin Pen) NOVOLOG *MILD* ALGORI... Q4 SC Last administered on 11/13/18 11:56; Admin Dose 1 UNIT; Start 11/12/18 at 21:00 Rudi Freeman DO Nov 13, 2018 15:43
[2018-11-13] MEDS: ATORVASTATIN 20 MG TAB PO SCH (21:07)
[2018-11-13] MEDS: INSULIN GLARGINE [LANTus] (100 UNITS/ML) SYG SC SCH (21:29)
[2018-11-14] VITALS (26 sets, daily range): BP systolic 79–104; BP diastolic 53–66; PULSE 87–100; RESP 12–20
[2018-11-14] MEDS: INSULIN ASPART [NOVOLOG] 3 ML PEN SC SCH ×6 (01:34→21:54)
[2018-11-14] MEDS: ACCU-CHEK XX SCH ×5 (01:34→21:54)
[2018-11-14] MEDS: ACETAZOLAMIDE 500 MG INJ IV SCH (07:58)
[2018-11-14] MEDS: CHLORHEXIDINE GLUCONATE 15 ML UD CUP MM SCH ×2 (07:58→21:22)
[2018-11-14] MEDS: ZINC SULFATE 220 MG CAP GTB SCH (07:58)
[2018-11-14] MEDS: VALPROIC ACID LIQUID CUP 250 MG/5 ML CUP GTB SCH ×4 (07:58→21:22)
[2018-11-14] MEDS: LEVETIRACETAM (100 MG/ML) 5ML CUP GTB SCH ×2 (07:58→21:21)
[2018-11-14] MEDS: ASCORBIC ACID 500 MG TAB GTB SCH ×2 (07:59→21:22)
[2018-11-14] MEDS: METOPROLOL 25 MG TAB GTB SCH ×2 (07:59→21:21)
[2018-11-14] MEDS: CARBIDOPA/LEVODOPA (25/100) TAB GTB SCH ×3 (07:59→21:20)
[2018-11-14] MEDS: FAMOTIDINE 20 MG TAB GTB SCH (07:59)
[2018-11-14] MEDS: MEMANTINE 10 MG TAB GTB SCH (07:59)
[2018-11-14] MEDS: MULTIVITAMINS/MINERALS TAB GTB SCH (07:59)
[2018-11-14] MEDS: LINAGLIPTIN 5 MG TABLET GTB SCH (08:00)
[2018-11-14] MEDS: ASPIRIN 81 MG TAB NGT SCH (08:00)
[2018-11-14] MEDS: SPIRONOLACTONE 50 MG TAB NGT SCH (08:00)
[2018-11-14] MEDS: DOCUSATE SODIUM 100 MG CAP PO SCH (08:00)
[2018-11-14] MEDS: COLLAGENASE 5 GM (UD JAR) TOP SCH ×2 (08:00→21:54)
[2018-11-14] MEDS: HEPARIN 5,000 UNIT/1 ML VIAL SC SCH ×2 (08:12→21:50)
[2018-11-14] MEDS ORDERED: POTASSIUM CHLORIDE 20 MEQ POWDER FOR ORAL SOLN GTB ONE (08:30)
--- NOTE | 2018-11-14 08:43 | PN ---
DATE: 11/14/2018 SUBJECTIVE: The patient remains stable. No events overnight. OBJECTIVE: VITAL SIGNS: Blood pressure is 104/59, respirations 20, pulse 99, temperature 98.4. HEENT: Head is normocephalic. NECK: Supple. HEART: Regular rate. LUNGS: Show diminished breath sounds at base. ABDOMEN: Soft, nontender to palpation without rebound or guarding. EXTREMITIES: Negative for clubbing, cyanosis, no edema. DERMATOLOGIC: No rashes. MUSCULOSKELETAL: No joint effusion. NEUROLOGIC: No change in exam. MEDICATIONS: Reviewed. LABORATORY DATA: Shows sodium 145, potassium 3.4, chloride 97, bicarbonate 37, BUN 132, creatinine 1 .34. White count 6.4, hemoglobin 8.3, platelet count is 124. ASSESSMENT AND PLAN: 1. Acute on chronic heart failure. The patient is clinically improving. Continue current diuretic regimen. 2. Nonoliguric acute kidney injury on top of chronic kidney disease, stage IV, with previous baselin e creatinine 0.8 mg/dL. The patient's creatinine is greatly overestimating the patient's true EGFR g iven his significant muscular atrophy and age. The patient's renal function has remained stable. At tempted to contact the patient's conservator about discussing the possibility of dialysis. Will cont inue to try. We will continue current medical management. Adjust diuretic therapy as needed. 3. Metabolic alkalemia. Continue Diamox. 4. Hypokalemia. Replete with potassium chloride. 5. Sepsis. Continue current antibiotic regimen. 6. Ventilator dependent respiratory failure. Vent settings and ABG was reviewed. Continue to monit or. 7. Bilateral pleural effusion, status post thoracentesis. 8. Anemia. Monitor hemoglobin and hematocrit levels. 9. Mineral bone disorder. Monitor calcium and phosphorus levels. 10. Dysphagia. Continue tube feeding. 11. Arrhythmia. Continue current treatment plan. 12. Diabetes. Continue current insulin regimen. 13. History of chronic encephalopathy. 14. Seizure disorder. Continue Keppra. 15. Aortic stenosis. Continue medical management. 16. Gastrointestinal and deep venous thrombosis prophylaxis. DISPOSITION: A Jon evaluation has been placed. Dictated By: ROB OSEI/NTS Conf#: [id number] DID#: [id number] CC: JASON GORDON DO;*EndCC*
[2018-11-14] MEDS ORDERED: ACETAZOLAMIDE 500 MG INJ IV SCH (09:00)
--- NOTE | 2018-11-14 11:24 | CONS ---
Date/Time of Note Date/Time of Note DATE: 11/14/18 TIME: 11:21 Assessment/Plan Assessment/Plan Assessment/Plan Ventilator setting; AC of 12, tidal volume 500, PEEP of 5, 30% FiO2. Assessment and recommendations; 1. Patient with history of VD RF and chronic encephalopathy admitted for sepsis due to UTI. Currently on appropriate antimicrobial regimen. 2. Other comorbidities include anemia, thrombocytopenia, chronic renal insufficiency, seizure disorder, diabetes, and severe aortic stenosis. 3. CHF. Continue current supportive care. Antibiotics per ID recommendations. Prognosis is poor. Result Diagram: 11/14/18 0447 11/14/18 0446 Results 24hrs Laboratory Tests Test 11/13/18 11:53 11/13/18 16:17 11/13/18 21:21 11/14/18 01:30 Bedside Glucose 151 177 202 180 Test 11/14/18 04:43 11/14/18 04:46 11/14/18 04:47 11/14/18 07:54 Bedside Glucose 173 118 Sodium Level 145 H Potassium Level 3.4 L Chloride Level 97 Carbon Dioxide Level 37 H Anion Gap 11 Blood Urea Nitrogen 132 H Creatinine 1.34 H Est Glomerular Filtrat Rate mL/min Glucose Level 150 Calcium Level 7.9 L Phosphorus Level 3.3 Magnesium Level 2.7 H White Blood Count 6.4 Red Blood Count 2.79 L Hemoglobin 8.3 L Hematocrit 29.5 L Mean Corpuscular Volume 105.7 H Mean Corpuscular 29.7 Hemoglobin Mean Corpuscular 28.1 L Hemoglobin Concent Red Cell Distribution 18.1 H Width Platelet Count 124 L Mean Platelet Volume 12.6 H Immature Granulocytes % 0.500 H Neutrophils % 79.0 H Lymphocytes % 10.3 L Monocytes % 9.7 Eosinophils % 0.3 Basophils % 0.2 Nucleated Red Blood 0.0 Cells % Immature Granulocytes # 0.030 Neutrophils # 5.1 Lymphocytes # 0.7 L Monocytes # 0.6 Eosinophils # 0.0 Basophils # 0.0 Nucleated Red Blood 0.0 Cells # Consultation Date/Type/Reason Admit Date/Time Nov 07, 2018 at 16:07 Initial Consult Date Type of Consult Pulmonary 24 HR Interval Summary Free Text/Dictation Patient's condition is stable overall. Due to chronic encephalopathy, patient remains noncommunicative. Patient however has remained hemodynamically stable. General exam; elderly male, on ventilator via tracheostomy, noncommunicative. Currently no distress. Exam/Review of Systems Vital Signs Vitals Vital Signs Date Temp Pulse Resp B/P (MAP) Pulse Ox O2 O2 Flow FiO2 Time Delivery Rate 11/14/18 100 09:49 11/14/18 98.7 20 95/53 (67) 100 Trach 07:30 Collar 11/14/18 30 07:00 Intake and Output 11/13/18 11/13/18 11/14/18 1515:00 23:00 07:00 IntakeIntake Total 1530 ml 1350 ml OutputOutput Total 700 ml 600 ml BalanceBalance 830 ml 750 ml Exam H EENT exam; supple neck, no JVD. No lymphadenopathy. Midline trachea. No thyromegaly. Tracheostomy placed. Patient has fair dentition. Chest exam; diminished but clear breath sounds. S1-S2 audible, no murmurs. Abdomen exam; soft, no organomegaly. G-tube in place. Bowel sounds audible. Extremity exam; no peripheral edema. MENTAL HYGIENIST exam; patient remains noncommunicative. Medications Medications Current Medications Acetaminophen (Tylenol Tab) 1,000 mg Q4H PRN PO MODERATE PAIN LEVEL 4-6; Start 11/07/18 at 16:30 Acetaminophen (Tylenol Tab) 650 mg Q4H PRN GTB MILD PAIN LEVEL 1-3; Start 11/07/18 at 16:30 Albuterol (Proventil 0.083% (Neb)) 2.5 mg Q6H RESP THERAPY PRN NEB WHEEZING AND SOB; Start 11/07/18 at 16:30 Ascorbic Acid (Vitamin C) 500 mg BID GTB Last administered on 11/14/18at 07:59; Admin Dose 500 MG; Start 11/07/18 at 21:00 Bisacodyl (Dulcolax Supp) 10 mg PRN PRN [place] CONSTIPATION; Start 11/07/18 at 16:30 Carbidopa/Levodopa (Sinemet (25/ 100)) 1 tab TID GTB Last administered on 11/14/18at 07:59; Admin Dose 1 TAB; Start 11/07/18 at 21:00 Chlorhexidine Gluconate (Peridex) 15 ml Q12 MM Last administered on 11/14/18at 07:58; Admin Dose 15 ML; Start 11/07/18 at 21:00 Docusate Sodium (Colace) 100 mg DAILY PO Last administered on 11/13/18 07:57; Admin Dose 100 MG; Start 11/08/18 at 09:00 Famotidine (Pepcid) 20 mg DAILY GTB Last administered on 11/14/18 07:59; Admin Dose 20 MG; Start 11/08/18 at 09:00 Hydralazine HCl (Apresoline) 20 mg Q6 PRN GTB ELEVATED BLOOD PRESSURE; Start 11/07/18 at 16:30 Linagliptin (Tradjenta) 5 mg DAILY GTB Last administered on 11/14/18 08:00; Admin Dose 5 MG; Start 11/08/18 at 09:00 Memantine (Namenda) 10 mg DAILY GTB Last administered on 11/14/18 07:59; Admin Dose 10 MG; Start 11/08/18 at 09:00 Metoprolol Tartrate (Lopressor) 25 mg BID GTB Last administered on 11/14/18 07:59; Admin Dose 25 MG; Start 11/07/18 at 21:00 Sodium Biphosphate/ Sodium Phosphate (Fleet Enema) 133 ml PRN PRN [place] CONSTIPATION; Start 11/07/18 at 16:30 Valproate Sodium (Depakene Liquid Cup) 125 mg QID GTB Last administered on 11/14/18 07:58; Admin Dose 125 MG; Start 11/07/18 at 17:00 Zinc Sulfate (Zinc Sulfate) 220 mg DAILY GTB Last administered on 11/14/18 07:58; Admin Dose 220 MG; Start 11/08/18 at 09:00 Diagnostic Test (Pha) (Accu-Chek) 1 ea AC MEALS AND BEDTIME XX Last administered on 11/13/18at 21:38; Admin Dose 1 EA; Start 11/07/18 at 17:30 Cefepime HCl 50 ml @ 100 mls/hr Q24H IVPB Last administered on 11/13/18at 15:05; Admin Dose 100 MLS/HR; Start 11/08/18 at 16:00 Miscellaneous Information 1 ea NOTE XX ; Start 11/07/18 at 19:00 Glucose (Glutose) 15 gm Q15M PRN PO DECREASED GLUCOSE; Start 11/07/18 at 19:00 Glucose (Glutose) 22.5 gm Q15M PRN PO DECREASED GLUCOSE; Start 11/07/18 at 19:00 Dextrose (D50w Syringe) 25 ml Q15M PRN IV DECREASED GLUCOSE Last administered on 11/11/18at 08:34; Admin Dose 25 ML; Start 11/07/18 at 19:00 Dextrose (D50w Syringe) 50 ml Q15M PRN IV DECREASED GLUCOSE; Start 11/07/18 at 19:00 Glucagon (Glucagen) 1 mg Q15M PRN IM DECREASED GLUCOSE; Start 11/07/18 at 19:00 Glucose (Glutose) 15 gm Q15M PRN BUCCAL DECREASED GLUCOSE; Start 11/07/18 at 19:00 Multivitamins/ Minerals (Theragran-M) 1 tab DAILY GTB Last administered on 11/14/18at 07:59; Admin Dose 1 TAB; Start 11/08/18 at 09:00 Heparin Sodium (Porcine) (Heparin (5000 Units/1ml)) 5,000 unit Q12 SC Last administered on 11/14/18 08:12; Admin Dose 5,000 UNIT; Start 11/08/18 at 09:00 Diagnostic Test (Pha) (Accu-Chek) 1 ea 02 XX Last administered on 11/10/18 02:14; Admin Dose 1 EA; Start 11/09/18 at 02:00 Metolazone (Zaroxolyn) 5 mg DAILY@0600 PO Last administered on 11/09/18 05:14; Admin Dose 5 MG; Start 11/08/18 at 08:30; Status Hold Aspirin (Aspirin) 81 mg DAILY NGT Last administered on 11/14/18 08:00; Admin Dose 81 MG; Start 11/08/18 at 13:30 Atorvastatin Calcium (Lipitor) 20 mg HS PO Last administered on 11/13/18 21:07; Admin Dose 20 MG; Start 11/08/18 at 21:00 Insulin Glargine (Lantus) 30 units QHS SC Last administered on 11/13/18 21:29; Admin Dose 30 UNITS; Start 11/09/18 at 21:00 Spironolactone (Aldactone) 50 mg DAILY NGT Last administered on 11/14/18 08:00; Admin Dose 50 MG; Start 11/11/18 at 09:00 Collagenase (Santyl) 1 applic BID TOP Last administered on 11/14/18at 08:00; Admin Dose 1 APPLIC; Start 11/10/18 at 17:30 Levetiracetam (Keppra Liquid) 500 mg BID GTB Last administered on 11/14/18at 07:58; Admin Dose 500 MG; Start 11/11/18 at 09:00 Insulin Aspart (Novolog Insulin Pen) NOVOLOG *MILD* ALGORI... Q4 SC Last administered on 11/14/18at 04:48; Admin Dose 1 UNIT; Start 11/12/18 at 21:00 Acetazolamide (Diamox) 500 mg BID IV ; Start 11/14/18 at 09:00 VAMSI LITTLEJOHN Nov 14, 2018 11:24
[2018-11-14] MEDS ORDERED: SOD CHLORIDE 0.9% 250 ML IV STA ×2 (11:52→12:56)
--- NOTE | 2018-11-14 13:29 | CONS ---
Date/Time of Note Date/Time of Note DATE: 11/14/18 TIME: 13:27 Assessment/Plan Assessment/Plan Assessment/Plan Acute decompensated systolic and diastolic congestive heart failure Acute kidney injury Chronic respiratory failure, vent dependent Aortic stenosis Cardiomyopathy History of chronic kidney disease Encephalopathy Paroxysmal atrial fibrillation/flutter Pleural effusion status post thoracentesis Hypotension -Patient with hypotension, fluid bolus was given improvement in blood pressure, would consider holding further diuretics at the current time. Follow blood pressure trend, no antihypertensives at the current time. Plan of care discussed with nurse Result Diagram: 11/14/18 0447 11/14/18 0446 Results 24hrs Laboratory Tests Test 11/13/18 16:17 11/13/18 21:21 11/14/18 01:30 11/14/18 04:43 Bedside Glucose 177 202 180 173 Test 11/14/18 04:46 11/14/18 04:47 11/14/18 07:54 11/14/18 11:30 Sodium Level 145 H Potassium Level 3.4 L Chloride Level 97 Carbon Dioxide Level 37 H Anion Gap 11 Blood Urea Nitrogen 132 H Creatinine 1.34 H Est Glomerular Filtrat Rate mL/min Glucose Level 150 Calcium Level 7.9 L Phosphorus Level 3.3 Magnesium Level 2.7 H White Blood Count 6.4 Red Blood Count 2.79 L Hemoglobin 8.3 L Hematocrit 29.5 L Mean Corpuscular Volume 105.7 H Mean Corpuscular 29.7 Hemoglobin Mean Corpuscular 28.1 L Hemoglobin Concent Red Cell Distribution 18.1 H Width Platelet Count 124 L Mean Platelet Volume 12.6 H Immature Granulocytes % 0.500 H Neutrophils % 79.0 H Lymphocytes % 10.3 L Monocytes % 9.7 Eosinophils % 0.3 Basophils % 0.2 Nucleated Red Blood 0.0 Cells % Immature Granulocytes # 0.030 Neutrophils # 5.1 Lymphocytes # 0.7 L Monocytes # 0.6 Eosinophils # 0.0 Basophils # 0.0 Nucleated Red Blood 0.0 Cells # Bedside Glucose 118 109 Consultation Date/Type/Reason Admit Date/Time Nov 07, 2018 at 16:07 Initial Consult Date Type of Consult cv 24 HR Interval Summary Free Text/Dictation Patient seen and examined. Patient with hypotension this morning while being evaluated by nurse and myself Exam/Review of Systems Vital Signs Vitals Vital Signs Date Temp Pulse Resp B/P (MAP) Pulse Ox O2 O2 Flow FiO2 Time Delivery Rate 11/14/18 87 12:57 11/14/18 89/54 (66) 12:54 11/14/18 97.6 20 100 Trach 12:00 Collar 11/14/18 30 07:00 Intake and Output 11/13/18 11/13/18 11/14/18 1515:00 23:00 07:00 IntakeIntake Total 1530 ml 1350 ml OutputOutput Total 700 ml 600 ml BalanceBalance 830 ml 750 ml Exam No apparent distress, nonverbal, nurse at bedside Head: normocephalic Neck: other (Tracheostomy) Respiratory: other (Coarse breath sounds bilaterally, no wheezing, decreased in the bases) Cardiovascular: regular rate and rhythm (Occasional irregularities), systolic murmur Gastrointestinal: soft, non-tender, bowel sounds Extremities: edema (Trace) Medications Medications Current Medications Acetaminophen (Tylenol Tab) 1,000 mg Q4H PRN PO MODERATE PAIN LEVEL 4-6; Start 11/07/18 at 16:30 Acetaminophen (Tylenol Tab) 650 mg Q4H PRN GTB MILD PAIN LEVEL 1-3; Start at 16:30 Albuterol (Proventil 0.083% (Neb)) 2.5 mg Q6H RESP THERAPY PRN NEB WHEEZING AND SOB; Start 11/07/18 at 16:30 Ascorbic Acid (Vitamin C) 500 mg BID GTB Last administered on 11/14/18at 07:59; Admin Dose 500 MG; Start 11/07/18 at 21:00 Bisacodyl (Dulcolax Supp) 10 mg PRN PRN [place] CONSTIPATION; Start 11/07/18 at 16:30 Carbidopa/Levodopa (Sinemet (25/ 100)) 1 tab TID GTB Last administered on 11/14/18at 12:00; Admin Dose 1 TAB; Start 11/07/18 at 21:00 Chlorhexidine Gluconate (Peridex) 15 ml Q12 MM Last administered on 11/14/18at 07:58; Admin Dose 15 ML; Start 11/07/18 at 21:00 Docusate Sodium (Colace) 100 mg DAILY PO Last administered on 11/13/18at 07:57; Admin Dose 100 MG; Start 11/08/18 at 09:00 Famotidine (Pepcid) 20 mg DAILY GTB Last administered on 11/14/18 07:59; Admin Dose 20 MG; Start 11/08/18 at 09:00 Hydralazine HCl (Apresoline) 20 mg Q6 PRN GTB ELEVATED BLOOD PRESSURE; Start at 16:30 Linagliptin (Tradjenta) 5 mg DAILY GTB Last administered on 11/14/18 08:00; Admin Dose 5 MG; Start 11/08/18 at 09:00 Memantine (Namenda) 10 mg DAILY GTB Last administered on 11/14/18 07:59; Admin Dose 10 MG; Start 11/08/18 at 09:00 Metoprolol Tartrate (Lopressor) 25 mg BID GTB Last administered on 11/14/18 07:59; Admin Dose 25 MG; Start 11/07/18 at 21:00 Sodium Biphosphate/ Sodium Phosphate (Fleet Enema) 133 ml PRN PRN [place] CONSTIPATION; Start 11/07/18 at 16:30 Valproate Sodium (Depakene Liquid Cup) 125 mg QID GTB Last administered on 11/14/18 12:00; Admin Dose 125 MG; Start 11/07/18 at 17:00 Zinc Sulfate (Zinc Sulfate) 220 mg DAILY GTB Last administered on 11/14/18 07:58; Admin Dose 220 MG; Start 11/08/18 at 09:00 Diagnostic Test (Pha) (Accu-Chek) 1 ea AC MEALS AND BEDTIME XX Last administered on 11/13/18 21:38; Admin Dose 1 EA; Start 11/07/18 at 17:30 Cefepime HCl 50 ml @ 100 mls/hr Q24H IVPB Last administered on 11/13/18at 15:05; Admin Dose 100 MLS/HR; Start 11/08/18 at 16:00 Miscellaneous Information 1 ea NOTE XX ; Start 11/07/18 at 19:00 Glucose (Glutose) 15 gm Q15M PRN PO DECREASED GLUCOSE; Start 11/07/18 at 19:00 Glucose (Glutose) 22.5 gm Q15M PRN PO DECREASED GLUCOSE; Start 11/07/18 at 19:00 Dextrose (D50w Syringe) 25 ml Q15M PRN IV DECREASED GLUCOSE Last administered on 11/11/18 08:34; Admin Dose 25 ML; Start 11/07/18 at 19:00 Dextrose (D50w Syringe) 50 ml Q15M PRN IV DECREASED GLUCOSE; Start 11/07/18 at 19:00 Glucagon (Glucagen) 1 mg Q15M PRN IM DECREASED GLUCOSE; Start 11/07/18 at 19:00 Glucose (Glutose) 15 gm Q15M PRN BUCCAL DECREASED GLUCOSE; Start 11/07/18 at 19:00 Multivitamins/ Minerals (Theragran-M) 1 tab DAILY GTB Last administered on 11/14/18 07:59; Admin Dose 1 TAB; Start 11/08/18 at 09:00 Heparin Sodium (Porcine) (Heparin (5000 Units/1ml)) 5,000 unit Q12 SC Last administered on 11/14/18 08:12; Admin Dose 5,000 UNIT; Start 11/08/18 at 09:00 Diagnostic Test (Pha) (Accu-Chek) 1 ea 02 XX Last administered on 11/10/18 02:14; Admin Dose 1 EA; Start 11/09/18 at 02:00 Metolazone (Zaroxolyn) 5 mg DAILY@0600 PO Last administered on 11/09/18 05:14; Admin Dose 5 MG; Start 11/08/18 at 08:30; Status Hold Aspirin (Aspirin) 81 mg DAILY NGT Last administered on 11/14/18 08:00; Admin Dose 81 MG; Start 11/08/18 at 13:30 Atorvastatin Calcium (Lipitor) 20 mg HS PO Last administered on 11/13/18 21:07; Admin Dose 20 MG; Start 11/08/18 at 21:00 Insulin Glargine (Lantus) 30 units QHS SC Last administered on 11/13/18 21:29; Admin Dose 30 UNITS; Start 11/09/18 at 21:00 Spironolactone (Aldactone) 50 mg DAILY NGT Last administered on 11/14/18 08:00; Admin Dose 50 MG; Start 11/11/18 at 09:00 Collagenase (Santyl) 1 applic BID TOP Last administered on 11/14/18 08:00; Admin Dose 1 APPLIC; Start 11/10/18 at 17:30 Levetiracetam (Keppra Liquid) 500 mg BID GTB Last administered on 11/14/18at 07:58; Admin Dose 500 MG; Start 11/11/18 at 09:00 Insulin Aspart (Novolog Insulin Pen) NOVOLOG *MILD* ALGORI... Q4 SC Last administered on 11/14/18at 04:48; Admin Dose 1 UNIT; Start 11/12/18 at 21:00 Acetazolamide (Diamox) 500 mg BID IV ; Start 11/14/18 at 09:00; Status Hold Sodium Chloride 250 ml @ 250 mls/hr Q1H STAT IV Last administered on 11/14/18at 13:09; Admin Dose 250 MLS/HR; Start 11/14/18 at 12:56; Stop 11/14/18 at 13:55 Rudi Freeman DO Nov 14, 2018 13:29
--- NOTE | 2018-11-14 15:02 | CONS ---
Date/Time of Note Date/Time of Note DATE: 11/14/18 TIME: 15:01 Assessment/Plan Assessment/Plan Hospital Course No acute changes overnight, looks comfortable, no fevers Microbiology: urine culture grew Proteus mirabilis Chest x-ray on admission revealed cardiomegaly with diffuse pulmonary edema and bilateral small pleural effusions. Chest ultrasound revealed large bilateral pleural effusions. Abdominal ultrasound revealed cholelithiasis without evidence for cholecystitis Allergy: Ciprofloxacin Antimicrobials: Cefepime Physical examination: Chronically ill-appearing elderly man who is noncommunicative in no distress. Head atraumatic normocephalic sclera nonicteric. Vehicle mucosa dry. Neck is supple chest rise symmetrical breath sounds diminished bases. Heart: S1-S2. Abdomen soft bowel sounds present extremities with bilateral edema. Skin: Patient has multiple pressure sores Assessment: 1. S/p sepsis secondary to UTI 2. Proteus mirabilis UTI 3. Acute on chronic kidney disease 4. Acute on chronic respiratory failure 5. Bilateral pleural effusions 6. ?Non-ST elevation [place] 7. Diabetes type 2 8. Parkinson's dementia 9. Aortic stenosis Plan: Remains stable, will dc antibiotics in am and observe Result Diagram: 11/14/187 11/14/18 0446 Results 24hrs Laboratory Tests Test 11/13/18 16:17 11/13/18 21:21 11/14/18 01:30 11/14/18 04:43 Bedside Glucose 177 202 180 173 Test 11/14/18 04:46 11/14/18 04:47 11/14/18 07:54 11/14/18 11:30 Sodium Level 145 H Potassium Level 3.4 L Chloride Level 97 Carbon Dioxide Level 37 H Anion Gap 11 Blood Urea Nitrogen 132 H Creatinine 1.34 H Est Glomerular Filtrat Rate mL/min Glucose Level 150 Calcium Level 7.9 L Phosphorus Level 3.3 Magnesium Level 2.7 H White Blood Count 6.4 Red Blood Count 2.79 L Hemoglobin 8.3 L Hematocrit 29.5 L Mean Corpuscular Volume 105.7 H Mean Corpuscular 29.7 Hemoglobin Mean Corpuscular 28.1 L Hemoglobin Concent Red Cell Distribution 18.1 H Width Platelet Count 124 L Mean Platelet Volume 12.6 H Immature Granulocytes % 0.500 H Neutrophils % 79.0 H Lymphocytes % 10.3 L Monocytes % 9.7 Eosinophils % 0.3 Basophils % 0.2 Nucleated Red Blood 0.0 Cells % Immature Granulocytes # 0.030 Neutrophils # 5.1 Lymphocytes # 0.7 L Monocytes # 0.6 Eosinophils # 0.0 Basophils # 0.0 Nucleated Red Blood 0.0 Cells # Bedside Glucose 118 109 Consultation Date/Type/Reason Admit Date/Time Nov 07, 2018 at 16:07 Initial Consult Date Type of Consult ID Exam/Review of Systems Vital Signs Vitals Vital Signs Date Temp Pulse Resp B/P (MAP) Pulse Ox O2 O2 Flow FiO2 Time Delivery Rate 11/14/18 100/63 14:17 (75) 11/14/18 87 12:57 11/14/18 97.6 20 100 Trach 12:00 Collar 11/14/18 30 07:00 Intake and Output 11/13/18 11/13/18 11/14/18 1515:00 23:00 07:00 IntakeIntake Total 1530 ml 1350 ml OutputOutput Total 700 ml 600 ml BalanceBalance 830 ml 750 ml Medications Medications Current Medications Acetaminophen (Tylenol Tab) 1,000 mg Q4H PRN PO MODERATE PAIN LEVEL 4-6; Start 11/07/18 at 16:30 Acetaminophen (Tylenol Tab) 650 mg Q4H PRN GTB MILD PAIN LEVEL 1-3; Start 11/07/18 at 16:30 Albuterol (Proventil 0.083% (Neb)) 2.5 mg Q6H RESP THERAPY PRN NEB WHEEZING AND SOB; Start 11/07/18 at 16:30 Ascorbic Acid (Vitamin C) 500 mg BID GTB Last administered on 11/14/18at 07:59; Admin Dose 500 MG; Start 11/07/18 at 21:00 Bisacodyl (Dulcolax Supp) 10 mg PRN PRN [place] CONSTIPATION; Start 11/07/18 at 16:30 Carbidopa/Levodopa (Sinemet (25/ 100)) 1 tab TID GTB Last administered on 11/14/18at 12:00; Admin Dose 1 TAB; Start 11/07/18 at 21:00 Chlorhexidine Gluconate (Peridex) 15 ml Q12 MM Last administered on 11/14/18at 07:58; Admin Dose 15 ML; Start 11/07/18 at 21:00 Docusate Sodium (Colace) 100 mg DAILY PO Last administered on 11/13/18 07:57; Admin Dose 100 MG; Start 11/08/18 at 09:00 Famotidine (Pepcid) 20 mg DAILY GTB Last administered on 11/14/18 07:59; Admin Dose 20 MG; Start 11/08/18 at 09:00 Hydralazine HCl (Apresoline) 20 mg Q6 PRN GTB ELEVATED BLOOD PRESSURE; Start 11/07/18 at 16:30 Linagliptin (Tradjenta) 5 mg DAILY GTB Last administered on 11/14/18 08:00; Admin Dose 5 MG; Start 11/08/18 at 09:00 Memantine (Namenda) 10 mg DAILY GTB Last administered on 11/14/18 07:59; Admin Dose 10 MG; Start 11/08/18 at 09:00 Metoprolol Tartrate (Lopressor) 25 mg BID GTB Last administered on 11/14/18 07:59; Admin Dose 25 MG; Start 11/07/18 at 21:00 Sodium Biphosphate/ Sodium Phosphate (Fleet Enema) 133 ml PRN PRN [place] CONSTIPATION; Start 11/07/18 at 16:30 Valproate Sodium (Depakene Liquid Cup) 125 mg QID GTB Last administered on 11/14/18 12:00; Admin Dose 125 MG; Start 11/07/18 at 17:00 Zinc Sulfate (Zinc Sulfate) 220 mg DAILY GTB Last administered on 11/14/18 07:58; Admin Dose 220 MG; Start 11/08/18 at 09:00 Diagnostic Test (Pha) (Accu-Chek) 1 ea AC MEALS AND BEDTIME XX Last administered on 11/13/18 21:38; Admin Dose 1 EA; Start 11/07/18 at 17:30 Cefepime HCl 50 ml @ 100 mls/hr Q24H IVPB Last administered on 11/13/18 15:05; Admin Dose 100 MLS/HR; Start 11/08/18 at 16:00 Miscellaneous Information 1 ea NOTE XX ; Start 11/07/18 at 19:00 Glucose (Glutose) 15 gm Q15M PRN PO DECREASED GLUCOSE; Start 11/07/18 at 19:00 Glucose (Glutose) 22.5 gm Q15M PRN PO DECREASED GLUCOSE; Start 11/07/18 at 19:00 Dextrose (D50w Syringe) 25 ml Q15M PRN IV DECREASED GLUCOSE Last administered on 11/11/18 08:34; Admin Dose 25 ML; Start 11/07/18 at 19:00 Dextrose (D50w Syringe) 50 ml Q15M PRN IV DECREASED GLUCOSE; Start 11/07/18 at 19:00 Glucagon (Glucagen) 1 mg Q15M PRN IM DECREASED GLUCOSE; Start 11/07/18 at 19:00 Glucose (Glutose) 15 gm Q15M PRN BUCCAL DECREASED GLUCOSE; Start 11/07/18 at 19:00 Multivitamins/ Minerals (Theragran-M) 1 tab DAILY GTB Last administered on 11/14/18 07:59; Admin Dose 1 TAB; Start 11/08/18 at 09:00 Heparin Sodium (Porcine) (Heparin (5000 Units/1ml)) 5,000 unit Q12 SC Last administered on 11/14/18 08:12; Admin Dose 5,000 UNIT; Start 11/08/18 at 09:00 Diagnostic Test (Pha) (Accu-Chek) 1 ea 02 XX Last administered on 11/10/18 02:14; Admin Dose 1 EA; Start 11/09/18 at 02:00 Metolazone (Zaroxolyn) 5 mg DAILY@0600 PO Last administered on 11/09/18 05:14; Admin Dose 5 MG; Start 11/08/18 at 08:30; Status Hold Aspirin (Aspirin) 81 mg DAILY NGT Last administered on 11/14/18 08:00; Admin Dose 81 MG; Start 11/08/18 at 13:30 Atorvastatin Calcium (Lipitor) 20 mg HS PO Last administered on 11/13/18 21:07; Admin Dose 20 MG; Start 11/08/18 at 21:00 Insulin Glargine (Lantus) 30 units QHS SC Last administered on 11/13/18 21:29; Admin Dose 30 UNITS; Start 11/09/18 at 21:00 Spironolactone (Aldactone) 50 mg DAILY NGT Last administered on 11/14/18 08:00; Admin Dose 50 MG; Start 11/11/18 at 09:00 Collagenase (Santyl) 1 applic BID TOP Last administered on 11/14/18 08:00; Admin Dose 1 APPLIC; Start 11/10/18 at 17:30 Levetiracetam (Keppra Liquid) 500 mg BID GTB Last administered on 11/14/18at 07:58; Admin Dose 500 MG; Start 11/11/18 at 09:00 Insulin Aspart (Novolog Insulin Pen) NOVOLOG *MILD* ALGORI... Q4 SC Last administered on 11/14/18at 04:48; Admin Dose 1 UNIT; Start 11/12/18 at 21:00 Acetazolamide (Diamox) 500 mg BID IV ; Start 11/14/18 at 09:00; Status Hold RAMSEY VERDE NP Nov 14, 2018 15:02
[2018-11-14] MEDS: CEFEPIME 1GM/50 ML (PMX) 50 ML IVPB SCH (15:29)
[2018-11-14] MEDS: ATORVASTATIN 20 MG TAB PO SCH (21:22)
[2018-11-14] MEDS: INSULIN GLARGINE [LANTus] (100 UNITS/ML) SYG SC SCH (21:50)
[2018-11-15] VITALS (22 sets, daily range): BP systolic 92–111; BP diastolic 54–61; PULSE 82–106; RESP 12–18
[2018-11-15] MEDS: INSULIN ASPART [NOVOLOG] 3 ML PEN SC SCH ×6 (01:57→21:00)
[2018-11-15] MEDS: ACCU-CHEK XX SCH ×5 (02:35→21:38)
--- NOTE | 2018-11-15 08:33 | PN ---
DATE: 11/15/2018 SUBJECTIVE: The patient yesterday was noted to be hypotensive requiring a fluid bolus. The patient' s diuretics were held. No other acute events noted overnight. No hemoptysis, hematemesis or hematoc hezia. OBJECTIVE: VITAL SIGNS: Blood pressure 94/61, respiration 18, pulse 102, temperature 97.8. HEENT: Head is normocephalic. NECK: Supple. HEART: Regular rate. LUNGS: Show diminished breath sounds at base. ABDOMEN: Soft, nontender to palpation without rebound or guarding. EXTREMITIES: Negative for clubbing, cyanosis. Trace edema. DERMATOLOGIC: No rashes. MUSCULOSKELETAL: No joint effusions. NEUROLOGIC: No change in exam. MEDICATIONS: The patient's medications have been reviewed. LABORATORY DATA: Shows white count 5.5, hemoglobin 7.9, platelet count is 100. Sodium 139, potassiu m 4.2, BUN 33, creatinine 1.38. ASSESSMENT AND PLAN: 1. Acute on chronic heart failure. The patient continues to be volume overloaded, unable to tolerat e diuretics due to hemodynamics. Will continue to monitor closely. Continue intermittent diuretic t herapy as tolerated. 2. Nonoliguric acute kidney injury on top of chronic kidney disease stage IV/V with previous baselin e creatinine 0.8 mg/dL. Etiology of acute kidney injury is likely secondary to cardiorenal syndrome. At this point, continue current medical management. Continue intermittent diuretic therapy if hemo dynamically stable. No immediate need for renal replacement therapy at this time. 3. Metabolic alkalemia. Continue intermittent Diamox. 4. Hypokalemia. Monitor and replete. 5. Sepsis. Patient is completing antibiotic course. 6. Hypertension. Etiology secondary to hemodynamics, possible recent diuretic use. At this point, will continue to hold diuretics, monitor closely. 7. Ventilator dependent respiratory failure. Vent settings and ABG was reviewed. Continue to monit or. 8. Bilateral pleural effusion secondary to CHF. The patient is status post thoracentesis. 9. Anemia. Monitor hemoglobin and hematocrit levels. 10. Mineral bone disorder, monitor calcium and phosphorus levels. 11. Dysphagia. Continue tube feeding. 12. Arrhythmia. Continue current treatment plan. 13. Diabetes. Continue current insulin regimen. 14. History of chronic encephalopathy. 15. Seizure disorder. Continue Keppra. 16. Aortic stenosis. Continue medical management. 17. GI and DVT prophylaxis. DISPOSITION: A Jon evaluation has been placed. Dictated By: ROB LEMUS DO NR/AROLDO Conf#: [id number] DID#: [id number] CC: JASON GORDON DO;*EndCC*
[2018-11-15] MEDS: METOPROLOL 25 MG TAB GTB SCH ×2 (09:00→21:00)
[2018-11-15] MEDS: DOCUSATE SODIUM 10 MG/ML (10ML CUP) PO SCH (09:00)
[2018-11-15] MEDS: VALPROIC ACID LIQUID CUP 250 MG/5 ML CUP GTB SCH ×4 (09:21→21:34)
[2018-11-15] MEDS: LEVETIRACETAM (100 MG/ML) 5ML CUP GTB SCH ×2 (09:21→21:34)
[2018-11-15] MEDS: MULTIVITAMINS/MINERALS TAB GTB SCH (09:22)
[2018-11-15] MEDS: ASCORBIC ACID 500 MG TAB GTB SCH ×2 (09:22→21:35)
[2018-11-15] MEDS: CARBIDOPA/LEVODOPA (25/100) TAB GTB SCH ×3 (09:22→21:34)
[2018-11-15] MEDS: FAMOTIDINE 20 MG TAB GTB SCH (09:22)
[2018-11-15] MEDS: LINAGLIPTIN 5 MG TABLET GTB SCH (09:23)
[2018-11-15] MEDS: ZINC SULFATE 220 MG CAP GTB SCH (09:23)
[2018-11-15] MEDS: SPIRONOLACTONE 50 MG TAB NGT SCH (09:23)
[2018-11-15] MEDS: CHLORHEXIDINE GLUCONATE 15 ML UD CUP MM SCH ×2 (09:23→21:35)
[2018-11-15] MEDS: ASPIRIN 81 MG TAB NGT SCH (09:23)
[2018-11-15] MEDS: MEMANTINE 10 MG TAB GTB SCH (09:23)
[2018-11-15] MEDS: COLLAGENASE 5 GM (UD JAR) TOP SCH ×2 (09:24→21:38)
[2018-11-15] MEDS: HEPARIN 5,000 UNIT/1 ML VIAL SC SCH (09:46)
--- NOTE | 2018-11-15 11:14 | CONS ---
Date/Time of Note Date/Time of Note DATE: 11/15/18 TIME: 11:12 Assessment/Plan Assessment/Plan Assessment/Plan Ventilator setting; AC of 12, tidal volume 500, PEEP of 5, 30% FiO2. Assessment and recommendations; 1. Patient with history of chronic encephalopathy and VDR F admitted for UTI and sepsis, clinically improved now off antibiotics. 2. Other comorbidities include stable seizure disorder, anemia, thrombocyto penia, diabetes, and aortic stenosis. Continue current supportive care. Consider discharge to rehab center. Prognosis is poor. Result Diagram: 11/15/18 0508 11/15/18 0508 Results 24hrs Laboratory Tests Test 11/14/18 11:30 11/14/18 16:28 11/14/18 21:25 11/15/18 01:51 Bedside Glucose 109 122 148 196 Test 11/15/18 05:08 11/15/18 06:04 11/15/18 09:19 White Blood Count 5.5 Red Blood Count 2.65 L Hemoglobin 7.9 L Hematocrit 28.2 L Mean Corpuscular Volume 106.4 H Mean Corpuscular 29.8 Hemoglobin Mean Corpuscular 28.0 L Hemoglobin Concent Red Cell Distribution 17.9 H Width Platelet Count 100 L Mean Platelet Volume 12.8 H Immature Granulocytes % 0.900 H Neutrophils % 79.7 H Lymphocytes % 9.5 L Monocytes % 9.2 Eosinophils % 0.7 Basophils % 0.0 Nucleated Red Blood 0.0 Cells % Immature Granulocytes # 0.050 H Neutrophils # 4.4 Lymphocytes # 0.5 L Monocytes # 0.5 Eosinophils # 0.0 Basophils # 0.0 Nucleated Red Blood 0.0 Cells # Sodium Level 139 Potassium Level 4.2 Chloride Level 93 L Carbon Dioxide Level 36 H Anion Gap 10 Blood Urea Nitrogen 133 H Creatinine 1.38 H Est Glomerular Filtrat Rate mL/min Glucose Level 179 Calcium Level 7.8 L Phosphorus Level 3.8 Magnesium Level 2.6 H Bedside Glucose 190 133 Consultation Date/Type/Reason Admit Date/Time Nov 07, 2018 at 16:07 Initial Consult Date Type of Consult Pulmonary 24 HR Interval Summary Free Text/Dictation Patient's condition is stable. Due to chronic encephalopathy, patient remains totally nonresponsive. Patient however has remained hemodynamically stable. General exam; elderly male, on ventilator via tracheostomy, noncommunicative. Currently in no distress. Exam/Review of Systems Vital Signs Vitals Vital Signs Date Temp Pulse Resp B/P (MAP) Pulse Ox O2 O2 Flow FiO2 Time Delivery Rate 11/15/18 107 16 100 30 10:47 11/15/18 97.8 94/61 (72) Mechanical 07:34 Ventilator Intake and Output 11/14/18 11/14/18 11/15/18 1515:00 23:00 07:00 IntakeIntake Total 500 ml 1530 ml OutputOutput Total 1050 ml BalanceBalance 500 ml 480 ml Exam H HEENT exam; supple neck, no JVD. No lymphadenopathy. Midline trachea. No thyromegaly. Tracheostomy in place. Patient has fair dentition. Chest exam; diminished but clear breath sounds. S1-S2 audible, no murmurs. Regular rhythm. Abdomen exam; soft, no organomegaly. G-tube in place. Bowel sounds audible. Extremity exam; no peripheral edema. BUSINESS ADMINISTRATOR exam; patient remains unresponsive. Medications Medications Current Medications Acetaminophen (Tylenol Tab) 1,000 mg Q4H PRN PO MODERATE PAIN LEVEL 4-6; Start 11/07/18 at 16:30 Acetaminophen (Tylenol Tab) 650 mg Q4H PRN GTB MILD PAIN LEVEL 1-3; Start 11/07/18 at 16:30 Albuterol (Proventil 0.083% (Neb)) 2.5 mg Q6H RESP THERAPY PRN NEB WHEEZING AND SOB; Start 11/07/18 at 16:30 Ascorbic Acid (Vitamin C) 500 mg BID GTB Last administered on 11/15/18at 09:22; Admin Dose 500 MG; Start 11/07/18 at 21:00 Bisacodyl (Dulcolax Supp) 10 mg PRN PRN IN CONSTIPATION; Start 11/07/18 at 16:30 Carbidopa/Levodopa (Sinemet (25/ 100)) 1 tab TID GTB Last administered on 11/15/18at 09:22; Admin Dose 1 TAB; Start 11/07/18 at 21:00 Chlorhexidine Gluconate (Peridex) 15 ml Q12 MM Last administered on 11/15/18at 09:23; Admin Dose 15 ML; Start 11/07/18 at 21:00 Famotidine (Pepcid) 20 mg DAILY GTB Last administered on 11/15/18at 09:22; Admin Dose 20 MG; Start 11/08/18 at 09:00 Hydralazine HCl (Apresoline) 20 mg Q6 PRN GTB ELEVATED BLOOD PRESSURE; Start 11/07/18 at 16:30 Linagliptin (Tradjenta) 5 mg DAILY GTB Last administered on 11/15/18 09:23; Admin Dose 5 MG; Start 11/08/18 at 09:00 Memantine (Namenda) 10 mg DAILY GTB Last administered on 11/15/18 09:23; Admin Dose 10 MG; Start 11/08/18 at 09:00 Metoprolol Tartrate (Lopressor) 25 mg BID GTB Last administered on 11/14/18 21:21; Admin Dose 25 MG; Start 11/07/18 at 21:00 Sodium Biphosphate/ Sodium Phosphate (Fleet Enema) 133 ml PRN PRN IN CONSTIPATION; Start 11/07/18 at 16:30 Valproate Sodium (Depakene Liquid Cup) 125 mg QID GTB Last administered on 11/15/18 09:21; Admin Dose 125 MG; Start 11/07/18 at 17:00 Zinc Sulfate (Zinc Sulfate) 220 mg DAILY GTB Last administered on 11/15/18 09:23; Admin Dose 220 MG; Start 11/08/18 at 09:00 Diagnostic Test (Pha) (Accu-Chek) 1 ea AC MEALS AND BEDTIME XX Last administer ed on 11/15/18at 06:30; Admin Dose 1 EA; Start 11/07/18 at 17:30 Miscellaneous Information 1 ea NOTE XX ; Start 11/07/18 at 19:00 Glucose (Glutose) 15 gm Q15M PRN PO DECREASED GLUCOSE; Start 11/07/18 at 19:00 Glucose (Glutose) 22.5 gm Q15M PRN PO DECREASED GLUCOSE; Start 11/07/18 at 19:00 Dextrose (D50w Syringe) 25 ml Q15M PRN IV DECREASED GLUCOSE Last administered on 11/11/18at 08:34; Admin Dose 25 ML; Start 11/07/18 at 19:00 Dextrose (D50w Syringe) 50 ml Q15M PRN IV DECREASED GLUCOSE; Start 11/07/18 at 19:00 Glucagon (Glucagen) 1 mg Q15M PRN IM DECREASED GLUCOSE; Start 11/07/18 at 19:00 Glucose (Glutose) 15 gm Q15M PRN BUCCAL DECREASED GLUCOSE; Start 11/07/18 at 19:00 Multivitamins/ Minerals (Theragran-M) 1 tab DAILY GTB Last administered on 11/15/18 09:22; Admin Dose 1 TAB; Start 11/08/18 at 09:00 Heparin Sodium (Porcine) (Heparin (5000 Units/1ml)) 5,000 unit Q12 SC Last administered on 11/15/18 09:46; Admin Dose 5,000 UNIT; Start 11/08/18 at 09:00 Diagnostic Test (Pha) (Accu-Chek) 1 ea 02 XX Last administered on 11/15/18 02:35; Admin Dose 1 EA; Start 11/09/18 at 02:00 Metolazone (Zaroxolyn) 5 mg DAILY@0600 PO Last administered on 11/09/18 05:14; Admin Dose 5 MG; Start 11/08/18 at 08:30; Status Hold Aspirin (Aspirin) 81 mg DAILY NGT Last administered on 11/15/18 09:23; Admin Dose 81 MG; Start 11/08/18 at 13:30 Atorvastatin Calcium (Lipitor) 20 mg HS PO Last administered on 11/14/18 21:22; Admin Dose 20 MG; Start 11/08/18 at 21:00 Insulin Glargine (Lantus) 30 units QHS SC Last administered on 11/14/18 21:50; Admin Dose 30 UNITS; Start 11/09/18 at 21:00 Spironolactone (Aldactone) 50 mg DAILY NGT Last administered on 11/15/18 09:23; Admin Dose 50 MG; Start 11/11/18 at 09:00 Collagenase (Santyl) 1 applic BID TOP Last administered on 11/15/18 09:24; Admin Dose 1 APPLIC; Start 11/10/18 at 17:30 Levetiracetam (Keppra Liquid) 500 mg BID GTB Last administered on 11/15/18 09:21; Admin Dose 500 MG; Start 11/11/18 at 09:00 Insulin Aspart (Novolog Insulin Pen) NOVOLOG *MILD* ALGORI... Q4 SC Last administered on 11/15/18 06:29; Admin Dose 2 UNIT; Start 11/12/18 at 21:00 Acetazolamide (Diamox) 500 mg BID IV ; Start 11/14/18 at 09:00; Status Hold Docusate Sodium (Colace Liquid Cup) 100 mg DAILY PO ; Start 11/15/18 at 09:00 VAMSI LITTLEJOHN Nov 15, 2018 11:14
[2018-11-15] MEDS ORDERED: SOD CHLORIDE 0.9% IVPB ONE (11:30)
[2018-11-15] MEDS ORDERED: DESMOPRESSIN IVPB ONE (11:30)
--- NOTE | 2018-11-15 12:18 | CONS ---
DATE OF ADMISSION: 11/07/2018 DATE OF CONSULTATION: TYPE OF CONSULTATION: Gastrointestinal. HISTORY OF PRESENT ILLNESS: An 83-year-old male with a history of chronic encephalopathy, vent depen dent respiratory failure, diabetes mellitus, Parkinson disease, moderate to severe aortic stenosis, d epression, was admitted through the Emergency Room for possible UTI and renal failure. The patient h as been treated with a combination of diuretic fluid, antibiotic. GI consult was called in because t he patient this morning was found to have black colored material coming out through the G-tube and al so he had a melenic stool. The patient is not in a position to give history. All this information a cquired from the staff nurse. PAST MEDICAL HISTORY: Acute and chronic congestive heart failure, kidney injury, vent dependent resp iratory failure, hypertension, dysphagia status post G-tube, diabetes mellitus, Parkinson disease, se izure disorder, dementia, atrial fibrillation, but currently in sinus rhythm. SOCIAL HISTORY: Living at [facility] facility. Does not smoke or drink. FAMILY HISTORY: Nothing contributory. ALLERGIES: Please review the chart for allergies. PHYSICAL EXAMINATION GENERAL: Well-built, nourished, not in distress. VITAL SIGNS: Stable. HEENT: Unremarkable. NECK: Supple, no thyromegaly, no lymphadenopathy. CARDIOVASCULAR: No murmur, gallop. LUNGS: Adequate air entry. No wheeze. ABDOMEN: Benign. G-tube aspirate. I looked at it was black and greenish in color. Abdomen was oth erwise benign. EXTREMITIES: No edema. CENTRAL NERVOUS SYSTEM: The patient was seen encephalopathic. LABORATORY DATA: Patient's BUN was 132, creatinine was 1.34. His hematocrit is 28, dropped down fro m 31. His platelet count is around 100. INR is 1.5, upper limit of normal. IMPRESSION: 1. Upper gastrointestinal bleeding. 2. Congestive heart failure, stable. 3. Moderate to severe aortic stenosis with ejection fraction of 45%. 4. Diabetes mellitus. 5. Anemia. 6. Vent dependent respiratory failure. 7. Encephalopathy. 8. History of atrial fibrillation, now in normal sinus rhythm. 9. Parkinson disease. 10. Renal failure. PLAN: Start the patient on Protonix. Will hold off on feeding and connect the G-tube to intermitten t suction. Patient is DNR. If family agrees, will proceed with the EGD. In the interim, we will mo mauro Sanchez Dictated By: ABBI BENNETT/AROLDO Conf#: [id number] DID#: [id number] CC: ROB LEMUS DO;*EndCC*
[2018-11-15] MEDS: PANTOPRAZOLE 40 MG INJ IV SCH ×2 (12:21→17:12)
[2018-11-15] MEDS ORDERED: DESMOPRESSIN 21 MCG in SOD CHLORIDE 0.9% 50 ML IVPB ONE (12:30)
--- NOTE | 2018-11-15 13:28 | CONS ---
Date/Time of Note Date/Time of Note DATE: 11/15/18 TIME: 13:26 Assessment/Plan Assessment/Plan Assessment/Plan Acute decompensated systolic and diastolic congestive heart failure Acute kidney injury Chronic respiratory failure, vent dependent Aortic stenosis Cardiomyopathy History of chronic kidney disease Encephalopathy Paroxysmal atrial fibrillation/flutter Pleural effusion status post thoracentesis Hypotension -Patient with hypotension, fluid bolus was given improvement in blood pressure, diuretics have been decreased being adjusted as per nephrology. Follow blood pressure trend, no antihypertensives at the current time. Holding parameters on beta-paolo Result Diagram: 11/15/18 0508 11/15/18 0508 Results 24hrs Laboratory Tests Test 11/14/18 16:28 11/14/18 21:25 11/15/18 01:51 11/15/18 05:08 Bedside Glucose 122 148 196 White Blood Count 5.5 Red Blood Count 2.65 L Hemoglobin 7.9 L Hematocrit 28.2 L Mean Corpuscular Volume 106.4 H Mean Corpuscular 29.8 Hemoglobin Mean Corpuscular 28.0 L Hemoglobin Concent Red Cell Distribution 17.9 H Width Platelet Count 100 L Mean Platelet Volume 12.8 H Immature Granulocytes % 0.900 H Neutrophils % 79.7 H Lymphocytes % 9.5 L Monocytes % 9.2 Eosinophils % 0.7 Basophils % 0.0 Nucleated Red Blood 0.0 Cells % Immature Granulocytes # 0.050 H Neutrophils # 4.4 Lymphocytes # 0.5 L Monocytes # 0.5 Eosinophils # 0.0 Basophils # 0.0 Nucleated Red Blood 0.0 Cells # Sodium Level 139 Potassium Level 4.2 Chloride Level 93 L Carbon Dioxide Level 36 H Anion Gap 10 Blood Urea Nitrogen 133 H Creatinine 1.38 H Est Glomerular Filtrat Rate mL/min Glucose Level 179 Calcium Level 7.8 L Phosphorus Level 3.8 Magnesium Level 2.6 H Test 11/15/18 06:04 11/15/18 09:19 11/15/18 12:40 Bedside Glucose 190 133 127 Consultation Date/Type/Reason Admit Date/Time Nov 07, 2018 at 16:07 Initial Consult Date Type of Consult cv 24 HR Interval Summary Free Text/Dictation Patient seen and examined Exam/Review of Systems Vital Signs Vitals Vital Signs Date Temp Pulse Resp B/P (MAP) Pulse Ox O2 O2 Flow FiO2 Time Delivery Rate 11/15/18 98 12:32 11/15/18 97.4 18 92/57 (69) 98 Mechanical 11:25 Ventilator 11/15/18 30 10:47 Intake and Output 11/14/18 11/14/18 11/15/18 1515:00 23:00 07:00 IntakeIntake Total 500 ml 1530 ml OutputOutput Total 1050 ml BalanceBalance 500 ml 480 ml Exam No apparent distress Constitutional: non-verbal, frail Head: normocephalic Respiratory: other (Coarse breath sounds bilaterally, no wheezing) Cardiovascular: regular rate and rhythm (Occasional irregularities), systolic murmur Gastrointestinal: soft, non-tender, bowel sounds Extremities: edema Medications Medications Current Medications Acetaminophen (Tylenol Tab) 1,000 mg Q4H PRN PO MODERATE PAIN LEVEL 4-6; Start 11/07/18 at 16:30 Acetaminophen (Tylenol Tab) 650 mg Q4H PRN GTB MILD PAIN LEVEL 1-3; Start 11/07/18 at 16:30 Albuterol (Proventil 0.083% (Neb)) 2.5 mg Q6H RESP THERAPY PRN NEB WHEEZING AND SOB; Start 11/07/18 at 16:30 Ascorbic Acid (Vitamin C) 500 mg BID GTB Last administered on 11/15/18at 09:22; Admin Dose 500 MG; Start 11/07/18 at 21:00 Bisacodyl (Dulcolax Supp) 10 mg PRN PRN DE CONSTIPATION; Start 11/07/18 at 16:30 Carbidopa/Levodopa (Sinemet (25/ 100)) 1 tab TID GTB Last administered on 11/15/18at 12:22; Admin Dose 1 TAB; Start 11/07/18 at 21:00 Chlorhexidine Gluconate (Peridex) 15 ml Q12 MM Last administered on 11/15/18at 09:23; Admin Dose 15 ML; Start 11/07/18 at 21:00 Famotidine (Pepcid) 20 mg DAILY GTB Last administered on 11/15/18at 09:22; Admin Dose 20 MG; Start 11/08/18 at 09:00 Hydralazine HCl (Apresoline) 20 mg Q6 PRN GTB ELEVATED BLOOD PRESSURE; Start 11/07/18 at 16:30 Linagliptin (Tradjenta) 5 mg DAILY GTB Last administered on 1/9/19at 09:23; Admin Dose 5 MG; Start 11/08/18 at 09:00 Memantine (Namenda) 10 mg DAILY GTB Last administered on 11/15/18 09:23; Admin Dose 10 MG; Start 11/08/18 at 09:00 Metoprolol Tartrate (Lopressor) 25 mg BID GTB Last administered on 11/14/18 21:21; Admin Dose 25 MG; Start 11/07/18 at 21:00 Sodium Biphosphate/ Sodium Phosphate (Fleet Enema) 133 ml PRN PRN DE CONSTIPATION; Start 11/07/18 at 16:30 Valproate Sodium (Depakene Liquid Cup) 125 mg QID GTB Last administered on 11/15/18 12:22; Admin Dose 125 MG; Start 11/07/18 at 17:00 Zinc Sulfate (Zinc Sulfate) 220 mg DAILY GTB Last administered on 11/15/18 09:23; Admin Dose 220 MG; Start 11/08/18 at 09:00 Diagnostic Test (Pha) (Accu-Chek) 1 ea AC MEALS AND BEDTIME XX Last administered on 11/15/18at 06:30; Admin Dose 1 EA; Start 11/07/18 at 17:30 Miscellaneous Information 1 ea NOTE XX ; Start 11/07/18 at 19:00 Glucose (Glutose) 15 gm Q15M PRN PO DECREASED GLUCOSE; Start 11/07/18 at 19:00 Glucose (Glutose) 22.5 gm Q15M PRN PO DECREASED GLUCOSE; Start 11/07/18 at 19:00 Dextrose (D50w Syringe) 25 ml Q15M PRN IV DECREASED GLUCOSE Last administered on 11/11/18 08:34; Admin Dose 25 ML; Start 11/07/18 at 19:00 Dextrose (D50w Syringe) 50 ml Q15M PRN IV DECREASED GLUCOSE; Start 11/07/18 at 19:00 Glucagon (Glucagen) 1 mg Q15M PRN IM DECREASED GLUCOSE; Start 11/07/18 at 19:00 Glucose (Glutose) 15 gm Q15M PRN BUCCAL DECREASED GLUCOSE; Start 11/07/18 at 19 :00 Multivitamins/ Minerals (Theragran-M) 1 tab DAILY GTB Last administered on 11/15/18 09:22; Admin Dose 1 TAB; Start 11/08/18 at 09:00 Diagnostic Test (Pha) (Accu-Chek) 1 ea 02 XX Last administered on 11/15/18 02:35; Admin Dose 1 EA; Start 11/09/18 at 02:00 Metolazone (Zaroxolyn) 5 mg DAILY@0600 PO Last administered on 11/09/18 05:14; Admin Dose 5 MG; Start 11/08/18 at 08:30; Status Hold Aspirin (Aspirin) 81 mg DAILY NGT Last administered on 11/15/18 09:23; Admin Dose 81 MG; Start 11/08/18 at 13:30 Atorvastatin Calcium (Lipitor) 20 mg HS PO Last administered on 11/14/18 21:22; Admin Dose 20 MG; Start 11/08/18 at 21:00 Insulin Glargine (Lantus) 30 units QHS SC Last administered on 11/14/18 21:50; Admin Dose 30 UNITS; Start 11/09/18 at 21:00 Spironolactone (Aldactone) 50 mg DAILY NGT Last administered on 11/15/18 09:23; Admin Dose 50 MG; Start 11/11/18 at 09:00 Collagenase (Santyl) 1 applic BID TOP Last administered on 11/15/18 09:24; Admin Dose 1 APPLIC; Start 11/10/18 at 17:30 Levetiracetam (Keppra Liquid) 500 mg BID GTB Last administered on 11/15/18 09:21; Admin Dose 500 MG; Start 11/11/18 at 09:00 Insulin Aspart (Novolog Insulin Pen) NOVOLOG *MILD* ALGORI... Q4 SC Last admini stered on 11/15/18 06:29; Admin Dose 2 UNIT; Start 11/12/18 at 21:00 Acetazolamide (Diamox) 500 mg BID IV ; Start 11/14/18 at 09:00; Status Hold Docusate Sodium (Colace Liquid Cup) 100 mg DAILY PO ; Start 11/15/18 at 09:00 Pantoprazole (Protonix Iv) 40 mg BID@06,18 IV Last administered on 11/15/18 12 :21; Admin Dose 40 MG; Start 11/15/18 at 11:30 Rudi Freeman DO Nov 15, 2018 13:28
--- NOTE | 2018-11-15 14:40 | CONS ---
Date/Time of Note Date/Time of Note DATE: 11/15/18 TIME: 14:39 Assessment/Plan Assessment/Plan Hospital Course No acute changes overnight, looks comfortable, no fevers Chest x-ray on admission revealed cardiomegaly with diffuse pulmonary edema and bilateral small pleural effusions. Chest ultrasound revealed large bilateral pleural effusions. Abdominal ultrasound revealed cholelithiasis without evidence for cholecystitis Allergy: Ciprofloxacin Antimicrobials: Cefepime Physical examination: Chronically ill-appearing elderly man who is noncommunicative in no distress. Head atraumatic normocephalic sclera nonic teric. Vehicle mucosa dry. Neck is supple chest rise symmetrical breath sounds diminished bases. Heart: S1-S2. Abdomen soft bowel sounds present extremities with bilateral edema. Skin: Patient has multiple pressure sores Assessment: 1. S/p sepsis secondary to UTI 2. Proteus mirabilis UTI 3. Acute on chronic kidney disease 4. Acute on chronic respiratory failure 5. Bilateral pleural effusions 6. ?Non-ST elevation GA 7. Diabetes type 2 8. Parkinson's dementia 9. Aortic stenosis Plan: Remains stable, antibiotics dc'd, continue present care Result Diagram: 11/15/18 1406 11/15/18 0508 Results 24hrs Laboratory Tests Test 11/14/18 16:28 11/14/18 21:25 11/15/18 01:51 11/15/18 05:08 Bedside Glucose 122 148 196 White Blood Count 5.5 Red Blood Count 2.65 L Hemoglobin 7.9 L Hematocrit 28.2 L Mean Corpuscular Volume 106.4 H Mean Corpuscular 29.8 Hemoglobin Mean Corpuscular 28.0 L Hemoglobin Concent Red Cell Distribution 17.9 H Width Platelet Count 100 L Mean Platelet Volume 12.8 H Immature Granulocytes % 0.900 H Neutrophils % 79.7 H Lymphocytes % 9.5 L Monocytes % 9.2 Eosinophils % 0.7 Basophils % 0.0 Nucleated Red Blood 0.0 Cells % Immature Granulocytes # 0.050 H Neutrophils # 4.4 Lymphocytes # 0.5 L Monocytes # 0.5 Eosinophils # 0.0 Basophils # 0.0 Nucleated Red Blood 0.0 Cells # Sodium Level 139 Potassium Level 4.2 Chloride Level 93 L Carbon Dioxide Level 36 H Anion Gap 10 Blood Urea Nitrogen 133 H Creatinine 1.38 H Est Glomerular Filtrat Rate mL/min Glucose Level 179 Calcium Level 7.8 L Phosphorus Level 3.8 Magnesium Level 2.6 H Test 11/15/18 06:04 11/15/18 09:19 11/15/18 12:40 11/15/18 14:06 Bedside Glucose 190 133 127 White Blood Count 5.4 Red Blood Count 2.48 L Hemoglobin 7.4 L Hematocrit 25.7 L Mean Corpuscular Volume 103.6 H Mean Corpuscular 29.8 Hemoglobin Mean Corpuscular 28.8 L Hemoglobin Concent Red Cell Distribution 17.9 H Width Platelet Count 129 #L Mean Platelet Volume 12.6 H Immature Granulocytes % 0.600 H Neutrophils % 76.1 Lymphocytes % 12.4 L Monocytes % 10.9 Eosinophils % 0.0 Basophils % 0.0 Nucleated Red Blood 0.0 Cells % Immature Granulocytes # 0.030 Neutrophils # 4.1 Lymphocytes # 0.7 L Monocytes # 0.6 Eosinophils # 0.0 Basophils # 0.0 Nucleated Red Blood 0.0 Cells # Consultation Date/Type/Reason Admit Date/Time Nov 07, 2018 at 16:07 Initial Consult Date Type of Consult ID Exam/Review of Systems Vital Signs Vitals Vital Signs Date Temp Pulse Resp B/P (MAP) Pulse Ox O2 O2 Flow FiO2 Time Delivery Rate 11/15/18 92 12 100 30 13:22 11/15/18 97.4 92/57 (69) Mechanical 11:25 Ventilator Intake and Output 11/14/18 11/14/18 11/15/18 1515:00 23:00 07:00 IntakeIntake Total 500 ml 1530 ml OutputOutput Total 1050 ml BalanceBalance 500 ml 480 ml Medications Medications Current Medications Acetaminophen (Tylenol Tab) 1,000 mg Q4H PRN PO MODERATE PAIN LEVEL 4-6; Start 11/07/18 at 16:30 Acetaminophen (Tylenol Tab) 650 mg Q4H PRN GTB MILD PAIN LEVEL 1-3; Start 11/07/18 at 16:30 Albuterol (Proventil 0.083% (Neb)) 2.5 mg Q6H RESP THERAPY PRN NEB WHEEZING AND SOB; Start 11/07/18 at 16:30 Ascorbic Acid (Vitamin C) 500 mg BID GTB Last administered on 11/15/18at 09:22; Admin Dose 500 MG; Start 11/07/18 at 21:00 Bisacodyl (Dulcolax Supp) 10 mg PRN PRN [place] CONSTIPATION; Start 11/07/18 at 16:30 Carbidopa/Levodopa (Sinemet (25/ 100)) 1 tab TID GTB Last administered on 11/15/18 12:22; Admin Dose 1 TAB; Start 11/07/18 at 21:00 Chlorhexidine Gluconate (Peridex) 15 ml Q12 MM Last administered on 11/15/18 09:23; Admin Dose 15 ML; Start 11/07/18 at 21:00 Famotidine (Pepcid) 20 mg DAILY GTB Last administered on 11/15/18 09:22; Admin Dose 20 MG; Start 11/08/18 at 09:00 Hydralazine HCl (Apresoline) 20 mg Q6 PRN GTB ELEVATED BLOOD PRESSURE; Start 11/07/18 at 16:30 Linagliptin (Tradjenta) 5 mg DAILY GTB Last administered on 11/15/18 09:23; Admin Dose 5 MG; Start 11/08/18 at 09:00 Memantine (Namenda) 10 mg DAILY GTB Last administered on 11/15/18 09:23; Admin Dose 10 MG; Start 11/08/18 at 09:00 Metoprolol Tartrate (Lopressor) 25 mg BID GTB Last administered on 11/14/18 21:21; Admin Dose 25 MG; Start 11/07/18 at 21:00 Sodium Biphosphate/ Sodium Phosphate (Fleet Enema) 133 ml PRN PRN [place] CONSTIPATION; Start 11/07/18 at 16:30 Valproate Sodium (Depakene Liquid Cup) 125 mg QID GTB Last administered on 11/15/18 12:22; Admin Dose 125 MG; Start 11/07/18 at 17:00 Zinc Sulfate (Zinc Sulfate) 220 mg DAILY GTB Last administered on 11/15/18 09:23; Admin Dose 220 MG; Start 11/08/18 at 09:00 Diagnostic Test (Pha) (Accu-Chek) 1 ea AC MEALS AND BEDTIME XX Last administered on 11/15/18 06:30; Admin Dose 1 EA; Start 11/07/18 at 17:30 Miscellaneous Information 1 ea NOTE XX ; Start 11/07/18 at 19:00 Glucose (Glutose) 15 gm Q15M PRN PO DECREASED GLUCOSE; Start 11/07/18 at 19:00 Glucose (Glutose) 22.5 gm Q15M PRN PO DECREASED GLUCOSE; Start 11/07/18 at 19:00 Dextrose (D50w Syringe) 25 ml Q15M PRN IV DECREASED GLUCOSE Last administered on 11/11/18 08:34; Admin Dose 25 ML; Start 11/07/18 at 19:00 Dextrose (D50w Syringe) 50 ml Q15M PRN IV DECREASED GLUCOSE; Start 11/07/18 at 19:00 Glucagon (Glucagen) 1 mg Q15M PRN IM DECREASED GLUCOSE; Start 11/07/18 at 19:00 Glucose (Glutose) 15 gm Q15M PRN BUCCAL DECREASED GLUCOSE; Start 11/07/18 at 19:00 Multivitamins/ Minerals (Theragran-M) 1 tab DAILY GTB Last administered on 11/15/18 09:22; Admin Dose 1 TAB; Start 11/08/18 at 09:00 Diagnostic Test (Pha) (Accu-Chek) 1 ea 02 XX Last administered on 11/15/18at 02:3 5; Admin Dose 1 EA; Start 11/09/18 at 02:00 Metolazone (Zaroxolyn) 5 mg DAILY@0600 PO Last administered on 11/09/18 05:14; Admin Dose 5 MG; Start 11/08/18 at 08:30; Status Hold Aspirin (Aspirin) 81 mg DAILY NGT Last administered on 11/15/18 09:23; Admin Dose 81 MG; Start 11/08/18 at 13:30 Atorvastatin Calcium (Lipitor) 20 mg HS PO Last administered on 11/14/18 21:22; Admin Dose 20 MG; Start 11/08/18 at 21:00 Insulin Glargine (Lantus) 30 units QHS SC Last administered on 11/14/18 21:50; Admin Dose 30 UNITS; Start 11/09/18 at 21:00 Spironolactone (Aldactone) 50 mg DAILY NGT Last administered on 11/15/18 09:23; Admin Dose 50 MG; Start 11/11/18 at 09:00 Collagenase (Santyl) 1 applic BID TOP Last administered on 11/15/18 09:24; Admin Dose 1 APPLIC; Start 11/10/18 at 17:30 Levetiracetam (Keppra Liquid) 500 mg BID GTB Last administered on 11/15/18at 09:21; Admin Dose 500 MG; Start 11/11/18 at 09:00 Insulin Aspart (Novolog Insulin Pen) NOVOLOG *MILD* ALGORI... Q4 SC Last administered on 11/15/18at 06:29; Admin Dose 2 UNIT; Start 11/12/18 at 21:00 Acetazolamide (Diamox) 500 mg BID IV ; Start 11/14/18 at 09:00; Status Hold Docusate Sodium (Colace Liquid Cup) 100 mg DAILY PO ; Start 11/15/18 at 09:00 Pantoprazole (Protonix Iv) 40 mg BID@06,18 IV Last administered on 11/15/18at 12:21; Admin Dose 40 MG; Start 11/15/18 at 11:30 RAMSEY VERDE NP Nov 15, 2018 14:40
[2018-11-15] MEDS: DEXTROSE 5%-0.45% NACL 1,000 ML IV SCH (18:55)
[2018-11-15] MEDS: INSULIN GLARGINE [LANTus] (100 UNITS/ML) SYG SC SCH ×2 (21:00→23:05)
[2018-11-15] MEDS: ATORVASTATIN 20 MG TAB PO SCH (21:35)
[2018-11-15] MEDS: DEXTROSE 50% 50 ML SYRINGE IV PRN (22:35)
[2018-11-16] VITALS (22 sets, daily range): BP systolic 90–96; BP diastolic 52–57; PULSE 79–99; RESP 12–19
[2018-11-16] MEDS: INSULIN ASPART [NOVOLOG] 3 ML PEN SC SCH ×6 (01:00→21:43)
[2018-11-16] MEDS: ACCU-CHEK XX SCH ×5 (02:29→21:00)
[2018-11-16] MEDS: PANTOPRAZOLE 40 MG INJ IV SCH (06:50)
--- NOTE | 2018-11-16 06:51 | PN ---
Date/Time of Note Date/Time of Note DATE: 11/16/18 TIME: 06:47 Assessment/Plan VTE Prophylaxis Risk score (from [facility])>0 risk: 6 SCD applied (from [facility]): Yes SCD contraindicated: low risk/ambulating Pharmacological prophylaxis: NA/contraindicated Pharm contraindication: bleeding Lines/Catheters IV [facility] Type [facility]): Peripheral IV Urinary Cath still in place: Yes Reason Cath still needed: urinary retention Assessment/Plan Hospital Course 1. Upper gastrointestinal bleeding manifested through melena and coffee ground emesis in g tube residuals. 2. Congestive heart failure, stable. 3. Moderate to severe aortic stenosis with ejection fraction of 45%. 4. Diabetes mellitus. 5. Anemia. 6. Vent dependent respiratory failure. 7. Encephalopathy. 8. History of atrial fibrillation, now in normal sinus rhythm. 9. Parkinson disease. 10. Renal failure. 11. Abnormal LFTs -US of abd done 11/08 : IMPRESSION: Cholelithiasis without evidence of abnormal gallbladder wall thickening to suggest cholecystitis. Normal caliber of the intrahepatic and extrahepatic biliary system. A few benign appearing hepatic cysts are present, otherwise normal appearance of the liver. Minimal ascites. PLAN: EGD today. Consent signed. Last dose of heparin was 11/15 08. Will hold ASA until after procedure. INR from 11/08 is 1.5. Stat INR shows INR 1.4 and CMP ordered. SBP runs in 90s which seems to be his baseline. Hgb this am is 7.4. DNR status Hepatitis panel. Continue PPI BID. G tube to intermittent suction. Monitor HH. Pt examined and plan of care discussed with Dr. Alva Result Diagram: 11/15/18 1406 11/16/18 0447 Results 24hrs Laboratory Tests Test 11/15/18 09:19 11/15/18 12:40 11/15/18 14:06 11/15/18 17:01 Bedside Glucose 133 127 80 White Blood Count 5.4 Red Blood Count 2.48 L Hemoglobin 7.4 L Hematocrit 25.7 L Mean Corpuscular 103.6 H Volume Mean Corpuscular 29.8 Hemoglobin Mean Corpuscular 28.8 L Hemoglobin Concent Red Cell Distribution 17.9 H Width Platelet Count 129 #L Mean Platelet Volume 12.6 H Immature Granulocytes 0.600 H % Neutrophils % 76.1 Lymphocytes % 12.4 L Monocytes % 10.9 Eosinophils % 0.0 Basophils % 0.0 Nucleated Red Blood 0.0 Cells % Immature Granulocytes 0.030 # Neutrophils # 4.1 Lymphocytes # 0.7 L Monocytes # 0.6 Eosinophils # 0.0 Basophils # 0.0 Nucleated Red Blood 0.0 Cells # Test 11/15/18 21:37 11/15/18 22:25 11/15/18 22:41 11/15/18 23:07 Bedside Glucose 67 L 63 L 138 105 Test 11/16/18 02:25 11/16/18 04:47 11/16/18 05:44 Bedside Glucose 87 90 Sodium Level 139 Potassium Level 3.9 Chloride Level 93 L Carbon Dioxide Level 35 H Anion Gap 11 Blood Urea Nitrogen 132 H Creatinine 1.35 H Est Glomerular Filtrat Rate mL/min Glucose Level 85 # Calcium Level 8.1 L Phosphorus Level 4.4 Magnesium Level 2.7 H Exam/Review of Systems Vital Signs Vitals Vital Signs Date Temp Pulse Resp B/P (MAP) Pulse Ox O2 O2 Flow FiO2 Time Delivery Rate 11/16/18 88 12 100 30 05:05 11/16/18 97.7 90/54 (66) Mechanical 04:28 Ventilator Intake and Output 11/15/18 11/15/18 11/16/18 1515:00 23:00 07:00 IntakeIntake Total 1480 ml OutputOutput Total 600 ml BalanceBalance 880 ml Medications Medications Current Medications Acetaminophen (Tylenol Tab) 1,000 mg Q4H PRN PO MODERATE PAIN LEVEL 4-6; Start 11/07/18 at 16:30 Acetaminophen (Tylenol Tab) 650 mg Q4H PRN GTB MILD PAIN LEVEL 1-3; Start 11/07/18 at 16:30 Albuterol (Proventil 0.083% (Neb)) 2.5 mg Q6H RESP THERAPY PRN NEB WHEEZING AND SOB; Start 11/07/18 at 16:30 Ascorbic Acid (Vitamin C) 500 mg BID GTB Last administered on 11/15/18at 21:35; Admin Dose 500 MG; Start 11/07/18 at 21:00 Bisacodyl (Dulcolax Supp) 10 mg PRN PRN [place] CONSTIPATION; Start 11/07/18 at 16:30 Carbidopa/Levodopa (Sinemet (25/ 100)) 1 tab TID GTB Last administered on 11/15/18 21:34; Admin Dose 1 TAB; Start 11/07/18 at 21:00 Chlorhexidine Gluconate (Peridex) 15 ml Q12 MM Last administered on 11/15/18 21:35; Admin Dose 15 ML; Start 11/07/18 at 21:00 Famotidine (Pepcid) 20 mg DAILY GTB Last administered on 11/15/18 09:22; Admin Dose 20 MG; Start 11/08/18 at 09:00 Hydralazine HCl (Apresoline) 20 mg Q6 PRN GTB ELEVATED BLOOD PRESSURE; Start 11/07/18 at 16:30 Linagliptin (Tradjenta) 5 mg DAILY GTB Last administered on 11/15/18 09:23; Admin Dose 5 MG; Start 11/08/18 at 09:00 Memantine (Namenda) 10 mg DAILY GTB Last administered on 11/15/18 09:23; Admin Dose 10 MG; Start 11/08/18 at 09:00 Metoprolol Tartrate (Lopressor) 25 mg BID GTB Last administered on 11/14/18 21:21; Admin Dose 25 MG; Start 11/07/18 at 21:00 Sodium Biphosphate/ Sodium Phosphate (Fleet Enema) 133 ml PRN PRN [place] CONSTIPATION; Start 11/07/18 at 16:30 Valproate Sodium (Depakene Liquid Cup) 125 mg QID GTB Last administered on 11/15/18 21:34; Admin Dose 125 MG; Start 11/07/18 at 17:00 Zinc Sulfate (Zinc Sulfate) 220 mg DAILY GTB Last administered on 11/15/18 09:23; Admin Dose 220 MG; Start 11/08/18 at 09:00 Diagnostic Test (Pha) (Accu-Chek) 1 ea AC MEALS AND BEDTIME XX Last administered on 11/16/18 06:12; Admin Dose 1 EA; Start 11/07/18 at 17:30 Miscellaneous Information 1 ea NOTE XX ; Start 11/07/18 at 19:00 Glucose (Glutose) 15 gm Q15M PRN PO DECREASED GLUCOSE; Start 11/07/18 at 19:00 Glucose (Glutose) 22.5 gm Q15M PRN PO DECREASED GLUCOSE; Start 11/07/18 at 19:00 Dextrose (D50w Syringe) 25 ml Q15M PRN IV DECREASED GLUCOSE Last administered on 11/15/18 22:35; Admin Dose 25 ML; Start 11/07/18 at 19:00 Dextrose (D50w Syringe) 50 ml Q15M PRN IV DECREASED GLUCOSE; Start 11/07/18 at 19:00 Glucagon (Glucagen) 1 mg Q15M PRN IM DECREASED GLUCOSE; Start 11/07/18 at 19:00 Glucose (Glutose) 15 gm Q15M PRN BUCCAL DECREASED GLUCOSE; Start 11/07/18 at 19:00 Multivitamins/ Minerals (Theragran-M) 1 tab DAILY GTB Last administered on 11/15/18 09:22; Admin Dose 1 TAB; Start 11/08/18 at 09:00 Diagnostic Test (Pha) (Accu-Chek) 1 ea 02 XX Last administered on 11/16/18 02:29; Admin Dose 1 EA; Start 11/09/18 at 02:00 Metolazone (Zaroxolyn) 5 mg DAILY@0600 PO Last administered on 11/09/18 05:14; Admin Dose 5 MG; Start 11/08/18 at 08:30; Status Hold Aspirin (Aspirin) 81 mg DAILY NGT Last administered on 11/15/18 09:23; Admin Dose 81 MG; Start 11/08/18 at 13:30 Atorvastatin Calcium (Lipitor) 20 mg HS PO Last administered on 11/15/18 21:35; Admin Dose 20 MG; Start 11/08/18 at 21:00 Spironolactone (Aldactone) 50 mg DAILY NGT Last administered on 11/15/18 09:23; Admin Dose 50 MG; Start 11/11/18 at 09:00 Collagenase (Santyl) 1 applic BID TOP Last administered on 11/15/18 21:38; Admin Dose 1 APPLIC; Start 11/10/18 at 17:30 Levetiracetam (Keppra Liquid) 500 mg BID GTB Last administered on 11/15/18 21:34; Admin Dose 500 MG; Start 11/11/18 at 09:00 Insulin Aspart (Novolog Insulin Pen) NOVOLOG *MILD* ALGORI... Q4 SC Last administered on 11/15/18 06:29; Admin Dose 2 UNIT; Start 11/12/18 at 21:00 Acetazolamide (Diamox) 500 mg BID IV ; Start 11/14/18 at 09:00; Status Hold Docusate Sodium (Colace Liquid Cup) 100 mg DAILY PO ; Start 11/15/18 at 09:00 Pantoprazole (Protonix Iv) 40 mg BID@06,18 IV Last administered on 11/15/18at 17:12; Admin Dose 40 MG; Start 11/15/18 at 11:30 Dextrose/Sodium Chloride 1,000 ml @ 75 mls/hr [id number] IV Last administered on 11/15/18at 18:55; Admin Dose 40 MLS/HR; Start 11/15/18 at 18:00 Insulin Glargine (Lantus) 15 units QHS SC Last administered on 11/15/18at 23:05; Admin Dose 15 UNITS; Start 11/15/18 at 23:00 MATTHEW B[place]MINGHAM Nov 16, 2018 06:51
[2018-11-16] MEDS: VALPROIC ACID LIQUID CUP 250 MG/5 ML CUP GTB SCH ×4 (09:00→21:25)
[2018-11-16] MEDS: METOPROLOL 25 MG TAB GTB SCH ×2 (09:00→21:00)
[2018-11-16] MEDS: CARBIDOPA/LEVODOPA (25/100) TAB GTB SCH ×3 (09:00→21:26)
[2018-11-16] MEDS: CHLORHEXIDINE GLUCONATE 15 ML UD CUP MM SCH ×2 (09:07→21:25)
[2018-11-16] MEDS: DEXTROSE 50% 50 ML SYRINGE IV PRN (09:07)
--- NOTE | 2018-11-16 09:13 | PN ---
DATE: 11/16/2018 SUBJECTIVE: The patient is scheduled for EGD this morning. The patient had episode of GI bleeding y esterday and continues to have dark stools. No other acute events noted. OBJECTIVE: VITAL SIGNS: Blood pressure 96/52, respiration 19, pulse 93, temperature 97.4. HEENT: Head is normocephalic. NECK: Supple. HEART: Regular rate. LUNGS: Show diminished breath sounds at the base. ABDOMEN: Soft, nontender to palpation. No rebound, no guarding. EXTREMITIES: Negative for clubbing, cyanosis. Positive edema. DERMATOLOGIC: No rashes. MUSCULOSKELETAL: No joint effusion. NEUROLOGIC: No change in exam. MEDICATIONS: Reviewed. LABORATORY DATA: Shows white count 4.7, hemoglobin 7.9, platelet count is 140, sodium 139, potassium 4.1, chloride 94, BUN 130, creatinine 1.40. ASSESSMENT AND PLAN: 1. Acute on chronic heart failure. The patient remains decompensated. Diuretics are on hold due to hypertension. Will resume diuretic therapy once hemodynamically stable. 2. Acute gastrointestinal bleed. Etiology may be secondary to peptic ulcer disease versus uremic bl eeding. The patient is pending EGD. Status post DDAVP currently on Protonix 40 mg IV b.i.d., monito r hemoglobin and hematocrit levels closely. Follow up with GI. 3. 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 Mag ology is secondary to cardiorenal syndrome. Renal function appears to have stabilized without signif icant improvement. Continue to monitor. 4. Metabolic alkalemia, continue intermittent Diamox as tolerated. 5. Sepsis. Patient is completing antibiotic course. 6. Ventilator-dependent respiratory failure. Vent settings and ABG was reviewed. Continue to monit or. 7. Bilateral pleural effusion secondary to chronic heart failure. 8. Mineral bone disorder. Monitor calcium and phosphorus levels. 9. Anemia, etiology is multifactorial secondary to gastrointestinal bleed and chronic kidney disease . Continue medical management as stated above. Continue Epogen. Continue to monitor hemoglobin and hematocrit levels. 10. Dysphagia. Continue tube feeding. 11. Arrhythmia. Continue treatment plan. 12. Diabetes. Continue current insulin regimen. 13. Seizure disorder. Continue Keppra. 14. Aortic stenosis. 15. Gastrointestinal and deep vein thrombosis prophylaxis. Dictated By: ROB OSEI/AROLDO Conf#: [id number] DID#: [id number]
[2018-11-16] MEDS: DEXTROSE 5%-0.45% NACL 1,000 ML IV SCH (09:49)
--- NOTE | 2018-11-16 11:09 | CONS ---
Date/Time of Note Date/Time of Note DATE: 11/16/18 TIME: 11:07 Assessment/Plan Assessment/Plan Result Diagram: 11/16/18 0658 11/16/18 0658 Results 24hrs Laboratory Tests Test 11/15/18 12:40 11/15/18 14:06 11/15/18 17:01 11/15/18 21:37 Bedside Glucose 127 80 67 L White Blood Count 5.4 Red Blood Count 2.48 L Hemoglobin 7.4 L Hematocrit 25.7 L Mean Corpuscular 103.6 H Volume Mean Corpuscular 29.8 Hemoglobin Mean Corpuscular 28.8 L Hemoglobin Concent Red Cell 17.9 H Distribution Width Platelet Count 129 #L Mean Platelet Volume 12.6 H Immature 0.600 H Granulocytes % Neutrophils % 76.1 Lymphocytes % 12.4 L Monocytes % 10.9 Eosinophils % 0.0 Basophils % 0.0 Nucleated Red Blood 0.0 Cells % Immature 0.030 Granulocytes # Neutrophils # 4.1 Lymphocytes # 0.7 L Monocytes # 0.6 Eosinophils # 0.0 Basophils # 0.0 Nucleated Red Blood 0.0 Cells # Test 11/15/18 22:25 11/15/18 22:41 11/15/18 23:07 11/16/18 02:25 Bedside Glucose 63 L 138 105 87 Test 11/16/18 04:47 11/16/18 05:44 11/16/18 06:58 11/16/18 09:03 Sodium Level 139 139 Potassium Level 3.9 4.1 Chloride Level 93 L 94 L Carbon Dioxide Level 35 H 36 H Anion Gap 11 9 Blood Urea Nitrogen 132 H 130 H Creatinine 1.35 H 1.40 H Est Glomerular Filtrat Rate mL/min Glucose Level 85 # 99 Calcium Level 8.1 L 8.2 L Phosphorus Level 4.4 Magnesium Level 2.7 H Bedside Glucose 90 61 L White Blood Count 4.7 L Red Blood Count 2.68 L Hemoglobin 7.9 L Hematocrit 27.8 L Mean Corpuscular 103.7 H Volume Mean Corpuscular 29.5 Hemoglobin Mean Corpuscular 28.4 L Hemoglobin Concent Red Cell 17.7 H Distribution Width Platelet Count 140 Mean Platelet Volume 12.3 H Immature 0.400 Granulocytes % Neutrophils % 72.5 Lymphocytes % 15.9 Monocytes % 11.0 Eosinophils % 0.2 Basophils % 0.0 Nucleated Red Blood 0.0 Cells % Immature 0.020 Granulocytes # Neutrophils # 3.4 Lymphocytes # 0.8 Monocytes # 0.5 Eosinophils # 0.0 Basophils # 0.0 Nucleated Red Blood 0.0 Cells # Prothrombin Time 17.3 H Prothrombin Time 1.4 Ratio INR International 1.40 Normalized Ratio Total Bilirubin 0.3 Direct Bilirubin 0.00 Indirect Bilirubin 0.3 Aspartate Amino 58 H Transf (AST/SGOT) Alanine 32 Aminotransferase (AL T/SGPT) Alkaline Phosphatase 148 H Total Protein 7.8 Albumin 2.7 L Globulin 5.10 H Albumin/Globulin 0.52 Ratio Test 11/16/18 09:30 11/16/18 09:37 11/16/18 09:45 Bedside Glucose 126 126 Iron Level 33 L Total Iron Binding 239 L Capacity Percent Iron 14 L Saturation Hepatitis B Surface Pending Antigen Hepatitis B Core Pending Total Antibody Hepatitis C Antibody Pending Consultation Date/Type/Reason Admit Date/Time Nov 07, 2018 at 16:07 Initial Consult Date Type of Consult Pulmonary 24 HR Interval Summary Free Text/Dictation Patient's condition is stable. Remains noncommunicative due to chronic encephalopathy. General exam; elderly male, on ventilator via tracheostomy, unresponsive, currently in no distress. HEENT exam; supple neck, tracheostomy in place. Patient has fair dentition. Chest exam; clear to auscultation. S1-S2 audible, no murmurs. Regular rhythm. Abdomen exam; soft, nondistended. G-tube in place. Bowel sounds audible. Extremity exam; no peripheral edema. [employer] exam; patient remains unresponsive. Ventilator setting; AC of 12, tidal volume 500, PEEP of 5, 30% FiO2. Assessment recommendations; 1. Patient with history of VD RF and chronic encephalopathy admitted for sepsis due to UTI. Off antibiotics now. 2. Other comorbidities include history of chronic renal insufficiency, diabetes, Perkinson's disease, seizure disorder. 3. Mild anemia and thrombocytopenia. Continue current supportive care. Consider discharge. Prognosis is poor. Exam/Review of Systems Vital Signs Vitals Vital Signs Date Temp Pulse Resp B/P (MAP) Pulse Ox O2 O2 Flow FiO2 Time Delivery Rate 11/16/18 94 12 100 30 09:50 11/16/18 97.4 96/52 (67) Mechanical 07:40 Ventilator Intake and Output 11/15/18 11/15/18 11/16/18 1414:59 22:59 06:59 IntakeIntake Total 1480 ml OutputOutput Total 600 ml 450 ml BalanceBalance 880 ml -450 ml Medications Medications Current Medications Acetaminophen (Tylenol Tab) 1,000 mg Q4H PRN PO MODERATE PAIN LEVEL 4-6; Start 11/07/18 at 16:30 Acetaminophen (Tylenol Tab) 650 mg Q4H PRN GTB MILD PAIN LEVEL 1-3; Start 11/07/18 at 16:30 Albuterol (Proventil 0.083% (Neb)) 2.5 mg Q6H RESP THERAPY PRN NEB WHEEZING AND SOB; Start 11/07/18 at 16:30 Ascorbic Acid (Vitamin C) 500 mg BID GTB Last administered on 11/15/18at 21:35; Admin Dose 500 MG; Start 11/07/18 at 21:00 Bisacodyl (Dulcolax Supp) 10 mg PRN PRN [place] CONSTIPATION; Start 11/07/18 at 16:30 Carbidopa/Levodopa (Sinemet (25/ 100)) 1 tab TID GTB Last administered on 11/15/18at 21:34; Admin Dose 1 TAB; Start 11/07/18 at 21:00 Chlorhexidine Gluconate (Peridex) 15 ml Q12 MM Last administered on 11/16/18at 09:07; Admin Dose 15 ML; Start 11/07/18 at 21:00 Famotidine (Pepcid) 20 mg DAILY GTB Last administered on 11/15/18at 09:22; Admin Dose 20 MG; Start 11/08/18 at 09:00 Hydralazine HCl (Apresoline) 20 mg Q6 PRN GTB ELEVATED BLOOD PRESSURE; Start 11/07/18 at 16:30 Linagliptin (Tradjenta) 5 mg DAILY GTB Last administered on 11/15/18 09:23; Admin Dose 5 MG; Start 11/08/18 at 09:00 Memantine (Namenda) 10 mg DAILY GTB Last administered on 11/15/18at 09:23; Admin Dose 10 MG; Start 11/08/18 at 09:00 Metoprolol Tartrate (Lopressor) 25 mg BID GTB Last administered on 11/14/18 21:21; Admin Dose 25 MG; Start 11/07/18 at 21:00 Sodium Biphosphate/ Sodium Phosphate (Fleet Enema) 133 ml PRN PRN [place] CONSTIPATION; Start 11/07/18 at 16:30 Valproate Sodium (Depakene Liquid Cup) 125 mg QID GTB Last administered on 11/15/18at 21:34; Admin Dose 125 MG; Start 11/07/18 at 17:00 Zinc Sulfate (Zinc Sulfate) 220 mg DAILY GTB Last administered on 11/15/18at 09:23; Admin Dose 220 MG; Start 11/08/18 at 09:00 Diagnostic Test (Pha) (Accu-Chek) 1 ea AC MEALS AND BEDTIME XX Last administered on 11/16/18at 06:12; Admin Dose 1 EA; Start 11/07/18 at 17:30 Miscellaneous Information 1 ea NOTE XX ; Start 11/07/18 at 19:00 Glucose (Glutose) 15 gm Q15M PRN PO DECREASED GLUCOSE; Start 11/07/18 at 19:00 Glucose (Glutose) 22.5 gm Q15M PRN PO DECREASED GLUCOSE; Start 11/07/18 at 19:00 Dextrose (D50w Syringe) 25 ml Q15M PRN IV DECREASED GLUCOSE Last administered on 11/16/18at 09:07; Admin Dose 25 ML; Start 11/07/18 at 19:00 Dextrose (D50w Syringe) 50 ml Q15M PRN IV DECREASED GLUCOSE; Start 11/07/18 at 19:00 Glucagon (Glucagen) 1 mg Q15M PRN IM DECREASED GLUCOSE; Start 11/07/18 at 19:00 Glucose (Glutose) 15 gm Q15M PRN BUCCAL DECREASED GLUCOSE; Start 11/07/18 at 19:00 Multivitamins/ Minerals (Theragran-M) 1 tab DAILY GTB Last administered on 11/15/18at 09:22; Admin Dose 1 TAB; Start 11/08/18 at 09:00 Diagnostic Test (Pha) (Accu-Chek) 1 ea 02 XX Last administered on 11/16/18at 02:29; Admin Dose 1 EA; Start 11/09/18 at 02:00 Metolazone (Zaroxolyn) 5 mg DAILY@0600 PO Last administered on 11/09/18at 05:14; Admin Dose 5 MG; Start 11/08/18 at 08:30; Status Hold Aspirin (Aspirin) 81 mg DAILY NGT Last administered on 11/15/18 09:23; Admin Dose 81 MG; Start 11/08/18 at 13:30; Status Hold Atorvastatin Calcium (Lipitor) 20 mg HS PO Last administered on 11/15/18 21:35; Admin Dose 20 MG; Start 11/08/18 at 21:00 Spironolactone (Aldactone) 50 mg DAILY NGT Last administered on 11/15/18 09:23; Admin Dose 50 MG; Start 11/11/18 at 09:00 Collagenase (Santyl) 1 applic BID TOP Last administered on 11/15/18 21:38; Admin Dose 1 APPLIC; Start 11/10/18 at 17:30 Levetiracetam (Keppra Liquid) 500 mg BID GTB Last administered on 11/15/18 21:34; Admin Dose 500 MG; Start 11/11/18 at 09:00 Insulin Aspart (Novolog Insulin Pen) NOVOLOG *MILD* ALGORI... Q4 SC Last administered on 11/15/18 06:29; Admin Dose 2 UNIT; Start 11/12/18 at 21:00 Acetazolamide (Diamox) 500 mg BID IV ; Start 11/14/18 at 09:00; Status Hold Docusate Sodium (Colace Liquid Cup) 100 mg DAILY PO ; Start 11/15/18 at 09:00 Pantoprazole (Protonix Iv) 40 mg BID@06,18 IV Last administered on 11/16/18 06:50; Admin Dose 40 MG; Start 11/15/18 at 11:30 Dextrose/Sodium Chloride 1,000 ml @ 75 mls/hr [id number] IV Last administered on 11/16/18 09:49; Admin Dose 75 MLS/HR; Start 11/15/18 at 18:00 Insulin Glargine (Lantus) 15 units QHS SC Last administered on 11/15/18 23:05; Admin Dose 15 UNITS; Start 11/15/18 at 23:00 Epoetin Giles (Epogen (Esrd)) 8,000 units TuThSa@17 SC ; Start 11/16/18 at 17:00 VAMSI LITTLEJOHN Nov 16, 2018 11:09
--- NOTE | 2018-11-16 12:09 | PREAC ---
Date/Time of Note Date/Time of Note DATE: 11/16/18 TIME: 12:06 Anesthesia Eval and Record Evaluation Time Pre-Procedure Interview DATE: 11/16/18 TIME: 12:06 Age 83 Sex male NPO: 8 hrs Preoperative diagnosis gi bleeding Planned procedure EGD Past Medical History Past Medical History: Includes Cardio: CAD, CHF Endo: Diabetes Neuro: Other (encephalopathy) Renal: CKD Surgery & Anesthesia Issues Other issues Meds Anticoagulation: No Beta Cash within 24 hr: Yes Reported Medications Cranberry Extract (Cranberry) 425 Mg Capsule, 425 MG GTB DAILY, CAP 11/07/18 Zinc Sulfate* (Zinc Sulfate*) 220 Mg Cap, 220 MG GTB DAILY, CAP 11/07/18 Valproic Acid* (Valproic Acid* Liq) 250 Mg/5 Ml Syrup, 125 MG GTB QID, ML 11/07/18 Ascorbic Acid* (Vitamin C*) 500 Mg Capsule.sa, 500 MG GTB BID, CAP 11/07/18 Cran/Vitc/Mannose/Inulin/Brom (Uti-Stat Liquid) 3,875 Mg/30 Ml Liquid, 3875 MG GTB DAILY 11/07/18 Acetaminophen* (Acetaminophen*) 650 Mg Tablet, 650 MG GTB TRACH TUBE CHANGE PRN for PAIN AND OR ELEVATED TEMP, #30 TAB GIVE 30 MIN PRIOR 11/07/18 Acetaminophen* (Acetaminophen*) 650 Mg Tablet, 650 MG GTB Q4 PRN for MILD PAIN LEVEL 1-3, #30 TAB AND TEMP OVER 101F 11/07/18 Acetaminophen* (Acetaminophen*) 500 MG Extra Strength Tablet, 1000 MG GTB Q4 PRN for MODERATE PAIN LEVEL 4-6, TAB 11/07/18 Multivit &Minerals/Ferrous Fum (MULTIVITAMIN LIQUID) 9 Mg/15 Ml Liquid, 3 MG GTB DAILY 11/07/18 Magnesium Hydroxide* (Milk Of Magnesia*) 400 Mg/5 Ml Oral.susp, 30 ML GTB DAILY PRN for CONSTIPATION, ML 11/07/18 Memantine* (Namenda*) 10 Mg Tablet, 10 MG GTB DAILY, #30 TAB 11/07/18 Carbidopa/Levodopa (Sinemet 25-100 mg Tablet) 1 Each Tablet, 1 EACH GTB TID, TAB 11/07/18 Linagliptin (TRADJENTA) 5 Mg Tablet, 5 MG GTB DAILY, TAB 11/07/18 Metoprolol Tartrate* (Lopressor*) 25 Mg Tab, 25 MG GTB BID, #60 TAB HOLD FOR SBP BELOW 105 OR HR BELOW 60 11/07/18 Metolazone* (Metolazone*) 2.5 Mg Tablet, 2.5 MG GTB DAILY, TAB 11/07/18 Insulin Glargine* (Lantus*) 100 Unit/Ml Soln, 22 UNIT SC QHS, #1 VIAL 11/07/18 Levetiracetam* (Keppra* (Ped)) 100 Mg/Ml Liq, 500 MG GTB BID for 30 Days, BOTTLE 11/07/18 Hydralazine Hcl* (Hydralazine Hcl*) 10 Mg Tablet, 20 MG GTB Q6 PRN for ELEVATED BLOOD PRESSURE, #120 TAB SBP above 160 11/07/18 Heparin Sodium,Porcine/Pf (HEPARIN SOD 5,000 UNIT/ 0.5 ML) 5,000 Unit/0.5 Ml Vial, 5000 UNIT IJ BID, VIAL 11/07/18 Glucagon,Human Recombinant (Glucagon Emergency Kit) 1 Mg Kit, 1 MG IJ prn PRN for DECREASED GLUCOSE, KIT 11/07/18 Na Phos,M-B/Na Phos,Di-Ba (ENEMA [id number]) 133 Ml Enema, 133 ML RC prn PRN for CONSTIPATION, ENEMA 11/07/18 Famotidine* (Famotidine*) 20 Mg Tablet, 20 MG GTB DAILY, #30 TAB 11/07/18 Bisacodyl (Dulcolax) 10 Mg Supp.rect, 10 MG RC prn PRN for CONSTIPATION, SUPP.RECT 11/07/18 Docusate Sodium* (Colace*) 100 Mg Capsule, 100 MG GTB DAILY, #30 CAP 11/07/18 Chlorhexidine Gluconate (Peridex) 473 Ml Mouthwash, 15 ML MM Q12, BOTTLE 11/07/18 Lorazepam* (Lorazepam*) 0.5 Mg Tablet, 0.5 MG GTB Q6 PRN for ANXIETY, TAB 11/07/18 Albuterol Sulfate* (Albuterol Sulfate* Neb) 0.083%-3 Ml Neb, 2.5 MG NEB Q6 PRN for WHEEZING AND SOB, #30 VIAL 11/07/18 Albuterol Sulfate* (Albuterol Sulfate* Neb) 0.083%-3 Ml Neb, 2.5 MG NEB Q3H PRN for WHEEZING AND SOB, #30 VIAL 11/07/18 Current Medications Acetaminophen (Tylenol Tab) 1,000 mg Q4H PRN PO MODERATE PAIN LEVEL 4-6; Start 11/07/18 at 16:30 Acetaminophen (Tylenol Tab) 650 mg Q4H PRN GTB MILD PAIN LEVEL 1-3; Start 11/07/18 at 16:30 Albuterol (Proventil 0.083% (Neb)) 2.5 mg Q6H RESP THERAPY PRN NEB WHEEZING AND SOB; Start 11/07/18 at 16:30 Ascorbic Acid (Vitamin C) 500 mg BID GTB Last administered on 11/15/18at 21:35; Admin Dose 500 MG; Start 11/07/18 at 21:00 Bisacodyl (Dulcolax Supp) 10 mg PRN PRN [place] CONSTIPATION; Start 11/07/18 at 16:30 Carbidopa/Levodopa (Sinemet (25/ 100)) 1 tab TID GTB Last administered on 11/15/18at 21:34; Admin Dose 1 TAB; Start 11/07/18 at 21:00 Chlorhexidine Gluconate (Peridex) 15 ml Q12 MM Last administered on 11/16/18at 09:07; Admin Dose 15 ML; Start 11/07/18 at 21:00 Famotidine (Pepcid) 20 mg DAILY GTB Last administered on 11/15/18at 09:22; Admin Dose 20 MG; Start 11/08/18 at 09:00 Hydralazine HCl (Apresoline) 20 mg Q6 PRN GTB ELEVATED BLOOD PRESSURE; Start 11/07/18 at 16:30 Linagliptin (Tradjenta) 5 mg DAILY GTB Last administered on 11/15/18 09:23; Admin Dose 5 MG; Start 11/08/18 at 09:00 Memantine (Namenda) 10 mg DAILY GTB Last administered on 11/15/18at 09:23; Admin Dose 10 MG; Start 11/08/18 at 09:00 Metoprolol Tartrate (Lopressor) 25 mg BID GTB Last administered on 11/14/18 21:21; Admin Dose 25 MG; Start 11/07/18 at 21:00 Sodium Biphosphate/ Sodium Phosphate (Fleet Enema) 133 ml PRN PRN [place] CONSTIPATION; Start 11/07/18 at 16:30 Valproate Sodium (Depakene Liquid Cup) 125 mg QID GTB Last administered on 11/15/18at 21:34; Admin Dose 125 MG; Start 11/07/18 at 17:00 Zinc Sulfate (Zinc Sulfate) 220 mg DAILY GTB Last administered on 11/15/18at 09:23; Admin Dose 220 MG; Start 11/08/18 at 09:00 Diagnostic Test (Pha) (Accu-Chek) 1 ea AC MEALS AND BEDTIME XX Last administered on 11/16/18at 06:12; Admin Dose 1 EA; Start 11/07/18 at 17:30 Miscellaneous Information 1 ea NOTE XX ; Start 11/07/18 at 19:00 Glucose (Glutose) 15 gm Q15M PRN PO DECREASED GLUCOSE; Start 11/07/18 at 19:00 Glucose (Glutose) 22.5 gm Q15M PRN PO DECREASED GLUCOSE; Start 11/07/18 at 19:00 Dextrose (D50w Syringe) 25 ml Q15M PRN IV DECREASED GLUCOSE Last administered on 11/16/18at 09:07; Admin Dose 25 ML; Start 11/07/18 at 19:00 Dextrose (D50w Syringe) 50 ml Q15M PRN IV DECREASED GLUCOSE; Start 11/07/18 at 19:00 Glucagon (Glucagen) 1 mg Q15M PRN IM DECREASED GLUCOSE; Start 11/07/18 at 19:00 Glucose (Glutose) 15 gm Q15M PRN BUCCAL DECREASED GLUCOSE; Start 11/07/18 at 19:00 Multivitamins/ Minerals (Theragran-M) 1 tab DAILY GTB Last administered on 11/15/18at 09:22; Admin Dose 1 TAB; Start 11/08/18 at 09:00 Diagnostic Test (Pha) (Accu-Chek) 1 ea 02 XX Last administered on 11/16/18at 02:29; Admin Dose 1 EA; Start 11/09/18 at 02:00 Metolazone (Zaroxolyn) 5 mg DAILY@0600 PO Last administered on 11/09/18at 05:14; Admin Dose 5 MG; Start 11/08/18 at 08:30; Status Hold Aspirin (Aspirin) 81 mg DAILY NGT Last administered on 11/15/18 09:23; Admin Dose 81 MG; Start 11/08/18 at 13:30; Status Hold Atorvastatin Calcium (Lipitor) 20 mg HS PO Last administered on 11/15/18 21:35; Admin Dose 20 MG; Start 11/08/18 at 21:00 Spironolactone (Aldactone) 50 mg DAILY NGT Last administered on 11/15/18 09:23; Admin Dose 50 MG; Start 11/11/18 at 09:00 Collagenase (Santyl) 1 applic BID TOP Last administered on 11/15/18 21:38; Admin Dose 1 APPLIC; Start 11/10/18 at 17:30 Levetiracetam (Keppra Liquid) 500 mg BID GTB Last administered on 11/15/18 21 :34; Admin Dose 500 MG; Start 11/11/18 at 09:00 Insulin Aspart (Novolog Insulin Pen) NOVOLOG *MILD* ALGORI... Q4 SC Last administered on 11/15/18 06:29; Admin Dose 2 UNIT; Start 11/12/18 at 21:00 Acetazolamide (Diamox) 500 mg BID IV ; Start 11/14/18 at 09:00; Status Hold Docusate Sodium (Colace Liquid Cup) 100 mg DAILY PO ; Start 11/15/18 at 09:00 Pantoprazole (Protonix Iv) 40 mg BID@06,18 IV Last administered on 11/16/18 06:50; Admin Dose 40 MG; Start 11/15/18 at 11:30 Dextrose/Sodium Chloride 1,000 ml @ 75 mls/hr [id number] IV Last administered on 11/16/18 09:49; Admin Dose 75 MLS/HR; Start 11/15/18 at 18:00 Insulin Glargine (Lantus) 15 units QHS SC Last administered on 11/15/18 23:05; Admin Dose 15 UNITS; Start 11/15/18 at 23:00 Epoetin Giles (Epogen (Esrd)) 8,000 units TuThSa@17 SC ; Start 11/16/18 at 17:00 Meds reviewed: Yes Allergies Coded Allergies: atenolol (Verified Allergy, Unknown, 11/07/18) ciprofloxacin (Verified Allergy, Unknown, 11/07/18) morphine (Verified Allergy, Unknown, 11/07/18) oxazepam (Verified Allergy, Unknown, 11/07/18) valdecoxib (Verified Allergy, Unknown, 11/07/18) verapamil (Verified Allergy, Unknown, 11/07/18) Allergies Reviewed: Yes Labs/Studies Labs Reviewed: Reviewed by anesthesiologist Result Diagram: 11/16/18 0658 11/16/18 0658 Laboratory Tests 11/16/18 06:58 test: N/A Studies: ECG (sr), CXR (pul edema) Pre-procedure Exam Last vitals Vital Signs Date Temp Pulse Resp B/P (MAP) Pulse Ox O2 O2 Flow FiO2 Time Delivery Rate 11/16/18 82 12 100 30 11:27 11/16/18 97.4 96/52 (67) Mechanical 07:40 Ventilator Airway: Adequate mouth opening (on TRACH) Mallampati: Mallampati I Teeth: Normal Lung: Normal Heart: Normal ASA Physical Status ASA physical status: 3 Emergency: None Planned Anesthetic General/MAC: MAC Planned Pain Management Parenteral pain med Pre-operative Attestations Prior to commencing anesthesia and surgery, the patient was re-evaluated, there was verification of: *The patient's identity *The results of appropriate recent lab work and preoperative vital signs *The above evaluation not changing prior to induction *Anesthetic plan, risk benefits, alternative and complications discussed with patient/family; questions answered; patient/family understands, accepts and wishes to proceed. EFFIE SUAREZ MD Nov 16, 2018 12:09
--- NOTE | 2018-11-16 12:29 | CONS ---
Date/Time of Note Date/Time of Note DATE: 11/16/18 TIME: 12:28 Assessment/Plan Assessment/Plan Hospital Course All noted, no acute events, no fevers Chest x-ray on admission revealed cardiomegaly with diffuse pulmonary edema and bilateral small pleural effusions. Chest ultrasound revealed large bilateral pleural effusions. Abdominal ultrasound revealed cholelithiasis without evidence for cholecystitis Allergy: Ciprofloxacin Physical examination: Chronically ill-appearing elderly man who is noncommunicative in no distress. Head atraumatic normocephalic sclera nonicteric. Vehicle mucosa dry. Neck is supple chest rise symmetrical breath sounds diminished bases. Heart: S1-S2. Abdomen soft bowel sounds present extremities with bilateral edema. Skin: Patient has multiple pressure sores Assessment: 1. S/p sepsis secondary to UTI 2. Proteus mirabilis UTI 3. Acute on chronic kidney disease 4. Acute on chronic respiratory failure 5. Bilateral pleural effusions 6. ?Non-ST elevation [place] 7. Diabetes type 2 8. Parkinson's dementia 9. Aortic stenosis 10. Anemia Plan: Remains unchanged, completed antibiotics, continue present care, for EGD today Result Diagram: 11/16/1858 11/16/18 0658 Results 24hrs Laboratory Tests Test 11/15/18 12:40 11/15/18 14:06 11/15/18 17:01 11/15/18 21:37 Bedside Glucose 127 80 67 L White Blood Count 5.4 Red Blood Count 2.48 L Hemoglobin 7.4 L Hematocrit 25.7 L Mean Corpuscular 103.6 H Volume Mean Corpuscular 29.8 Hemoglobin Mean Corpuscular 28.8 L Hemoglobin Concent Red Cell 17.9 H Distribution Width Platelet Count 129 #L Mean Platelet Volume 12.6 H Immature 0.600 H Granulocytes % Neutrophils % 76.1 Lymphocytes % 12.4 L Monocytes % 10.9 Eosinophils % 0.0 Basophils % 0.0 Nucleated Red Blood 0.0 Cells % Immature 0.030 Granulocytes # Neutrophils # 4.1 Lymphocytes # 0.7 L Monocytes # 0.6 Eosinophils # 0.0 Basophils # 0.0 Nucleated Red Blood 0.0 Cells # Test 11/15/18 22:25 11/15/18 22:41 11/15/18 23:07 11/16/18 02:25 Bedside Glucose 63 L 138 105 87 Test 11/16/18 04:47 11/16/18 05:44 11/16/18 06:58 11/16/18 09:03 Sodium Level 139 139 Potassium Level 3.9 4.1 Chloride Level 93 L 94 L Carbon Dioxide Level 35 H 36 H Anion Gap 11 9 Blood Urea Nitrogen 132 H 130 H Creatinine 1.35 H 1.40 H Est Glomerular Filtrat Rate mL/min Glucose Level 85 # 99 Calcium Level 8.1 L 8.2 L Phosphorus Level 4.4 Magnesium Level 2.7 H Bedside Glucose 90 61 L White Blood Count 4.7 L Red Blood Count 2.68 L Hemoglobin 7.9 L Hematocrit 27.8 L Mean Corpuscular 103.7 H Volume Mean Corpuscular 29.5 Hemoglobin Mean Corpuscular 28.4 L Hemoglobin Concent Red Cell 17.7 H Distribution Width Platelet Count 140 Mean Platelet Volume 12.3 H Immature 0.400 Granulocytes % Neutrophils % 72.5 Lymphocytes % 15.9 Monocytes % 11.0 Eosinophils % 0.2 Basophils % 0.0 Nucleated Red Blood 0.0 Cells % Immature 0.020 Granulocytes # Neutrophils # 3.4 Lymphocytes # 0.8 Monocytes # 0.5 Eosinophils # 0.0 Basophils # 0.0 Nucleated Red Blood 0.0 Cells # Prothrombin Time 17.3 H Prothrombin Time 1.4 Ratio INR International 1.40 Normalized Ratio Total Bilirubin 0.3 Direct Bilirubin 0.00 Indirect Bilirubin 0.3 Aspartate Amino 58 H Transf (AST/SGOT) Alanine 32 Aminotransferase (AL T/SGPT) Alkaline Phosphatase 148 H Total Protein 7.8 Albumin 2.7 L Globulin 5.10 H Albumin/Globulin 0.52 Ratio Test 11/16/18 09:30 11/16/18 09:37 11/16/18 09:45 Bedside Glucose 126 126 Iron Level 33 L Total Iron Binding 239 L Capacity Percent Iron 14 L Saturation Hepatitis B Surface Pending Antigen Hepatitis B Core Pending Total Antibody Hepatitis C Antibody Pending Consultation Date/Type/Reason Admit Date/Time Nov 07, 2018 at 16:07 Initial Consult Date Type of Consult ID Exam/Review of Systems Vital Signs Vitals Vital Signs Date Temp Pulse Resp B/P (MAP) Pulse Ox O2 O2 Flow FiO2 Time Delivery Rate 11/16/18 97.6 91 18 95/54 (68) 100 Mechanical 11:45 Ventilator 11/16/18 30 11:27 Intake and Output 111/15/18 11/16/18 1515:00 23:00 07:00 IntakeIntake Total 1480 ml OutputOutput Total 600 ml 450 ml BalanceBalance 880 ml -450 ml Medications Medications Current Medications Acetaminophen (Tylenol Tab) 1,000 mg Q4H PRN PO MODERATE PAIN LEVEL 4-6; Start 11/07/18 at 16:30 Acetaminophen (Tylenol Tab) 650 mg Q4H PRN GTB MILD PAIN LEVEL 1-3; Start 11/07/18 at 16:30 Albuterol (Proventil 0.083% (Neb)) 2.5 mg Q6H RESP THERAPY PRN NEB WHEEZING AND SOB; Start 11/07/18 at 16:30 Ascorbic Acid (Vitamin C) 500 mg BID GTB Last administered on 11/15/18at 21:35; Admin Dose 500 MG; Start 11/07/18 at 21:00 Bisacodyl (Dulcolax Supp) 10 mg PRN PRN [place] CONSTIPATION; Start 11/07/18 at 16:30 Carbidopa/Levodopa (Sinemet (25/ 100)) 1 tab TID GTB Last administered on 11/15/18at 21:34; Admin Dose 1 TAB; Start 11/07/18 at 21:00 Chlorhexidine Gluconate (Peridex) 15 ml Q12 MM Last administered on 11/16/18at 09:07; Admin Dose 15 ML; Start 11/07/18 at 21:00 Famotidine (Pepcid) 20 mg DAILY GTB Last administered on 11/15/18at 09:22; Admin Dose 20 MG; Start 11/08/18 at 09:00 Hydralazine HCl (Apresoline) 20 mg Q6 PRN GTB ELEVATED BLOOD PRESSURE; Start 11/07/18 at 16:30 Linagliptin (Tradjenta) 5 mg DAILY GTB Last administered on 11/15/18 09:23; Admin Dose 5 MG; Start 11/08/18 at 09:00 Memantine (Namenda) 10 mg DAILY GTB Last administered on 11/15/18at 09:23; Admin Dose 10 MG; Start 11/08/18 at 09:00 Metoprolol Tartrate (Lopressor) 25 mg BID GTB Last administered on 11/14/18 21:21; Admin Dose 25 MG; Start 11/07/18 at 21:00 Sodium Biphosphate/ Sodium Phosphate (Fleet Enema) 133 ml PRN PRN [place] CONSTIPATION; Start 11/07/18 at 16:30 Valproate Sodium (Depakene Liquid Cup) 125 mg QID GTB Last administered on 11/15/18at 21:34; Admin Dose 125 MG; Start 11/07/18 at 17:00 Zinc Sulfate (Zinc Sulfate) 220 mg DAILY GTB Last administered on 11/15/18at 09:23; Admin Dose 220 MG; Start 11/08/18 at 09:00 Diagnostic Test (Pha) (Accu-Chek) 1 ea AC MEALS AND BEDTIME XX Last administer ed on 11/16/18at 06:12; Admin Dose 1 EA; Start 11/07/18 at 17:30 Miscellaneous Information 1 ea NOTE XX ; Start 11/07/18 at 19:00 Glucose (Glutose) 15 gm Q15M PRN PO DECREASED GLUCOSE; Start 11/07/18 at 19:00 Glucose (Glutose) 22.5 gm Q15M PRN PO DECREASED GLUCOSE; Start 11/07/18 at 19:00 Dextrose (D50w Syringe) 25 ml Q15M PRN IV DECREASED GLUCOSE Last administered on 11/16/18at 09:07; Admin Dose 25 ML; Start 11/07/18 at 19:00 Dextrose (D50w Syringe) 50 ml Q15M PRN IV DECREASED GLUCOSE; Start 11/07/18 at 19:00 Glucagon (Glucagen) 1 mg Q15M PRN IM DECREASED GLUCOSE; Start 11/07/18 at 19:00 Glucose (Glutose) 15 gm Q15M PRN BUCCAL DECREASED GLUCOSE; Start 11/07/18 at 19:00 Multivitamins/ Minerals (Theragran-M) 1 tab DAILY GTB Last administered on 11/15/18at 09:22; Admin Dose 1 TAB; Start 11/08/18 at 09:00 Diagnostic Test (Pha) (Accu-Chek) 1 ea 02 XX Last administered on 11/16/18at 02:29; Admin Dose 1 EA; Start 11/09/18 at 02:00 Metolazone (Zaroxolyn) 5 mg DAILY@0600 PO Last administered on 11/09/18at 05:14; Admin Dose 5 MG; Start 11/08/18 at 08:30; Status Hold Aspirin (Aspirin) 81 mg DAILY NGT Last administered on 11/15/18 09:23; Admin Dose 81 MG; Start 11/08/18 at 13:30; Status Hold Atorvastatin Calcium (Lipitor) 20 mg HS PO Last administered on 11/15/18 21:35; Admin Dose 20 MG; Start 11/08/18 at 21:00 Spironolactone (Aldactone) 50 mg DAILY NGT Last administered on 11/15/18 09:23; Admin Dose 50 MG; Start 11/11/18 at 09:00 Collagenase (Santyl) 1 applic BID TOP Last administered on 11/15/18 21:38; Admin Dose 1 APPLIC; Start 11/10/18 at 17:30 Levetiracetam (Keppra Liquid) 500 mg BID GTB Last administered on 11/15/18 21:34; Admin Dose 500 MG; Start 11/11/18 at 09:00 Insulin Aspart (Novolog Insulin Pen) NOVOLOG *MILD* ALGORI... Q4 SC Last administered on 11/15/18 06:29; Admin Dose 2 UNIT; Start 11/12/18 at 21:00 Acetazolamide (Diamox) 500 mg BID IV ; Start 11/14/18 at 09:00; Status Hold Docusate Sodium (Colace Liquid Cup) 100 mg DAILY PO ; Start 11/15/18 at 09:00 Pantoprazole (Protonix Iv) 40 mg BID@06,18 IV Last administered on 11/16/18 06:50; Admin Dose 40 MG; Start 11/15/18 at 11:30 Dextrose/Sodium Chloride 1,000 ml @ 75 mls/hr [id number] IV Last administered on 11/16/18 09:49; Admin Dose 75 MLS/HR; Start 11/15/18 at 18:00 Insulin Glargine (Lantus) 15 units QHS SC Last administered on 11/15/18 23:05; Admin Dose 15 UNITS; Start 11/15/18 at 23:00 Epoetin Giles (Epogen (Esrd)) 8,000 units TuThSa@17 SC ; Start 11/16/18 at 17:00 RAMSEY VERDE NP Nov 16, 2018 12:29
[2018-11-16] MEDS: DOCUSATE SODIUM 10 MG/ML (10ML CUP) PO SCH (12:44)
[2018-11-16] MEDS: FAMOTIDINE 20 MG TAB GTB SCH (12:47)
[2018-11-16] MEDS: MULTIVITAMINS/MINERALS TAB GTB SCH (12:48)
[2018-11-16] MEDS: ASCORBIC ACID 500 MG TAB GTB SCH ×2 (12:48→21:26)
[2018-11-16] MEDS: ZINC SULFATE 220 MG CAP GTB SCH (12:49)
[2018-11-16] MEDS: LEVETIRACETAM (100 MG/ML) 5ML CUP GTB SCH ×2 (12:49→21:25)
[2018-11-16] MEDS: SPIRONOLACTONE 50 MG TAB NGT SCH (12:49)
[2018-11-16] MEDS: MEMANTINE 10 MG TAB GTB SCH (12:49)
[2018-11-16] MEDS: LINAGLIPTIN 5 MG TABLET GTB SCH (12:49)
--- NOTE | 2018-11-16 13:39 | PAC ---
Date/Time of Note Date/Time of Note DATE: 11/16/18 TIME: 13:39 Post-Anesthesia Notes Post-Anesthesia Note Last documented vital signs Vital Signs Date Temp Pulse Resp B/P (MAP) Pulse Ox O2 O2 Flow FiO2 Time Delivery Rate 11/16/18 85 12:47 11/16/18 97.6 87 18 95/54 (68) 100 Mechanical 11:45 Ventilator 11/16/18 30 11:27 Activity: WNL Respiratory function: WNL Cardiovascular function: WNL Mental status: Baseline Pain reasonably controlled: Yes Hydration appropriate: Yes Nausea/Vomiting absent: No EFFIE SUAREZ MD Nov 16, 2018 13:39
--- NOTE | 2018-11-16 15:37 | CONS ---
Date/Time of Note Date/Time of Note DATE: 11/16/18 TIME: 15:35 Assessment/Plan Assessment/Plan Assessment/Plan Acute decompensated systolic and diastolic congestive heart failure Acute kidney injury Chronic respiratory failure, vent dependent Aortic stenosis Cardiomyopathy History of chronic kidney disease Encephalopathy Paroxysmal atrial fibrillation/flutter Pleural effusion status post thoracentesis Hypotension -Blood pressure trend overall better, diuretics as per nephrology. On beta- paolo for atrial fibrillation but holding parameters for hypotension. Result Diagram: 11/16/18 0658 11/16/18 0658 Results 24hrs Laboratory Tests Test 11/15/18 17:01 11/15/18 21:37 11/15/18 22:25 11/15/18 22:41 Bedside Glucose 80 67 L 63 L 138 Test 11/15/18 23:07 11/16/18 02:25 11/16/18 04:47 11/16/18 05:44 Bedside Glucose 105 87 90 Sodium Level 139 Potassium Level 3.9 Chloride Level 93 L Carbon Dioxide Level 35 H Anion Gap 11 Blood Urea Nitrogen 132 H Creatinine 1.35 H Est Glomerular Filtrat Rate mL/min Glucose Level 85 # Calcium Level 8.1 L Phosphorus Level 4.4 Magnesium Level 2.7 H Test 11/16/18 06:58 11/16/18 09:03 11/16/18 09:30 11/16/18 09:37 White Blood Count 4.7 L Red Blood Count 2.68 L Hemoglobin 7.9 L Hematocrit 27.8 L Mean Corpuscular 103.7 H Volume Mean Corpuscular 29.5 Hemoglobin Mean Corpuscular 28.4 L Hemoglobin Concent Red Cell 17.7 H Distribution Width Platelet Count 140 Mean Platelet Volume 12.3 H Immature 0.400 Granulocytes % Neutrophils % 72.5 Lymphocytes % 15.9 Monocytes % 11.0 Eosinophils % 0.2 Basophils % 0.0 Nucleated Red Blood 0.0 Cells % Immature 0.020 Granulocytes # Neutrophils # 3.4 Lymphocytes # 0.8 Monocytes # 0.5 Eosinophils # 0.0 Basophils # 0.0 Nucleated Red Blood 0.0 Cells # Prothrombin Time 17.3 H Prothrombin Time 1.4 Ratio INR International 1.40 Normalized Ratio Sodium Level 139 Potassium Level 4.1 Chloride Level 94 L Carbon Dioxide Level 36 H Anion Gap 9 Blood Urea Nitrogen 130 H Creatinine 1.40 H Est Glomerular Filtrat Rate mL/min Glucose Level 99 Calcium Level 8.2 L Total Bilirubin 0.3 Direct Bilirubin 0.00 Indirect Bilirubin 0.3 Aspartate Amino 58 H Transf (AST/SGOT) Alanine 32 Aminotransferase (AL T/SGPT) Alkaline Phosphatase 148 H Total Protein 7.8 Albumin 2.7 L Globulin 5.10 H Albumin/Globulin 0.52 Ratio Bedside Glucose 61 L 126 Iron Level 33 L Total Iron Binding 239 L Capacity Percent Iron 14 L Saturation Hepatitis B Surface Pending Antigen Hepatitis B Core Pending Total Antibody Hepatitis C Antibody Pending Test 11/16/18 09:45 11/16/18 13:12 Bedside Glucose 126 143 Consultation Date/Type/Reason Admit Date/Time Nov 07, 2018 at 16:07 Initial Consult Date Type of Consult cv 24 HR Interval Summary Free Text/Dictation Patient seen and examined, no new cardiac issues as per nursing staff Subjective hx not possible: pt non-verbal Exam/Review of Systems Vital Signs Vitals Vital Signs Date Temp Pulse Resp B/P (MAP) Pulse Ox O2 O2 Flow FiO2 Time Delivery Rate 11/16/18 85 12:47 11/16/18 97.6 18 95/54 (68) 100 Mechanical 11:45 Ventilator 11/16/18 30 11:27 Intake and Output 11/15/18 11/15/18 11/16/18 1414:59 22:59 06:59 IntakeIntake Total 1480 ml OutputOutput Total 600 ml 450 ml BalanceBalance 880 ml -450 ml Exam No apparent distress Constitutional: non-verbal, frail Head: normocephalic Respiratory: other (Coarse breath sounds bilaterally, no wheezing) Cardiovascular: irregular rhythm, systolic murmur Gastrointestinal: soft, non-tender, bowel sounds Extremities: edema (Trace) Medications Medications Current Medications Acetaminophen (Tylenol Tab) 1,000 mg Q4H PRN PO MODERATE PAIN LEVEL 4-6; Start 11/07/18 at 16:30 Acetaminophen (Tylenol Tab) 650 mg Q4H PRN GTB MILD PAIN LEVEL 1-3; Start 11/07/18 at 16:30 Albuterol (Proventil 0.083% (Neb)) 2.5 mg Q6H RESP THERAPY PRN NEB WHEEZING AND SOB; Start 11/07/18 at 16:30 Ascorbic Acid (Vitamin C) 500 mg BID GTB Last administered on 11/16/18at 12:48; Admin Dose 500 MG; Start 11/07/18 at 21:00 Bisacodyl (Dulcolax Supp) 10 mg PRN PRN [place] CONSTIPATION; Start 11/07/18 at 16:30 Carbidopa/Levodopa (Sinemet (25/ 100)) 1 tab TID GTB Last administered on 11/16/18at 12:50; Admin Dose 1 TAB; Start 11/07/18 at 21:00 Chlorhexidine Gluconate (Peridex) 15 ml Q12 MM Last administered on 11/16/18at 09:07; Admin Dose 15 ML; Start 11/07/18 at 21:00 Famotidine (Pepcid) 20 mg DAILY GTB Last administered on 11/16/18 12:47; Admin Dose 20 MG; Start 11/08/18 at 09:00 Hydralazine HCl (Apresoline) 20 mg Q6 PRN GTB ELEVATED BLOOD PRESSURE; Start 11/07/18 at 16:30 Linagliptin (Tradjenta) 5 mg DAILY GTB Last administered on 11/16/18 12:49; Admin Dose 5 MG; Start 11/08/18 at 09:00 Memantine (Namenda) 10 mg DAILY GTB Last administered on 11/16/18 12:49; Admin Dose 10 MG; Start 11/08/18 at 09:00 Metoprolol Tartrate (Lopressor) 25 mg BID GTB Last administered on 11/14/18at 21:21; Admin Dose 25 MG; Start 11/07/18 at 21:00 Sodium Biphosphate/ Sodium Phosphate (Fleet Enema) 133 ml PRN PRN [place] CONSTIPATION; Start 11/07/18 at 16:30 Valproate Sodium (Depakene Liquid Cup) 125 mg QID GTB Last administered on 11/16/18 12:45; Admin Dose 125 MG; Start 11/07/18 at 17:00 Zinc Sulfate (Zinc Sulfate) 220 mg DAILY GTB Last administered on 11/16/18 12:49; Admin Dose 220 MG; Start 11/08/18 at 09:00 Diagnostic Test (Pha) (Accu-Chek) 1 ea AC MEALS AND BEDTIME XX Last administered on 11/16/18at 06:12; Admin Dose 1 EA; Start 11/07/18 at 17:30 Miscellaneous Information 1 ea NOTE XX ; Start 11/07/18 at 19:00 Glucose (Glutose) 15 gm Q15M PRN PO DECREASED GLUCOSE; Start 11/07/18 at 19:00 Glucose (Glutose) 22.5 gm Q15M PRN PO DECREASED GLUCOSE; Start 11/07/18 at 19:00 Dextrose (D50w Syringe) 25 ml Q15M PRN IV DECREASED GLUCOSE Last administered on 11/16/18at 09:07; Admin Dose 25 ML; Start 11/07/18 at 19:00 Dextrose (D50w Syringe) 50 ml Q15M PRN IV DECREASED GLUCOSE; Start 11/07/18 at 19:00 Glucagon (Glucagen) 1 mg Q15M PRN IM DECREASED GLUCOSE; Start 11/07/18 at 19:00 Glucose (Glutose) 15 gm Q15M PRN BUCCAL DECREASED GLUCOSE; Start 11/07/18 at 19:00 Multivitamins/ Minerals (Theragran-M) 1 tab DAILY GTB Last administered on at 12:48; Admin Dose 1 TAB; Start 11/08/18 at 09:00 Diagnostic Test (Pha) (Accu-Chek) 1 ea 02 XX Last administered on 11/16/18at 02:29; Admin Dose 1 EA; Start 11/09/18 at 02:00 Metolazone (Zaroxolyn) 5 mg DAILY@0600 PO Last administered on 11/09/18at 05:14; Admin Dose 5 MG; Start 11/08/18 at 08:30; Status Hold Aspirin (Aspirin) 81 mg DAILY NGT Last administered on 11/15/18at 09:23; Admin Dose 81 MG; Start 11/08/18 at 13:30; Status Hold Atorvastatin Calcium (Lipitor) 20 mg HS PO Last administered on 11/15/18at 21:35; Admin Dose 20 MG; Start 11/08/18 at 21:00 Spironolactone (Aldactone) 50 mg DAILY NGT Last administered on 11/16/18at 12:49; Admin Dose 50 MG; Start 11/11/18 at 09:00 Collagenase (Santyl) 1 applic BID TOP Last administered on 11/15/18at 21:38; Admin Dose 1 APPLIC; Start 11/10/18 at 17:30 Levetiracetam (Keppra Liquid) 500 mg BID GTB Last administered on 11/16/18at 12:49; Admin Dose 500 MG; Start 11/11/18 at 09:00 Insulin Aspart (Novolog Insulin Pen) NOVOLOG *MILD* ALGORI... Q4 SC Last administered on 11/15/18at 06:29; Admin Dose 2 UNIT; Start 11/12/18 at 21:00 Acetazolamide (Diamox) 500 mg BID IV ; Start 11/14/18 at 09:00; Status Hold Docusate Sodium (Colace Liquid Cup) 100 mg DAILY PO Last administered on 11/16/18at 12:44; Admin Dose 100 MG; Start 11/15/18 at 09:00 Insulin Glargine (Lantus) 15 units QHS SC Last administered on 11/15/18at 23:05; Admin Dose 15 UNITS; Start 11/15/18 at 23:00 Epoetin Giles (Epogen (Esrd)) 8,000 units TuThSa@17 SC ; Start 11/16/18 at 17:00 Ferric Sodium Gluconate Complex 125 mg/Sodium Chloride 110 ml @ 110 mls/hr DAILY@1300 IVPB ; Start 11/17/18 at 13:00; Stop 11/21/18 at 13:59 Pantoprazole (Protonix Iv) 40 mg DAILY IV ; Start 11/17/18 at 09:00 Rudi Freeman DO Nov 16, 2018 15:37
[2018-11-16] MEDS ORDERED: EPOETIN 4000 UNITS/1 ML INJ (ESRD) SC SCH (17:00)
[2018-11-16] MEDS: COLLAGENASE 5 GM (UD JAR) TOP SCH ×2 (17:49→21:26)
[2018-11-16] MEDS: ATORVASTATIN 20 MG TAB PO SCH (21:26)
[2018-11-16] MEDS: INSULIN GLARGINE [LANTus] (100 UNITS/ML) SYG SC SCH (21:42)
[2018-11-17] MEDS ORDERED: PANTOPRAZOLE 40 MG INJ IV SCH (09:00)
[2018-11-17] MEDS ORDERED: SOD FERRIC GLUC COMPLX 125 MG in SOD CHLORIDE 0.9% 100 ML IVPB SCH (13:00)
--- NOTE | 2018-11-29 18:07 | DS ---
DATE OF ADMISSION: 11/07/2018 DATE OF DISCHARGE: 11/16/2018 HOSPITAL COURSE: This is an 83-year-old with a past medical history of ventilatory dependent respira tory failure, history of chronic encephalopathy, history of Parkinson's dementia, history of CKD, aor tic stenosis, depression, coronary artery disease, who was admitted to [facility] f or evaluation of acute kidney injury. The patient had previous admissions to [facility] for similar presentation. On this admission, the patient was noted to . The patient was also noted to be in florid heart failure. In terms of the patient's acute heart failure, the patient was placed on diuretic therapy, was seen by utilization management rn, Dr. Freeman. The patient was also noted to be in cardiorenal syndrome, so diuretics were adjusted daily. The patient eventually became more eu volemic, although did not have significant improvement in renal function. The patient also was evalu ated by multimedia author for vent management. The patient also had sepsis during the hospital course an d he is on IV antibiotics. The patient's other chronic medical problems including diabetes, Parkinso n's, encephalopathy, seizure disorder, aortic stenosis were stable. The patient was eventually trans ferred to [facility] for continued care and diuretic therapy and IV antibiotics. At t yessy of transfer, the patient was stable, in no acute distress. Please also note the patient had epis ode of GI bleed and was seen by gastroenterology with EGD performed that showed no evidence of peptic ulcer disease. FINAL DIAGNOSES: 1. Acute on chronic heart failure. 2. Acute gastrointestinal bleed. 3. Nonoliguric acute kidney injury. 4. Chronic kidney disease. 5. Cardiorenal syndrome. 6. Metabolic acidemia. 7. Sepsis. 8. Ventilatory dependent respiratory failure. 9. Bilateral pleural effusion. 10. Mineral bone disorder. 11. Dysphagia. 12. Sinus arrhythmia. 13. Diabetes. 14. Seizure disorder. 15. Aortic stenosis. Please note at time of transfer, the patient is stable, in no acute distress. FINAL MEDICATIONS: See reconciliation list. Dictated By: ROB LEMUS DO NR/NTS Conf#: [id number] DID#: [id number] CC: JASON FREEMAN DO;*EndCC*
== END 2018-11-16 22:06 | DRG 870 ==
LOC: E/R 14:17 → 6WM 16:07 → EDBEDREQ 16:22 → 6WM 11-11 07:43
PROVIDERS: ADMIT Internal Medicine; ATTEND Internal Medicine
PROC: 5A1955Z Respiratory Ventilation, Greater than 96 Consecutive Hours (ICD-10-PCS; principal; 2018-11-07)
PROC: 0W993ZZ Drainage of Right Pleural Cavity, Percutaneous Approach (ICD-10-PCS; 2018-11-10)
PROC: 0DJ08ZZ Inspection of Upper Intestinal Tract, Via Natural or Artificial Opening Endoscopic (ICD-10-PCS; 2018-11-16)
DX: A41.9 Sepsis, unspecified organism (principal); J69.0 Pneumonitis due to inhalation of food and vomit; G92 Toxic encephalopathy; I50.43 Acute on chronic combined systolic (congestive) and diastolic (congestive) heart failure; J96.21 Acute and chronic respiratory failure with hypoxia; I21.A1 Myocardial infarction type 2; N39.0 Urinary tract infection, site not specified; N17.9 Acute kidney failure, unspecified; I13.0 Hypertensive heart and chronic kidney disease with heart failure and stage 1 through stage 4 chronic kidney disease, or unspecified chronic kidney disease; N18.4 Chronic kidney disease, stage 4 (severe); E87.3 Alkalosis; J90 Pleural effusion, not elsewhere classified; Z99.11 Dependence on respirator [ventilator] status; K92.2 Gastrointestinal hemorrhage, unspecified; E11.22 Type 2 diabetes mellitus with diabetic chronic kidney disease; K29.00 Acute gastritis without bleeding; Z93.0 Tracheostomy status; G20 Parkinson's disease; Z93.1 Gastrostomy status; G40.909 Epilepsy, unspecified, not intractable, without status epilepticus; E86.0 Dehydration; I35.0 Nonrheumatic aortic (valve) stenosis; B96.4 Proteus (mirabilis) (morganii) as the cause of diseases classified elsewhere; E87.6 Hypokalemia; D64.9 Anemia, unspecified; R13.10 Dysphagia, unspecified; I48.0 Paroxysmal atrial fibrillation
CPT/HCPCS: 36415; 36600; 71045; 76604; 76700; 76942; 80048; 80053; 80076; 81001; 81003; 82043; 82728; 82803; 82962; 83540; 83605; 83690; 83735; 84100; 84132; 84145; 84155; 84300; 84484; 85025; 85610; 86704; 86709; 86803; 87040; 87086; 87340; 88305; 88312; 93005; 93306; 94002; 94003; 96360; C9113; J0692; J1120; J1644; J1815; J1940; J2597; J3480; J7030; J7040; J7042; J7120; Q4081